=== PATIENT | female | born 1945 | race Caucasian/White ===

== ENCOUNTER 2018-01-23 15:57 | Inpatient (IN) | payer MEDICARE, SELFPAY ==
[2018-01-23] VITALS (9 sets, daily range): BP systolic 94–139; BP diastolic 39–83; PULSE 71–96; RESP 15–17; TEMP 36.7–37.4; O2SAT 96–100; BMI 21.4; BMI 19.3; BMI 21.5
--- NOTE | 2018-01-23 16:34 | EKG12_ITS ---
Test Reason : GI BLEED Blood Pressure : / mmHG Vent. Rate : 078 BPM Atrial Rate : 078 BPM P-R Int : 138 ms QRS Dur : 092 ms QT Int : 382 ms P-R-T Axes : 046 048 030 degrees QTc Int : 435 ms Normal sinus rhythm Normal ECG Confirmed by LISA BERKOWITZ, SYL ([id number]), purchase request editor EVE GERMAIN ([id number]) on 01/25/2018 2:48:12 PM Referred By: CAYLA Confirmed By:SYL GONZALEZ MD
[2018-01-23 16:48] LABS: Absolute Lymphocyte Count 0.95 X10^3/ul (0.83-4.51); Basophil# 0.01 X10^3/uL; Basophil% 0.2 % (0-1); Eosinophil# 0.04 X10^3/uL; Eosinophils% 0.6 % (0-5); Lymphocyte # 0.95 X10^3/ul (4.0); Lymphocyte % 14.4 % (19-41); Mean Corpuscular Volume 93.5 fL (81-99); Mean Platelet Vol. 10.2 fl (6.2-12.0); Monocyte# 0.58 X10^3/uL; Monocyte% 8.8 % (0-10); Neutrophil % 75.8 % (47-70); POSITIVE COUNT NO; POSITIVE DIFFERENTIAL NO; POSITIVE MORPHOLOGY NO; Platelet Count 351 K/mm3 (150-450); RBC Distribution Width CV 15.6 % (11.6-14.6); RBC Distribution Width SD 53.6 fl (35.1-43.9); Red Blood Count 2.14 M/mm3 (4.2-5.4); White Blood Count 6.6 K/mm3 (4.4-11.0)
[2018-01-23 16:52] LABS: Partial Thromboplast Time 24.7 Seconds (24.1-36.2); Prothrombin Time (Protime)PT. 13.3 SECONDS (11.7-14.9)
[2018-01-23 17:02] LABS: ALB/GLOB Ratio 1.1 RATIO (0.9-2.4); AST(SGOT) 17 U/L (15-37); Alanine Aminotransfer ALT/SGPT 18 U/L (13-56); Albumin, Serum 3.4 g/dL (3.2-5.0); Alkaline Phosphatase 58 U/L (45-117); Anion Gap 7 (5-15); BUN 22 mg/dL (7-18); Calcium,Total 8.5 mg/dL (8.5-10.1); Chloride 105 mmol/L (98-107); Creatinine, Serum 0.88 mg/dL (0.55-1.02); EST Glomerular Filtration Rate 67 mL/min (>60); Est Glom Filt Rate - Afr Amer 81 mL/min (>60); Estimated Creatinine Clearance 46.38 ml/min; Globulin 3.2 g/dL (2.2-4.2); Glucose 95 mg/dL (74-106); Lipase 434 U/L (73-393); Potassium 4.1 mmol/L (3.5-5.1); Protein, Total 6.6 g/dL (6.4-8.2); Sodium Level 140 mmol/L (136-145)
--- NOTE | 2018-01-23 17:59 | PCM.HP.STD ---
History of Present Illness Date of Admission: 01/23/18 Chief Complaint: Rectal bleed, low hemoglobin The patient is a 72 year old F past medical history of endometrial and cervical cancer in remission since 2016, history of diverticular gastrointestinal bleed who presented to the emergency room with red blood and black tarry stools on and off for the past 3 weeks. She reports abdominal pain and back pain. She denies any nausea, vomiting all hematemesis. She saw the primary care doctor and she was noted to be pale and weak, she was sent to the emergency room for further evaluation. Her hemoglobin is noted to be 6. The patient was also admitted here in November of this year with similar presentation of red blood and black tarry stools and underwent colonoscopy with clip applied to control diverticular bleeding, epinephrine injection for bleeding, mucosal biopsies for irregular mucosa. The patient reports that the bleeding stopped after the procedure but it has started again in the past 3 weeks. Past Medical History Past Medical History (Chronic Problems): Chronic Problems Inanition (Chronic) Weight loss, unintentional (Chronic) Leukopenia (Chronic) Cervical cancer (Chronic) Endometrial cancer (Chronic) Allergies acetaminophen [From Percocet] Allergy (Verified 01/23/18 15:58) Other ibuprofen [From Motrin] Allergy (Verified 01/23/18 15:58) Unknown omega-3 acid ethyl esters Allergy (Verified 01/23/18 15:58) Unknown oxycodone Allergy (Verified 01/23/18 15:58) Unknown oxycodone HCl [From Percocet] Allergy (Verified 01/23/18 15:58) Other Penicillins Allergy (Verified 01/23/18 15:58) Unknown Home Medications: Ambulatory Orders Medication Instructions Recorded Ensure Enlive 120 ml PO 4X/DAY #1 box 07/30/16 Hydrocodone/Acetaminophen [[place] 1 each PO Q6H PRN PRN 01/23/18 5-325 Tablet] Surgical History: appendectomy, tonsillectomy, - 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 Pt really does not know much about her FH. Review of Systems Comment: All Systems were reviewed with pertinent positives mentioned in the HPI above. VTE Information - Inpt Only VTE Present on Admission: Yes VTE Mechan Device Prophylaxis: SCD's VTE Pharm Prophylaxis ordered?: No - Physical Exam General: Alert, Oriented x3 HEENT: Atraumatic Oral: Moist Mucosa Neck: Supple, No JVD Lungs: Clear to auscultation Cardiovascular: Regular rate, Normal S1, Normal S2 Abdomen: Bowel Sounds Present, Soft, Non Tender, Non-Distended, Tender Extremities: No clubbing Neurological: Cranial nerves II-XII grossly intact, Motor Exam 5/5 strength throughout Psych/Mental Status: Normal Affect Vital Signs Temp Pulse Resp BP Pulse Ox 98.0 F 77 15 64/62 L 100 01/23/18 15:58 01/23/18 17:50 01/23/18 17:50 01/23/18 17:50 01/23/18 17:50 Assessment/Plan 1. Acute blood loss anemia likely diverticular bleed, we will will transfuse with packed RBCs. 2. Gastrointestinal bleeding; likely diverticular bleed, Dr. Wylie was consulted from the emergency room physician. The patient would likely undergo colonoscopy in AM, she will be kept n.p.o. after midnight 3. History of Endometrial and cervical cancer - in remission since 2016 s/p chemo and radiation. He is complaining of significant abdominal and back pain and would obtain CT scan of the abdomen and pelvis. 4. Chronic pain syndrome; we will resume her home analgesia. 5. DVT prophylaxis with SCDs. Code Visit Inpatient E&M: 75304 Init Hosp L3
--- NOTE | 2018-01-23 18:02 | HP.PCM_ITS ---
History of Present Illness Date of Admission: 01/23/18 Chief Complaint: Rectal bleed, low hemoglobin The patient is a 72 year old F past medical history of endometrial and cervical cancer in remission since 2016, history of diverticular gastrointestinal bleed who presented to the emergency room with red blood and black tarry stools on and off for the past 3 weeks. She reports abdominal pain and back pain. She denies any nausea, vomiting all hematemesis. She saw the primary care doctor and she was noted to be pale and weak, she was sent to the emergency room for further evaluation. Her hemoglobin is noted to be 6. The patient was also admitted here in November of this year with similar presentation of red blood and black tarry stools and underwent colonoscopy with clip applied to control diverticular bleeding, epinephrine injection for bleeding, mucosal biopsies for irregular mucosa. The patient reports that the bleeding stopped after the procedure but it has started again in the past 3 weeks. Past Medical History Past Medical History (Chronic Problems): Chronic Problems Inanition (Chronic) Weight loss, unintentional (Chronic) Leukopenia (Chronic) Cervical cancer (Chronic) Endometrial cancer (Chronic) Allergies acetaminophen [From Percocet] Allergy (Verified 01/23/18 15:58) Other ibuprofen [From Motrin] Allergy (Verified 01/23/18 15:58) Unknown omega-3 acid ethyl esters Allergy (Verified 01/23/18 15:58) Unknown oxycodone Allergy (Verified 01/23/18 15:58) Unknown oxycodone HCl [From Percocet] Allergy (Verified 01/23/18 15:58) Other Penicillins Allergy (Verified 01/23/18 15:58) Unknown Home Medications: Ambulatory Orders Medication Instructions Recorded Ensure Enlive 120 ml PO 4X/DAY #1 box 07/30/16 Hydrocodone/Acetaminophen [[place] 1 each PO Q6H PRN PRN 01/23/18 5-325 Tablet] Surgical History: appendectomy, tonsillectomy, - 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 Pt really does not know much about her FH. Review of Systems Comment: All Systems were reviewed with pertinent positives mentioned in the HPI above. VTE Information - Inpt Only VTE Present on Admission: Yes VTE Mechan Device Prophylaxis: SCD's VTE Pharm Prophylaxis ordered?: No - Physical Exam General: Alert, Oriented x3 HEENT: Atraumatic Oral: Moist Mucosa Neck: Supple, No JVD Lungs: Clear to auscultation Cardiovascular: Regular rate, Normal S1, Normal S2 Abdomen: Bowel Sounds Present, Soft, Non Tender, Non-Distended, Tender Extremities: No clubbing Neurological: Cranial nerves II-XII grossly intact, Motor Exam 5/5 strength throughout Psych/Mental Status: Normal Affect Vital Signs Temp Pulse Resp BP Pulse Ox 98.0 F 77 15 64/62 L 100 01/23/18 15:58 01/23/18 17:50 01/23/18 17:50 01/23/18 17:50 01/23/18 17:50 Assessment/Plan 1. Acute blood loss anemia likely diverticular bleed, we will will transfuse with packed RBCs. 2. Gastrointestinal bleeding; likely diverticular bleed, Dr. Wylie was consulted from the emergency room physician. The patient would likely undergo colonoscopy in AM, she will be kept n.p.o. after midnight 3. History of Endometrial and cervical cancer - in remission since 2016 s/p chemo and radiation. He is complaining of significant abdominal and back pain and would obtain CT scan of the abdomen and pelvis. 4. Chronic pain syndrome; we will resume her home analgesia. 5. DVT prophylaxis with SCDs. Code Visit Inpatient E&M: 77089 Init Hosp L3
[2018-01-23] MEDS: Electrolyte Solution/Peg's 4000 ML PO (20:59)
--- NOTE | 2018-01-23 21:15 | NURSING ---
Spoke with pharmacy they are trying to clarify patient home med rec of [place] - patient to be clears and NPO for colonoscopy with MD Wylie tomorrow at 11am. Md Arcos notified of patients pain and ordered Tylenol Recal 500mg q6hprn. Informed patient would be receiving Golytely. MD continued with order. Patient refused medication and also informed that patient has a mild allergy to tylenol/acetaminophen. Patient refusing medication - MD Arcos still on the phone with another RN - informed MD that the patient had refused the medication due to the Golytely and prior to being able to express the allergy the MD stated,Ok. Thats all. and hung up the phone. Will follow-up with an arch page if MD has not put in an alternative order for pain.
[2018-01-23 23:03] LABS: Hematocrit 18.3 % (37-47)
[2018-01-23 23:05] LABS: Hemoglobin 5.4 g/dl (12.0-15.0)
--- NOTE | 2018-01-23 23:05 | ED.DCSUM_ITS ---
- ER Visit Summary Date of Service: 01/23/18 Chief Complaint: Blood in stool History of Present Illness: The patient is a 72 F who states that for the past 5 or 6 days she has had bright red blood to dark blood in her stool. She states that she normally has a bowel movement in the morning however as the day goes on she notes continued drainage from the rectum into a pad. She was admitted to the hospital in November and had bleeding diverticula. She was scoped by Dr. Wylie. Last hemoglobin 8.6 on December 24. She was seen in her doctor's office today and sent to the emergency department. Patient denies any syncope. No palpitations. She denies being on blood thinners. Physical Examination: Afebrile vital signs are stable Gen: Well-nourished well-developed Head: Normocephalic atraumatic Eyes: Perrl EOMI conjunctiva ENT: TMs clear no rhinorrhea moist mucous membranes Neck: Supple no lymphadenopathy no JVD nontender CVS: Regular rate rhythm no murmurs normal S1-S2 Respiratory: No distress clear to auscultation bilaterally chest nontender Abdomen: Soft nontender nondistended normal bowel sounds no masses Back: Nontender Rectal: There is gross blood on digital rectal exam. No stool in the vault. Extremity: Nontender no edema Skin: Parlor no rash Neuro: alert orientated ?3 CN II-XII intact normal strength sensation reflexes gait cerebellar Psych: Normal affect normal mood Test Results: Hemoglobin at 6. Troponin negative. Coags normal. EKG sinus at a rate of 78. Patient was typed and screened Emergency Department Course and Treatment: Spoke with Dr. Wylie who is happy to consult on the patient and will try to get her arranged for colonoscopy in the morning. Patient will be admitted to the medicine service. And agrees to transfusion and hospitalization Impression: 1. Lower GI bleed -suspect diverticular bleed 2. Anemia requiring transfusion This note was generated with [employer] dictation software. It may contain incorrect words, spelling, and punctuation that were not noted in review of the chart prior to signing ED Disposition - Plan for ED Patient: Disposition: Acute Care [facility] Chief Complaint: GI Bleed
[2018-01-23] MEDS: Morphine 2 MG/ML Syringe 1 MG IV (23:07)
[2018-01-23] MEDS: 0.9% NaCl Peripheral Flush Adult/Peds IV (23:07)
[2018-01-24] VITALS (23 sets, daily range): BP systolic 100–130; BP diastolic 39–56; PULSE 62–84; RESP 16; TEMP 36.7–37.3; O2SAT 94–100; BMI 19.3
--- NOTE | 2018-01-24 | COLBX_PTH ---
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 Michael Chaidez MD : 1945 BED: 1 DIS: 01/26/2018 SPEC #: [id number] RECD: 01/24/18 13:47 STATUS: NIRAJ REGenet #: [id number] KASI: 01/24/18 00:[address]: Eve Wylie DEPT: SURGICAL PATHOLOGY RECD BY: Jamie Subramanian ENTERED: 01/24/18 13:47 SP TYPE: COLON BX OTHR DR: MD Hector Marie MD Dr. Mark Elderbrock, MD Tissues: Sigmoid colon biopsy Procedures: Surgery Specimen Level IV Comments: @ Ordering doctor for SUIV edited from to @ by GOSIA at 01/24/18 155 @ Submitting doctor edited from to DR.LWANG Kuo by YANCYOD at 01/24/18 1552 HEADER OPERATION: Colonoscopy with biopsy PRE-OP DIAGNOSIS: Rectal bleed TISSUE SUBMITTED: Sigmoid rectal junction biopsy MICROSCOPIC DIAGNOSIS Sigmoid rectal junction biopsy: Fragments of colonic mucosa with focally dilated blood vessels, fibrosis of lamina propria and mild nonspecific chronic inflammation. Negative for malignancy. SUZAN:amanda 01/25/18 COMMENT Correlation with clinical, endoscopic findings and appropriate follow up are necessary. Case has been reviewed in consultation with Dr. Dumont who concurs with the above diagnosis. IDC:AM MICROSCOPIC DESCRIPTION Slides are reviewed. GROSS DESCRIPTION Received in fixative is one container labeled with the patient's name and designated sigmoid rectal junction biopsy. The specimen consists of multiple irregular fragments of light [place] soft tissue that in aggregate measure 1.5 x 0.3 x 0.1 cm. The specimen is totally submitted in one cassette. / SUZAN:amanda 01/24/18 TC:5 CPT: 81133
--- NOTE | 2018-01-24 00:07 | NURSING ---
first unit of PRBC started at 2351 - consent signed, vitals obtained, verified with second nurse. Pt educated on need and side-effects of blood. PT denies any further questions. Pt tolerating well - no side-effects.
--- NOTE | 2018-01-24 02:20 | NURSING ---
Patient blood transfusion unit 1 ended at 0211 - patient had no side-effects and tolerated the transfusion.
--- NOTE | 2018-01-24 03:41 | NURSING ---
second unit of PRBC started at 0326 - consent signed, vitals obtained, verified with second nurse Zulema GARCIA. Pt educated on need and side-effects of blood. PT denies any further questions. Pt tolerating well - no side-effects.
--- NOTE | 2018-01-24 05:50 | NURSING ---
Patient blood transfusion unit 2 ended at 0550 - patient had no side-effects and tolerated the transfusion.
[2018-01-24] MEDS: 0.9% NaCl Peripheral Flush Adult/Peds IV ×2 (06:22→07:57)
[2018-01-24 06:58] LABS: Absolute Neutrophil Count 3.2 X10^3/uL (2.0-7.7); Basophil# 0.01 X10^3/uL; Basophil% 0.2 % (0-1); Eosinophil# 0.03 X10^3/uL; Eosinophils% 0.7 % (0-5); Hematocrit 26.8 % (37-47); Hemoglobin 8.3 g/dl (12.0-15.0); Lymphocyte % 15.6 % (19-41); Mean Corpuscular Hgb 27.6 pg (27.0-32.0); Mean Platelet Vol. 9.7 fl (6.2-12.0); Monocyte# 0.59 X10^3/uL; Monocyte% 13.1 % (0-10); Neutrophil # 3.15 X10^3/uL (2.7-7.7); Neutrophil % 70.2 % (47-70); Platelet Count 271 K/mm3 (150-450); RBC Distribution Width CV 16.6 % (11.6-14.6); RBC Distribution Width SD 54.4 fl (35.1-43.9); Red Blood Count 3.01 M/mm3 (4.2-5.4); White Blood Count 4.5 K/mm3 (4.4-11.0)
[2018-01-24 07:05] LABS: POSITIVE COUNT NO; POSITIVE DIFFERENTIAL NO; POSITIVE MORPHOLOGY NO
[2018-01-24 07:14] LABS: Anion Gap 7 (5-15); BUN 16 mg/dL (7-18); BUN/Creat Ratio 18.9 RATIO (10-20); Calcium,Total 8.4 mg/dL (8.5-10.1); Chloride 108 mmol/L (98-107); Creatinine, Serum 0.84 mg/dL (0.55-1.02); EST Glomerular Filtration Rate 70 mL/min (>60); Est Glom Filt Rate - Afr Amer 85 mL/min (>60); Estimated Creatinine Clearance 49.55 ml/min; Glucose 93 mg/dL (74-106); Potassium 4.1 mmol/L (3.5-5.1); Sodium Level 143 mmol/L (136-145)
--- NOTE | 2018-01-24 07:48 | PCM.PROGNOTE ---
Subjective: Chief complaint: Follow-up after admission for GI bleed and acute blood loss anemia. Patient seen and examined. No acute events overnight. She still having dark black stools, no more bright red blood. She complained of lower abdominal pain described as discomfort, vague. Denied nausea vomiting. Denied dizziness or lightheadedness. Denies fever chills. Denied chest pain or shortness of breath. Vital signs are stable. - Physical Exam General: Alert, Oriented x3, Cooperative, No apparent distress HEENT: Atraumatic, PERRLA, EOMI Oral: Moist Mucosa, No Gingival or Mucosal Lesions/ Ulcerations Neck: Supple, No JVD, Negative Carotid Bruits, Trachea Midline, Thyroid Normal Size and Texture Lungs: Clear to auscultation, No rhonchi, No wheeze, No rales, Diminished Cardiovascular: Regular rate, Regular Rhythm, Normal S1, Normal S2, No murmurs Abdomen: Bowel Sounds Present, Soft, Non Tender, Non-Distended, No Hepato-splenomegaly Extremities: No clubbing, No cyanosis, No edema Skin: No rashes, No breakdown Lymphatic: No Cervical, Supraclavicular, or Inguinal Adenopathy Neurological: Cranial nerves II-XII grossly intact, Motor Exam 5/5 strength throughout Psych/Mental Status: Normal Affect, Appropriate, Alert and oriented to time, place, person, mood and affect Vital Signs Temp Pulse Resp BP Pulse Ox 98.5 F 69 16 130/46 H 99 01/24/18 05:41 01/24/18 06:57 01/24/18 05:41 01/24/18 05:41 01/24/18 05:41 Oxygen Delivery Method Room Air Weight: 112 lb 10.499 oz Body Mass Index (BMI) 19.3 Intake and Output for Last 24 Hours 01/22/18 01/23/18 01/24/18 23:59 23:59 23:59 Intake Total 400 / 400 2343 / 2343 Output Total 100 / 100 Balance 400 / 400 2243 / 2243 Laboratory Tests Past 24 Hrs 01/23/18 01/24/18 01/24/18 22:30 06:45 06:45 WBC 4.5 RBC 3.01 L Hgb 5.4 L* 8.3 L Hct 18.3 L 26.8 L MCV 89.0 MCH 27.6 MCHC 31.0 L RDW 16.6 H RDW Differential 54.4 H Plt Count 271 MPV 9.7 Immature Gran % (Auto) 0.200 Neut % (Auto) 70.2 H Lymph % (Auto) 15.6 L [place] % (Auto) 13.1 H Eos % (Auto) 0.7 Baso % (Auto) 0.2 Absolute Neuts (auto) 3.2 Absolute Lymphs (auto) 0.70 L Total Counted Not Reportable Sodium 143 Potassium 4.1 Chloride 108 H Carbon Dioxide 28.0 Anion Gap 7 BUN 16 Creatinine 0.84 Estim Creat Clear Calc 49.55 Est GFR (MDRD) Af Amer 85 Est GFR (MDRD) Non-Af 70 BUN/Creatinine Ratio 18.9 Glucose 93 Calcium 8.4 L Medical Necessity - Tobacco Use Smoking Status: Former smoker Assessment/Plan This is a 72 years old female patient admitted because of dark black stool per rectum as well as bright red blood and she was found to have acute blood loss anemia in context of recent history of similar presentation, underwent colonoscopy with clipping and epinephrine injections and she started having rebleeding again in the past 2 weeks. #1 GI bleed: Probably lower GI bleed secondary to diverticular bleed. In general, 2018, she had similar presentation, found to have diverticular bleed and she underwent colonoscopy with clipping to control the bleeding. She is still having black dark stool overnight but no more bright red blood. She denies chest pain, shortness of breath, dizziness or lightheadedness. Vital signs are stable. General surgery consulted, plan for colonoscopy today. #2 acute on chronic blood loss anemia: Secondary to above. Her baseline hemoglobin has been around 8-10 g/dL, has been down to 7 g/dL as well. Admission hemoglobin was 6 g/dL, came down to 5.4, received 2 units of packed RBCs and today's hemoglobin is 8.3 g/dL. Her pro time and INR were normal. Platelet count is normal. Plan as above, repeat H&H at 6 PM today, repeat CBC tomorrow morning. #3 cervical cancer/endometrial cancer: Status post chemotherapy and radiation, in remission. #4 history of DVT: Resolved, treated in the past with blood thinners. She has been off anticoagulation for long time. #5 DVT prophylaxis: SCDs. This note was generated with [employer] software. It may contain incorrect words, spelling, and punctuation that were not noted in checking the note before signing. Code Visit Inpatient E&M: 66471 Subs Hosp L2
[2018-01-24] MEDS: 0.9% Normal Saline 1,000 ML 75 ML IV (07:58)
[2018-01-24] MEDS: Morphine 2 MG/ML Syringe 1 MG IV (07:58)
--- NOTE | 2018-01-24 10:57 | CON.PCM_ITS ---
- Consult Date of Consult: 01/24/18 - Reason for Consult Chief Complaint: rectal bleeding, anemia History of Present Illness: 72 y/o WF who has had no previous colonoscopy, presents with rectal bleeding and anemia, initial Hgb was 7.6. Noted rectal bleeding for the past two months. Denies rectal pain. Complaint of lightheadedness and presented to [facility] ED. Hx of GI bleeds for which she has been admitted for in the past. She did not have endoscopy at that time. Hx of pelvic radiation for uterine cancer. Denies abdominal pain. Past Medical History: history of cervical cancer - s/p chemotherapy and radiation therapy, no surgery anorexia Past Surgical History: appendectomy tonsillectomy Medications: norco ensure Allergies: acetaminophen ibuprofen fish oil oxycodone pcn Social history: TOB use denies lives alone Review of Systems: General - denies fevers, has been having weight loss, has decreased appetite Cardiovascular denies chest pain Pulmonary has shortness of breath, denies coughing up blood Gastrointestinal denies abdominal pain, rectal bleeding noted as per HPI Neurological denies numbness/weakness of extremities, denies seizures Genitourinary denies burning with urination, denies blood in urine Hematological has easy bruising, denies spontaneous/prolonged bleeding Skin denies open non-healing wounds Musculoskeletal has some joint pain Endocrine denies diabetes Psychological denies hallucinations Physical examination: Vital signs Temp 97.2F General WD/WN WF in no apparent distress, alert and oriented, not septic appearing HEENT Normocephalic. EOM intact with sclera clear and no icterus noted. Neck is supple with no jugular venous distention noted. Trachea is midline. Lungs clear to auscultation. normal breath sounds in all lung chavarria. No rales/rhonchi/wheezing noted. No labored breathing noted, such as retractions. . Heart normal S1 and S2 auscultated. No rubs/clicks/murmurs noted. Normal size and location by auscultation. Abdomen soft and benign. Normal bowel sounds . . Extremities no calf tenderness noted. No pitting edema noted. Genitourinary/Rectal deferred Skin normal skin integrity. Neurological non focal Psychological normal affect, patient is calm and appropriate Impression: rectal bleeding anemia history of diverticular bleeding Nov 2017 Discussion/Plan: I have discussed the above with the patient. I have offered the patient the procedure of colonoscopy. I have explained the procedure to the patient. I have counseled the patient as to the risks of the procedure, including but not limited to: infection, bleeding, injury to any blood vessels/nerves, scar tissue, injury to any intraabdominal organs such as the liver/spleen, perforation of the GI tract, inability to complete the procedure, complications of anesthesia, postoperative pneumonia/cardiac problems/blood clots etc. - the patient understands. The patient agrees to proceed. I have answered all questions to the patients satisfaction and the patient has no further questions.
--- NOTE | 2018-01-24 11:42 | OP.PCM_ITS ---
Report of Operation Date of Procedure: 01/24/18 Pre-Operative Diagnosis: rectal bleeding, anemia Post-Operative Diagnosis: rectal bleeding, anemia, distal sigmoid and rectal sigmoid junction with friable mucosal and spotty areas of bleeding Surgery/Procedure Performed:: colonoscopy with mucosal injections of epinephrine for control of bleeding, mucosal biopsies of sigmoid colon - distal Description of Surgical Findings:: friable bleeding mucosa at 25 cm, sigmoid colon, biopsies taken with cold grasper forceps, also injections of epinephrine given into mucosa Anesthesiologist: Chetan Bridges Specimen's removed: mucosal biopsies of distal sigmoid colon Estimated Blood Loss (mL): < 10 ml Fluids Replaced: see anesthesia note Description of Procedure: After informed consent was given, the patient was brought to the endoscopy suite and placed in the supine position. Appropriate time out protocol was followed. Appropriate cardiac, blood pressure, and pulse oximetry monitoring was placed. After stable vital signs were noted, the patient was given intravenous conscious sedation. The patient was then placed in the left lateral decubitis position. The colonoscope was lubricated and carefully inserted into the patient?s anus. It was then advanced into the rectum, then into the sigmoid colon, then into the left descending colon, past the splenic flexure, into the transverse colon, past the hepatic flexure, then down into the right descending colon and into the cecum. The cecum was identified by: transillumination. At this point, the colonoscope was slowly retracted back and the entire colonic mucosa was examined. At the distal aspect of the sigmoid colon (25cm from the anal verge), there was an area of friable, erythematous and bleeding mucosa. Mucosal biopsies were taken of this area. Difficult to determine if bleeding caused by scope trauma or biopsy trauma, therefore area injected with epinephrine. This resulted in no active bleeding noted. This did not appear as diverticular bleeding. Retroflex view in the rectum revealed no lesions in the rectal vault. The colonoscope was removed intact. Patient tolerated procedure well.. - Complications none noted - Admit VTE Documentation VTE Present on Admission: Yes VTE Mechan Device Prophylaxis: SCD's
--- NOTE | 2018-01-24 16:47 | CASEMGMT ---
Face to Face with patient for initial transition planning/care coordination assessment. JOSE PRINGLE introduced self and role at [facility], pt voices understanding and consents to assessment at this time. Pt is sitting up in bed in no distress at this time. Pt A/O x4 at this time and answers all questions appropriately at this time. Care providers, pharmacy, and demographics verified. See attached link. Pt voices no further concerns/needs at this time. Advised pt to ask for CM if any further questions/concerns/needs arise, voices understanding. CM to follow for any further discharge planning/needs, pt may need home oxygen. PLAN[place]SE PRINGLE
[2018-01-24 18:29] LABS: Hematocrit 24.4 % (37-47); Hemoglobin 7.5 g/dl (12.0-15.0)
[2018-01-24] MEDS: HYDROcodone Bitartrate/Apap 5/325 Tablet PO (21:13)
[2018-01-25] VITALS (14 sets, daily range): BP systolic 99–119; BP diastolic 40–55; PULSE 57–76; RESP 12–16; TEMP 36.1–37.4; O2SAT 96–100
[2018-01-25 06:09] LABS: Absolute Lymphocyte Count 0.84 X10^3/ul (0.83-4.51); Absolute Neutrophil Count 2.8 X10^3/uL (2.0-7.7); Basophil# 0.02 X10^3/uL; Basophil% 0.5 % (0-1); Eosinophil# 0.06 X10^3/uL; Eosinophils% 1.4 % (0-5); Hemoglobin 7.7 g/dl (12.0-15.0); Lymphocyte # 0.84 X10^3/ul (4.0); Lymphocyte % 19.4 % (19-41); Mean Corp Hgb Conc 30.8 g/gl (32-36); Mean Corpuscular Hgb 28.3 pg (27.0-32.0); Mean Corpuscular Volume 91.9 fL (81-99); Mean Platelet Vol. 10.7 fl (6.2-12.0); Monocyte# 0.64 X10^3/uL; Monocyte% 14.7 % (0-10); Neutrophil # 2.77 X10^3/uL (2.7-7.7); Neutrophil % 63.8 % (47-70); Platelet Count 239 K/mm3 (150-450); RBC Distribution Width CV 16.3 % (11.6-14.6); RBC Distribution Width SD 53.2 fl (35.1-43.9); Red Blood Count 2.72 M/mm3 (4.2-5.4); White Blood Count 4.3 K/mm3 (4.4-11.0)
[2018-01-25 06:11] LABS: POSITIVE COUNT NO; POSITIVE DIFFERENTIAL NO; POSITIVE MORPHOLOGY NO
[2018-01-25 06:29] LABS: Anion Gap 8 (5-15); BUN 14 mg/dL (7-18); BUN/Creat Ratio 15.5 RATIO (10-20); Chloride 109 mmol/L (98-107); EST Glomerular Filtration Rate 65 mL/min (>60); Est Glom Filt Rate - Afr Amer 79 mL/min (>60); Estimated Creatinine Clearance 46.25 ml/min; Glucose 90 mg/dL (74-106); Lipase 133 U/L (73-393); Potassium 4.3 mmol/L (3.5-5.1); Sodium Level 144 mmol/L (136-145)
--- NOTE | 2018-01-25 07:53 | PCM.PROGNOTE ---
Subjective: Chief complaint: Follow-up after admission for GI bleed and acute blood loss anemia. Patient seen and examined. No acute events overnight. The patient is very poor informant. She mentioned that her stools are sometimes brown and sometimes dark black. Few minutes later, she mentioned that she still sees some bright red blood in her stool as well. She denied abdominal pain. No chest pain or shortness of breath. Her vital signs are stable. - Physical Exam General: Alert, Cooperative, No apparent distress HEENT: Atraumatic, PERRLA, EOMI Oral: Moist Mucosa, No Gingival or Mucosal Lesions/ Ulcerations Neck: Supple, No JVD, Negative Carotid Bruits, Trachea Midline, Thyroid Normal Size and Texture Lungs: Clear to auscultation, No rhonchi, No wheeze, No rales, Diminished Cardiovascular: Regular rate, Regular Rhythm, Normal S1, Normal S2, PMI Normal Abdomen: Bowel Sounds Present, Soft, Non Tender, Non-Distended, No Hepato-splenomegaly Extremities: No clubbing, No cyanosis, No edema Skin: No rashes, No breakdown Lymphatic: No Cervical, Supraclavicular, or Inguinal Adenopathy Neurological: Cranial nerves II-XII grossly intact, Neuro grossly intact Psych/Mental Status: Normal Affect, Appropriate Vital Signs Temp Pulse Resp BP Pulse Ox 97.6 F L 58 L 16 117/55 L 96 01/25/18 03:14 01/25/18 07:00 01/25/18 03:14 01/25/18 03:14 01/25/18 03:14 Oxygen Delivery Method Room Air Weight: 112 lb 10.499 oz Body Mass Index (BMI) 19.3 Intake and Output for Last 24 Hours 01/23/18 01/24/18 01/25/18 23:59 23:59 23:59 Intake Total 400 / 400 4240 / 4240 300 / 300 Output Total 100 / 100 200 / 200 Balance 400 / 400 4140 / 4140 100 / 100 Laboratory Tests Past 24 Hrs 01/24/18 01/25/18 01/25/18 18:20 05:15 05:15 WBC 4.3 L RBC 2.72 L Hgb 7.5 L 7.7 L Hct 24.4 L 25.0 L MCV 91.9 MCH 28.3 MCHC 30.8 L RDW 16.3 H RDW Differential 53.2 H Plt Count 239 MPV 10.7 Immature Gran % (Auto) 0.200 Neut % (Auto) 63.8 Lymph % (Auto) 19.4 [place] % (Auto) 14.7 H Eos % (Auto) 1.4 Baso % (Auto) 0.5 Absolute Neuts (auto) 2.8 Absolute Lymphs (auto) 0.84 Total Counted Not Reportable Sodium 144 Potassium 4.3 Chloride 109 H Carbon Dioxide 27.0 Anion Gap 8 BUN 14 Creatinine 0.90 Estim Creat Clear Calc 46.25 Est GFR (MDRD) Af Amer 79 Est GFR (MDRD) Non-Af 65 BUN/Creatinine Ratio 15.5 Glucose 90 Calcium 8.0 L Lipase 133 Medical Necessity - Tobacco Use Smoking Status: Former smoker Assessment/Plan This is a 72 years old female patient admitted because of dark black stool per rectum as well as bright red blood and she was found to have acute blood loss anemia in context of recent history of similar presentation, underwent colonoscopy with clipping and epinephrine injections and she started having rebleeding again in the past 2 weeks. #1 GI bleed: Probably lower GI bleed secondary to diverticular bleed. She underwent colonoscopy yesterday that revealed friable, erythematous and bleeding mucosa at the distal aspect of the sigmoid colon and rectosigmoid junction, status post mucosal injections with epinephrine and biopsies. Patient's still having dark colored stool. Hemoglobin again dropped down to 7.7 g/dL. Vital signs are stable. Plan to transfuse another unit of packed RBCs. #2 acute on chronic blood loss anemia: Secondary to above. Her baseline hemoglobin has been around 8-10 g/dL, has been down to 7 g/dL as well. Admission hemoglobin was 6 g/dL, came down to 5.4, received 2 units of packed RBCs and today's hemoglobin is 7.7 g/dL. Her pro time and INR were normal. Platelet count is normal. Plan to transfuse another unit of packed RBCs, repeat H&H tomorrow morning. #3 cervical cancer/endometrial cancer: Status post chemotherapy and radiation, in remission. #4 history of DVT: Resolved, treated in the past with blood thinners. She has been off anticoagulation for long time. #5 DVT prophylaxis: SCDs. This note was generated with NeuroTronikation software. It may contain incorrect words, spelling, and punctuation that were not noted in checking the note before signing. Code Visit Inpatient E&M: 32523 Subs Hosp L2
--- NOTE | 2018-01-25 07:58 | PN_ITS ---
Subjective: Chief complaint: Follow-up after admission for GI bleed and acute blood loss anemia. Patient seen and examined. No acute events overnight. The patient is very poor informant. She mentioned that her stools are sometimes brown and sometimes dark black. Few minutes later, she mentioned that she still sees some bright red blood in her stool as well. She denied abdominal pain. No chest pain or shortness of breath. Her vital signs are stable. - Physical Exam General: Alert, Cooperative, No apparent distress HEENT: Atraumatic, PERRLA, EOMI Oral: Moist Mucosa, No Gingival or Mucosal Lesions/ Ulcerations Neck: Supple, No JVD, Negative Carotid Bruits, Trachea Midline, Thyroid Normal Size and Texture Lungs: Clear to auscultation, No rhonchi, No wheeze, No rales, Diminished Cardiovascular: Regular rate, Regular Rhythm, Normal S1, Normal S2, PMI Normal Abdomen: Bowel Sounds Present, Soft, Non Tender, Non-Distended, No Hepato- splenomegaly Extremities: No clubbing, No cyanosis, No edema Skin: No rashes, No breakdown Lymphatic: No Cervical, Supraclavicular, or Inguinal Adenopathy Neurological: Cranial nerves II-XII grossly intact, Neuro grossly intact Psych/Mental Status: Normal Affect, Appropriate Vital Signs Temp Pulse Resp BP Pulse Ox 97.6 F L 58 L 16 117/55 L 96 01/25/18 03:14 01/25/18 07:00 01/25/18 03:14 01/25/18 03:14 01/25/18 03:14 Oxygen Delivery Method Room Air Weight: 112 lb 10.499 oz Body Mass Index (BMI) 19.3 Intake and Output for Last 24 Hours 01/23/18 01/24/18 01/25/18 23:59 23:59 23:59 Intake Total 400 / 400 4240 / 4240 300 / 300 Output Total 100 / 100 200 / 200 Balance 400 / 400 4140 / 4140 100 / 100 Laboratory Tests Past 24 Hrs 01/24/18 01/25/18 01/25/18 18:20 05:15 05:15 WBC 4.3 L RBC 2.72 L Hgb 7.5 L 7.7 L Hct 24.4 L 25.0 L MCV 91.9 MCH 28.3 MCHC 30.8 L RDW 16.3 H RDW Differential 53.2 H Plt Count 239 MPV 10.7 Immature Gran % (Auto) 0.200 Neut % (Auto) 63.8 Lymph % (Auto) 19.4 [place] % (Auto) 14.7 H Eos % (Auto) 1.4 Baso % (Auto) 0.5 Absolute Neuts (auto) 2.8 Absolute Lymphs (auto) 0.84 Total Counted Not Reportable Sodium 144 Potassium 4.3 Chloride 109 H Carbon Dioxide 27.0 Anion Gap 8 BUN 14 Creatinine 0.90 Estim Creat Clear Calc 46.25 Est GFR (MDRD) Af Amer 79 Est GFR (MDRD) Non-Af 65 BUN/Creatinine Ratio 15.5 Glucose 90 Calcium 8.0 L Lipase 133 Medical Necessity - Tobacco Use Smoking Status: Former smoker Assessment/Plan This is a 72 years old female patient admitted because of dark black stool per rectum as well as bright red blood and she was found to have acute blood loss anemia in context of recent history of similar presentation, underwent colonoscopy with clipping and epinephrine injections and she started having rebleeding again in the past 2 weeks. #1 GI bleed: Probably lower GI bleed secondary to diverticular bleed. She underwent colonoscopy yesterday that revealed friable, erythematous and bleeding mucosa at the distal aspect of the sigmoid colon and rectosigmoid junction, status post mucosal injections with epinephrine and biopsies. Patient 's still having dark colored stool. Hemoglobin again dropped down to 7.7 g/dL. Vital signs are stable. Plan to transfuse another unit of packed RBCs. #2 acute on chronic blood loss anemia: Secondary to above. Her baseline hemoglobin has been around 8-10 g/dL, has been down to 7 g/dL as well. Admission hemoglobin was 6 g/dL, came down to 5.4, received 2 units of packed RBCs and today's hemoglobin is 7.7 g/dL. Her pro time and INR were normal. Platelet count is normal. Plan to transfuse another unit of packed RBCs, repeat H&H tomorrow morning. #3 cervical cancer/endometrial cancer: Status post chemotherapy and radiation, in remission. #4 history of DVT: Resolved, treated in the past with blood thinners. She has been off anticoagulation for long time. #5 DVT prophylaxis: SCDs. This note was generated with RobArtation software. It may contain incorrect words, spelling, and punctuation that were not noted in checking the note before signing. Code Visit Inpatient E&M: 27992 Subs Hosp L2
[2018-01-25] MEDS: Pantoprazole Sodium 40 MG Tablet PO (09:41)
[2018-01-25] MEDS: HYDROcodone Bitartrate/Apap 5/325 Tablet PO (17:46)
[2018-01-26 02:58] VITALS: PULSE 64
[2018-01-26 03:25] VITALS: BP 124/58; PULSE 58; RESP 14; TEMP 36.7; O2SAT 96
[2018-01-26 06:26] LABS: Hematocrit 32.7 % (37-47); Hemoglobin 10.1 g/dl (12.0-15.0)
[2018-01-26 07:32] VITALS: PULSE 57
--- NOTE | 2018-01-26 08:25 | PCM.DC ---
You will use the following diet at home:: Regular Your food should be the consistency of: Regular Discharge Activity: Return to Normal Activity Weight Bearing Status: Weight bearing as tolerated Call your doctor if you observe: Fever of 101 or Higher, Shortness of breath, Dizziness, Fainting spells, Chest pain, Increased palpitations (irregular heartbeat), Uncontrolled pain Allergies/Adverse Reactions: Allergies acetaminophen [From Percocet] Allergy (Verified 01/23/18 15:58) Other ibuprofen [From Motrin] Allergy (Verified 01/23/18 15:58) Unknown omega-3 acid ethyl esters Allergy (Verified 01/23/18 15:58) Unknown oxycodone Allergy (Verified 01/23/18 15:58) Unknown oxycodone HCl [From Percocet] Allergy (Verified 01/23/18 15:58) Other Penicillins Allergy (Verified 01/23/18 15:58) Unknown Medications to take at Discharge Ensure Enlive 120 ml PO 4X/DAY #1 box 07/30/16 Hydrocodone/Acetaminophen [[place] 5-325 Tablet] 1 each PO Q6H PRN PRN 01/23/18 Ferrous Sulfate 325 mg PO BIDCM #90 tab 01/26/18 Pantoprazole Sodium [Protonix] 40 mg PO DAILY #30 tab 01/26/18 The following prescriptions were given: Pantoprazole Sodium [Protonix] 40 mg PO DAILY #30 tab Ferrous Sulfate 325 mg PO BIDCM #90 tab Primary Care Physician: Hemant Parra MD [Primary Care Provider] - Please follow up with your Primary Care Physician in: 1 week.
[2018-01-26] MEDS: Pantoprazole Sodium 40 MG Tablet PO (08:49)
[2018-01-26 09:05] VITALS: BP 131/56; PULSE 60; RESP 16; TEMP 36.8; O2SAT 100
--- NOTE | 2018-01-26 10:55 | PCM.PN.SRG ---
Subjective: patient denies abdominal pain denies bloody bowel movements - Physical Exam General: Alert Oral: Moist Mucosa Neck: Supple Abdomen: Bowel Sounds Present, Soft, Non Tender Vital Signs Temp Pulse Resp BP Pulse Ox 98.2 F 60 16 131/56 H 100 01/26/18 09:05 01/26/18 09:05 01/26/18 09:05 01/26/18 09:05 01/26/18 09:05 Oxygen Delivery Method Room Air Weight: 51.1 kg Body Mass Index (BMI) 19.3 Intake and Output for Last 24 Hours 01/24/18 01/25/18 01/26/18 23:59 23:59 23:59 Intake Total 4240 / 4240 1605 / 1605 180 / 180 Output Total 100 / 100 500 / 500 Balance 4140 / 4140 1105 / 1105 180 / 180 Laboratory Tests Past 24 Hrs 01/26/18 05:43 Hgb 10.1 L Hct 32.7 L Medical Necessity - Tobacco Use Smoking Status: Former smoker Assessment/Plan Impression: colonic bleeding from area of friable mucosa of sigmoid colon - but no pathological etiology Plan: Hct has been stable Patient relates no further bloody bowel movements. she will be discharged to home
--- NOTE | 2018-01-26 14:50 | PCM.DC.SUM ---
Discharge Date and Diagnosis Date of Admission: 01/23/18 Date of Discharge: 01/26/18 - Primary Discharge Diagnosis #1 GI bleed, attributed to diverticular bleed. #2 acute on chronic blood loss anemia, required blood transfusion.. - Secondary Discharge Diagnosis Chronic Problems Inanition (Chronic) Weight loss, unintentional (Chronic) Leukopenia (Chronic) Cervical cancer (Chronic) Endometrial cancer (Chronic) Hospital Course and Treatment Dr. Wylie, general surgery. Operations: None Procedures: Blood transfusion, Colonoscopy Summary of Care Provided: Patient seen and examined on the day of discharge and appeared to be stable to be discharged home. She mentioned that her stool become brown with occasional black stools, no more bright red blood. She denies any more dizziness or lightheadedness. Her vital signs are stable. Physical examination: General: Alert, Cooperative, No apparent distress HEENT: Atraumatic, PERRLA, EOMI Oral: Moist Mucosa, No Gingival or Mucosal Lesions/ Ulcerations Neck: Supple, No JVD, Negative Carotid Bruits, Trachea Midline, Thyroid Normal Size and Texture Lungs: Clear to auscultation, No rhonchi, No wheeze, No rales, Diminished Cardiovascular: Regular rate, Regular Rhythm, Normal S1, Normal S2, PMI Normal Abdomen: Bowel Sounds Present, Soft, Non Tender, Non-Distended, No Hepato-splenomegaly Extremities: No clubbing, No cyanosis, No edema Skin: No rashes, No breakdown Lymphatic: No Cervical, Supraclavicular, or Inguinal Adenopathy Neurological: Cranial nerves II-XII grossly intact, Neuro grossly intact Psych/Mental Status: Normal Affect, Appropriate. Hospital course: The patient is a 72 year old F admitted because of dark black stool as well as bright red blood in the stool. She was admitted for lower GI bleed which is attributed to diverticular bleed. She underwent colonoscopy that revealed friable, erythematous and bleeding mucosa at the distal aspect of the sigmoid colon and rectosigmoid junction, status post mucosal injections with epinephrine and biopsies. She was found to have low hemoglobin which was 6 g/dL on admission. She received total of 3 units of packed RBCs and her hemoglobin went up to 10.1 g/dL on discharge. Patient was treated with IV fluids, PPI, blood transfusion and serial H&H. Her hemoglobin stayed stable after transfusion. Patient reported that the black stools are getting less and there is no more bright red blood in her stool. She has no more symptoms of dizziness or lightheadedness and weakness. Her pro time and INR as well as PTT was normal. Her platelet count was normal. Rectosigmoid junction biopsy revealed mild nonspecific chronic inflammation without evidence of malignancy. Patient discharged home in a stable medical condition, discharged on Protonix and thyroid supplement ferrous sulfate supplement, continued on [place] and protein supplement, order given to repeat CBC this coming , January 31, 2018, plan to follow-up with PCP in 1 week. Discharge Activity: Return to Normal Activity Weight Bearing Status: Weight bearing as tolerated Call your doctor if you observe: Fever of 101 or Higher, Shortness of breath, Dizziness, Fainting spells, Chest pain, Increased palpitations (irregular heartbeat), Uncontrolled pain Home Medications: Medications to take at Discharge Ensure Enlive 120 ml PO 4X/DAY #1 box 07/30/16 Hydrocodone/Acetaminophen [[place] 5-325 Tablet] 1 each PO Q6H PRN PRN 01/23/18 Ferrous Sulfate 325 mg PO BIDCM #90 tab 01/26/18 Pantoprazole Sodium [Protonix] 40 mg PO DAILY #30 tab 01/26/18 Following Prescrptions Were Given to Patient: Pantoprazole Sodium [Protonix] 40 mg PO DAILY #30 tab Ferrous Sulfate 325 mg PO BIDCM #90 tab Primary Care Physician: Hemant Parra MD [Primary Care Provider] - Please follow up with your Primary Care Physician in: 1 week. Patient Instructions: Pantoprazole Sodium Gastro-resistant tablet, Iron Supplements Disposition: Home Minutes spent on discharge:: 32 Patient Condition:: Stable Medical Necessity - Tobacco Use Smoking Status: Former smoker Meaningful Use Info Meaningful Use Diagnoses (Choose all that apply): None applicable Code Visit Inpatient E&M: 29560 Disch Hosp
--- NOTE | 2018-01-26 14:57 | DS.PCM_ITS ---
Discharge Date and Diagnosis Date of Admission: 01/23/18 Date of Discharge: 01/26/18 - Primary Discharge Diagnosis #1 GI bleed, attributed to diverticular bleed. #2 acute on chronic blood loss anemia, required blood transfusion.. - Secondary Discharge Diagnosis Chronic Problems Inanition (Chronic) Weight loss, unintentional (Chronic) Leukopenia (Chronic) Cervical cancer (Chronic) Endometrial cancer (Chronic) Hospital Course and Treatment Dr. Wylie, general surgery. Operations: None Procedures: Blood transfusion, Colonoscopy Summary of Care Provided: Patient seen and examined on the day of discharge and appeared to be stable to be discharged home. She mentioned that her stool become brown with occasional black stools, no more bright red blood. She denies any more dizziness or lightheadedness. Her vital signs are stable. Physical examination: General: Alert, Cooperative, No apparent distress HEENT: Atraumatic, PERRLA, EOMI Oral: Moist Mucosa, No Gingival or Mucosal Lesions/ Ulcerations Neck: Supple, No JVD, Negative Carotid Bruits, Trachea Midline, Thyroid Normal Size and Texture Lungs: Clear to auscultation, No rhonchi, No wheeze, No rales, Diminished Cardiovascular: Regular rate, Regular Rhythm, Normal S1, Normal S2, PMI Normal Abdomen: Bowel Sounds Present, Soft, Non Tender, Non-Distended, No Hepato- splenomegaly Extremities: No clubbing, No cyanosis, No edema Skin: No rashes, No breakdown Lymphatic: No Cervical, Supraclavicular, or Inguinal Adenopathy Neurological: Cranial nerves II-XII grossly intact, Neuro grossly intact Psych/Mental Status: Normal Affect, Appropriate. Hospital course: The patient is a 72 year old F admitted because of dark black stool as well as bright red blood in the stool. She was admitted for lower GI bleed which is attributed to diverticular bleed. She underwent colonoscopy that revealed friable, erythematous and bleeding mucosa at the distal aspect of the sigmoid colon and rectosigmoid junction, status post mucosal injections with epinephrine and biopsies. She was found to have low hemoglobin which was 6 g/ dL on admission. She received total of 3 units of packed RBCs and her hemoglobin went up to 10.1 g/dL on discharge. Patient was treated with IV fluids, PPI, blood transfusion and serial H&H. Her hemoglobin stayed stable after transfusion. Patient reported that the black stools are getting less and there is no more bright red blood in her stool. She has no more symptoms of dizziness or lightheadedness and weakness. Her pro time and INR as well as PTT was normal. Her platelet count was normal. Rectosigmoid junction biopsy revealed mild nonspecific chronic inflammation without evidence of malignancy. Patient discharged home in a stable medical condition, discharged on Protonix and thyroid supplement ferrous sulfate supplement, continued on [place] and protein supplement, order given to repeat CBC this coming , January 31, 2018, plan to follow-up with PCP in 1 week. Discharge Activity: Return to Normal Activity Weight Bearing Status: Weight bearing as tolerated Call your doctor if you observe: Fever of 101 or Higher, Shortness of breath, Dizziness, Fainting spells, Chest pain, Increased palpitations (irregular heartbeat), Uncontrolled pain Home Medications: Medications to take at Discharge Ensure Enlive 120 ml PO 4X/DAY #1 box 07/30/16 Hydrocodone/Acetaminophen [[place] 5-325 Tablet] 1 each PO Q6H PRN PRN 01/23/18 Ferrous Sulfate 325 mg PO BIDCM #90 tab 01/26/18 Pantoprazole Sodium [Protonix] 40 mg PO DAILY #30 tab 01/26/18 Following Prescrptions Were Given to Patient: Pantoprazole Sodium [Protonix] 40 mg PO DAILY #30 tab Ferrous Sulfate 325 mg PO BIDCM #90 tab Primary Care Physician: Hemant Parra MD [Primary Care Provider] - Please follow up with your Primary Care Physician in: 1 week. Patient Instructions: Pantoprazole Sodium Gastro-resistant tablet, Iron Supplements Disposition: Home Minutes spent on discharge:: 32 Patient Condition:: Stable Medical Necessity - Tobacco Use Smoking Status: Former smoker Meaningful Use Info Meaningful Use Diagnoses (Choose all that apply): None applicable Code Visit Inpatient E&M: 17154 Disch Hosp
== END 2018-01-26 11:00 | disposition home or self-care (01) | DRG 811 ==
LOC: ED 17:44 → MS2 17:49 → PCU 18:05
PROVIDERS: Surgery; Admitting Provider Internal Medicine; Emergency Provider Emergency Medicine; Family Provider Family Medicine; PCP Family Medicine; Visit Provider Hospitalist
PROC: 0DJD8ZZ Inspection of Lower Intestinal Tract, Via Natural or Artificial Opening Endoscopic (ICD-10-PCS; CPT 45378; principal; 2018-01-24 10:55)
DX: D62 Acute posthemorrhagic anemia (principal); K57.91 Diverticulosis of intestine, part unspecified, without perforation or abscess with bleeding; R64 Cachexia; C53.9 Malignant neoplasm of cervix uteri, unspecified; C54.1 Malignant neoplasm of endometrium; Z68.1 Body mass index [BMI] 19.9 or less, adult; Z92.21 Personal history of antineoplastic chemotherapy; Z92.3 Personal history of irradiation; Z86.718 Personal history of other venous thrombosis and embolism; Z87.891 Personal history of nicotine dependence
CPT/HCPCS: 36415; 80048; 80053; 83690; 84484; 85014; 85018; 85025; 85610; 85730; 86850; 86900; 86920; 88305; 93005; 97162; 97166; 97802; 99285; J7030; J7040; P9016; A4216; J2405

== ENCOUNTER 2018-03-26 08:13 | Inpatient (IN) | payer MEDICARE, SELFPAY ==
[2018-03-26] VITALS (19 sets, daily range): BP systolic 107–149; BP diastolic 44–67; PULSE 60–72; RESP 16–22; TEMP 36.3–37.2; O2SAT 98–100; BMI 19.7; BMI 19.9
--- NOTE | 2018-03-26 08:37 | ED.VISSUMM ---
- ER Visit Summary Date of Service: 03/26/18 Chief Complaint: GI bleed History of Present Illness: The patient is a 72 F history of prior GI bleed earlier this year where her hemoglobin dropped to around 5. Patient states she did have a colonoscopy earlier this year but does not remember the results. Today she was at [facility] felt lightheaded and dizzy. A bystander that is with her states that she was pale and diaphoretic. Patient states she wanted had a bowel movement that was mostly [place] blood. She denies any abdominal pain. She is on no blood thinners. She denies any hematemesis. Nor nausea. Physical Examination: Well-appearing older female. Vital signs are stable afebrile. Her blood pressure is 117/63. She does appear pale. HEENT exam unremarkable. Limited dentition. Neck nontender. Lungs clear to auscultation bilaterally. Heart regular rhythm rate about 70. 4/6 systolic ejection murmur. Abdomen is soft and nontender. Normal bowel sounds without peritoneal signs. Nondistended. Patient is moving all 4 extremities. They are neurovascularly intact. There is no edema. Neurologically she is awake and alert without focal motor deficits. Test Results: Blood count shows a white count of 5. Hemoglobin is 6.4 previously it was 10. Electrolytes are unremarkable with a gap of 8 and creatinine of 1.1. Patient initially was typed and screened change to a type and cross and will be transfused 2 units. When the blood is available. Emergency Department Course and Treatment: She with GI bleed suspect lower. She will be typed and crossed for possible blood transfusion if needed. Treatment Plan: I spoke to Dr. Bjorn Harrell the hospitalist. Patient will be admitted to PCU. Disposition: Admission Impression: Acute lower GI bleed Anemia Blood transfusions This note was generated with [employer] dictation software. It may contain incorrect words, spelling, and punctuation that were not noted in review of the chart prior to signing ED Disposition - Plan for ED Patient: Chief Complaint: GI Bleed Referrals: Hemant Parra MD [Primary Care Provider] -
[2018-03-26 09:02] LABS: Hematocrit 22.3 % (37-47); Hemoglobin 6.4 g/dl (12.0-15.0); Mean Corp Hgb Conc 28.7 g/gl (32-36); Mean Corpuscular Hgb 28.8 pg (27.0-32.0); Mean Corpuscular Volume 100.5 fL (81-99); Mean Platelet Vol. 9.9 fl (6.2-12.0); Platelet Count 264 K/mm3 (150-450); RBC Distribution Width CV 17.6 % (11.6-14.6); RBC Distribution Width SD 64.5 fl (35.1-43.9); Red Blood Count 2.22 M/mm3 (4.2-5.4); Scan Indicated on CBC? Y/N NO
[2018-03-26 09:14] LABS: Anion Gap 8 (5-15); BUN 19 mg/dL (7-18); BUN/Creat Ratio 16.7 RATIO (10-20); Calcium,Total 8.2 mg/dL (8.5-10.1); Chloride 108 mmol/L (98-107); Creatinine, Serum 1.14 mg/dL (0.55-1.02); EST Glomerular Filtration Rate 50 mL/min (>60); Est Glom Filt Rate - Afr Amer 60 mL/min (>60); Estimated Creatinine Clearance 37.27 ml/min; Glucose 129 mg/dL (74-106); Potassium 4.3 mmol/L (3.5-5.1); Sodium Level 144 mmol/L (136-145)
--- NOTE | 2018-03-26 09:21 | HP.PCM_ITS ---
Problem List (1) Anemia due to blood loss, acute Status: Acute (2) Cervical cancer Status: Chronic (3) Endometrial cancer Status: Chronic (4) Hypocalcemia Status: Chronic (5) Hypomagnesemia Status: Chronic (6) Inanition Status: Chronic (7) Leukopenia Status: Chronic (8) Lower GI bleed Status: Acute (9) Weight loss, unintentional Status: Chronic History of Present Illness Date of Admission: 03/26/18 Chief Complaint: Bleeding per rectum The patient is a 72 year old F medical history significant for endometrial and cervical cancer treated with radiation therapy who presents with bleeding per rectum. Patient states that she was in her usual state of health until the morning of her presentation when she experienced lightheadedness while stepping out at the anabaptism function. She felt as if she was going to pass out; later experienced some sensation in her rectum went to the bathroom and noticed dark red blood in her stool. The squad was called and patient was brought to the emergency department hemoglobin on admission was 6.5 and assessment of acute lower GI bleed was made admitted to monitored bed for subsequent management. Similar presentation in January [address] Eve Wylie findings included friable tissue in the rectum. Past Medical History Past Medical History (Chronic Problems): Chronic Problems Hypocalcemia (Chronic) Hypomagnesemia (Chronic) Inanition (Chronic) Weight loss, unintentional (Chronic) Leukopenia (Chronic) Cervical cancer (Chronic) Endometrial cancer (Chronic) Allergies acetaminophen [From Percocet] Allergy (Verified 03/26/18 08:13) Other ibuprofen [From Motrin] Allergy (Verified 03/26/18 08:13) Unknown omega-3 acid ethyl esters Allergy (Verified 03/26/18 08:13) Unknown oxycodone Allergy (Verified 03/26/18 08:13) Unknown oxycodone HCl [From Percocet] Allergy (Verified 03/26/18 08:13) Other Penicillins Allergy (Verified 03/26/18 08:13) Unknown Home Medications: Ambulatory Orders Medication Instructions Recorded Hydrocodone/Acetaminophen [[place] 1 each PO Q6H PRN PRN 01/23/18 5-325 Tablet] Surgical History: appendectomy, tonsillectomy, - Psychiatric History: No pertinent psych hx [employer]ER History: cervical cancer, 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 Pt really does not know much about her FH. Review of Systems Constitutional: Reports: Malaise, Weakness, Fatigue HEENT: Denies: Head Aches, Sinus Congestion, Sinus Drainage Cardiovascular: Reports: Chest Pain Respiratory: Denies: Cough, Shortness of breath at rest, Shortness of breath upon exertion, Sputum production Gastrointestinal: Reports: Hematochezia Genitourinary: Denies: Dysuria, Frequency, Hematuria, Urgency Musculoskeletal: Denies: Joint Pain, Joint Tenderness Skin: Denies: Rash Neurological: Denies: Focal weakness, Numbness, Tingling Psychiatric: Denies: Homicidal Ideations, Suicidal Ideations Hematologic/ Lymphatic: Denies: Easy Bruising, Easy Bleeding VTE Information - Inpt Only VTE Present on Admission: No VTE Mechan Device Prophylaxis: SCD's VTE Pharm Prophylaxis ordered?: No Reason prophylaxis not ordered:: Medical Contraindication Objective: GENERAL: cooperative HEENT: Pallor of the conjunctiva NECK; supple, normal thyroid, no distended JVD. CHEST: Clear to auscultation bilaterally, HEART: Regular S1 S2, no audible murmurs ABDOMEN: soft, non-tender, normoactive bowel sounds, RECTAL: deferred EXTREMITIES: No edema, no clubbing, no cyanosis. KINESIOLOGY PROFESSOR: Awake; no lateralizing signs. SKIN: No Rash - Physical Exam Vital Signs Temp Pulse Resp BP Pulse Ox 98.0 F 72 16 117/63 99 03/26/18 08:14 03/26/18 08:14 03/26/18 08:14 03/26/18 08:14 03/26/18 08:14 Oxygen Delivery Method Room Air Weight: 52.163 kg Body Mass Index (BMI) 19.7 Laboratory Tests Past 24 Hrs 03/26/18 03/26/18 03/26/18 08:45 08:45 08:45 WBC 5.0 RBC 2.22 L Hgb 6.4 L Hct 22.3 L MCV 100.5 H MCH 28.8 MCHC 28.7 L RDW 17.6 H RDW Differential 64.5 H Plt Count 264 MPV 9.9 Sodium 144 Potassium 4.3 Chloride 108 H Carbon Dioxide 28.0 Anion Gap 8 BUN 19 H Creatinine 1.14 H Estim Creat Clear Calc 37.27 Est GFR (MDRD) Af Amer 60 Est GFR (MDRD) Non-Af 50 L BUN/Creatinine Ratio 16.7 Glucose 129 H Calcium 8.2 L Blood Type Pending Antibody Screen Pending Crossmatch 03/26/18 08:45 WBC RBC Hgb Hct MCV MCH MCHC RDW RDW Differential Plt Count MPV Sodium Potassium Chloride Carbon Dioxide Anion Gap BUN Creatinine Estim Creat Clear Calc Est GFR (MDRD) Af Amer Est GFR (MDRD) Non-Af BUN/Creatinine Ratio Glucose Calcium Blood Type Antibody Screen Crossmatch See Detail Assessment/Plan Patient is a 72-year-old lady with past medical history significant current for endometrial and cervical CA treated with radiation therapy 2016 who presents with rectal bleed 1. 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 Patient had a similar presentation in November as well as January [address] Eve Martinez findings included a friable rectal mucosa patient has been admitted to monitored bed and order was given for patient to be transfused 2 units PRBC from the ED plan is to obtain posttransfusion H&H consultation was placed to Dr. Victor Hugo Somers for repeat endoscopic evaluation possibly including upper GI as well. Patient was placed on Protonix 40 mg every 12 2. 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 History of DVT 4. Severe protein calorie malnutrition as evidenced by patient low BMI of 19, decreased energy level as well as muscle wasting consultation was placed to nutrition service 5. DVT prophylaxis SCDs for now avoided the use of chemo prophylaxis in view of patient active GI bleed Code Visit Inpatient E&M: 99229 Init Hosp L3
[2018-03-26] MEDS: Dext 5%-0.45% NS 1,000 ML 100 ML IV ×2 (11:21→18:29)
--- NOTE | 2018-03-26 12:05 | NURSING ---
PRBC had to be stopped d/t IV infiltrate Maikol notified in blood bank regarding how long blood can be stopped before it needs to be sent back. Per Maikol-ok as long as blood is ran in under the alotted 4 hrs. Obtained order from Dr. Dinero for Christopher. Christopher RN here.
--- NOTE | 2018-03-26 13:33 | NM_ITS ---
CLINICAL: 72-year-old female with reported history of gastrointestinal hemorrhage. LABELED BLOOD POOL GASTROINTESTINAL BLEEDING STUDY COMPARISON: None available FINDINGS: Following the intravenous administration of 25.7 mCi of 99m Tc Ultratag labeled RBCs, image acquisitions of the anterior-abdomen and pelvis for a total of 60 minutes reveal: 1. Static sequential 1 minute acquisitions of the anterior abdomen and pelvis demonstrate no evidence of abnormal increased radiopharmaceutical concentration indicative of acute gastrointestinal hemorrhage. 2. Physiologic distribution of the radiopharmaceutical is defined in the hepatic, major vascular blood pool. There is visualization of the urinary bladder. NM/GI Bleed Scan IMPRESSION: 1. NEGATIVE 99m Tc ULTRATAG LABELED BLOOD POOL GASTROINTESTINAL BLEEDING EXAMINATION. 2. There is no definitive scintigraphic evidence of acute gastrointestinal hemorrhage on the current evaluation. Electronically Signed: Victor Hugo House DO at 10:12 EDT Tel , Service support ,
--- NOTE | 2018-03-26 14:00 | CON.PCM_ITS ---
- Consult Date of Consult: 03/26/18 - Reason for Consult Chief Complaint: rectal bleeding, anemia History of Present Illness: 72 y/o WF who is well known to me. Admitted multiple episode to hospital for lower GI bleed and anemia. Presently Hgb 6.4. Has had multiple colonoscopies in past year - findings of sigmoid diverticulosis and friable mucosa of the sigmoid colon, but no identifiable source of GI bleeding, though sigmoid diverticula were clipped (Nov 2017). Last colonoscopy 01/24/18 - friable mucosa noted at 25 cm - revealed - Fragments of colonic mucosa with focally dilated blood vessels, fibrosis of lamina propria and mild nonspecific chronic inflammation. Negative for malignancy Complaint of lightheadedness and presented to [facility] ED. Hx of pelvic radiation for uterine cancer. Denies abdominal pain. Past Medical History: history of cervical cancer - s/p chemotherapy and radiation therapy, no surgery anorexia Past Surgical History: appendectomy tonsillectomy Medications: norco ensure Allergies: acetaminophen ibuprofen fish oil oxycodone pcn Social history: TOB use denies lives alone Review of Systems: General - denies fevers, has been having weight loss, has decreased appetite Cardiovascular denies chest pain Pulmonary has shortness of breath, denies coughing up blood Gastrointestinal denies abdominal pain, rectal bleeding noted as per HPI Neurological denies numbness/weakness of extremities, denies seizures Genitourinary denies burning with urination, denies blood in urine Hematological has easy bruising, denies spontaneous/prolonged bleeding Skin denies open non-healing wounds Musculoskeletal has some joint pain Endocrine denies diabetes Psychological denies hallucinations Physical examination: Vital signs Temp 97.2F General WD/WN WF in no apparent distress, alert and oriented, not septic appearing HEENT Normocephalic. EOM intact with sclera clear and no icterus noted. Neck is supple with no jugular venous distention noted. Trachea is midline. Lungs clear to auscultation. normal breath sounds in all lung chavarria. No rales/rhonchi/wheezing noted. No labored breathing noted, such as retractions. . Heart normal S1 and S2 auscultated. No rubs/clicks/murmurs noted. Normal size and location by auscultation. Abdomen soft and benign. Normal bowel sounds . . Extremities no calf tenderness noted. No pitting edema noted. Genitourinary/Rectal deferred Skin normal skin integrity. Neurological non focal Psychological normal affect, patient is calm and appropriate Impression: rectal bleeding anemia history of diverticular bleeding Nov 2017 Discussion/Plan: I have discussed the above with the patient. I have offered the patient the procedure of EGD. I have explained the procedure to the patient. I have counseled the patient as to the risks of the procedure, including but not limited to: infection, bleeding, injury to any blood vessels/nerves, scar tissue, injury to any intraabdominal organs such as the liver/spleen, perforation of the GI tract, inability to complete the procedure, complications of anesthesia, postoperative pneumonia/cardiac problems/blood clots etc. - the patient understands. The patient agrees to proceed. I have answered all questions to the patients satisfaction and the patient has no further questions.
--- NOTE | 2018-03-26 18:59 | OP.PCM_ITS ---
Report of Operation Date of Procedure: 03/26/18 Pre-Operative Diagnosis: anemia, rule out upper GI bleed Post-Operative Diagnosis: no source of upper GI bleeding Surgery/Procedure Performed:: esophagogastroduodenoscopy Description of Surgical Findings:: no ulcers or masses seen, no sign of bleeding Type of Anesthesia:: MAC Anesthesiologist: Brian Monsivais Specimen's removed: none Estimated Blood Loss (mL): none Fluids Replaced: see anesthesia note Description of Procedure: After informed consent was given, the patient was brought to the endoscopy suite and placed in the upright sitting position. Appropriate time out protocol was followed. Appropriate cardiac, blood pressure, and pulse oximetry monitoring was placed. After stable vital signs were noted, the patient was given intravenous conscious sedation. The posterior pharynx was sprayed with lidocaine spray times two and a bite block was placed. The patient was then placed in the left lateral decubitis position. The upper endoscope was lubricated and inserted into the patient?s mouth and then carefully placed into the patient?s throat. The patient was asked to swallow and the endoscope was then easily advanced into the patient?s esophagus. The endoscope was further advanced down into the patient?s stomach, then past the pylorus, then past the duodenal bulb and then to the second portion of the duodenum. There were no lesions noted in the duodenum. The endoscope was then retracted back into the stomach. A retroflex view of the stomach revealed no evidence of any masses. No ulcers, no strictures, no suspicious lesions were noted. The endoscope was retracted into the esophagus, where any insufflated gas in the stomach was aspirated out. The gastroesophageal junction appeared normal. The remainder of the esophagus was normal. The upper endoscope was removed intact. Patient tolerated procedure well. - Complications none noted
[2018-03-26 19:56] LABS: Hematocrit 26.7 % (37-47); Hemoglobin 8.5 g/dl (12.0-15.0)
[2018-03-26] MEDS: HYDROcodone Bitartrate/Apap 5/325 Tablet PO (21:23)
[2018-03-27] VITALS (10 sets, daily range): BP systolic 114–130; BP diastolic 44–77; PULSE 53–72; RESP 16; TEMP 36.6–37.1; O2SAT 97–100
[2018-03-27] MEDS: Dext 5%-0.45% NS 1,000 ML 100 ML IV ×2 (04:09→18:16)
[2018-03-27] MEDS: 0.9% NaCl Peripheral Flush Adult/Peds IV (04:45)
[2018-03-27 05:12] LABS: Anion Gap 6 (5-15); BUN 10 mg/dL (7-18); BUN/Creat Ratio 11.5 RATIO (10-20); Calcium,Total 7.8 mg/dL (8.5-10.1); Chloride 111 mmol/L (98-107); Creatinine, Serum 0.87 mg/dL (0.55-1.02); EST Glomerular Filtration Rate 68 mL/min (>60); Est Glom Filt Rate - Afr Amer 83 mL/min (>60); Estimated Creatinine Clearance 49.34 ml/min; Glucose 92 mg/dL (74-106); Potassium 4.1 mmol/L (3.5-5.1); Sodium Level 145 mmol/L (136-145)
[2018-03-27 09:36] LABS: Hematocrit 30.5 % (37-47); Hemoglobin 9.4 g/dl (12.0-15.0); Mean Corp Hgb Conc 30.8 g/gl (32-36); Mean Corpuscular Hgb 29.6 pg (27.0-32.0); Mean Corpuscular Volume 95.9 fL (81-99); Mean Platelet Vol. 9.7 fl (6.2-12.0); Platelet Count 234 K/mm3 (150-450); RBC Distribution Width CV 19.2 % (11.6-14.6); RBC Distribution Width SD 66.8 fl (35.1-43.9); Red Blood Count 3.18 M/mm3 (4.2-5.4); White Blood Count 4.6 K/mm3 (4.4-11.0)
--- NOTE | 2018-03-27 09:51 | CT_ITS ---
STUDY: CT ABDOMEN AND PELVIS WITH CONTRAST REASON FOR EXAM: Female, 72 years old. Abdominal pain. Bloody diarrhea. Anemia. History of uterine cancer and prior radiation and chemotherapy. RADIATION DOSAGE (If Supplied By Facility): CTDIvol = ( 10.04 ) mGy, DLP = ( 477.30 ) mGycm TECHNIQUE: Transaxial images were obtained from the dome of the diaphragm to the symphysis pubis with oral contrast. 75mL ml of Isovue 300 contrast was administered. Sagittal and coronal images were reconstructed. Individualized dose optimization techniques were used for this CT. COMPARISON: Comparison is made with prior study dated May 01, 2016. FINDINGS: Mild increased markings at the lung bases suggestive of mild linear atelectasis and/or scarring. Coronary artery calcification. There is prominence of the portal triads. This may be related to minimally dilated intrahepatic biliary ducts. The gallbladder is seen on the anterior aspect of the right lobe of the liver. Normal spleen. Normal pancreas. Normal bilateral adrenal glands. Normal right kidney. Mild degree of left hydronephrosis. Normal visualized stomach. Normal small intestine. Mild degree of perirectal edematous changes most likely secondary to prior radiation. Thickening of the presacral fat. Prior appendectomy. There is scattered atherosclerotic calcification of the abdominal aorta, without a demonstrated aneurysm. Normal inferior vena cava. Normal retroperitoneum. Normal urinary bladder. Since prior study, the uterus has markedly decreased in size. I suspect calcified fibroid change. Normal abdominal wall. There are diffuse degenerative changes of the visualized lumbar spine. CT/Abdomen/Pelvis WITH Contrast IMPRESSION: Marked improvement in the appearance of the uterus. Mild edematous thickening of the rectum with increased markings in the presacral fat. Electronically Signed: Marco Mcgregor MD at 15:46 EDT Tel [phone], Service support ,
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
[2018-03-27 09:57] LABS: Scan Indicated on CBC? Y/N YES- FLAGS NOTED
--- NOTE | 2018-03-27 19:37 | PCM.PROGNOTE ---
Subjective: She feels well today. She denied of any abdominal pain, dizziness, or nausea. Tolerated clear liquid diet. - Physical Exam General: Alert, Oriented x3, Cooperative HEENT: Atraumatic, PERRLA Oral: Moist Mucosa, No Gingival or Mucosal Lesions/ Ulcerations Neck: Supple, No JVD Lungs: Clear to auscultation, Normal air movement, No rhonchi, No wheeze, No rales Cardiovascular: Regular rate, Regular Rhythm, Normal S1, Normal S2, No murmurs Abdomen: Bowel Sounds Present, Soft, Non Tender, Non-Distended, No Hepato-splenomegaly Extremities: No clubbing, No cyanosis, No edema Skin: No rashes, No breakdown Musculoskeletal: No Tenderness to Palpation of Joints or Extremities, No Muscle Wasting Lymphatic: No Cervical, Supraclavicular, or Inguinal Adenopathy Neurological: Cranial nerves II-XII grossly intact, Neuro grossly intact Psych/Mental Status: Normal Affect Vital Signs Temp Pulse Resp BP Pulse Ox 97.9 F 72 16 130/77 H 98 03/27/18 16:03 03/27/18 19:00 03/27/18 16:03 03/27/18 16:03 03/27/18 16:03 Oxygen Delivery Method Room Air Weight: 116 lb 2.938 oz Body Mass Index (BMI) 19.9 Intake and Output for Last 24 Hours 03/25/18 03/26/18 03/27/18 23:59 23:59 23:59 Intake Total 1792 / 1792 1737 / 1737 Output Total 800 / 800 1950 / 1950 Balance 992 / 992 -213 / -213 Laboratory Tests Past 24 Hrs 03/26/18 03/27/18 03/27/18 19:44 04:40 04:40 WBC Cancelled Corrected WBC Cancelled RBC Cancelled Hgb 8.5 L Cancelled Hct 26.7 L Cancelled MCV Cancelled MCH Cancelled MCHC Cancelled RDW Cancelled RDW Differential Cancelled Plt Count Cancelled MPV Cancelled Differential Comment Diff Path Review Cancelled Sodium 145 Potassium 4.1 Chloride 111 H Carbon Dioxide 28.0 Anion Gap 6 BUN 10 Creatinine 0.87 Estim Creat Clear Calc 49.34 Est GFR (MDRD) Af Amer 83 Est GFR (MDRD) Non-Af 68 BUN/Creatinine Ratio 11.5 Glucose 92 Calcium 7.8 L 03/27/18 03/27/18 06:40 09:15 WBC Cancelled 4.6 Corrected WBC Cancelled RBC Cancelled 3.18 L Hgb Cancelled 9.4 L Hct Cancelled 30.5 L MCV Cancelled 95.9 MCH Cancelled 29.6 MCHC Cancelled 30.8 L RDW Cancelled 19.2 H RDW Differential Cancelled 66.8 H Plt Count Cancelled 234 MPV Cancelled 9.7 Differential Comment Diff Path Review Cancelled Sodium Potassium Chloride Carbon Dioxide Anion Gap BUN Creatinine Estim Creat Clear Calc Est GFR (MDRD) Af Amer Est GFR (MDRD) Non-Af BUN/Creatinine Ratio Glucose Calcium Diagnostic Data GI Bleed Scan Nuclear Medicine 03/26/18 13:33 IMPRESSION: 1. NEGATIVE 99m Tc ULTRATAG LABELED BLOOD POOL GASTROINTESTINAL BLEEDING EXAMINATION. 2. There is no definitive scintigraphic evidence of acute gastrointestinal hemorrhage on the current evaluation. Electronically Signed: Victor Hugo House DO at 10:12 EDT Tel , Service support , Abdomen/Pelvis CT 03/27/18 09:51 IMPRESSION: Marked improvement in the appearance of the uterus. Mild edematous thickening of the rectum with increased markings in the presacral fat. Electronically Signed: Marco Mcgregor MD at 15:46 EDT Tel [phone], Service support , Medical Necessity - Tobacco Use Smoking Status: Former smoker Assessment/Plan Patient is a 72-year-old lady with past medical history significant current for endometrial and cervical CA treated with radiation therapy 2016 who presents with melena. 1. 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 Patient had a similar presentation in November as well as January [address] Eve Martinez findings included a friable rectal mucosa patient has been admitted to monitored bed and order was given for patient to be transfused 2 units PRBC from the ED plan is to obtain posttransfusion H&H consultation was placed to Dr. Victor Hugo Somers for repeat endoscopic evaluation possibly including upper GI as well. Patient was placed on Protonix 40 mg every 12 hours. IVF support. Consultation by Dr. Wylie appreciated. She underwent EGD on 03/26, which was unremarkable. Bleeding scan was negative. CT of abdomen and pelvis as above. Advance diet as tolerated. Monitor CBC. 2. 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 History of DVT 4. Severe protein calorie malnutrition as evidenced by patient low BMI of 19, decreased energy level as well as muscle wasting consultation was placed to nutrition service 5. DVT prophylaxis SCDs for now avoided the use of chemo prophylaxis in view of patient active GI bleed Code Visit Inpatient E&M: 24327 Subs Hosp L2
--- NOTE | 2018-03-27 19:41 | PN_ITS ---
Subjective: She feels well today. She denied of any abdominal pain, dizziness, or nausea. Tolerated clear liquid diet. - Physical Exam General: Alert, Oriented x3, Cooperative HEENT: Atraumatic, PERRLA Oral: Moist Mucosa, No Gingival or Mucosal Lesions/ Ulcerations Neck: Supple, No JVD Lungs: Clear to auscultation, Normal air movement, No rhonchi, No wheeze, No rales Cardiovascular: Regular rate, Regular Rhythm, Normal S1, Normal S2, No murmurs Abdomen: Bowel Sounds Present, Soft, Non Tender, Non-Distended, No Hepato- splenomegaly Extremities: No clubbing, No cyanosis, No edema Skin: No rashes, No breakdown Musculoskeletal: No Tenderness to Palpation of Joints or Extremities, No Muscle Wasting Lymphatic: No Cervical, Supraclavicular, or Inguinal Adenopathy Neurological: Cranial nerves II-XII grossly intact, Neuro grossly intact Psych/Mental Status: Normal Affect Vital Signs Temp Pulse Resp BP Pulse Ox 97.9 F 72 16 130/77 H 98 03/27/18 16:03 03/27/18 19:00 03/27/18 16:03 03/27/18 16:03 03/27/18 16:03 Oxygen Delivery Method Room Air Weight: 116 lb 2.938 oz Body Mass Index (BMI) 19.9 Intake and Output for Last 24 Hours 03/25/18 03/26/18 03/27/18 23:59 23:59 23:59 Intake Total 1792 / 1792 1737 / 1737 Output Total 800 / 800 1950 / 1950 Balance 992 / 992 -213 / -213 Laboratory Tests Past 24 Hrs 03/26/18 03/27/18 03/27/18 19:44 04:40 04:40 WBC Cancelled Corrected WBC Cancelled RBC Cancelled Hgb 8.5 L Cancelled Hct 26.7 L Cancelled MCV Cancelled MCH Cancelled MCHC Cancelled RDW Cancelled RDW Differential Cancelled Plt Count Cancelled MPV Cancelled Differential Comment Diff Path Review Cancelled Sodium 145 Potassium 4.1 Chloride 111 H Carbon Dioxide 28.0 Anion Gap 6 BUN 10 Creatinine 0.87 Estim Creat Clear Calc 49.34 Est GFR (MDRD) Af Amer 83 Est GFR (MDRD) Non-Af 68 BUN/Creatinine Ratio 11.5 Glucose 92 Calcium 7.8 L 03/27/18 03/27/18 06:40 09:15 WBC Cancelled 4.6 Corrected WBC Cancelled RBC Cancelled 3.18 L Hgb Cancelled 9.4 L Hct Cancelled 30.5 L MCV Cancelled 95.9 MCH Cancelled 29.6 MCHC Cancelled 30.8 L RDW Cancelled 19.2 H RDW Differential Cancelled 66.8 H Plt Count Cancelled 234 MPV Cancelled 9.7 Differential Comment Diff Path Review Cancelled Sodium Potassium Chloride Carbon Dioxide Anion Gap BUN Creatinine Estim Creat Clear Calc Est GFR (MDRD) Af Amer Est GFR (MDRD) Non-Af BUN/Creatinine Ratio Glucose Calcium Diagnostic Data GI Bleed Scan Nuclear Medicine 03/26/18 13:33 IMPRESSION: 1. NEGATIVE 99m Tc ULTRATAG LABELED BLOOD POOL GASTROINTESTINAL BLEEDING EXAMINATION. 2. There is no definitive scintigraphic evidence of acute gastrointestinal hemorrhage on the current evaluation. Electronically Signed: Victor Hugo House DO at 10:12 EDT Tel , Service support , Abdomen/Pelvis CT 03/27/18 09:51 IMPRESSION: Marked improvement in the appearance of the uterus. Mild edematous thickening of the rectum with increased markings in the presacral fat. Electronically Signed: Marco Mcgregor MD at 15:46 EDT Tel [phone], Service support , Medical Necessity - Tobacco Use Smoking Status: Former smoker Assessment/Plan Patient is a 72-year-old lady with past medical history significant current for endometrial and cervical CA treated with radiation therapy 2016 who presents with melena. 1. 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 Patient had a similar presentation in November as well as January [address] Eve Martinez findings included a friable rectal mucosa patient has been admitted to monitored bed and order was given for patient to be transfused 2 units PRBC from the ED plan is to obtain posttransfusion H&H consultation was placed to Dr. Victor Hugo Somers for repeat endoscopic evaluation possibly including upper GI as well. Patient was placed on Protonix 40 mg every 12 hours. IVF support. Consultation by Dr. Wylie appreciated. She underwent EGD on 03/26, which was unremarkable. Bleeding scan was negative. CT of abdomen and pelvis as above. Advance diet as tolerated. Monitor CBC. 2. 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 History of DVT 4. Severe protein calorie malnutrition as evidenced by patient low BMI of 19, decreased energy level as well as muscle wasting consultation was placed to nutrition service 5. DVT prophylaxis SCDs for now avoided the use of chemo prophylaxis in view of patient active GI bleed Code Visit Inpatient E&M: 83137 Subs Hosp L2
--- NOTE | 2018-03-27 21:57 | PCM.PN.SRG ---
Subjective: Patient denies abdominal pain, has not had a bloody bowel movement since admission, feels overall well - Physical Exam General: Alert Oral: Moist Mucosa Neck: Supple Abdomen: Bowel Sounds Present, Soft, Non Tender Vital Signs Temp Pulse Resp BP Pulse Ox 97.9 F 72 16 130/77 H 98 03/27/18 16:03 03/27/18 19:00 03/27/18 16:03 03/27/18 16:03 03/27/18 16:03 Oxygen Delivery Method Room Air Weight: 52.7 kg Body Mass Index (BMI) 19.9 Intake and Output for Last 24 Hours 03/25/18 03/26/18 03/27/18 23:59 23:59 23:59 Intake Total 1792 / 1792 1737 / 1737 Output Total 800 / 800 1950 / 1950 Balance 992 / 992 -213 / -213 Laboratory Tests Past 24 Hrs 03/27/18 03/27/18 03/27/18 04:40 04:40 06:40 WBC Cancelled Cancelled Corrected WBC Cancelled Cancelled RBC Cancelled Cancelled Hgb Cancelled Cancelled Hct Cancelled Cancelled MCV Cancelled Cancelled MCH Cancelled Cancelled MCHC Cancelled Cancelled RDW Cancelled Cancelled RDW Differential Cancelled Cancelled Plt Count Cancelled Cancelled MPV Cancelled Cancelled Differential Comment Diff Path Review Cancelled Cancelled Sodium 145 Potassium 4.1 Chloride 111 H Carbon Dioxide 28.0 Anion Gap 6 BUN 10 Creatinine 0.87 Estim Creat Clear Calc 49.34 Est GFR (MDRD) Af Amer 83 Est GFR (MDRD) Non-Af 68 BUN/Creatinine Ratio 11.5 Glucose 92 Calcium 7.8 L 03/27/18 09:15 WBC 4.6 Corrected WBC RBC 3.18 L Hgb 9.4 L Hct 30.5 L MCV 95.9 MCH 29.6 MCHC 30.8 L RDW 19.2 H RDW Differential 66.8 H Plt Count 234 MPV 9.7 Differential Comment Diff Path Review Sodium Potassium Chloride Carbon Dioxide Anion Gap BUN Creatinine Estim Creat Clear Calc Est GFR (MDRD) Af Amer Est GFR (MDRD) Non-Af BUN/Creatinine Ratio Glucose Calcium Medical Necessity - Tobacco Use Smoking Status: Former smoker Assessment/Plan Impression: rectal bleeding, anemia Discussion/Plan: Workup thus far - NM bleeding scan - no source noted CT scan - rectal wall thickening of unknown significance Given that patient has had multiple colonoscopies recently, will consider flexible sigmoidoscopy (minimal prep) required - will schedule some time tomorrow
[2018-03-27] MEDS: HYDROcodone Bitartrate/Apap 5/325 Tablet PO (23:08)
[2018-03-28] VITALS (15 sets, daily range): BP systolic 112–134; BP diastolic 49–62; PULSE 51–67; RESP 14–16; TEMP 36.5–37.4; O2SAT 96–100
--- NOTE | 2018-03-28 | COLBX_PTH ---
PATIENT: NASEEM GARDNER LOC: [facility] U#:[id number] AGE/SX: 72/F ROOM: [facility] RE03/26/[address]: Caty Tolentino MD : 1945 BED: 1 DIS: 03/29/2018 SPEC #: [id number] RECD: 03/29/18 13:23 STATUS: NIRAJ REQ #: [id number] KASI: 03/28/18 00:[address]: Eve Wylie DEPT: SURGICAL PATHOLOGY RECD BY: Jamie Subramanian ENTERED: 03/29/18 13:23 SP TYPE: COLON BX OTHR DR: MD Dr. Hemant Santos MD Dr. Richard Guttman, MD Yoichi Imamura, MD Tissues: Rectum, NOS Procedures: Surgery Specimen Level IV Comments: @ Ordering doctor for SUIV edited from to @ by GOSIA at 03/29/18 1454 @ Submitting doctor edited from to @ by GOSIA at 03/29/18 1454 HEADER OPERATION: Flexible sigmoidoscopy with biopsy PRE-OP DIAGNOSIS: Rectal bleeding/anemia TISSUE SUBMITTED: Biopsy rectum MICROSCOPIC DIAGNOSIS Rectum, biopsy: Fragments of colonic mucosa, no pathologic diagnosis. SUZAN:amanda 04/02/18 COMMENT Please make reference to previous specimen ([id number]) sigmoid rectal junction biopsy with diagnosis of fragments of colonic mucosa with focally dilated blood vessels, fibrosis of lamina propria and mild nonspecific chronic inflammation. MICROSCOPIC DESCRIPTION Slides are reviewed. GROSS DESCRIPTION Received in fixative is one container labeled with the patient's name and designated rectum. The specimen consists of multiple irregular fragments of light cortez soft tissue that in aggregate measure 1.2 x 0.3 x 0.1 cm. The specimen is totally submitted in one cassette. / SUZAN:amanda 03/29/18 TC:4 CPT: 23324
[2018-03-28] MEDS: 0.9% NaCl Peripheral Flush Adult/Peds IV ×2 (01:43→05:20)
[2018-03-28] MEDS: Morphine 4 MG/ML Syringe IV (01:43)
[2018-03-28] MEDS: Dext 5%-0.45% NS 1,000 ML 100 ML IV ×2 (04:06→15:06)
[2018-03-28 06:51] LABS: Hematocrit 30.5 % (37-47); Hemoglobin 9.2 g/dl (12.0-15.0); Mean Corp Hgb Conc 30.2 g/gl (32-36); Mean Corpuscular Volume 99.3 fL (81-99); Mean Platelet Vol. 10.5 fl (6.2-12.0); Platelet Count 234 K/mm3 (150-450); RBC Distribution Width CV 18.4 % (11.6-14.6); RBC Distribution Width SD 64.3 fl (35.1-43.9); Red Blood Count 3.07 M/mm3 (4.2-5.4)
[2018-03-28 06:53] LABS: Scan Indicated on CBC? Y/N NO
[2018-03-28 07:09] LABS: Anion Gap 6 (5-15); BUN 8 mg/dL (7-18); BUN/Creat Ratio 9.5 RATIO (10-20); Chloride 111 mmol/L (98-107); Creatinine, Serum 0.84 mg/dL (0.55-1.02); EST Glomerular Filtration Rate 71 mL/min (>60); Est Glom Filt Rate - Afr Amer 85 mL/min (>60); Estimated Creatinine Clearance 51.11 ml/min; Glucose 85 mg/dL (74-106); Potassium 3.6 mmol/L (3.5-5.1); Sodium Level 145 mmol/L (136-145)
[2018-03-28] MEDS: HYDROcodone Bitartrate/Apap 5/325 Tablet PO (11:03)
[2018-03-28] MEDS: Fleet Enema 1 ML RECTAL (16:07)
--- NOTE | 2018-03-28 17:00 | OP.PCM_ITS ---
Report of Operation Date of Procedure: 03/26/18 Pre-Operative Diagnosis: anemia, rule out source of lower GI bleeding, abnormal CT scan Post-Operative Diagnosis: proctitis Surgery/Procedure Performed:: flexible sigmoidoscopy with biopsies Description of Surgical Findings:: no ulcers or masses seen, friable mucosa of rectum - with oozing surface Type of Anesthesia:: IV Sedation - 3 mg versed, 100 micrograms of fentanyl, MAC Anesthesiologist: Eve Wylie Specimen's removed: none Estimated Blood Loss (mL): minimal Description of Procedure: After informed consent was given, the patient was brought to the endoscopy suite and placed in the supine position. Appropriate time out protocol was followed. Appropriate cardiac, blood pressure, and pulse oximetry monitoring was placed. After stable vital signs were noted, the patient was given intravenous conscious sedation. The patient was then placed in the left lateral decubitis position. The endoscope was lubricated and carefully inserted into the patient?s anus. It was then advanced into the rectum, then into the sigmoid colon. The colonoscope was slowly retracted back. No intraluminal obstructing lesions, no strictures, and no ulcers were noted. The mucosa was erythematous and friable and oozing - primarily in the rectum to the rectosigmoid junction. Mucosal boipsies were taken with cold grasper forceps. The endoscope was removed intact. Patient tolerated procedure well - Complications none noted
--- NOTE | 2018-03-28 17:04 | PCM.PN.BLA ---
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 Recommend treatment with sucralfate enemas or rowasa enemas.
--- NOTE | 2018-03-28 18:37 | PCM.PROGNOTE ---
Subjective: She feels fair. She had another episode of bloody stool. Objective: - Physical Exam General: Alert, Oriented x3, Cooperative HEENT: Atraumatic, PERRLA Oral: Moist Mucosa, No Gingival or Mucosal Lesions/ Ulcerations Neck: Supple, No JVD Lungs: Clear to auscultation, Normal air movement, No rhonchi, No wheeze, No rales Cardiovascular: Regular rate, Regular Rhythm, Normal S1, Normal S2, No murmurs Abdomen: Bowel Sounds Present, Soft, Non Tender, Non-Distended, No Hepato-splenomegaly Extremities: No clubbing, No cyanosis, No edema Skin: No rashes, No breakdown Musculoskeletal: No Tenderness to Palpation of Joints or Extremities, No Muscle Wasting Lymphatic: No Cervical, Supraclavicular, or Inguinal Adenopathy Neurological: Cranial nerves II-XII grossly intact, Neuro grossly intact Psych/Mental Status: Normal Affect - Physical Exam Vital Signs Temp Pulse Resp BP Pulse Ox 97.7 F L 59 L 14 125/55 H 99 03/28/18 18:24 03/28/18 18:24 03/28/18 18:24 03/28/18 18:24 03/28/18 18:24 Oxygen Delivery Method Room Air Weight: 116 lb 2.938 oz Body Mass Index (BMI) 19.9 Intake and Output for Last 24 Hours 03/26/18 03/27/18 03/28/18 23:59 23:59 23:59 Intake Total 1792 / 1792 2472 / 2472 2976 / 2976 Output Total 800 / 800 3050 / 3050 1999 / 1999 Balance 992 / 992 -578 / -578 976 / 976 Laboratory Tests Past 24 Hrs 03/28/18 03/28/18 06:15 06:15 WBC 5.0 RBC 3.07 L Hgb 9.2 L Hct 30.5 L MCV 99.3 H MCH 30.0 MCHC 30.2 L RDW 18.4 H RDW Differential 64.3 H Plt Count 234 MPV 10.5 Sodium 145 Potassium 3.6 Chloride 111 H Carbon Dioxide 28.0 Anion Gap 6 BUN 8 Creatinine 0.84 Estim Creat Clear Calc 51.11 Est GFR (MDRD) Af Amer 85 Est GFR (MDRD) Non-Af 71 BUN/Creatinine Ratio 9.5 L Glucose 85 Calcium 8.0 L Diagnostic Data GI Bleed Scan Nuclear Medicine 03/26/18 13:33 IMPRESSION: 1. NEGATIVE 99m Tc ULTRATAG LABELED BLOOD POOL GASTROINTESTINAL BLEEDING EXAMINATION. 2. There is no definitive scintigraphic evidence of acute gastrointestinal hemorrhage on the current evaluation. Electronically Signed: Victor Hugo House DO at 10:12 EDT Tel , Service support , Abdomen/Pelvis CT 03/27/18 09:51 IMPRESSION: Marked improvement in the appearance of the uterus. Mild edematous thickening of the rectum with increased markings in the presacral fat. Electronically Signed: Marco Mcgregor MD at 15:46 EDT Tel [phone], Service support , Medical Necessity - Tobacco Use Smoking Status: Former smoker Assessment/Plan Patient is a 72-year-old lady with past medical history significant current for endometrial and cervical CA treated with radiation therapy 2016 who presents with melena. 1. Acute blood loss anemia secondary to rectal bleed. 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 Patient had a similar presentation in November as well as January [address] Eve Martinez findings included a friable rectal mucosa patient has been admitted to monitored bed and order was given for patient to be transfused 2 units PRBC from the ED plan is to obtain posttransfusion H&H consultation was placed to Dr. Victor Hugo Somers for repeat endoscopic evaluation possibly including upper GI as well. Patient was placed on Protonix 40 mg every 12 hours. IVF support. Consultation by Dr. Wylie appreciated. She underwent EGD on 03/26, which was unremarkable. Bleeding scan was negative. CT of abdomen and pelvis as above. 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 Try mesalamine retention enema qhs. Advance diet as tolerated. Monitor CBC. 2. History of endocervical CA patient was treated with chemo and radiation in 2016. 3. History of DVT 4. Severe protein calorie malnutrition as evidenced by patient low BMI of 19, decreased energy level as well as muscle wasting consultation was placed to nutrition service 5. DVT prophylaxis SCDs for now avoided the use of chemo prophylaxis in view of patient active GI bleed Code Visit Inpatient E&M: 86791 Subs Hosp L2
--- NOTE | 2018-03-28 18:41 | PN_ITS ---
Subjective: She feels fair. She had another episode of bloody stool. Objective: - Physical Exam General: Alert, Oriented x3, Cooperative HEENT: Atraumatic, PERRLA Oral: Moist Mucosa, No Gingival or Mucosal Lesions/ Ulcerations Neck: Supple, No JVD Lungs: Clear to auscultation, Normal air movement, No rhonchi, No wheeze, No rales Cardiovascular: Regular rate, Regular Rhythm, Normal S1, Normal S2, No murmurs Abdomen: Bowel Sounds Present, Soft, Non Tender, Non-Distended, No Hepato- splenomegaly Extremities: No clubbing, No cyanosis, No edema Skin: No rashes, No breakdown Musculoskeletal: No Tenderness to Palpation of Joints or Extremities, No Muscle Wasting Lymphatic: No Cervical, Supraclavicular, or Inguinal Adenopathy Neurological: Cranial nerves II-XII grossly intact, Neuro grossly intact Psych/Mental Status: Normal Affect - Physical Exam Vital Signs Temp Pulse Resp BP Pulse Ox 97.7 F L 59 L 14 125/55 H 99 03/28/18 18:24 03/28/18 18:24 03/28/18 18:24 03/28/18 18:24 03/28/18 18:24 Oxygen Delivery Method Room Air Weight: 116 lb 2.938 oz Body Mass Index (BMI) 19.9 Intake and Output for Last 24 Hours 03/26/18 03/27/18 03/28/18 23:59 23:59 23:59 Intake Total 1792 / 1792 2472 / 2472 2976 / 2976 Output Total 800 / 800 3050 / 3050 1999 / 1999 Balance 992 / 992 -578 / -578 976 / 976 Laboratory Tests Past 24 Hrs 03/28/18 03/28/18 06:15 06:15 WBC 5.0 RBC 3.07 L Hgb 9.2 L Hct 30.5 L MCV 99.3 H MCH 30.0 MCHC 30.2 L RDW 18.4 H RDW Differential 64.3 H Plt Count 234 MPV 10.5 Sodium 145 Potassium 3.6 Chloride 111 H Carbon Dioxide 28.0 Anion Gap 6 BUN 8 Creatinine 0.84 Estim Creat Clear Calc 51.11 Est GFR (MDRD) Af Amer 85 Est GFR (MDRD) Non-Af 71 BUN/Creatinine Ratio 9.5 L Glucose 85 Calcium 8.0 L Diagnostic Data GI Bleed Scan Nuclear Medicine 03/26/18 13:33 IMPRESSION: 1. NEGATIVE 99m Tc ULTRATAG LABELED BLOOD POOL GASTROINTESTINAL BLEEDING EXAMINATION. 2. There is no definitive scintigraphic evidence of acute gastrointestinal hemorrhage on the current evaluation. Electronically Signed: Victor Hugo House DO at 10:12 EDT Tel , Service support , Abdomen/Pelvis CT 03/27/18 09:51 IMPRESSION: Marked improvement in the appearance of the uterus. Mild edematous thickening of the rectum with increased markings in the presacral fat. Electronically Signed: Marco Mcgregor MD at 15:46 EDT Tel [phone], Service support , Medical Necessity - Tobacco Use Smoking Status: Former smoker Assessment/Plan Patient is a 72-year-old lady with past medical history significant current for endometrial and cervical CA treated with radiation therapy 2016 who presents with melena. 1. Acute blood loss anemia secondary to rectal bleed. 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 Patient had a similar presentation in November as well as January [address] Eve Martinez findings included a friable rectal mucosa patient has been admitted to monitored bed and order was given for patient to be transfused 2 units PRBC from the ED plan is to obtain posttransfusion H&H consultation was placed to Dr. Victor Hugo Somers for repeat endoscopic evaluation possibly including upper GI as well. Patient was placed on Protonix 40 mg every 12 hours. IVF support. Consultation by Dr. Wylie appreciated. She underwent EGD on 03/26, which was unremarkable. Bleeding scan was negative. CT of abdomen and pelvis as above. 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 Try mesalamine retention enema qhs. Advance diet as tolerated. Monitor CBC. 2. History of endocervical CA patient was treated with chemo and radiation in 2016. 3. History of DVT 4. Severe protein calorie malnutrition as evidenced by patient low BMI of 19, decreased energy level as well as muscle wasting consultation was placed to nutrition service 5. DVT prophylaxis SCDs for now avoided the use of chemo prophylaxis in view of patient active GI bleed Code Visit Inpatient E&M: 24656 Subs Hosp L2
[2018-03-28] MEDS: MESALAMINE 4 GM/60 ML RECTAL (22:22)
[2018-03-29] VITALS (8 sets, daily range): BP systolic 111–132; BP diastolic 47–95; PULSE 54–76; RESP 16–18; TEMP 36.6–36.9; O2SAT 95–99
[2018-03-29] MEDS: HYDROcodone Bitartrate/Apap 5/325 Tablet PO ×2 (00:30→13:12)
[2018-03-29] MEDS: Dext 5%-0.45% NS 1,000 ML 100 ML IV (02:00)
--- NOTE | 2018-03-29 13:05 | PCM.PN.SRG ---
Subjective: patient denies abdominal pain, has had no bloody bowel movements - Physical Exam General: Alert Oral: Moist Mucosa Neck: Supple Abdomen: Soft, Non Tender Vital Signs Temp Pulse Resp BP Pulse Ox 97.9 F 58 L 18 130/62 H 98 03/29/18 07:36 03/29/18 11:20 03/29/18 07:36 03/29/18 07:36 03/29/18 07:36 Oxygen Delivery Method Room Air Weight: 52.7 kg Body Mass Index (BMI) 19.9 Intake and Output for Last 24 Hours 03/27/18 03/28/18 03/29/18 23:59 23:59 23:59 Intake Total 2472 / 2472 2976 / 2976 1397 / 1397 Output Total 3050 / 3050 1999 / 1999 400 / 400 Balance -578 / -578 976 / 976 997 / 997 Medical Necessity - Tobacco Use Smoking Status: Former smoker Assessment/Plan Impression: rectal bleeding, anemia Discussion/Plan: Workup thus far - NM bleeding scan - no source noted CT scan - rectal wall thickening of unknown significance 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
--- NOTE | 2018-03-29 15:39 | PCM.DC ---
You will use the following diet at home:: Regular Your food should be the consistency of: Regular Your liquids should be the consistency of: Regular/Thin Discharge Activity: Return to Normal Activity Call your doctor if your incision/area has: - - Passing large amount of blood in stools. Allergies/Adverse Reactions: Allergies acetaminophen [From Percocet] Allergy (Verified 03/26/18 08:13) Other ibuprofen [From Motrin] Allergy (Verified 03/26/18 08:13) Unknown omega-3 acid ethyl esters Allergy (Verified 03/26/18 08:13) Unknown oxycodone Allergy (Verified 03/26/18 08:13) Unknown oxycodone HCl [From Percocet] Allergy (Verified 03/26/18 08:13) Other Penicillins Allergy (Verified 03/26/18 08:13) Unknown Medications to take at Discharge Hydrocodone/Acetaminophen [[place] 5-325 Tablet] 1 each PO Q6H PRN PRN 01/23/18 Ferrous Sulfate 325 mg PO DAILY@0800 #30 tab 03/29/18 Mesalamine [Rowasa] 4 gm RECTAL QHS #30 enema 03/29/18 The following prescriptions were given: Ferrous Sulfate 325 mg PO DAILY@0800 #30 tab Mesalamine [Rowasa] 4 gm RECTAL QHS #30 enema Primary Care Physician: Hemant Parra MD [Primary Care Provider] - Please follow up with your Primary Care Physician in: as scheduled. Please Follow Up With: Eve Wylie MD When: 2 to 3 weeks
--- NOTE | 2018-03-29 15:43 | DCINST_ITS ---
You will use the following diet at home:: Regular Your food should be the consistency of: Regular Your liquids should be the consistency of: Regular/Thin Discharge Activity: Return to Normal Activity Call your doctor if your incision/area has: - - Passing large amount of blood in stools. Allergies/Adverse Reactions: Allergies acetaminophen [From Percocet] Allergy (Verified 03/26/18 08:13) Other ibuprofen [From Motrin] Allergy (Verified 03/26/18 08:13) Unknown omega-3 acid ethyl esters Allergy (Verified 03/26/18 08:13) Unknown oxycodone Allergy (Verified 03/26/18 08:13) Unknown oxycodone HCl [From Percocet] Allergy (Verified 03/26/18 08:13) Other Penicillins Allergy (Verified 03/26/18 08:13) Unknown Medications to take at Discharge Hydrocodone/Acetaminophen [[place] 5-325 Tablet] 1 each PO Q6H PRN PRN 01/23/18 Ferrous Sulfate 325 mg PO DAILY@0800 #30 tab 03/29/18 Mesalamine [Rowasa] 4 gm RECTAL QHS #30 enema 03/29/18 The following prescriptions were given: Ferrous Sulfate 325 mg PO DAILY@0800 #30 tab Mesalamine [Rowasa] 4 gm RECTAL QHS #30 enema Primary Care Physician: Hemant Parra MD [Primary Care Provider] - Please follow up with your Primary Care Physician in: as scheduled. Please Follow Up With: Eve Wylie MD When: 2 to 3 weeks
--- NOTE | 2018-03-29 15:44 | PCM.DC.SUM ---
Discharge Date and Diagnosis Date of Admission: 03/26/18 Date of Discharge: 03/29/18 - Primary Discharge Diagnosis Rectal bleed. - Secondary Discharge Diagnosis Chronic Problems Hypocalcemia (Chronic) Hypomagnesemia (Chronic) Inanition (Chronic) Weight loss, unintentional (Chronic) Leukopenia (Chronic) Cervical cancer (Chronic) Endometrial cancer (Chronic) Hospital Course and Treatment Imaging Results: Diagnostic Data GI Bleed Scan Nuclear Medicine 03/26/18 13:33 IMPRESSION: 1. NEGATIVE 99m Tc ULTRATAG LABELED BLOOD POOL GASTROINTESTINAL BLEEDING EXAMINATION. 2. There is no definitive scintigraphic evidence of acute gastrointestinal hemorrhage on the current evaluation. Electronically Signed: Victor Hugo House DO at 10:12 EDT Tel , Service support , Abdomen/Pelvis CT 03/27/18 09:51 IMPRESSION: Marked improvement in the appearance of the uterus. Mild edematous thickening of the rectum with increased markings in the presacral fat. Electronically Signed: Marco Mcgregor MD at 15:46 EDT Tel [phone], Service support , Manufacturing Helper: Dr. Wylie, general surgery. Operations: None Procedures: EGD, - - Sigmoidoscopy. Summary of Care Provided: Patient is a 72-year-old lady with past medical history significant current for endometrial and cervical CA treated with radiation therapy 2016 who presents with melena. 1. Acute blood loss anemia secondary to rectal bleed. 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 Patient had a similar presentation in November as well as January [address] Eve Martinez findings included a friable rectal mucosa patient has been admitted to monitored bed and order was given for patient to be transfused 2 units PRBC from the ED plan is to obtain posttransfusion H&H consultation was placed to Dr. Victor Hugo Somers for repeat endoscopic evaluation possibly including upper GI as well. Patient was placed on Protonix 40 mg every 12 hours. IVF support. Consultation by Dr. Wylie appreciated. She underwent EGD on 03/26, which was unremarkable. Bleeding scan was negative. CT of abdomen and pelvis as above. 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 Try mesalamine retention enema qhs. Hgb stable at 9.2-9.4 after transfusion. Admitting Hgb was 6.4. She tolerated regular meal. OK to discharge to home. Continue Mesalamine retention enema. Restart Ferrous Sulfate 325 mg po qd. Follow up with PCP as scheduled in 2 weeks. Set up for outpatient CBC next week. 2. History of endocervical CA patient was treated with chemo and radiation in 2017. 3. History of DVT 4. Severe protein calorie malnutrition as evidenced by patient low BMI of 19, decreased energy level as well as muscle wasting consultation was placed to nutrition service 5. DVT prophylaxis SCD only to avoid the use of chemo prophylaxis in view of active GI bleed Discharge Diet: No Restrictions Discharge Activity: Return to Normal Activity Call your doctor if your incision/area has: - - Passing large amount of blood in stools. Home Medications: Medications to take at Discharge Hydrocodone/Acetaminophen [[place] 5-325 Tablet] 1 each PO Q6H PRN PRN 01/23/18 Ferrous Sulfate 325 mg PO DAILY@0800 #30 tab 03/29/18 Mesalamine [Rowasa] 4 gm RECTAL QHS #30 enema 03/29/18 Following Prescrptions Were Given to Patient: Ferrous Sulfate 325 mg PO DAILY@0800 #30 tab Mesalamine [Rowasa] 4 gm RECTAL QHS #30 enema Primary Care Physician: Hemant Parra MD [Primary Care Provider] - Please follow up with your Primary Care Physician in: as scheduled. Please Follow Up With: Eve Wylie MD When: 2 to 3 weeks Disposition: Home Patient Condition:: Stable Medical Necessity - Tobacco Use Smoking Status: Former smoker Meaningful Use Info Meaningful Use Diagnoses (Choose all that apply): None applicable Code Visit Inpatient E&M: 47235 Disch Hosp
--- NOTE | 2018-03-29 15:53 | DS.PCM_ITS ---
Discharge Date and Diagnosis Date of Admission: 03/26/18 Date of Discharge: 03/29/18 - Primary Discharge Diagnosis Rectal bleed. - Secondary Discharge Diagnosis Chronic Problems Hypocalcemia (Chronic) Hypomagnesemia (Chronic) Inanition (Chronic) Weight loss, unintentional (Chronic) Leukopenia (Chronic) Cervical cancer (Chronic) Endometrial cancer (Chronic) Hospital Course and Treatment Imaging Results: Diagnostic Data GI Bleed Scan Nuclear Medicine 03/26/18 13:33 IMPRESSION: 1. NEGATIVE 99m Tc ULTRATAG LABELED BLOOD POOL GASTROINTESTINAL BLEEDING EXAMINATION. 2. There is no definitive scintigraphic evidence of acute gastrointestinal hemorrhage on the current evaluation. Electronically Signed: Victor Hugo House DO at 10:12 EDT Tel , Service support , Abdomen/Pelvis CT 03/27/18 09:51 IMPRESSION: Marked improvement in the appearance of the uterus. Mild edematous thickening of the rectum with increased markings in the presacral fat. Electronically Signed: Marco Mcgregor MD at 15:46 EDT Tel [phone], Service support , Sub Prior: Dr. Wylie, general surgery. Operations: None Procedures: EGD, - - Sigmoidoscopy. Summary of Care Provided: Patient is a 72-year-old lady with past medical history significant current for endometrial and cervical CA treated with radiation therapy 2016 who presents with melena. 1. Acute blood loss anemia secondary to rectal bleed. 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 Patient had a similar presentation in November as well as January [address] Eve Martinez findings included a friable rectal mucosa patient has been admitted to monitored bed and order was given for patient to be transfused 2 units PRBC from the ED plan is to obtain posttransfusion H&H consultation was placed to Dr. Victor Hugo Somers for repeat endoscopic evaluation possibly including upper GI as well. Patient was placed on Protonix 40 mg every 12 hours. IVF support. Consultation by Dr. Wylie appreciated. She underwent EGD on 03/26, which was unremarkable. Bleeding scan was negative. CT of abdomen and pelvis as above. 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 Try mesalamine retention enema qhs. Hgb stable at 9.2-9.4 after transfusion. Admitting Hgb was 6.4. She tolerated regular meal. OK to discharge to home. Continue Mesalamine retention enema. Restart Ferrous Sulfate 325 mg po qd. Follow up with PCP as scheduled in 2 weeks. Set up for outpatient CBC next week. 2. History of endocervical CA patient was treated with chemo and radiation in 2017. 3. History of DVT 4. Severe protein calorie malnutrition as evidenced by patient low BMI of 19, decreased energy level as well as muscle wasting consultation was placed to nutrition service 5. DVT prophylaxis SCD only to avoid the use of chemo prophylaxis in view of active GI bleed Discharge Diet: No Restrictions Discharge Activity: Return to Normal Activity Call your doctor if your incision/area has: - - Passing large amount of blood in stools. Home Medications: Medications to take at Discharge Hydrocodone/Acetaminophen [[place] 5-325 Tablet] 1 each PO Q6H PRN PRN 01/23/18 Ferrous Sulfate 325 mg PO DAILY@0800 #30 tab 03/29/18 Mesalamine [Rowasa] 4 gm RECTAL QHS #30 enema 03/29/18 Following Prescrptions Were Given to Patient: Ferrous Sulfate 325 mg PO DAILY@0800 #30 tab Mesalamine [Rowasa] 4 gm RECTAL QHS #30 enema Primary Care Physician: Hemant Parra MD [Primary Care Provider] - Please follow up with your Primary Care Physician in: as scheduled. Please Follow Up With: Eve Wylie MD When: 2 to 3 weeks Disposition: Home Patient Condition:: Stable Medical Necessity - Tobacco Use Smoking Status: Former smoker Meaningful Use Info Meaningful Use Diagnoses (Choose all that apply): None applicable Code Visit Inpatient E&M: 49991 Disch Hosp
--- NOTE | 2018-04-04 16:06 | CASEMGMT ---
Addendum entered by Celine Mead 04/15/18 14:30: Received call back from pt at this time and she states that she has been 'not doing too bad'. Pt states that she completed her survey and states 'I am not sure why they keep putting me on ferrous sulfate because that makes me bleed and it's too much.' Advised pt that ferrous sulfate is not a blood thinner that it is an iron supplement. Pt states that she got an 'iron pill at the [employer] store.' Pt states is 'taking it easy and doing good.' Pt states no questions regarding discharge instructions or medications at this time. Pt states has had blood drawn and plans to f/u Dr. Wylie. Pt voices no further concerns/needs at this time. Quan GARCIA CM Original Note: JOSE PRINGLE Discharge F/U phone call Lace: 11 Strata: 3 Call date: 04/04/18 Discharge Date: 03/29/18 Time of Call: 1607 Attempted and no answer at this time, message left with pt to call this JOSE PRINGLE back. Quan GARCIA CM
== END 2018-03-29 18:15 | disposition home or self-care (01) | DRG 393 ==
LOC: ED 09:01 → PCU 09:29
PROVIDERS: Surgery; Admitting Provider Internal Medicine; Emergency Provider Emergency Medicine; Family Provider Family Medicine; PCP Family Medicine; Visit Provider Hospitalist
PROC: 0DJ08ZZ Inspection of Upper Intestinal Tract, Via Natural or Artificial Opening Endoscopic (ICD-10-PCS; CPT 43235; principal; 2018-03-26 15:25)
PROC: 0DJD8ZZ Inspection of Lower Intestinal Tract, Via Natural or Artificial Opening Endoscopic (ICD-10-PCS; CPT 45330; principal; 2018-03-28 16:30)
DX: K62.7 Radiation proctitis (principal); E43 Unspecified severe protein-calorie malnutrition; D62 Acute posthemorrhagic anemia; Z68.1 Body mass index [BMI] 19.9 or less, adult; K92.1 Melena; Y84.2 Radiological procedure and radiotherapy as the cause of abnormal reaction of the patient, or of later complication, without mention of misadventure at the time of the procedure; Y92.9 Unspecified place or not applicable; E83.51 Hypocalcemia; E83.42 Hypomagnesemia; Z78.0 Asymptomatic menopausal state; Z92.3 Personal history of irradiation; Z92.21 Personal history of antineoplastic chemotherapy; Z85.41 Personal history of malignant neoplasm of cervix uteri; Z85.42 Personal history of malignant neoplasm of other parts of uterus; Z86.718 Personal history of other venous thrombosis and embolism; Z87.19 Personal history of other diseases of the digestive system; Z87.891 Personal history of nicotine dependence
CPT/HCPCS: 36415; 74177; 78278; 80048; 85014; 85018; 85027; 86850; 86900; 86920; 86922; 88305; 99152; 99153; 99285; A9560; J7030; J7040; P9016; Q9967; A4216; J7799

== ENCOUNTER 2018-07-05 13:12 | Inpatient (IN) | payer MEDICARE, SELFPAY ==
[2018-07-05] VITALS (17 sets, daily range): BP systolic 94–147; BP diastolic 45–116; PULSE 57–80; RESP 12–26; TEMP 36.1–37.5; O2SAT 93–100; BMI 23.3; BMI 22.8
--- NOTE | 2018-07-05 14:23 | ED.VISSUMM ---
- ER Visit Summary Date of Service: 07/05/18 Chief Complaint: Rectal bleeding History of Present Illness: The patient is a 73 F history of prior lower GI bleeds. Patient states she was admitted to the hospital 3 or 4 months ago for similar event and need blood transfusions. She denies being on any blood thinners. She states this is been ongoing for last several days and she feels overall weak at times breaks out in a sweat. She denies any abdominal pain. States that she had prior gynecological cancer for which she underwent radiation therapy and that may be connected to her bleeding. Physical Examination: Older female no acute distress vital signs are stable afebrile. Initial blood pressure 147/116. H EENT exam unremarkable neck nontender. Lungs clear to auscultation. Heart regular rhythm rate about 70. Abdomen soft and nontender. Normal bowel sounds no peritoneal signs. Moving all 4 extremities. Neurovascular intact. Neurologically she is awake and alert without focal deficits. Test Results: BC shows a hemoglobin of 5 bili was 9. Hematocrit 19. Gap of 8 creatinine 1.1. PT/INR normal. The patient's type and screen will be changed to a type and cross. Emergency Department Course and Treatment: Patient with a history of GI bleeds. Concerned she may be bleeding again. Labs will be done and typed and screened. Patient will be transfused 2 units of packed red blood cells. Treatment Plan: Hospitalist on page for admission for lower GI bleed. Disposition: admit Impression: Lower GI bleed This note was generated with [employer] dictation software. It may contain incorrect words, spelling, and punctuation that were not noted in review of the chart prior to signing ED Disposition - Plan for ED Patient: Chief Complaint: GI Bleed Referrals: Hemant Parra MD [Primary Care Provider] -
[2018-07-05 14:41] LABS: Prothrombin Time (Protime)PT. 13.4 SECONDS (11.7-14.9)
--- NOTE | 2018-07-05 14:42 | ED.RN ---
CRITICAL LAB - HGB LEVEL OF 5.9. NOTIFIED.
[2018-07-05 14:44] LABS: Hematocrit 19.9 % (37-47); Mean Corp Hgb Conc 29.6 g/gl (32-36); Mean Corpuscular Hgb 29.5 pg (27.0-32.0); Mean Corpuscular Volume 99.5 fL (81-99); Mean Platelet Vol. 9.9 fl (6.2-12.0); Platelet Count 267 K/mm3 (150-450); RBC Distribution Width CV 13.1 % (11.6-14.6); White Blood Count 4.6 K/mm3 (4.4-11.0)
[2018-07-05 14:48] LABS: Hemoglobin 5.9 g/dl (12.0-15.0)
[2018-07-05 14:55] LABS: Anion Gap 8 (5-15); BUN 21 mg/dL (7-18); BUN/Creat Ratio 18.9 RATIO (10-20); Calcium,Total 7.9 mg/dL (8.5-10.1); Chloride 104 mmol/L (98-107); Creatinine, Serum 1.11 mg/dL (0.55-1.02); EST Glomerular Filtration Rate 51 mL/min (>60); Est Glom Filt Rate - Afr Amer 62 mL/min (>60); Estimated Creatinine Clearance 32.91 ml/min; Glucose 105 mg/dL (74-106); Potassium 4.2 mmol/L (3.5-5.1); Sodium Level 141 mmol/L (136-145)
[2018-07-05 15:20] LABS: Scan Indicated on CBC? Y/N YES- FLAGS NOTED
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
[2018-07-05] MEDS: 0.9% Normal Saline 1,000 ML 100 ML IV (18:00)
[2018-07-05] MEDS: HYDROcodone Bitartrate/Apap 5/325 Tablet PO (18:22)
[2018-07-06] VITALS (13 sets, daily range): BP systolic 106–123; BP diastolic 47–56; PULSE 50–69; RESP 17–18; TEMP 36.6–37.2; O2SAT 96–99; BMI 22.8
[2018-07-06] MEDS: 0.9% Normal Saline 1,000 ML 100 ML IV ×3 (05:34→23:54)
[2018-07-06 06:17] LABS: Absolute Lymphocyte Count 0.57 X10^3/ul (0.83-4.51); Absolute Neutrophil Count 2.8 X10^3/uL (2.0-7.7); Basophil# 0.03 X10^3/uL; Basophil% 0.8 % (0-1); Eosinophil# 0.06 X10^3/uL; Eosinophils% 1.5 % (0-5); Hematocrit 27.8 % (37-47); Hemoglobin 8.6 g/dl (12.0-15.0); Lymphocyte # 0.57 X10^3/ul (4.0); Lymphocyte % 14.6 % (19-41); Mean Corp Hgb Conc 30.9 g/gl (32-36); Mean Corpuscular Hgb 30.5 pg (27.0-32.0); Mean Corpuscular Volume 98.6 fL (81-99); Mean Platelet Vol. 9.8 fl (6.2-12.0); Monocyte# 0.44 X10^3/uL; Monocyte% 11.3 % (0-10); Neutrophil # 2.79 X10^3/uL (2.7-7.7); Neutrophil % 71.5 % (47-70); Platelet Count 222 K/mm3 (150-450); RBC Distribution Width CV 13.5 % (11.6-14.6); RBC Distribution Width SD 46.4 fl (35.1-43.9); Red Blood Count 2.82 M/mm3 (4.2-5.4); White Blood Count 3.9 K/mm3 (4.4-11.0)
[2018-07-06 06:18] LABS: Differential Indicated SCAN CRITERIA MET; POSITIVE COUNT NO; POSITIVE DIFFERENTIAL YES; POSITIVE MORPHOLOGY NO
[2018-07-06 06:28] LABS: Anion Gap 7 (5-15); BUN 15 mg/dL (7-18); BUN/Creat Ratio 16.1 RATIO (10-20); Calcium,Total 7.9 mg/dL (8.5-10.1); Chloride 113 mmol/L (98-107); Creatinine, Serum 0.93 mg/dL (0.55-1.02); EST Glomerular Filtration Rate 63 mL/min (>60); Est Glom Filt Rate - Afr Amer 76 mL/min (>60); Glucose 94 mg/dL (74-106); Potassium 4.3 mmol/L (3.5-5.1); Sodium Level 145 mmol/L (136-145)
--- NOTE | 2018-07-06 08:09 | PCM.CONS.GEN ---
Reason for Consult Date of Consultation: 07/06/18 Reason for Consultation: anemia, recurrent lower GI bleeding History of Present Illness: The patient is a 73 year old F who since November has presented for multiple episodes of recurrent GI bleeding and anemia. On this occasion, she noted worsening fatigue along with you. Her usual dark stools and occasional bright red blood per rectum. The patient denies abdominal pain, she denies hematemesis or coffee-ground emesis. She takes no blood thinners. her hemoglobin on presentation was 5.2 The patient first presented to [facility] emergency department in November. She noted a 2 month history of rectal bleeding at that time. The patient has a previous history of cervical cancer and underwent chemoradiotherapy in addition to brachytherapy. Her first colonoscopy November 19, 2017. there was noted be blood from the hepatic flexure to the rectum with no signs of proximal bleeding sites. There were felt to be too active bleeding sites in the sigmoid colon at the diverticular area where she had significant diverticulosis. Those sites were treated with epinephrine and then a clip was placed. She was also felt to have some degree of friable mucosa in the sigmoid colon.biopsies from that endoscopy was unremarkable. the patient was then readmitted for further bleeding and underwent repeat endoscopy on January 24, 2018. There was again noted to be friable mucosa in the sigmoid area and epinephrine was injected. Colonoscopy was performed to the cecum and there was noted to be friable, somewhat oozing mucosa in the sigmoid without additional significant bleeding noted. biopsy at this time returned friable mucosa with some engorged veins. The patient was readmitted in March. On March 26, 2018, the patient had upper endoscopy which demonstrated no source of bleeding. A bleeding scan was obtained onMarch 26, 2018 which demonstrated no visible source of bleeding. Flexible sigmoidoscopy is performed on March 29, 2018 which demonstrated a friable rectal mucosa with some oozing. biopsy at this time was unremarkable. Past Medical History Past Medical History (Chronic Problems): Chronic Problems Hypocalcemia (Chronic) Hypomagnesemia (Chronic) Inanition (Chronic) Weight loss, unintentional (Chronic) Leukopenia (Chronic) Cervical cancer (Chronic) Endometrial cancer (Chronic) Allergies acetaminophen [From Percocet] Allergy (Verified 07/05/18 13:13) Other ibuprofen [From Motrin] Allergy (Verified 07/05/18 13:13) Unknown omega-3 acid ethyl esters Allergy (Verified 07/05/18 13:13) Unknown oxycodone Allergy (Verified 07/05/18 13:13) Unknown oxycodone HCl [From Percocet] Allergy (Verified 07/05/18 13:13) Other Penicillins Allergy (Verified 07/05/18 13:13) Unknown Home Medications: Ambulatory Orders Medication Instructions Recorded Hydrocodone/Acetaminophen 1 tab PO BID PRN PRN 07/05/18 [Hydrocodone-Acetamin 5-325 mg] Iron,Carbonyl [Ferretts] 18 mg PO BID 07/05/18 Surgical History: appendectomy, tonsillectomy 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 Maternal History Items: Unknown Paternal History Items: Unknown Review of Systems Constitutional: Reports: Malaise, Fatigue. Denies: Chills, Fever, Weight Change HEENT: Denies: Head Aches, Sinus Congestion, Sinus Drainage Cardiovascular: Denies: Chest Pain, Palpitations Respiratory: Denies: Cough, Shortness of breath at rest, Sputum production Gastrointestinal: Reports: Hematochezia. Denies: Abdominal Pain, Nausea, Vomiting Genitourinary: Denies: Dysuria Musculoskeletal: Denies: Joint Pain, Joint Tenderness Skin: Denies: Rash, Wounds Neurological: Denies: Numbness, Tingling, Focal weakness Psychiatric: Denies: Anxiety, Depression, Homicidal Ideations, Suicidal Ideations Hematologic/ Lymphatic: Denies: Easy Bruising, Easy Bleeding - Physical Exam General: Alert, Oriented x3, Cooperative HEENT: Atraumatic, PERRLA, EOMI, Normocephalic Neck: Supple, No JVD, Negative Carotid Bruits Lungs: Clear to auscultation, Normal air movement Cardiovascular: Regular rate, No murmurs Abdomen: Bowel Sounds Present, Soft, Non Tender Extremities: No edema, Capillary Refill Less than 3 Seconds Skin: No rashes, No breakdown Musculoskeletal: No Tenderness to Palpation of Joints or Extremities Neurological: Cranial nerves II-XII grossly intact Psych/Mental Status: Normal Affect, Appropriate Vital Signs Temp Pulse Resp BP Pulse Ox 97.8 F 62 18 115/56 L 98 07/06/18 03:05 07/06/18 07:26 07/06/18 03:05 07/06/18 03:05 07/06/18 07:20 Oxygen Delivery Method Room Air Weight: 52.707 kg Body Mass Index (BMI) 22.8 Intake and Output for Last 24 Hours 07/04/18 07/05/18 07/06/18 23:59 23:59 23:59 Intake Total 1417 / 1417 647 / 647 Balance 1417 / 1417 647 / 647 Laboratory Tests Past 24 Hrs 07/06/18 07/06/18 05:50 05:50 WBC 3.9 L RBC 2.82 L Hgb 8.6 L Hct 27.8 L MCV 98.6 MCH 30.5 MCHC 30.9 L RDW 13.5 RDW Differential 46.4 H Plt Count 222 MPV 9.8 Immature Gran % (Auto) 0.300 Neut % (Auto) 71.5 H Lymph % (Auto) 14.6 L Andrews % (Auto) 11.3 H Eos % (Auto) 1.5 Baso % (Auto) 0.8 Absolute Neuts (auto) 2.8 Absolute Lymphs (auto) 0.57 L Total Counted Not Reportable Sodium 145 Potassium 4.3 Chloride 113 H Carbon Dioxide 25.0 Anion Gap 7 BUN 15 Creatinine 0.93 Estim Creat Clear Calc 45.50 Est GFR (MDRD) Af Amer 76 Est GFR (MDRD) Non-Af 63 BUN/Creatinine Ratio 16.1 Glucose 94 Calcium 7.9 L Assessment/Plan All Active Problems Anemia due to blood loss, acute (Acute) History of DVT (deep vein thrombosis) (Resolved) Lower GI bleed (Acute) recurring presumed lower GI bleed as a source of anemia, history of pelvic radiation, variable obscure sources in the past. I plan to perform upper and lower endoscopy. We'll plan for bowel prep today. We will proceed with upper and lower endoscopy with sedation tomorrow morning. The patient herself the risks, benefits. Complications, and possible alternatives to the procedure. If the patient has increased bleeding output today. We will potentially consider more urgent endoscopy. We are currently unable to obtain a nuclear medicine bleeding scan on the weekend if the patient bleeds more actively
--- NOTE | 2018-07-06 08:57 | CASEMGMT ---
See assessment. SW spoke w/pt in room, roommate [place] present, pt gave permission to speak w/her in front of roommate. Roommate appears to be supportive. Pt is independent at home, has DME but does not use. Pt does not drive, roommate takes pt to appointments. Pt has a son in [place], pt states he may come see her today. SW asked about POA forms, pt has not completed and not interested at this time in completing. Pt has never been to SNF, had home health once, reports it to not be too helpful. Pt anticipates returning home at discharge, declined all referrals including SNF, home health care, [facility] and [facility]. SW remains available should any needs arise. WALTER Patel, GEAR CUTTING MACHINE OPERATOR
[2018-07-06] MEDS: HYDROcodone Bitartrate/Apap 5/325 Tablet PO ×2 (10:02→23:41)
--- NOTE | 2018-07-06 12:37 | PCM.PROGNOTE ---
<Liberty Lloyd - Last Filed: 07/06/18 12:48> Subjective: Patient seen and examined. Undergoing bowel prep for plans of upper and lower endoscopy tomorrow. Weakness, dizziness improved. Denies other current complaints. - Physical Exam General: Alert, Oriented x3, Cooperative, No apparent distress, - - Appears pale, cachectic HEENT: Atraumatic, PERRLA, EOMI, Normocephalic Oral: Dry Mucosa Neck: Supple, No JVD, Negative Carotid Bruits Lungs: Clear to auscultation, Normal air movement Cardiovascular: Regular rate, Regular Rhythm, Normal S1, Normal S2, No murmurs Abdomen: Bowel Sounds Present, Soft, Non Tender, Non-Distended Extremities: No clubbing, No cyanosis, No edema, Capillary Refill Less than 3 Seconds Skin: No rashes, No breakdown Musculoskeletal: No Tenderness to Palpation of Joints or Extremities Neurological: Cranial nerves II-XII grossly intact, Neuro grossly intact Psych/Mental Status: Normal Affect, Appropriate Vital Signs Temp Pulse Resp BP Pulse Ox 98.6 F 69 17 106/53 L 99 07/06/18 09:05 07/06/18 11:52 07/06/18 09:05 07/06/18 09:05 07/06/18 09:05 Oxygen Delivery Method Room Air Weight: 116 lb 3.185 oz Body Mass Index (BMI) 22.8 Intake and Output for Last 24 Hours 07/04/18 07/05/18 07/06/18 23:59 23:59 23:59 Intake Total 1417 / 1417 1716 / 1716 Balance 1417 / 1417 1716 / 1716 Laboratory Tests Past 24 Hrs 07/06/18 07/06/18 05:50 05:50 WBC 3.9 L RBC 2.82 L Hgb 8.6 L Hct 27.8 L MCV 98.6 MCH 30.5 MCHC 30.9 L RDW 13.5 RDW Differential 46.4 H Plt Count 222 MPV 9.8 Immature Gran % (Auto) 0.300 Neut % (Auto) 71.5 H Lymph % (Auto) 14.6 L Newton % (Auto) 11.3 H Eos % (Auto) 1.5 Baso % (Auto) 0.8 Absolute Neuts (auto) 2.8 Absolute Lymphs (auto) 0.57 L Total Counted Not Reportable Sodium 145 Potassium 4.3 Chloride 113 H Carbon Dioxide 25.0 Anion Gap 7 BUN 15 Creatinine 0.93 Estim Creat Clear Calc 45.50 Est GFR (MDRD) Af Amer 76 Est GFR (MDRD) Non-Af 63 BUN/Creatinine Ratio 16.1 Glucose 94 Calcium 7.9 L Medical Necessity - Tobacco Use Smoking Status: Former smoker Assessment/Plan All Active Problems Anemia due to blood loss, acute (Acute) History of DVT (deep vein thrombosis) (Resolved) Lower GI bleed (Acute) 1. Acute recurrent blood loss anemia secondary to lower GI bleed-hemoglobin 5.9 on admission. Status post 2 units PRBC. Hemoglobin now 8.6. Patient has been seen by Dr. Wylie in the past. Most recent scope 03/26/2018, sigmoidoscopy at that time showed no ulcers or masses. She underwent NM bleeding scan which showed no source. 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 Dr. Somers following. Plan for upper and lower endoscopy tomorrow. Monitor H&H. Continue IV PPI. 2. MENDOZA-suspect secondary to hypovolemia as a result of #1. Resolved with IV fluids. Continue to monitor. 3. Hypotension-secondary to #1. Stable, continue to monitor. 4. Moderate protein calorie malnutrition-nutrition consult. 5. History of endometrial and cervical cancer 6. History of provoked DVT 7. Chronic electrolyte disturbances including hypomagnesia and hypocalcemia-currently stable. DVT prophylaxis- SCDS. Pharmacologic prophylaxis contraindicated secondary to #1. This patient was seen by BIGG Kimball under the supervision of Dr. Cain. <Marta Cain - Last Filed: 07/06/18 13:38> - Physical Exam Vital Signs Temp Pulse Resp BP Pulse Ox 98.6 F 69 17 106/53 L 99 07/06/18 09:05 07/06/18 11:52 07/06/18 09:05 07/06/18 09:05 07/06/18 09:05 Oxygen Delivery Method Room Air Weight: 116 lb 3.185 oz Body Mass Index (BMI) 22.8 Intake and Output for Last 24 Hours 07/04/18 07/05/18 07/06/18 23:59 23:59 23:59 Intake Total 1417 / 1417 1716 / 1716 Balance 1417 / 1417 1716 / 1716 Laboratory Tests Past 24 Hrs 07/06/18 07/06/18 05:50 05:50 WBC 3.9 L RBC 2.82 L Hgb 8.6 L Hct 27.8 L MCV 98.6 MCH 30.5 MCHC 30.9 L RDW 13.5 RDW Differential 46.4 H Plt Count 222 MPV 9.8 Immature Gran % (Auto) 0.300 Neut % (Auto) 71.5 H Lymph % (Auto) 14.6 L Newton % (Auto) 11.3 H Eos % (Auto) 1.5 Baso % (Auto) 0.8 Absolute Neuts (auto) 2.8 Absolute Lymphs (auto) 0.57 L Total Counted Not Reportable Sodium 145 Potassium 4.3 Chloride 113 H Carbon Dioxide 25.0 Anion Gap 7 BUN 15 Creatinine 0.93 Estim Creat Clear Calc 45.50 Est GFR (MDRD) Af Amer 76 Est GFR (MDRD) Non-Af 63 BUN/Creatinine Ratio 16.1 Glucose 94 Calcium 7.9 L Assessment/Plan Patient seen by Liberty Lloyd NP-Golden under my supervision. Admittted with a complaint of rectal bleeding. Patient seen and examined. Still complains of having had some episodes of painful rectal bleeding overnight. She does have a history of lower GI bleed and recurrent blood loss anemia due to this. Hemoglobin was 5.9 on admission and is status post 2 units of blood packed red blood cell with hemoglobin being up to 8.6. She had a sigmoidoscopy on 03/26/2018 which showed no ulcers or masses and has had a nuclear medicine scan which showed no bleeding source. 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 Patient is also known to have diverticular disease. Patient denies any fever or chills, cough or chest pain, shortness of breath, abdominal pain, diarrhea vomiting. 12 point review of systems otherwise negative. Labs and vitals reviewed. Vital Signs Height 4 ft 11.84 in Weight: 116 lb 3.185 oz Weight in Pounds 116.2 lbs Pulse Ox 99 Temperature 98.6 F Pulse Rate [Standing] 67 Pulse Rate [Sitting] 66 Pulse Rate [Lying] 60 Pulse Rate 69 Respiratory Rate 17 Blood Pressure [Standing] 125/63 Blood Pressure [Sitting] 104/79 Blood Pressure [Lying] 124/53 Blood Pressure 106/53 Blood Pressure Position Semi-Fowlers General: Alert, Oriented x3, Cooperative, No apparent distress, cachectic HEENT: Atraumatic, PERRLA, EOMI, Normocephalic, pale conjuctivae Oral: Dry Mucosa Neck: Supple, No JVD, Negative Carotid Bruits Lungs: Clear to auscultation, Normal air movement Cardiovascular: Regular rate, Regular Rhythm, Normal S1, Normal S2, No murmurs Abdomen: Bowel Sounds Present, Soft, Non Tender, Non-Distended Extremities: No clubbing, No cyanosis, No edema, Capillary Refill Less than 3 Seconds Skin: No rashes, No breakdown Musculoskeletal: No Tenderness to Palpation of Joints or Extremities Neurological: Cranial nerves II-XII grossly intact, Neuro grossly intact Psych/Mental Status: Normal Affect, Appropriate Patient being managed for acute blood loss anemia due to lower GI bleed and MENDOZA. general surgery is on board. She is to have EGD and colonoscopy tomorrow. clear liquids for now, then NPO past midnight. Bowel prep as per general surgery. Continue IVF. SCDs for DVT prophylaxis. No anticoagulation. Agree with rest of Liberty Lloyd SENIOR COMPENSATION ANALYST-C's note, assessment and plan. Code Visit Inpatient E&M: 62105 Subs Hosp L3
[2018-07-06] MEDS: Electrolyte Solution/Peg's 4000 ML PO (15:58)
[2018-07-06 16:55] LABS: Hematocrit 27.6 % (37-47); Hemoglobin 8.5 g/dl (12.0-15.0)
[2018-07-07] VITALS (15 sets, daily range): BP systolic 99–130; BP diastolic 36–60; PULSE 46–71; RESP 16–18; TEMP 36.2–36.8; O2SAT 97–100
--- NOTE | 2018-07-07 | IMM_PTH ---
PATIENT: NASEEM GARDNER LOC: [facility] U#:[id number] AGE/SX: 73/F ROOM: [facility] RE07/05/[address]: Dr. Simon Arcos DO : 1945 BED: 1 DIS: 07/08/2018 SPEC #: [id number] RECD: 07/10/18 10:20 STATUS: SOUNathan REQ #: [id number] KASI: 07/07/18 00:[address]: Victor Hugo Mcghee DEPT: IMMUNOHISTOCHEMISTRY RECD BY: Sharona Don ENTERED: 07/10/18 10:23 SP TYPE: IMMUNO OTHR DR: DO Dr. Hemant Haile MD Dr. Nicholas F Kotsonis, MD Tissues: A - Stomach, NOS Procedures: H Pylori (initial) Comments: @ Ordering doctor for H.PYLORI edited from to @ by GOSIA at 07/10/18 1023 @ Submitting doctor edited from to @ by GOSIA at 07/10/18 1023 PHYSICIAN & INSTITUTION [place] [id number] SPECIMEN INFORMATION: Tissue Source: A ? Antral biopsy Clinical Info: Anemia, GI bleed Specimen Number: [id number] CPT code: 40373 METHODOLOGY: Deparaffinized sections of prefer/formalin-fixed tissue or PAP/DQ stained slides are incubated with monoclonal/polyclonal antibodies/oligonucleotide probes. Localization is made via biotin free immunoperoxidase method. Appropriate controls are performed and reacted as expected. Results on target cell population are indicated in the following table: RESULTS: ANTIBODY / CLONE RESULT Block A H Pylori (polyclonal) negative These tests were developed and their performance characteristics determined by [facility]. They may not have been cleared or approved by the U.S. Food and Drug Administration. The FDA has determined that such clearance or approval is not necessary. INTERPRETATION: A. Antral biopsy: Negative for Helicobacter pylori organisms. SJ:amanda 07/10/18
[2018-07-07 06:28] LABS: Hematocrit 29.8 % (37-47); Hemoglobin 9.1 g/dl (12.0-15.0); Mean Corp Hgb Conc 30.5 g/gl (32-36); Mean Corpuscular Hgb 30.3 pg (27.0-32.0); Mean Corpuscular Volume 99.3 fL (81-99); Mean Platelet Vol. 10.3 fl (6.2-12.0); Platelet Count 225 K/mm3 (150-450); RBC Distribution Width CV 13.6 % (11.6-14.6); RBC Distribution Width SD 47.2 fl (35.1-43.9); White Blood Count 4.1 K/mm3 (4.4-11.0)
[2018-07-07 06:32] LABS: Prothrombin Time (Protime)PT. 12.9 SECONDS (11.7-14.9); Scan Indicated on CBC? Y/N NO
--- NOTE | 2018-07-07 07:05 | EGD_PTH ---
PATIENT: NASEEM GARDNER LOC: [facility] U#:[id number] AGE/SX: 73/F ROOM: [facility] RE07/05/[address]: Dr. Simon Arcos DO : 1945 BED: 1 DIS: 07/08/2018 SPEC #: [id number] RECD: 07/07/18 09:13 STATUS: NIRAJ REGenet #: [id number] KASI: 07/07/18 07:[address]: Victor Hugo Mcghee DEPT: SURGICAL PATHOLOGY RECD BY: Medina Delgado ENTERED: 07/09/18 08:54 SP TYPE: EGD BIOPSY OTHR DR: DO Dr. Hemant Haile MD Dr. Nicholas F Kotsonis, MD Dr. Richard Guttman, MD Tissues: A - Gastric mucous membrane B - COLON BIOPSY Procedures: Trichrome (control) Special Stain Group II Surgery Specimen Level IV Comments: @ Ordering doctor for SUIV edited from to @ by GOSIA at 07/10/18 0742 @ Submitting doctor edited from to @ by RGOOD at 07/10/18 0742 HEADER OPERATION: Colonoscopy, EGD ([facility]) PRE-OP DIAGNOSIS: Anemia, GI bleed TISSUE SUBMITTED: A. Antral biopsy, B. Random colon biopsies MICROSCOPIC DIAGNOSIS A. Antral biopsy: Mild gastritis. B. Colon, random biopsy: Fragments of colonic mucosa with focally dilated blood vessels and fibrosis on lamina propria. Negative for malignancy. See comment. SJ:aamnda 07/10/18 COMMENT A. The results of immunohistochemistry for Helicobacter pylori will be reported separately ([id number]). B. Trichrome stain with matched control is used in the evaluation of this specimen and highlights the focal fibrosis on lamina propria and also shows focal thickening of subepithelial collagen band suggestive of collagenous colitis. Correlation with clinical, endoscopic findings and appropriate follow up are necessary. Please make reference to previous specimen ([id number]) proximal transverse colon, biopsy with diagnosis of fragments of colonic mucosa, no pathologic diagnosis and ([id number]) rectum, biopsy with diagnosis of fragments of colonic mucosa, no pathologic diagnosis and ([id number]) sigmoid rectal junction, biopsy with diagnosis of fragments of colonic mucosa with focally dilated blood vessels, fibrosis of lamina propria and mild nonspecific chronic inflammation. Case has been reviewed in consultation with Dr. Dumont who concurs with the above diagnosis. IDC:LEATHA MICROSCOPIC DESCRIPTION Slides are reviewed. A. The specimen shows fragments of gastric mucosa with chronic inflammatory cell infiltrates in the lamina propria consisting of lymphocytes and plasma cells, consistent with mild chronic gastritis. GROSS DESCRIPTION A - Received in fixative is one container labeled with the patient's name and designated antral biopsy. The specimen consists of one irregular fragment of light cortez soft tissue that measures 0.3 x 0.3 x 0.1 cm. The specimen is totally submitted in one cassette. B - Received in fixative is one container labeled with the patient's name and designated random colon biopsy. The specimen consists of multiple irregular fragments of light cortez soft tissue that in aggregate measure 1.5 x 0.3 x 0.1 cm. The specimen is totally submitted in one cassette. / SJ:rg 07/09/18 TC:5 CPT: 65940 x2, 45903
--- NOTE | 2018-07-07 08:33 | PCM.OPRPT ---
Report of Operation Date of Procedure: 07/07/18 Pre-Operative Diagnosis: anemia, rectal bleeding Post-Operative Diagnosis: hiatal hernia, no upper GI source, proctitis for the last 60 cm, consistent with radiation proctitis, otherwise no more proximal signs of lower GI bleeding Surgery/Procedure Performed:: EGD with biopsy, colonoscopy with biopsy Type of Anesthesia:: MAC Specimen's removed: gastric, colon Description of Procedure: The patient was brought to the endoscopy suite. Sign in was performed verifying patient, site, planned procedure, critical nursing information, the patient was monitored with cardiac, pulse oximetric, and blood pressure monitoring devices. Monitored anesthetic care was provided for sedation. Following IV sedation and after the oropharynx was sprayed with Cetacaine spray, a video gastroscope was inserted in the oropharynx and advanced down the esophagus without difficulty. The scope was advanced through the stomach, through the pylorus through the duodenum to the proximal jejunum. The jejunum appeared unremarkable. The duodenum appeared unremarkable area did the stomach had very mild gastritis. Biopsies obtained for H. pylori and pathology. the scope was retroflexed. There was a type I hiatal hernia, moderately sized. The stomach was aspirated air and liquid. Scope withdrawn. The esophagus appeared unremarkable. The patient was positioned for colonoscopy. A digital rectal exam was performed which revealed liquid stool that was blood-tinged on the digit. The video colonoscope was inserted and advanced to the cecum as verified by the ileocecal valve, cecal base anatomic features and palpation.the cecum, ascending colon, hepatic flexure, transverse colon, splenic flexure, descending colon appeared unremarkable. There were a few diverticula. There was no signs of bleeding from the diverticula. From approximately 60 cm to the rectum, there was felt to be moderate proctitis with friable mucosa which bled easily on biopsy. Erythematous segments. biopsies were obtained which were sent together as random from the cecum which was unremarkable and the rectal area which demonstrated the proctitis. These areas were patchy in distribution. The scope was not retroflexed. The patient tolerated the procedure well and was brought to recovery in stable condition
[2018-07-07] MEDS: 0.9% Normal Saline 1,000 ML 100 ML IV ×2 (08:53→17:35)
[2018-07-07] MEDS: HYDROcodone Bitartrate/Apap 5/325 Tablet PO ×2 (11:26→21:09)
[2018-07-07] MEDS: Hydrocortisone 100 MG/60 ML ENEMA RECTAL (11:27)
--- NOTE | 2018-07-07 11:37 | PCM.PROGNOTE ---
<Liberty Lloyd - Last Filed: 07/07/18 11:43> Subjective: Patient seen and examined. Complains of continued weakness. States she had a bowel movement with small amount of blood this morning. Denies other complaints. States she is not ready to go home. - Physical Exam General: Alert, Oriented x3, Cooperative, No apparent distress, - - Appears pale, cachectic. HEENT: Atraumatic, PERRLA, EOMI, Normocephalic Neck: Supple, No JVD, Negative Carotid Bruits Lungs: Clear to auscultation, Normal air movement Cardiovascular: Regular rate, Regular Rhythm, Normal S1, Normal S2, No murmurs Abdomen: Bowel Sounds Present, Soft, Non Tender, Non-Distended Extremities: No clubbing, No cyanosis, No edema, Capillary Refill Less than 3 Seconds Skin: No rashes, No breakdown Musculoskeletal: No Tenderness to Palpation of Joints or Extremities Neurological: Cranial nerves II-XII grossly intact, Neuro grossly intact Psych/Mental Status: Normal Affect, Appropriate Vital Signs Temp Pulse Resp BP Pulse Ox 97.8 F 50 L 16 122/46 H 100 07/07/18 08:35 07/07/18 08:47 07/07/18 08:35 07/07/18 08:35 07/07/18 08:35 Oxygen Delivery Method Room Air Weight: 116 lb 3.185 oz Body Mass Index (BMI) 22.8 Intake and Output for Last 24 Hours 07/05/18 07/06/18 07/07/18 23:59 23:59 23:59 Intake Total 1417 / 1417 4084 / 4084 1465 / 1465 Balance 1417 / 1417 4084 / 4084 1465 / 1465 Laboratory Tests Past 24 Hrs 07/06/18 07/07/18 07/07/18 16:50 05:50 05:50 WBC 4.1 L RBC 3.00 L Hgb 8.5 L 9.1 L Hct 27.6 L 29.8 L MCV 99.3 H MCH 30.3 MCHC 30.5 L RDW 13.6 RDW Differential 47.2 H Plt Count 225 MPV 10.3 PT 12.9 INR 1.0 Medical Necessity - Tobacco Use Smoking Status: Former smoker Assessment/Plan All Active Problems Anemia due to blood loss, acute (Acute) History of DVT (deep vein thrombosis) (Resolved) Lower GI bleed (Acute) 1. Acute recurrent blood loss anemia secondary to lower GI bleed-hemoglobin 5.9 on admission. Status post 2 units PRBC. Hemoglobin now 9.1. Patient has been seen by Dr. Wylie in the past. Most recent scope 03/26/2018, sigmoidoscopy at that time showed no ulcers or masses. She underwent NM bleeding scan which showed no source. 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 Dr. Somers following. Patient underwent EGD with biopsy and colonoscopy with biopsy this morning with Dr. Somers which showed hiatal hernia, no source of upper GI bleed, proctitis consistent with radiation proctitis, otherwise no signs of lower GI bleeding. Continue IV PPI. Monitor CBC. Patient started on hydrocortisone enemas nightly. Plan for discharge home tomorrow if H&H remains stable. 2. MENDOZA-suspect secondary to hypovolemia as a result of #1. Resolved with IV fluids. Continue to monitor. 3. Hypotension-secondary to #1. Stable, continue to monitor. 4. Moderate protein calorie malnutrition-nutrition consult. 5. History of endometrial and cervical cancer 6. History of provoked DVT 7. Chronic electrolyte disturbances including hypomagnesia and hypocalcemia-currently stable. DVT prophylaxis- SCDS. Pharmacologic prophylaxis contraindicated secondary to #1. This patient was seen by BIGG Kimball under the supervision of Dr. Cain. <Marta Cain - Last Filed: 07/07/18 12:35> - Physical Exam Vital Signs Temp Pulse Resp BP Pulse Ox 97.8 F 50 L 16 122/46 H 100 07/07/18 08:35 07/07/18 08:47 07/07/18 08:35 07/07/18 08:35 07/07/18 08:35 Oxygen Delivery Method Room Air Weight: 116 lb 3.185 oz Body Mass Index (BMI) 22.8 Intake and Output for Last 24 Hours 07/05/18 07/06/18 07/07/18 23:59 23:59 23:59 Intake Total 1417 / 1417 4084 / 4084 1465 / 1465 Balance 1417 / 1417 4084 / 4084 1465 / 1465 Laboratory Tests Past 24 Hrs 07/06/18 07/07/18 07/07/18 16:50 05:50 05:50 WBC 4.1 L RBC 3.00 L Hgb 8.5 L 9.1 L Hct 27.6 L 29.8 L MCV 99.3 H MCH 30.3 MCHC 30.5 L RDW 13.6 RDW Differential 47.2 H Plt Count 225 MPV 10.3 PT 12.9 INR 1.0 Assessment/Plan Patient seen by Liberty PRIDE under my supervision Patient seen and examined. She had an EGD and colonoscopy this morning by Dr. Cadena which showed a hiatal hernia, no signs of upper GI bleed suspicion for H pylori, and proctitis with irritation suspicious for radiation proctitis. There were no clear signs of lower GI bleed. However patient states this morning she had a bowel movement which was bloody. Patient says she feels weak and does not feel to go home today. o/e: Vital Signs Height 4 ft 11.84 in Weight: 116 lb 3.185 oz Weight in Pounds 116.2 lbs Pulse Ox 100 Temperature 97.8 F Pulse Rate [Standing] 67 Pulse Rate [Sitting] 66 Pulse Rate [Lying] 60 Pulse Rate 50 Respiratory Rate 16 Blood Pressure [Standing] 125/63 Blood Pressure [Sitting] 104/79 Blood Pressure [Lying] 124/53 Blood Pressure 122/46 Blood Pressure Position Semi-Fowlers General: Alert, Oriented x3, Cooperative, No apparent distress. HEENT: Atraumatic, PERRLA, EOMI, Normocephalic,pale conjuctivae Neck: Supple, No JVD, Negative Carotid Bruits Lungs: Clear to auscultation, Normal air movement Cardiovascular: Regular rate, Regular Rhythm, Normal S1, Normal S2, No murmurs Abdomen: Bowel Sounds Present, Soft, Non Tender, Non-Distended Extremities: No clubbing, No cyanosis, No edema, Capillary Refill Less than 3 Seconds Skin: No rashes, No breakdown Musculoskeletal: No Tenderness to Palpation of Joints or Extremities Neurological: Cranial nerves II-XII grossly intact, Neuro grossly intact Psych/Mental Status: Normal Affect, Appropriate Plan is to start hydrocortisone enema, per general surgery. For likely dc home tomorrow if Hb remains stable. Agree with rest of Liberty PRIDE's note, assessment and plan. Code Visit Inpatient E&M: 61410 Subs Hosp L3
--- NOTE | 2018-07-07 11:43 | PN_ITS ---
<Liberty Lloyd - Last Filed: 07/07/18 11:43> Subjective: Patient seen and examined. Complains of continued weakness. States she had a bowel movement with small amount of blood this morning. Denies other complaints. States she is not ready to go home. - Physical Exam General: Alert, Oriented x3, Cooperative, No apparent distress, - - Appears pale , cachectic. HEENT: Atraumatic, PERRLA, EOMI, Normocephalic Neck: Supple, No JVD, Negative Carotid Bruits Lungs: Clear to auscultation, Normal air movement Cardiovascular: Regular rate, Regular Rhythm, Normal S1, Normal S2, No murmurs Abdomen: Bowel Sounds Present, Soft, Non Tender, Non-Distended Extremities: No clubbing, No cyanosis, No edema, Capillary Refill Less than 3 Seconds Skin: No rashes, No breakdown Musculoskeletal: No Tenderness to Palpation of Joints or Extremities Neurological: Cranial nerves II-XII grossly intact, Neuro grossly intact Psych/Mental Status: Normal Affect, Appropriate Vital Signs Temp Pulse Resp BP Pulse Ox 97.8 F 50 L 16 122/46 H 100 07/07/18 08:35 07/07/18 08:47 07/07/18 08:35 07/07/18 08:35 07/07/18 08:35 Oxygen Delivery Method Room Air Weight: 116 lb 3.185 oz Body Mass Index (BMI) 22.8 Intake and Output for Last 24 Hours 07/05/18 07/06/18 07/07/18 23:59 23:59 23:59 Intake Total 1417 / 1417 4084 / 4084 1465 / 1465 Balance 1417 / 1417 4084 / 4084 1465 / 1465 Laboratory Tests Past 24 Hrs 07/06/18 07/07/18 07/07/18 16:50 05:50 05:50 WBC 4.1 L RBC 3.00 L Hgb 8.5 L 9.1 L Hct 27.6 L 29.8 L MCV 99.3 H MCH 30.3 MCHC 30.5 L RDW 13.6 RDW Differential 47.2 H Plt Count 225 MPV 10.3 PT 12.9 INR 1.0 Medical Necessity - Tobacco Use Smoking Status: Former smoker Assessment/Plan All Active Problems Anemia due to blood loss, acute (Acute) History of DVT (deep vein thrombosis) (Resolved) Lower GI bleed (Acute) 1. Acute recurrent blood loss anemia secondary to lower GI bleed-hemoglobin 5.9 on admission. Status post 2 units PRBC. Hemoglobin now 9.1. Patient has been seen by Dr. Wylie in the past. Most recent scope 03/26/2018, sigmoidoscopy at that time showed no ulcers or masses. She underwent NM bleeding scan which showed no source. 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 Dr. Somers following. Patient underwent EGD with biopsy and colonoscopy with biopsy this morning with Dr. Somers which showed hiatal hernia, no source of upper GI bleed , proctitis consistent with radiation proctitis, otherwise no signs of lower GI bleeding. Continue IV PPI. Monitor CBC. Patient started on hydrocortisone enemas nightly. Plan for discharge home tomorrow if H&H remains stable. 2. MENDOZA-suspect secondary to hypovolemia as a result of #1. Resolved with IV fluids. Continue to monitor. 3. Hypotension-secondary to #1. Stable, continue to monitor. 4. Moderate protein calorie malnutrition-nutrition consult. 5. History of endometrial and cervical cancer 6. History of provoked DVT 7. Chronic electrolyte disturbances including hypomagnesia and hypocalcemia- currently stable. DVT prophylaxis- SCDS. Pharmacologic prophylaxis contraindicated secondary to # 1. This patient was seen by BIGG Kimball under the supervision of Dr. Cain. <Marta Cain - Last Filed: 07/07/18 12:35> - Physical Exam Vital Signs Temp Pulse Resp BP Pulse Ox 97.8 F 50 L 16 122/46 H 100 07/07/18 08:35 07/07/18 08:47 07/07/18 08:35 07/07/18 08:35 07/07/18 08:35 Oxygen Delivery Method Room Air Weight: 116 lb 3.185 oz Body Mass Index (BMI) 22.8 Intake and Output for Last 24 Hours 07/05/18 07/06/18 07/07/18 23:59 23:59 23:59 Intake Total 1417 / 1417 4084 / 4084 1465 / 1465 Balance 1417 / 1417 4084 / 4084 1465 / 1465 Laboratory Tests Past 24 Hrs 07/06/18 07/07/18 07/07/18 16:50 05:50 05:50 WBC 4.1 L RBC 3.00 L Hgb 8.5 L 9.1 L Hct 27.6 L 29.8 L MCV 99.3 H MCH 30.3 MCHC 30.5 L RDW 13.6 RDW Differential 47.2 H Plt Count 225 MPV 10.3 PT 12.9 INR 1.0 Assessment/Plan Patient seen by Liberty PRIDE under my supervision Patient seen and examined. She had an EGD and colonoscopy this morning by Dr. Cadena which showed a hiatal hernia, no signs of upper GI bleed suspicion for H pylori, and proctitis with irritation suspicious for radiation proctitis. There were no clear signs of lower GI bleed. However patient states this morning she had a bowel movement which was bloody. Patient says she feels weak and does not feel to go home today. o/e: Vital Signs Height 4 ft 11.84 in Weight: 116 lb 3.185 oz Weight in Pounds 116.2 lbs Pulse Ox 100 Temperature 97.8 F Pulse Rate [Standing] 67 Pulse Rate [Sitting] 66 Pulse Rate [Lying] 60 Pulse Rate 50 Respiratory Rate 16 Blood Pressure [Standing] 125/63 Blood Pressure [Sitting] 104/79 Blood Pressure [Lying] 124/53 Blood Pressure 122/46 Blood Pressure Position Semi-Fowlers General: Alert, Oriented x3, Cooperative, No apparent distress. HEENT: Atraumatic, PERRLA, EOMI, Normocephalic,pale conjuctivae Neck: Supple, No JVD, Negative Carotid Bruits Lungs: Clear to auscultation, Normal air movement Cardiovascular: Regular rate, Regular Rhythm, Normal S1, Normal S2, No murmurs Abdomen: Bowel Sounds Present, Soft, Non Tender, Non-Distended Extremities: No clubbing, No cyanosis, No edema, Capillary Refill Less than 3 Seconds Skin: No rashes, No breakdown Musculoskeletal: No Tenderness to Palpation of Joints or Extremities Neurological: Cranial nerves II-XII grossly intact, Neuro grossly intact Psych/Mental Status: Normal Affect, Appropriate Plan is to start hydrocortisone enema, per general surgery. For likely dc home tomorrow if Hb remains stable. Agree with rest of Liberty PRIDE's note, assessment and plan. Code Visit Inpatient E&M: 38587 Subs Hosp L3
[2018-07-08 01:38] VITALS: PULSE 53
[2018-07-08 02:15] VITALS: BP 113/34; PULSE 53; RESP 16; TEMP 36.3; O2SAT 96
[2018-07-08] MEDS: 0.9% Normal Saline 1,000 ML 100 ML IV (02:30)
[2018-07-08 06:53] LABS: Hematocrit 29.1 % (37-47); Hemoglobin 8.7 g/dl (12.0-15.0); Mean Corp Hgb Conc 29.9 g/gl (32-36); Mean Corpuscular Hgb 29.9 pg (27.0-32.0); Mean Platelet Vol. 10.4 fl (6.2-12.0); Platelet Count 218 K/mm3 (150-450); RBC Distribution Width CV 13.4 % (11.6-14.6); Red Blood Count 2.91 M/mm3 (4.2-5.4); White Blood Count 4.7 K/mm3 (4.4-11.0)
[2018-07-08 06:54] LABS: Scan Indicated on CBC? Y/N NO
[2018-07-08 07:00] VITALS: PULSE 60
[2018-07-08 09:00] VITALS: BP 107/59; PULSE 68; RESP 16; TEMP 36.9; O2SAT 97
--- NOTE | 2018-07-08 09:59 | PCM.DC ---
You will use the following diet at home:: Regular Discharge Activity: Return to Normal Activity Call your doctor if you observe: Fever of 101 or Higher, Shortness of breath, Dizziness, Fainting spells, Chest pain, - - Increased blood in stool. Allergies/Adverse Reactions: Allergies acetaminophen [From Percocet] Allergy (Verified 07/05/18 13:13) Other ibuprofen [From Motrin] Allergy (Verified 07/05/18 13:13) Unknown omega-3 acid ethyl esters Allergy (Verified 07/05/18 13:13) Unknown oxycodone Allergy (Verified 07/05/18 13:13) Unknown oxycodone HCl [From Percocet] Allergy (Verified 07/05/18 13:13) Other Penicillins Allergy (Verified 07/05/18 13:13) Unknown Medications to take at Discharge Hydrocodone/Acetaminophen [Hydrocodone-Acetamin 5-325 mg] 1 tab PO BID PRN PRN 07/05/18 Iron,Carbonyl [Ferretts] 18 mg PO BID 07/05/18 Pantoprazole Sodium [Protonix] 40 mg PO DAILY #30 tab 07/08/18 The following prescriptions were given: Pantoprazole Sodium [Protonix] 40 mg PO DAILY #30 tab Primary Care Physician: Hemant Parra MD [Primary Care Provider] - Please follow up with your Primary Care Physician in: 1 Week Test Results: Test results from this visit will be discussed in further detail at your follow-up appointment, if applicable. Please Follow Up With: Victor Hugo Mcghee MD When: 1 Week Proposed Discharge Date: 07/08/18
--- NOTE | 2018-07-08 10:04 | PCM.DC.SUM ---
<Liberty Lloyd - Last Filed: 07/08/18 10:13> Discharge Date and Diagnosis Date of Admission: 07/05/18 Date of Discharge: 07/08/18 - Primary Discharge Diagnosis 1. Acute recurrent blood loss anemia secondary to lower GI bleed as a result of radiation proctitis 2. Acute kidney injury-resolved. 3. Hypotension secondary #1 4. Moderate protein calorie malnutrition - Secondary Discharge Diagnosis Chronic Problems Hypocalcemia (Chronic) Hypomagnesemia (Chronic) Inanition (Chronic) Weight loss, unintentional (Chronic) Leukopenia (Chronic) Cervical cancer (Chronic) Endometrial cancer (Chronic) Hospital Course and Treatment Dr. Mcghee- Surgery Operations: None Procedures: Colonoscopy, EGD Summary of Care Provided: The patient is a 73 year old F admitted 07/05/2018 due to blood in stool, weakness, lightheadedness. 1. Acute recurrent blood loss anemia secondary to lower GI bleed-hemoglobin 5.9 on admission. Status post 2 units PRBC. Hemoglobin now 8.7. Patient has been seen by Dr. Wylie in the past. Most recent scope 03/26/2018, sigmoidoscopy at that time showed no ulcers or masses. She underwent NM bleeding scan which showed no source. 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 Dr. Mcghee consulted during admission. Patient underwent EGD with biopsy and colonoscopy with biopsy 07/07/[address] Mcghee which showed hiatal hernia, no source of upper GI bleed, proctitis consistent with radiation proctitis, otherwise no signs of lower GI bleeding. Continue oral PPI regimen at discharge. Repeat CBC in 3 days. Follow-up with Dr. Somers in 1 week. 2. MENDOZA-suspect secondary to hypovolemia as a result of #1. Resolved with IV fluids. 3. Hypotension-secondary to #1. 4. Moderate protein calorie malnutrition-recommend continued ensure supplementation at discharge. 5. History of endometrial and cervical cancer 6. History of provoked DVT 7. Chronic electrolyte disturbances including hypomagnesia and hypocalcemia-currently stable. General: Alert, Oriented x3, Cooperative, No apparent distress, cachectic. HEENT: Atraumatic, PERRLA, EOMI, Normocephalic Neck: Supple, No JVD, Negative Carotid Bruits Lungs: Clear to auscultation, Normal air movement Cardiovascular: Regular rate, Regular Rhythm, Normal S1, Normal S2, No murmurs Abdomen: Bowel Sounds Present, Soft, Non Tender, Non-Distended Extremities: No clubbing, No cyanosis, No edema, Capillary Refill Less than 3 Seconds Skin: No rashes, No breakdown Musculoskeletal: No Tenderness to Palpation of Joints or Extremities Neurological: Cranial nerves II-XII grossly intact, Neuro grossly intact Psych/Mental Status: Normal Affect, Appropriate Patient seen exam prior to discharge. Physical assessment as noted above. Patient stable for discharge home with the follow-up recommendations as noted above. This patient was seen by BIGG Kimball under the supervision of Dr. Arcos. Discharge Diet: No Restrictions Discharge Activity: Return to Normal Activity Call your doctor if you observe: Fever of 101 or Higher, Shortness of breath, Dizziness, Fainting spells, Chest pain, - - Increased blood in stool. Home Medications: Medications to take at Discharge Hydrocodone/Acetaminophen [Hydrocodone-Acetamin 5-325 mg] 1 tab PO BID PRN PRN 07/05/18 Iron,Carbonyl [Ferretts] 18 mg PO BID 07/05/18 Pantoprazole Sodium [Protonix] 40 mg PO DAILY #30 tab 07/08/18 Following Prescrptions Were Given to Patient: Pantoprazole Sodium [Protonix] 40 mg PO DAILY #30 tab Primary Care Physician: Hemant Parra MD [Primary Care Provider] - Please follow up with your Primary Care Physician in: 1 Week Please Follow Up With: Victor Hugo Mcghee MD When: 1 Week Disposition: Home Minutes spent on discharge:: 35 Patient Condition:: Stable Medical Necessity - Tobacco Use Smoking Status: Former smoker Meaningful Use Info Meaningful Use Diagnoses (Choose all that apply): None applicable <Simon Arcos - Last Filed: 07/08/18 12:49> Discharge Date and Diagnosis - Secondary Discharge Diagnosis Chronic Problems Hypocalcemia (Chronic) Hypomagnesemia (Chronic) Inanition (Chronic) Weight loss, unintentional (Chronic) Leukopenia (Chronic) Cervical cancer (Chronic) Endometrial cancer (Chronic) Hospital Course and Treatment Operations: None Procedures: Colonoscopy, EGD Summary of Care Provided: Patient seen and examined independently. Data reviewed. I agree with the above note by the nurse practitioner. The patient is a 73 year old F presents with acute blood loss anemia with hemoglobin of patient had EGD and colonoscopy that showed no acute process other than radiation proctitis. Approximately 60 cm source was noted. Patient has been unable to tolerate any kind of enemas so the hydrocortisone enema that was recommended general surgery would not have any yield because of patient's inability to retain it, additionally, lack of evidence also another factor. Patient's big complaint today to me was daily headaches. As what she does for her headaches patient stated that she did not take anything. She said that she does take hydrocodone. 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 I recommended Tylenol. Patient immediately was appalled by that saying that Tylenol has acetaminophen and its which causes her to bleed. Asked patient if she has underlying cirrhosis to which she says she does not. I also spoke to patient about the hydrocodone that she is on the has Tylenol in its acetaminophen but patient want nothing to do with that consideration. Patient states that she is going to continue to take her hydrocodone for her pain. Though I do feel that her headaches are likely analgesic rebound headaches and advised no narcotics. [] Discharge Diet: No Restrictions Discharge Activity: Return to Normal Activity Call your doctor if you observe: Fever of 101 or Higher, Shortness of breath, Dizziness, Fainting spells, Chest pain, - Disposition: Home Minutes spent on discharge:: 35 Patient Condition:: Stable Meaningful Use Info Meaningful Use Diagnoses (Choose all that apply): None applicable Code Visit Inpatient E&M: 50441 Disch Hosp
[2018-07-08 12:53] VITALS: BP 110/70; PULSE 66; RESP 18; TEMP 36.8; O2SAT 97
[2018-07-09 14:37] LABS: Pathologist Review Reviewed
--- NOTE | 2018-07-10 16:02 | CASEMGMT ---
RN CM Discharge F/U Phone Call LACE: 13 Strata: 4 Discharge date: 07/08/18 Call date: 07/10/18 Call time: [id number] Attempted to reach pt without success at this time, message left for pt to call this RN CM back when available. SStaten RN CM Admission dx: Lower GI Bleed
== END 2018-07-08 12:45 | disposition home or self-care (01) | DRG 394 ==
LOC: ED 14:27 → PCU 16:13
PROVIDERS: Nurse Practitioner Family; Surgery; Admitting Provider Family Medicine; Emergency Provider Emergency Medicine; Family Provider Family Medicine; PCP Family Medicine
PROC: 0DJD8ZZ Inspection of Lower Intestinal Tract, Via Natural or Artificial Opening Endoscopic (ICD-10-PCS; CPT 45378; principal; 2018-07-07 07:00)
DX: K62.7 Radiation proctitis (principal); N17.9 Acute kidney failure, unspecified; E44.0 Moderate protein-calorie malnutrition; D62 Acute posthemorrhagic anemia; K62.5 Hemorrhage of anus and rectum; K44.9 Diaphragmatic hernia without obstruction or gangrene; E83.51 Hypocalcemia; G44.40 Drug-induced headache, not elsewhere classified, not intractable; Y84.2 Radiological procedure and radiotherapy as the cause of abnormal reaction of the patient, or of later complication, without mention of misadventure at the time of the procedure; Z68.22 Body mass index [BMI] 22.0-22.9, adult; Z85.42 Personal history of malignant neoplasm of other parts of uterus; Z87.891 Personal history of nicotine dependence; Z85.41 Personal history of malignant neoplasm of cervix uteri; Z86.718 Personal history of other venous thrombosis and embolism
CPT/HCPCS: 36415; 80048; 83735; 85014; 85018; 85025; 85027; 85610; 86850; 86900; 86920; 88305; 88313; 88342; 93005; 97161; 97166; 97802; 99283; J7030; J7040; P9016; A4216

== ENCOUNTER 2018-09-04 11:59 | Observation (INO) | payer MEDICARE, SELFPAY ==
[2018-09-04] VITALS (11 sets, daily range): BP systolic 106–143; BP diastolic 43–86; PULSE 62–86; RESP 14–18; TEMP 36.5–37.4; O2SAT 95–100; BMI 20.2; BMI 19.7
--- NOTE | 2018-09-04 12:17 | ED.VISSUMM ---
- ER Visit Summary Date of Service: 09/04/18 Chief Complaint: Anemia History of Present Illness: The patient is a 73 F past medical history of anemia and prior GI bleed. Patient has a history of cervical cancer for which she underwent radiation therapy. 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 She has had upper and lower endoscopy. In March she had a CAT scan of her abdomen pelvis that was basically unremarkable except for chronic changes. She also had a bleeding scan at that time that was negative. She has a history of anemia her primary care physician's office did recent screening labs and she had a blood count of 5.8 they called her today and told her to come to the ER to be evaluated. She denies any rectal bleeding or hematemesis. She denies any bloody nose or gross hematuria. She is currently on no blood thinners. Physical Examination: Well-appearing older female. Vital signs are stable and afebrile. Initial blood pressure 139/64. She is in no acute distress. H EENT exam unremarkable. Other than pale conjunctiva. Neck nontender. Lungs clear to auscultation bilaterally. Heart regular rhythm no murmur. Abdomen soft nontender nondistended normal bowel sounds no apparent no signs. She is moving all 4 extremities. They are neurovascularly intact. Back nontender. Neurologically she is awake alert moving all 4 extremities with no focal motor deficits. Rectal exam was done with a female nursing manager room. She had no rectal tenderness. No gross blood. Brown stool. No masses. No significant hemorrhoids or any bleeding hemorrhoids. Test Results: CBC shows a hemoglobin of 5.9. Hematocrit of 20. The most recent hemoglobin about 2 months ago was 8.7. BMP unremarkable gap is 6 creatinine 1. BUN is elevated to 85. Emergency Department Course and Treatment: Patient will have screening labs to be typed and crossed for blood. She will need to be admitted for multiple unit transfusion. Treatment Plan: Repeat exam at 12:47 PM patient is doing well. I have the hospitalist on page for admission. Disposition: Admission Impression: Acute on chronic anemia . History of prior GI bleed This note was generated with [employer] dictation software. It may contain incorrect words, spelling, and punctuation that were not noted in review of the chart prior to signing ED Disposition - Plan for ED Patient: Chief Complaint: Abn Labs Referrals: Hemant Parra MD [Primary Care Provider] -
--- NOTE | 2018-09-04 12:20 | ED.DCSUM_ITS ---
- ER Visit Summary Date of Service: 09/04/18 Chief Complaint: Anemia History of Present Illness: The patient is a 73 F past medical history of anemia and prior GI bleed. Patient has a history of cervical cancer for which she underwent radiation therapy. 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 She has had upper and lower endoscopy. In March she had a CAT scan of her abdomen pelvis that was basically unremarkable except for chronic changes. She also had a bleeding scan at that time that was negative. She has a history of anemia her primary care physician's office did recent screening labs and she had a blood count of 5.8 they called her today and told her to come to the ER to be evaluated. She denies any rectal bleeding or hematemesis. She denies any bloody nose or gross hematuria. She is currently on no blood thinners. Physical Examination: Well-appearing older female. Vital signs are stable and afebrile. Initial blood pressure 139/64. She is in no acute distress. H EENT exam unremarkable. Other than pale conjunctiva. Neck nontender. Lungs clear to auscultation bilaterally. Heart regular rhythm no murmur. Abdomen soft nontender nondistended normal bowel sounds no apparent no signs. She is moving all 4 extremities. They are neurovascularly intact. Back nontender. Neurologically she is awake alert moving all 4 extremities with no focal motor deficits. Rectal exam was done with a female manager nursing room. She had no rectal tenderness. No gross blood. Brown stool. No masses. No significant hemorrhoids or any bleeding hemorrhoids. Test Results: CBC shows a hemoglobin of 5.9. Hematocrit of 20. The most recent hemoglobin about 2 months ago was 8.7. BMP unremarkable gap is 6 creatinine 1. BUN is elevated to 85. Emergency Department Course and Treatment: Patient will have screening labs to be typed and crossed for blood. She will need to be admitted for multiple unit transfusion. Treatment Plan: Repeat exam at 12:47 PM patient is doing well. I have the hospitalist on page for admission. Disposition: Admission Impression: Acute on chronic anemia . History of prior GI bleed This note was generated with [employer] dictation software. It may contain incorrect words, spelling, and punctuation that were not noted in review of the chart prior to signing ED Disposition - Plan for ED Patient: Chief Complaint: Abn Labs Referrals: Hemant Parra MD [Primary Care Provider] -
[2018-09-04 12:42] LABS: Hematocrit 20.7 % (37-47); Hemoglobin 5.9 g/dl (12.0-15.0); Mean Corp Hgb Conc 28.5 g/gl (32-36); Mean Corpuscular Volume 87.7 fL (81-99); Mean Platelet Vol. 10.1 fl (6.2-12.0); Platelet Count 323 K/mm3 (150-450); RBC Distribution Width CV 14.9 % (11.6-14.6); RBC Distribution Width SD 45.3 fl (35.1-43.9); Red Blood Count 2.36 M/mm3 (4.2-5.4); White Blood Count 4.7 K/mm3 (4.4-11.0)
[2018-09-04 12:43] LABS: Scan Indicated on CBC? Y/N YES- FLAGS NOTED
--- NOTE | 2018-09-04 12:43 | ED.RN ---
HGB 5.9
[2018-09-04 12:49] LABS: Anion Gap 6 (5-15); BUN 25 mg/dL (7-18); BUN/Creat Ratio 24.5 RATIO (10-20); Calcium,Total 8.7 mg/dL (8.5-10.1); Chloride 104 mmol/L (98-107); Creatinine, Serum 1.02 mg/dL (0.55-1.02); EST Glomerular Filtration Rate 57 mL/min (>60); Est Glom Filt Rate - Afr Amer 69 mL/min (>60); Estimated Creatinine Clearance 42.13 ml/min; Glucose 114 mg/dL (74-106); Sodium Level 140 mmol/L (136-145)
--- NOTE | 2018-09-04 13:10 | NURSING ---
MED SURG ARIANNA VELASCO
[2018-09-04 13:20] LABS: Differential Comment SCANNED
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
[2018-09-04] MEDS: HYDROcodone Bitartrate/Apap 5/325 Tablet PO (15:12)
[2018-09-04] MEDS: 0.9% NaCl Peripheral Flush Adult/Peds IV ×2 (15:13→22:50)
--- NOTE | 2018-09-04 16:25 | PCM.HP.STD ---
Problem List (1) Anemia associated with acute blood loss Status: Acute History of Present Illness Date of Admission: 09/04/18 Chief Complaint: anemia. hematochezia. The patient is a 73 year old F who has been admitted for several occasions. Patient has had colonoscopies that have showed friable rectal mucosa. Patient states that she pretty much daily has blood in her stool but had outpatient lab work that showed hemoglobin of 5.9. Patient was advised to go to the emergency room, and again her hemoglobin was 5.9. Patient is otherwise been feeling well other than just some palpitations. Patient denies any melena, nor hematemesis. 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 Patient stated that couple weeks ago she attempted that but then had bleeding so has not performed that. [] Past Medical History Past Medical History (Chronic Problems): Chronic Problems Hypocalcemia (Chronic) Hypomagnesemia (Chronic) Inanition (Chronic) Weight loss, unintentional (Chronic) Leukopenia (Chronic) Cervical cancer (Chronic) Endometrial cancer (Chronic) Allergies acetaminophen [From Percocet] Allergy (Verified 09/04/18 12:03) Other ibuprofen [From Motrin] Allergy (Verified 09/04/18 12:03) Unknown omega-3 acid ethyl esters Allergy (Verified 09/04/18 12:03) Unknown oxycodone Allergy (Verified 09/04/18 12:03) Unknown oxycodone HCl [From Percocet] Allergy (Verified 09/04/18 12:03) Other Penicillins Allergy (Verified 09/04/18 12:03) Unknown Home Medications: Ambulatory Orders Medication Instructions Recorded Hydrocodone/Acetaminophen 1 tab PO BID PRN PRN 07/05/18 [Hydrocodone-Acetamin 5-325 mg] Iron,Carbonyl [Ferretts] 18 mg PO BID 07/05/18 Surgical History: appendectomy, tonsillectomy 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 Maternal History Items: Unknown Paternal History Items: Unknown Review of Systems Constitutional: Denies: Anorexia, Chills, Fever Eyes: Denies: Blurred vision, Double vision HEENT: Denies: Head Aches, Sinus Congestion, Sinus Drainage Cardiovascular: Reports: Palpitations. Denies: Chest Pain Respiratory: Denies: Cough, Shortness of breath at rest, Sputum production Gastrointestinal: Reports: Hematochezia. Denies: Abdominal Pain, Hematemesis, Melena Genitourinary: Denies: Dysuria Gynecological: Denies: Breast symptoms Musculoskeletal: Denies: Joint Pain, Joint Tenderness Skin: Denies: Rash, Wounds Neurological: Denies: Numbness, Tingling, Focal weakness Psychiatric: Denies: Anxiety, Depression Hematologic/ Lymphatic: Reports: Easy Bleeding. Denies: Easy Bruising, Hx of blood clot Comment: A 10 point review of systems were negative except as mentioned in the history of present illness and the other review of systems. VTE Information - Inpt Only VTE Present on Admission: No VTE Mechan Device Prophylaxis: SCD's VTE Pharm Prophylaxis ordered?: No Reason prophylaxis not ordered:: Medical Contraindication Patient Problems: Active and Suspected Problems Anemia associated with acute blood loss (Acute) - Physical Exam General: Alert, Cooperative, No apparent distress HEENT: Atraumatic, Normocephalic, - - Pale conjunctiva Oral: Moist Mucosa, No Gingival or Mucosal Lesions/ Ulcerations Neck: No Nodes, Thyroid Normal Size and Texture Lungs: Clear to auscultation, Normal air movement, No rhonchi, No wheeze Cardiovascular: Regular rate, Regular Rhythm, Normal S1, Normal S2, No murmurs Abdomen: Bowel Sounds Present, Soft, Non Tender, Non-Distended, No Hepato-splenomegaly Extremities: No edema, No Calf Tenderness Skin: No rashes, No breakdown Musculoskeletal: No Tenderness to Palpation of Joints or Extremities, No Muscle Wasting Neurological: Neuro grossly intact, Muscle tone normal Psych/Mental Status: Normal Affect, Appropriate, - - Tangential speech. Difficult to keep focused on questions. Vital Signs Temp Pulse Resp BP Pulse Ox 36.5 C L 71 14 138/59 H 100 09/04/18 15:17 09/04/18 15:17 09/04/18 15:17 09/04/18 15:17 09/04/18 15:17 Oxygen Delivery Method Room Air Weight: 52.4 kg Body Mass Index (BMI) 19.7 Intake and Output for Last 24 Hours 09/02/18 09/03/18 09/04/18 23:59 23:59 23:59 Intake Total 0 / 0 Balance 0 / 0 Laboratory Tests Past 24 Hrs 09/04/18 09/04/18 09/04/18 12:20 12:20 12:20 WBC 4.7 RBC 2.36 L Hgb 5.9 L* Hct 20.7 L MCV 87.7 MCH 25.0 L MCHC 28.5 L RDW 14.9 H RDW Differential 45.3 H Plt Count 323 MPV 10.1 Differential Comment SCANNED Sodium 140 Potassium 4.0 Chloride 104 Carbon Dioxide 30.0 Anion Gap 6 BUN 25 H Creatinine 1.02 Estim Creat Clear Calc 42.13 Est GFR (MDRD) Af Amer 69 Est GFR (MDRD) Non-Af 57 L BUN/Creatinine Ratio 24.5 H Glucose 114 H Calcium 8.7 Blood Type O POSITIVE Antibody Screen NEGATIVE Crossmatch See Detail Assessment/Plan All Active Problems Anemia associated with acute blood loss (Acute) Anemia due to blood loss, acute (Acute) History of DVT (deep vein thrombosis) (Resolved) Lower GI bleed (Acute) 1. Acute blood loss anemia Secondary to the patient's chronic hematochezia Patient did be transfused 2 units of packed red blood cells Hemodynamically stable at this time 2. Hematochezia Chronic Continue to monitor Secondary to radiation proctitis 3. Radiation proctitis Has been recommended that the patient use steroid enemas but the patient has not been doing so. Discussed with Dr. Wylie, who reiterates for patient to be back on steroid enemas to help her with her radiation proctitis. Will start that in the hospital but concern is for compliance when she leaves the hospital. Patient may benefit from instructions and so at home. 4. DVT prophylaxis with SCDs. Code Visit OBSV E&M: 42464 Initial observation care L3
--- NOTE | 2018-09-04 16:30 | HP.PCM_ITS ---
Problem List (1) Anemia associated with acute blood loss Status: Acute History of Present Illness Date of Admission: 09/04/18 Chief Complaint: anemia. hematochezia. The patient is a 73 year old F who has been admitted for several occasions. Patient has had colonoscopies that have showed friable rectal mucosa. Patient states that she pretty much daily has blood in her stool but had outpatient lab work that showed hemoglobin of 5.9. Patient was advised to go to the emergency room, and again her hemoglobin was 5.9. Patient is otherwise been feeling well other than just some palpitations. Patient denies any melena, nor hematemesis. 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 Patient stated that couple weeks ago she attempted that but then had bleeding so has not performed that. [] Past Medical History Past Medical History (Chronic Problems): Chronic Problems Hypocalcemia (Chronic) Hypomagnesemia (Chronic) Inanition (Chronic) Weight loss, unintentional (Chronic) Leukopenia (Chronic) Cervical cancer (Chronic) Endometrial cancer (Chronic) Allergies acetaminophen [From Percocet] Allergy (Verified 09/04/18 12:03) Other ibuprofen [From Motrin] Allergy (Verified 09/04/18 12:03) Unknown omega-3 acid ethyl esters Allergy (Verified 09/04/18 12:03) Unknown oxycodone Allergy (Verified 09/04/18 12:03) Unknown oxycodone HCl [From Percocet] Allergy (Verified 09/04/18 12:03) Other Penicillins Allergy (Verified 09/04/18 12:03) Unknown Home Medications: Ambulatory Orders Medication Instructions Recorded Hydrocodone/Acetaminophen 1 tab PO BID PRN PRN 07/05/18 [Hydrocodone-Acetamin 5-325 mg] Iron,Carbonyl [Ferretts] 18 mg PO BID 07/05/18 Surgical History: appendectomy, tonsillectomy 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 Maternal History Items: Unknown Paternal History Items: Unknown Review of Systems Constitutional: Denies: Anorexia, Chills, Fever Eyes: Denies: Blurred vision, Double vision HEENT: Denies: Head Aches, Sinus Congestion, Sinus Drainage Cardiovascular: Reports: Palpitations. Denies: Chest Pain Respiratory: Denies: Cough, Shortness of breath at rest, Sputum production Gastrointestinal: Reports: Hematochezia. Denies: Abdominal Pain, Hematemesis, Melena Genitourinary: Denies: Dysuria Gynecological: Denies: Breast symptoms Musculoskeletal: Denies: Joint Pain, Joint Tenderness Skin: Denies: Rash, Wounds Neurological: Denies: Numbness, Tingling, Focal weakness Psychiatric: Denies: Anxiety, Depression Hematologic/ Lymphatic: Reports: Easy Bleeding. Denies: Easy Bruising, Hx of blood clot Comment: A 10 point review of systems were negative except as mentioned in the history of present illness and the other review of systems. VTE Information - Inpt Only VTE Present on Admission: No VTE Mechan Device Prophylaxis: SCD's VTE Pharm Prophylaxis ordered?: No Reason prophylaxis not ordered:: Medical Contraindication Patient Problems: Active and Suspected Problems Anemia associated with acute blood loss (Acute) - Physical Exam General: Alert, Cooperative, No apparent distress HEENT: Atraumatic, Normocephalic, - - Pale conjunctiva Oral: Moist Mucosa, No Gingival or Mucosal Lesions/ Ulcerations Neck: No Nodes, Thyroid Normal Size and Texture Lungs: Clear to auscultation, Normal air movement, No rhonchi, No wheeze Cardiovascular: Regular rate, Regular Rhythm, Normal S1, Normal S2, No murmurs Abdomen: Bowel Sounds Present, Soft, Non Tender, Non-Distended, No Hepato- splenomegaly Extremities: No edema, No Calf Tenderness Skin: No rashes, No breakdown Musculoskeletal: No Tenderness to Palpation of Joints or Extremities, No Muscle Wasting Neurological: Neuro grossly intact, Muscle tone normal Psych/Mental Status: Normal Affect, Appropriate, - - Tangential speech. Difficult to keep focused on questions. Vital Signs Temp Pulse Resp BP Pulse Ox 36.5 C L 71 14 138/59 H 100 09/04/18 15:17 09/04/18 15:17 09/04/18 15:17 09/04/18 15:17 09/04/18 15:17 Oxygen Delivery Method Room Air Weight: 52.4 kg Body Mass Index (BMI) 19.7 Intake and Output for Last 24 Hours 09/02/18 09/03/18 09/04/18 23:59 23:59 23:59 Intake Total 0 / 0 Balance 0 / 0 Laboratory Tests Past 24 Hrs 09/04/18 09/04/18 09/04/18 12:20 12:20 12:20 WBC 4.7 RBC 2.36 L Hgb 5.9 L* Hct 20.7 L MCV 87.7 MCH 25.0 L MCHC 28.5 L RDW 14.9 H RDW Differential 45.3 H Plt Count 323 MPV 10.1 Differential Comment SCANNED Sodium 140 Potassium 4.0 Chloride 104 Carbon Dioxide 30.0 Anion Gap 6 BUN 25 H Creatinine 1.02 Estim Creat Clear Calc 42.13 Est GFR (MDRD) Af Amer 69 Est GFR (MDRD) Non-Af 57 L BUN/Creatinine Ratio 24.5 H Glucose 114 H Calcium 8.7 Blood Type O POSITIVE Antibody Screen NEGATIVE Crossmatch See Detail Assessment/Plan All Active Problems Anemia associated with acute blood loss (Acute) Anemia due to blood loss, acute (Acute) History of DVT (deep vein thrombosis) (Resolved) Lower GI bleed (Acute) 1. Acute blood loss anemia * Secondary to the patient's chronic hematochezia * Patient did be transfused 2 units of packed red blood cells * Hemodynamically stable at this time 2. Hematochezia * Chronic * Continue to monitor * Secondary to radiation proctitis 3. Radiation proctitis * Has been recommended that the patient use steroid enemas but the patient has not been doing so. * Discussed with Dr. Wylie, who reiterates for patient to be back on steroid enemas to help her with her radiation proctitis. * Will start that in the hospital but concern is for compliance when she leaves the hospital. Patient may benefit from instructions and so at home. 4. DVT prophylaxis with SCDs. Code Visit OBSV E&M: 56578 Initial observation care L3
[2018-09-04] MEDS: Hydrocortisone 100 MG/60 ML ENEMA RECTAL (22:53)
[2018-09-05] MEDS: HYDROcodone Bitartrate/Apap 5/325 Tablet PO (02:14)
[2018-09-05 02:16] VITALS: BP 110/52; PULSE 68; RESP 16; TEMP 37.4; O2SAT 97
[2018-09-05 05:44] LABS: Absolute Lymphocyte Count 0.63 X10^3/ul (0.83-4.51); Absolute Neutrophil Count 4.6 X10^3/uL (2.0-7.7); Basophil# 0.01 X10^3/uL; Basophil% 0.2 % (0-1); Hematocrit 27.8 % (37-47); Hemoglobin 8.7 g/dl (12.0-15.0); Lymphocyte # 0.63 X10^3/ul (4.0); Lymphocyte % 11.2 % (19-41); Mean Corp Hgb Conc 31.3 g/gl (32-36); Mean Corpuscular Hgb 27.5 pg (27.0-32.0); Mean Platelet Vol. 10.7 fl (6.2-12.0); Monocyte# 0.39 X10^3/uL; Monocyte% 6.9 % (0-10); Neutrophil # 4.57 X10^3/uL (2.7-7.7); Neutrophil % 81.3 % (47-70); Platelet Count 273 K/mm3 (150-450); RBC Distribution Width CV 14.9 % (11.6-14.6); RBC Distribution Width SD 46.7 fl (35.1-43.9); Red Blood Count 3.16 M/mm3 (4.2-5.4); White Blood Count 5.6 K/mm3 (4.4-11.0)
[2018-09-05 06:00] LABS: Anion Gap 7 (5-15); BUN 21 mg/dL (7-18); BUN/Creat Ratio 22.9 RATIO (10-20); Calcium,Total 8.4 mg/dL (8.5-10.1); Chloride 107 mmol/L (98-107); Creatinine, Serum 0.92 mg/dL (0.55-1.02); EST Glomerular Filtration Rate 64 mL/min (>60); Est Glom Filt Rate - Afr Amer 77 mL/min (>60); Estimated Creatinine Clearance 45.72 ml/min; Glucose 105 mg/dL (74-106); Potassium 4.7 mmol/L (3.5-5.1); Sodium Level 140 mmol/L (136-145)
[2018-09-05 06:13] LABS: POSITIVE COUNT NO; POSITIVE DIFFERENTIAL NO; POSITIVE MORPHOLOGY NO
[2018-09-05 07:57] VITALS: BP 105/51; PULSE 62; RESP 18; TEMP 36.7; O2SAT 98
--- NOTE | 2018-09-05 08:38 | DCINST_ITS ---
- Discharge Diagnoses Current Active Problems: Current Active and Chronic Problems Radiation proctitis (Chronic) Anemia associated with acute blood loss (Acute) You will use the following diet at home:: No restrictions Your food should be the consistency of: Regular Your liquids should be the consistency of: Regular/Thin Discharge Activity: Return to Normal Activity Call your doctor if you observe: - - increased rectal bleeding. dizziness. lightheadedness. Allergies/Adverse Reactions: Allergies acetaminophen [From Percocet] Allergy (Verified 09/04/18 12:03) Other ibuprofen [From Motrin] Allergy (Verified 09/04/18 12:03) Unknown omega-3 acid ethyl esters Allergy (Verified 09/04/18 12:03) Unknown oxycodone Allergy (Verified 09/04/18 12:03) Unknown oxycodone HCl [From Percocet] Allergy (Verified 09/04/18 12:03) Other Penicillins Allergy (Verified 09/04/18 12:03) Unknown Medications to take at Discharge Hydrocodone/Acetaminophen [Hydrocodone-Acetamin 5-325 mg] 1 tab PO BID PRN PRN 07/05/18 Iron,Carbonyl [Ferretts] 18 mg PO BID 07/05/18 Bisacodyl [Dulcolax] 10 mg PO DAILY PRN #1 tablet 09/05/18 Hydrocortisone [Cortenema (G)] 100 mg RECTAL QHS #30 enema 09/05/18 Polyethylene Glycol 3350 [Miralax] 17 gm PO DAILY #1 packet 09/05/18 The following prescriptions were given: Bisacodyl [Dulcolax] 10 mg PO DAILY PRN #1 tablet PRN Reason: Constipation Hydrocortisone [Cortenema (G)] 100 mg RECTAL QHS #30 enema Polyethylene Glycol 3350 [Miralax] 17 gm PO DAILY #1 packet Orders to be completed after discharge: CBC W/Diff, Automated Time Frame: 1 Week, Location: Laboratory CBC W/Diff, Automated Time Frame: 2 Weeks, Location: Laboratory Primary Care Physician: Hemant Parra MD [Primary Care Provider] - Within 2 Weeks Test Results: Test results from this visit will be discussed in further detail at your follow- up appointment, if applicable. Please Follow Up With: Victor Hugo Mcghee MD When: 3-4 weeks Proposed Discharge Date: 09/05/18
--- NOTE | 2018-09-05 08:39 | PCM.DC.SUM ---
Discharge Date and Diagnosis - Problem List Patient Problems: Active and Suspected Problems Anemia associated with acute blood loss (Acute) Date of Admission: 09/04/18 Date of Discharge: 09/05/18 - Primary Discharge Diagnosis Active and Suspected Problems Anemia associated with acute blood loss (Acute) 1. Acute blood loss anemia Secondary to the patient's chronic hematochezia Patient did be transfused 2 units of packed red blood cells Hemodynamically stable at this time 2. Hematochezia Chronic Continue to monitor Secondary to radiation proctitis 3. Radiation proctitis Has been recommended that the patient use steroid enemas but the patient has not been doing so. Discussed with Dr. Wylie, who reiterates for patient to be back on steroid enemas to help her with her radiation proctitis. Will start that in the hospital but concern is for compliance when she leaves the hospital. Patient may benefit from instructions and so at home. - Secondary Discharge Diagnosis Chronic Problems Radiation proctitis (Chronic) Hypocalcemia (Chronic) Hypomagnesemia (Chronic) Inanition (Chronic) Weight loss, unintentional (Chronic) Leukopenia (Chronic) Cervical cancer (Chronic) Endometrial cancer (Chronic) Hospital Course and Treatment Operations: None Procedures: None Summary of Care Provided: The patient is a 73 year old F presents with anemia. Patient had some routine blood work that showed hemoglobin of 5.9. Directed to the emergency room and her hemoglobin again was 5.9. Patient was ordered 2 units of packed red blood cells and hemoglobin today, is 8.7. Patient will require further he will checks as outpatient and possibly may require additional transfusions. Though presents if patient does require additional transfusions, that she can go to the infusion center rather than having to be admitted. Patient is anemic due to chronic lower GI bleed. Patient has had several endoscopies that have showed friable mucosa that easily bleeds in the rectum. This is a source of her bleeding. No additional endoscopy was necessary during this hospitalization. Patient has had a history of radiation that is caused to radiation proctitis. It has been recommended to her that she use hydrocortisone enemas. Patient's informed me that she used one about 3 weeks ago but has not used one since. Patient instructed to do so on a daily basis. Patient also need to follow-up with Dr. Somers in 3 weeks. It is anticipated that the patient does not do the enemas that she will continue to bleed, as she has been. It is unclear if she will continue to bleed if she does use the enemas which he really has not used in a regular basis. [] Patient Problems: Active and Suspected Problems Anemia associated with acute blood loss (Acute) - Physical Exam General: Alert, Cooperative, No apparent distress HEENT: Atraumatic, Normocephalic Oral: Moist Mucosa, No Gingival or Mucosal Lesions/ Ulcerations Lungs: Clear to auscultation, Normal air movement, No rhonchi, No wheeze Cardiovascular: Regular rate, Regular Rhythm, Normal S1, Normal S2, No murmurs Abdomen: Bowel Sounds Present, Soft, Non Tender, Non-Distended, No Hepato-splenomegaly Extremities: No edema, No Calf Tenderness Skin: No rashes, No breakdown Vital Signs Temp Pulse Resp BP Pulse Ox 36.7 C 62 18 105/51 L 98 09/05/18 07:57 09/05/18 07:57 09/05/18 07:57 09/05/18 07:57 09/05/18 07:57 Oxygen Delivery Method Room Air Weight: 52.4 kg Body Mass Index (BMI) 19.7 Intake and Output for Last 24 Hours 09/03/18 09/04/18 09/05/18 23:59 23:59 23:59 Intake Total 876 / 876 769 / 769 Balance 876 / 876 769 / 769 Laboratory Tests Past 24 Hrs 09/04/18 09/04/18 09/04/18 12:20 12:20 12:20 WBC 4.7 RBC 2.36 L Hgb 5.9 L* Hct 20.7 L MCV 87.7 MCH 25.0 L MCHC 28.5 L RDW 14.9 H RDW Differential 45.3 H Plt Count 323 MPV 10.1 Immature Gran % (Auto) Neut % (Auto) Lymph % (Auto) [place] % (Auto) Eos % (Auto) Baso % (Auto) Absolute Neuts (auto) Absolute Lymphs (auto) Total Counted Differential Comment SCANNED Diff Path Review March Sodium 140 Potassium 4.0 Chloride 104 Carbon Dioxide 30.0 Anion Gap 6 BUN 25 H Creatinine 1.02 Estim Creat Clear Calc 42.13 Est GFR (MDRD) Af Amer 69 Est GFR (MDRD) Non-Af 57 L BUN/Creatinine Ratio 24.5 H Glucose 114 H Calcium 8.7 Blood Type O POSITIVE Antibody Screen NEGATIVE Crossmatch See Detail 09/05/18 09/05/18 05:08 05:08 WBC 5.6 RBC 3.16 L Hgb 8.7 L Hct 27.8 L MCV 88.0 MCH 27.5 MCHC 31.3 L RDW 14.9 H RDW Differential 46.7 H Plt Count 273 MPV 10.7 Immature Gran % (Auto) 0.400 Neut % (Auto) 81.3 H Lymph % (Auto) 11.2 L [place] % (Auto) 6.9 Eos % (Auto) 0.0 Baso % (Auto) 0.2 Absolute Neuts (auto) 4.6 Absolute Lymphs (auto) 0.63 L Total Counted Not Reportable Differential Comment Diff Path Review Sodium 140 Potassium 4.7 Chloride 107 Carbon Dioxide 26.0 Anion Gap 7 BUN 21 H Creatinine 0.92 Estim Creat Clear Calc 45.72 Est GFR (MDRD) Af Amer 77 Est GFR (MDRD) Non-Af 64 BUN/Creatinine Ratio 22.9 H Glucose 105 Calcium 8.4 L Blood Type Antibody Screen Crossmatch Discharge Diet: No Restrictions Discharge Activity: Return to Normal Activity Call your doctor if you observe: - - increased rectal bleeding. dizziness. lightheadedness. Home Medications: Medications to take at Discharge Hydrocodone/Acetaminophen [Hydrocodone-Acetamin 5-325 mg] 1 tab PO BID PRN PRN 07/05/18 Iron,Carbonyl [Ferretts] 18 mg PO BID 07/05/18 Bisacodyl [Dulcolax] 10 mg PO DAILY PRN #1 tablet 09/05/18 Hydrocortisone [Cortenema (G)] 100 mg RECTAL QHS #30 enema 09/05/18 Polyethylene Glycol 3350 [Miralax] 17 gm PO DAILY #1 packet 09/05/18 Following Prescrptions Were Given to Patient: Bisacodyl [Dulcolax] 10 mg PO DAILY PRN #1 tablet PRN Reason: Constipation Hydrocortisone [Cortenema (G)] 100 mg RECTAL QHS #30 enema Polyethylene Glycol 3350 [Miralax] 17 gm PO DAILY #1 packet Other Amb Orders: CBC W/Diff, Automated Time Frame: 1 Week, Location: Laboratory CBC W/Diff, Automated Time Frame: 2 Weeks, Location: Laboratory Primary Care Physician: Hemant Parra MD [Primary Care Provider] - Within 2 Weeks Please Follow Up With: Victor Hugo Mcghee MD When: 3-4 weeks Disposition: Home Minutes spent on discharge:: 32 Patient Condition:: Fair Medical Necessity - Tobacco Use Smoking Status: Former smoker Tobacco Use: Non-smoker Meaningful Use Info Meaningful Use Diagnoses (Choose all that apply): None applicable Code Visit OBSV E&M: 95945 Observation care discharge
--- NOTE | 2018-09-05 08:42 | DS.PCM_ITS ---
Discharge Date and Diagnosis - Problem List Patient Problems: Active and Suspected Problems Anemia associated with acute blood loss (Acute) Date of Admission: 09/04/18 Date of Discharge: 09/05/18 - Primary Discharge Diagnosis Active and Suspected Problems Anemia associated with acute blood loss (Acute) 1. Acute blood loss anemia * Secondary to the patient's chronic hematochezia * Patient did be transfused 2 units of packed red blood cells * Hemodynamically stable at this time 2. Hematochezia * Chronic * Continue to monitor * Secondary to radiation proctitis 3. Radiation proctitis * Has been recommended that the patient use steroid enemas but the patient has not been doing so. * Discussed with Dr. Wylie, who reiterates for patient to be back on steroid enemas to help her with her radiation proctitis. * Will start that in the hospital but concern is for compliance when she leaves the hospital. Patient may benefit from instructions and so at home. - Secondary Discharge Diagnosis Chronic Problems Radiation proctitis (Chronic) Hypocalcemia (Chronic) Hypomagnesemia (Chronic) Inanition (Chronic) Weight loss, unintentional (Chronic) Leukopenia (Chronic) Cervical cancer (Chronic) Endometrial cancer (Chronic) Hospital Course and Treatment Operations: None Procedures: None Summary of Care Provided: The patient is a 73 year old F presents with anemia. Patient had some routine blood work that showed hemoglobin of 5.9. Directed to the emergency room and her hemoglobin again was 5.9. Patient was ordered 2 units of packed red blood cells and hemoglobin today, is 8.7. Patient will require further he will checks as outpatient and possibly may require additional transfusions. Though presents if patient does require additional transfusions, that she can go to the infusion center rather than having to be admitted. Patient is anemic due to chronic lower GI bleed. Patient has had several endoscopies that have showed friable mucosa that easily bleeds in the rectum. This is a source of her bleeding. No additional endoscopy was necessary during this hospitalization. Patient has had a history of radiation that is caused to radiation proctitis. It has been recommended to her that she use hydrocortisone enemas. Patient's informed me that she used one about 3 weeks ago but has not used one since. Patient instructed to do so on a daily basis. Patient also need to follow-up with Dr. Somers in 3 weeks. It is anticipated that the patient does not do the enemas that she will continue to bleed, as she has been. It is unclear if she will continue to bleed if she does use the enemas which he really has not used in a regular basis. [] Patient Problems: Active and Suspected Problems Anemia associated with acute blood loss (Acute) - Physical Exam General: Alert, Cooperative, No apparent distress HEENT: Atraumatic, Normocephalic Oral: Moist Mucosa, No Gingival or Mucosal Lesions/ Ulcerations Lungs: Clear to auscultation, Normal air movement, No rhonchi, No wheeze Cardiovascular: Regular rate, Regular Rhythm, Normal S1, Normal S2, No murmurs Abdomen: Bowel Sounds Present, Soft, Non Tender, Non-Distended, No Hepato- splenomegaly Extremities: No edema, No Calf Tenderness Skin: No rashes, No breakdown Vital Signs Temp Pulse Resp BP Pulse Ox 36.7 C 62 18 105/51 L 98 09/05/18 07:57 09/05/18 07:57 09/05/18 07:57 09/05/18 07:57 09/05/18 07:57 Oxygen Delivery Method Room Air Weight: 52.4 kg Body Mass Index (BMI) 19.7 Intake and Output for Last 24 Hours 09/03/18 09/04/18 09/05/18 23:59 23:59 23:59 Intake Total 876 / 876 769 / 769 Balance 876 / 876 769 / 769 Laboratory Tests Past 24 Hrs 09/04/18 09/04/18 09/04/18 12:20 12:20 12:20 WBC 4.7 RBC 2.36 L Hgb 5.9 L* Hct 20.7 L MCV 87.7 MCH 25.0 L MCHC 28.5 L RDW 14.9 H RDW Differential 45.3 H Plt Count 323 MPV 10.1 Immature Gran % (Auto) Neut % (Auto) Lymph % (Auto) [place] % (Auto) Eos % (Auto) Baso % (Auto) Absolute Neuts (auto) Absolute Lymphs (auto) Total Counted Differential Comment SCANNED Diff Path Review March Sodium 140 Potassium 4.0 Chloride 104 Carbon Dioxide 30.0 Anion Gap 6 BUN 25 H Creatinine 1.02 Estim Creat Clear Calc 42.13 Est GFR (MDRD) Af Amer 69 Est GFR (MDRD) Non-Af 57 L BUN/Creatinine Ratio 24.5 H Glucose 114 H Calcium 8.7 Blood Type O POSITIVE Antibody Screen NEGATIVE Crossmatch See Detail 09/05/18 09/05/18 05:08 05:08 WBC 5.6 RBC 3.16 L Hgb 8.7 L Hct 27.8 L MCV 88.0 MCH 27.5 MCHC 31.3 L RDW 14.9 H RDW Differential 46.7 H Plt Count 273 MPV 10.7 Immature Gran % (Auto) 0.400 Neut % (Auto) 81.3 H Lymph % (Auto) 11.2 L [place] % (Auto) 6.9 Eos % (Auto) 0.0 Baso % (Auto) 0.2 Absolute Neuts (auto) 4.6 Absolute Lymphs (auto) 0.63 L Total Counted Not Reportable Differential Comment Diff Path Review Sodium 140 Potassium 4.7 Chloride 107 Carbon Dioxide 26.0 Anion Gap 7 BUN 21 H Creatinine 0.92 Estim Creat Clear Calc 45.72 Est GFR (MDRD) Af Amer 77 Est GFR (MDRD) Non-Af 64 BUN/Creatinine Ratio 22.9 H Glucose 105 Calcium 8.4 L Blood Type Antibody Screen Crossmatch Discharge Diet: No Restrictions Discharge Activity: Return to Normal Activity Call your doctor if you observe: - - increased rectal bleeding. dizziness. lightheadedness. Home Medications: Medications to take at Discharge Hydrocodone/Acetaminophen [Hydrocodone-Acetamin 5-325 mg] 1 tab PO BID PRN PRN 07/05/18 Iron,Carbonyl [Ferretts] 18 mg PO BID 07/05/18 Bisacodyl [Dulcolax] 10 mg PO DAILY PRN #1 tablet 09/05/18 Hydrocortisone [Cortenema (G)] 100 mg RECTAL QHS #30 enema 09/05/18 Polyethylene Glycol 3350 [Miralax] 17 gm PO DAILY #1 packet 09/05/18 Following Prescrptions Were Given to Patient: Bisacodyl [Dulcolax] 10 mg PO DAILY PRN #1 tablet PRN Reason: Constipation Hydrocortisone [Cortenema (G)] 100 mg RECTAL QHS #30 enema Polyethylene Glycol 3350 [Miralax] 17 gm PO DAILY #1 packet Other Amb Orders: CBC W/Diff, Automated Time Frame: 1 Week, Location: Laboratory CBC W/Diff, Automated Time Frame: 2 Weeks, Location: Laboratory Primary Care Physician: Hemant Parra MD [Primary Care Provider] - Within 2 Weeks Please Follow Up With: Victor Hugo Mcghee MD When: 3-4 weeks Disposition: Home Minutes spent on discharge:: 32 Patient Condition:: Fair Medical Necessity - Tobacco Use Smoking Status: Former smoker Tobacco Use: Non-smoker Meaningful Use Info Meaningful Use Diagnoses (Choose all that apply): None applicable Code Visit OBSV E&M: 92392 Observation care discharge
[2018-09-05 09:10] VITALS: RESP 16; O2SAT 98
[2018-09-05 14:24] LABS: Pathologist Review Reviewed
== END 2018-09-05 09:59 | disposition home health service (06) ==
LOC: ED 12:18 → MS3 13:18
PROVIDERS: Emergency Provider Emergency Medicine; Family Provider Family Medicine; PCP Family Medicine
DX: D62 Acute posthemorrhagic anemia (principal); K92.1 Melena; Z85.41 Personal history of malignant neoplasm of cervix uteri; Z92.3 Personal history of irradiation; Z79.899 Other long term (current) drug therapy; Z87.891 Personal history of nicotine dependence; Z86.718 Personal history of other venous thrombosis and embolism; K62.7 Radiation proctitis
CPT/HCPCS: 36415; 80048; 85025; 85027; 86850; 86900; 86920; 86922; 97802; 99218; 99282; J7040; P9016; A4216; G0378

== ENCOUNTER 2018-11-11 11:14 | Emergency (ER) | payer MEDICARE, SELFPAY ==
[2018-11-11 11:15] VITALS: BP 146/78; PULSE 83; RESP 12; TEMP 36.9; O2SAT 100; BMI 22.1
--- NOTE | 2018-11-11 13:09 | ED.DCSUM_ITS ---
- ER Visit Summary Date of Service: 11/11/18 Chief Complaint: Anemia History of Present Illness: The patient is a 73 F sent in for abnormal labs by her primary care physician. She has a chronic history of anemia from prior GI bleed and prior radiation induced colitis. She has needed transfusions before. States she has been very tired lately. Labs were drawn on Sunday and she got the report today and was told to come to the ER. She denies any melena. Physical Examination: Appearing older female. Vital signs are stable. She is afebrile. No distress. HEENT exam unremarkable. Neck nontender no lymphadenopathy. Lungs clear to auscultation bilaterally. Heart regular rhythm no murmur. Abdomen is soft and nontender. Normal bowel sounds no peritoneal signs. Patient is moving all 4 extremities. Calves are nontender without edema. Back nontender. Neurologically she is awake and alert. Skin unremarkable other than pale. Test Results: His white count 6.1. Hemoglobin is 7.5. I called the [facility] there hemoglobin was previously 6.8. And hematocrit 25.4 here today. Electrolytes unremarkable normal gap and creatinine. Emergency Department Course and Treatment: I spoke to the hospitalist and the patient normally runs between 6 and 9. Her symptoms really are not any worse. She is comfortable not being transfused. Hospitalist said typically they would not transfuse unless she was down to 7 or below. I also then called and spoke to Dr. Barry at the [facility]. They will follow her up on Sunday with repeat blood work. I discussed this all with the patient and her are comfortable with that plan. She preferred to do this as outpatient. Treatment Plan: Outpatient follow-up on Sunday11/13/2018 seen for repeat blood work Disposition: dc Impression: Acute on chronic anemia. History of radiation colitis with recurrent GI bleeds This note was generated with [employer] dictation software. It may contain incorrect words, spelling, and punctuation that were not noted in review of the chart prior to signing ED Disposition - Plan for ED Patient: Chief Complaint: Abn Labs Referrals: Hemant Parra MD [Primary Care Provider] -
[2018-11-11 13:43] VITALS: PULSE 71; RESP 19; O2SAT 94
[2018-11-11 13:44] VITALS: BP 115/48
[2018-11-11 13:48] LABS: Anion Gap 8 (5-15); BUN 21 mg/dL (7-18); Calcium,Total 8.9 mg/dL (8.5-10.1); Chloride 105 mmol/L (98-107); Creatinine, Serum 0.95 mg/dL (0.55-1.02); EST Glomerular Filtration Rate 61 mL/min (>60); Est Glom Filt Rate - Afr Amer 74 mL/min (>60); Estimated Creatinine Clearance 44.28 ml/min; Glucose 88 mg/dL (74-106); Potassium 3.5 mmol/L (3.5-5.1); Sodium Level 141 mmol/L (136-145)
[2018-11-11 14:23] LABS: Hematocrit 25.4 % (37-47); Hemoglobin 7.5 g/dl (12.0-15.0); Mean Corp Hgb Conc 29.5 g/gl (32-36); Mean Corpuscular Hgb 26.3 pg (27.0-32.0); Mean Corpuscular Volume 89.1 fL (81-99); Mean Platelet Vol. 10.7 fl (6.2-12.0); Platelet Count 314 K/mm3 (150-450); RBC Distribution Width CV 15.6 % (11.6-14.6); RBC Distribution Width SD 49.4 fl (35.1-43.9); Red Blood Count 2.85 M/mm3 (4.2-5.4); White Blood Count 6.1 K/mm3 (4.4-11.0)
[2018-11-11 14:28] LABS: Scan Indicated on CBC? Y/N NO
[2018-11-11 14:45] VITALS: BMI 22.2
[2018-11-11 15:18] VITALS: BP 107/66; PULSE 78; RESP 16; O2SAT 98
--- NOTE | 2018-11-11 15:25 | ED.DEP ---
ED Disposition - Plan for ED Patient: Disposition: Home or Assisted Living Chief Complaint: Abn Labs Instructions: ED Anemia Type Not Specified Referrals: Hemant Parra MD [Primary Care Provider] - 2 Days Additional Instructions: Return to the ER feeling worse. Follow-up with the [facility] this Sunday, November 13, 2018 for repeat blood count. If he continues to get lower you will need to have a transfusion.
--- NOTE | 2018-11-11 15:29 | DCINST.ED_ITS ---
ED Disposition - Plan for ED Patient: Disposition: Home or Assisted Living Chief Complaint: Abn Labs Instructions: ED Anemia Type Not Specified Referrals: Hemant Parra MD [Primary Care Provider] - 2 Days Additional Instructions: Return to the ER feeling worse. Follow-up with the [facility] this Sunday, November 13, 2018 for repeat blood count. If he continues to get lower you will need to have a transfusion.
[2018-11-11 15:42] VITALS: BP 121/99; PULSE 73; RESP 16; O2SAT 98
== END 2018-11-11 15:54 | disposition home or self-care (01) ==
PROVIDERS: Emergency Provider Emergency Medicine; Family Provider Family Medicine; PCP Family Medicine
DX: D64.9 Anemia, unspecified (principal); Z87.19 Personal history of other diseases of the digestive system; Z92.3 Personal history of irradiation
CPT/HCPCS: 80048; 85027; 86850; 86900; 86920; 86922; 99285; A4216

== ENCOUNTER → 2019-06-20 14:26 | Outpatient (CLI) | payer MEDICARE, SELFPAY ==
--- NOTE | 2019-06-20 14:29 | BI_ITS ---
MAMMOGRAPHY - BILATERAL SCREENING 3-D TOMOSYNTHESIS REASON FOR EXAM: Female, 73 years old. Bilateral Screening 3-D tomosynthesis PERTINENT HISTORY: No significant family history. TECHNIQUE: 2-D mammograms and 3-D Tomosynthesis of the breast (s) were performed. CAD was performed. COMPARISON: 03/10/2009, 10/25/2007 FINDINGS: The breast composition is composed of scattered fibroglandular density. Suggestion of an chronically inverted nipple on the left side. A new small nodule is visualized on the left along the upper outer quadrant measuring 7 mm, about 5.5 cm from nipple, also visualized on the 3-D tomosynthesis images on both the MLO and also CC projections Further assessment with spot compression mammogram and if persistent with sonogram is recommended as follow-up. Scattered benign calcifications are seen, increased since prior, with majority of them being vascular calcifications.. No dense spiculated masses or suspicious microcalcifications are identified. No architectural distortion is identified. There is no skin thickening or retraction. BI/SCREEN MAMM (CAD) W/VERENA BILAT IMPRESSION: A new small nodule is visualized on the left along the upper outer quadrant measuring 7 mm, about 5.5 cm from nipple, also visualized on the 3-D tomosynthesis images on both the MLO and also CC projections Further assessment with spot compression mammogram and if persistent with sonogram is recommended as follow-up. ASSESSMENT CATEGORY: BIRADS Category 0: Incomplete. Need additional imaging evaluation as above. A letter regarding these results will be sent to the patient by the facility within 30 days. FOLLOW UP RECOMMENDATION: Yearly follow up mammogram recommended. (A) Approximately 10% of breast cancers are not detected by mammography. A normal mammogram should not delay biopsy of a clinically suspicious abnormality. Electronically Signed: Alfred Wallace MD at 13:32 EDT Tel [phone], Service support ,
== END ==
PROVIDERS: Family Provider Family Medicine; PCP Family Medicine; Referring Provider Family Medicine; Visit Provider Family Medicine
DX: Z12.31 Encounter for screening mammogram for malignant neoplasm of breast (principal)
CPT/HCPCS: 77063; 77067

== ENCOUNTER → 2019-07-02 14:00 | Outpatient (CLI) | payer MEDICARE, SELFPAY ==
--- NOTE | 2019-07-02 14:08 | BI_ITS ---
MAMMOGRAPHY - UNILATERAL DIAGNOSTIC: LEFT BREAST REASON FOR EXAM: Female, 74 years old. Abnormal screening mammogram. PERTINENT HISTORY: Non-contributory. TECHNIQUE: Compression spot views of the left breast in the mediolateral oblique and craniocaudad views were obtained. CAD: Full Field Digital Mammography with Computer Added Detection was performed. COMPARISON: Comparison is made with prior examination dated June 20, 2019. FINDINGS: Breast Composition: There are scattered areas of fibroglandular density. There are no dominant masses or suspicious calcifications. No nodular densities seen on this examination. This most likely represented superimposition of tissue. No other significant abnormalities are identified. There has been no significant change since the prior study. BI/DIAG MAMM W/CAD, UNILAT IMPRESSION: Stable unilateral diagnostic mammogram. One year follow-up mammogram recommended. (A) ASSESSMENT CATEGORY: BIRADS Category 2: Benign. A letter regarding these results will be sent to the patient by the facility within 30 days. Approximately 10% of breast cancers are not detected by mammography. A normal mammogram should not delay biopsy of a clinically suspicious abnormality. Electronically Signed: Marco Mcgregor, at 8:12 EDT , Service support ,
== END ==
PROVIDERS: Family Provider Family Medicine; PCP Family Medicine; Referring Provider Family Medicine; Visit Provider Family Medicine
DX: R92.8 Other abnormal and inconclusive findings on diagnostic imaging of breast (principal)
CPT/HCPCS: 77065

== ENCOUNTER 2019-07-20 17:19 | Inpatient (IN) | payer MEDICARE, SELFPAY ==
[2019-07-20] VITALS (9 sets, daily range): BP systolic 103–153; BP diastolic 35–107; PULSE 70–107; RESP 15–18; TEMP 36.9–37.7; O2SAT 95–100; BMI 24.2; BMI 21.2
--- NOTE | 2019-07-20 17:31 | EKG12_ITS ---
Test Reason : GI BLEED Blood Pressure : / mmHG Vent. Rate : 076 BPM Atrial Rate : 076 BPM P-R Int : 138 ms QRS Dur : 092 ms QT Int : 370 ms P-R-T Axes : 056 044 031 degrees QTc Int : 416 ms Normal sinus rhythm Normal ECG Confirmed by LISA BERKOWITZ, SYL ([id number]), brands editor EVE GERMAIN ([id number]) on 07/21/2019 3:01:01 PM Referred By: Marta Cain Confirmed By:SYL GONZALEZ MD
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
[2019-07-20 17:55] LABS: Hematocrit 22.2 % (37-47); Mean Corp Hgb Conc 27.5 g/dL (32-36); Mean Corpuscular Hgb 21.6 pg (27.0-32.0); Mean Corpuscular Volume 78.4 fL (81-99); Mean Platelet Vol. 10.9 fl (6.2-12.0); POSITIVE MORPHOLOGY YES; Platelet Count 289 K/mm3 (150-450); RBC Distribution Width CV 20.1 % (11.6-14.6); RBC Distribution Width SD 55.7 fl (35.1-43.9); Red Blood Count 2.83 M/mm3 (4.2-5.4); White Blood Count 9.5 K/mm3 (4.4-11.0)
[2019-07-20 18:00] LABS: Hemoglobin 6.1 g/dL (12.0-15.0); Scan Indicated on CBC? Y/N YES- FLAGS NOTED
[2019-07-20 18:13] LABS: Anion Gap 5 (5-15); BUN 19 mg/dL (7-18); BUN/Creat Ratio 17.8 RATIO (10-20); Calcium,Total 8.2 mg/dL (8.5-10.1); Chloride 106 mmol/L (98-107); Creatinine, Serum 1.07 mg/dL (0.55-1.02); EST Glomerular Filtration Rate 53 mL/min (>60); Est Glom Filt Rate - Afr Amer 65 mL/min (>60); Estimated Creatinine Clearance 33.63 ml/min; Glucose 130 mg/dL (74-106); Potassium 4.5 mmol/L (3.5-5.1); Sodium Level 136 mmol/L (136-145)
--- NOTE | 2019-07-20 18:24 | NURSING ---
DR ELOISA VALENTIN
--- NOTE | 2019-07-20 18:25 | PCM.HP.STD ---
History of Present Illness Date of Admission: 07/20/19 Chief Complaint: rectal bleeding The patient is a 74 year old F with past medical history as listed and includes radiation proctitis as well as diverticular disease. She has a history of endometrial cancer and cervical cancer and is status post radiation and chemotherapy. She was admitted through the ED on 07/20/2019 with a complaint of generalized weakness and bleeding per rectum. Patient states his been having bleeding per rectum for several weeks now and it alternates between dark tarry stools and bright red bleeding. However she thought it would go away on its own. She started feeling weak and this progressively worsened so he decided to come into the ED today. She denied any tenderness or dizziness or palpitations. Review of systems otherwise negative. She is not on any blood thinner. She has had several episodes of admission for similar presentation and required transfusions. She has had several endoscopies which showed friable mucosa in the rectum. She has been admitted to be managed for lower GI bleed likely due to radiation proctitis. [] Past Medical History Past Medical History (Chronic Problems): Chronic Problems Radiation proctitis (Chronic) Hypocalcemia (Chronic) Hypomagnesemia (Chronic) Inanition (Chronic) Weight loss, unintentional (Chronic) Leukopenia (Chronic) Cervical cancer (Chronic) Endometrial cancer (Chronic) Allergies acetaminophen [From Percocet] Allergy (Verified 07/20/19 17:21) Unknown PT CAN'T REMEMBER REACTION, BUT REPORTS SHE IS ABLE TO TAKE HYDROCODONE ibuprofen [From Motrin] Allergy (Verified 07/20/19 17:21) Unknown omega-3 acid ethyl esters Allergy (Verified 07/20/19 17:21) Unknown oxycodone Allergy (Verified 07/20/19 17:21) Unknown oxycodone HCl [From Percocet] Allergy (Verified 07/20/19 17:21) Unknown Pt can't remember Penicillins Allergy (Verified 07/20/19 17:21) Unknown Can't remember Home Medications: Ambulatory Orders Medication Instructions Recorded Hydrocodone/Acetaminophen 1 tab PO Q6H PRN 11/11/18 [Hydrocodone-Acetamin 5-325 mg] Surgical History: appendectomy, tonsillectomy 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 Maternal History Items: Unknown Paternal History Items: Unknown Review of Systems Constitutional: Reports: Malaise, Weakness, Fatigue. Denies: Anorexia, Fever Eyes: Denies: Blurred vision HEENT: Denies: Head Aches, Sinus Congestion, Sinus Drainage Cardiovascular: Denies: Chest Pain, Palpitations Respiratory: Denies: Cough, Shortness of Breath, Shortness of breath at rest, Shortness of breath upon exertion, Sputum production Gastrointestinal: Reports: Hematochezia, Melena. Denies: Abdominal Pain, Nausea, Vomiting Genitourinary: Denies: Dysuria Musculoskeletal: Denies: Joint Pain, Joint Tenderness Skin: Denies: Rash, Wounds Neurological: Denies: Numbness, Tingling, Focal weakness Psychiatric: Denies: Anxiety, Depression, Homicidal Ideations, Suicidal Ideations Hematologic/ Lymphatic: Denies: Easy Bruising, Easy Bleeding VTE Information - Inpt Only VTE Present on Admission: No VTE Mechan Device Prophylaxis: SCD's VTE Pharm Prophylaxis ordered?: No Reason prophylaxis not ordered:: Medical Contraindication - rectal bleeding 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 color television console monitor (Acute) Anemia associated with acute blood loss (Acute) - Physical Exam General: Alert, Oriented x3, Cooperative, No apparent distress, Lethargic HEENT: Atraumatic, PERRLA, EOMI, Normocephalic Oral: Dry Mucosa Neck: Supple, No JVD, Negative Carotid Bruits Lungs: Clear to auscultation, Normal air movement Cardiovascular: Regular rate, Regular Rhythm, Normal S1, Normal S2, No murmurs Abdomen: Bowel Sounds Present, Soft, Non Tender, Non-Distended, No Hepato-splenomegaly Extremities: No clubbing, No cyanosis, No edema, Capillary Refill Less than 3 Seconds Skin: No rashes, No breakdown Musculoskeletal: No Tenderness to Palpation of Joints or Extremities Lymphatic: No Cervical, Supraclavicular, or Inguinal Adenopathy Neurological: Cranial nerves II-XII grossly intact, Neuro grossly intact, Motor Exam 5/5 strength throughout Psych/Mental Status: Normal Affect, Appropriate, Alert and oriented to time, place, person, mood and affect Vital Signs Temp Pulse Resp BP Pulse Ox 98.9 F 72 15 153/107 H 96 07/20/19 17:21 07/20/19 17:53 07/20/19 17:53 07/20/19 17:53 07/20/19 17:53 Oxygen Delivery Method Room Air Weight: 124 lb 1.924 oz Body Mass Index (BMI) 24.2 Laboratory Tests Past 24 Hrs 07/20/19 07/20/19 07/20/19 17:40 17:40 17:40 WBC 9.5 RBC 2.83 L Hgb Pending Hct 22.2 L MCV 78.4 L MCH 21.6 L MCHC 27.5 L RDW Std Deviation 55.7 H RDW Coeff of Jeannie 20.1 H Plt Count 289 MPV 10.9 Sodium 136 Potassium 4.5 Chloride 106 Carbon Dioxide 25.0 Anion Gap 5 BUN 19 H Creatinine 1.07 H Estim Creat Clear Calc 33.63 Est GFR (MDRD) Af Amer 65 Est GFR (MDRD) Non-Af 53 L BUN/Creatinine Ratio 17.8 Glucose 130 H Calcium 8.2 L Blood Type Pending Antibody Screen Pending Crossmatch 07/20/19 17:40 WBC RBC Hgb Hct MCV MCH MCHC RDW Std Deviation RDW Coeff of Jeannie Plt Count MPV Sodium Potassium Chloride Carbon Dioxide Anion Gap BUN Creatinine Estim Creat Clear Calc Est GFR (MDRD) Af Amer Est GFR (MDRD) Non-Af BUN/Creatinine Ratio Glucose Calcium Blood Type Antibody Screen Crossmatch See Detail Assessment/Plan All Active Problems Acute lower GI bleeding (Acute) Signs and symptoms of anemia (Acute) Sinus tachycardia seen on color television console monitor (Acute) Anemia associated with acute blood loss (Acute) Anemia due to blood loss, acute (Acute) History of DVT (deep vein thrombosis) (Resolved) Lower GI bleed (Acute) 74-year-old female admitted with a complaint of weakness and rectal bleeding. 1. Acute Lower GI bleed likely due to radiation proctitis and diverticulosis. Patient states bleeding alternates between bright red blood and sometimes melanotic stools. She has a history of radiation proctitis and diverticular disease and has required transfusions on account of similar presentations in the past. admit to PCU with telemetry. Hydrate with IV fluid normal saline at 150 cc/h. Hb is 6.1 on admission. will hceck INR transfuse with 2 units of PRBCs consult general surgery for colonoscopy-Dr Mcghee consulted 2. History of endometrial and cervical cancer s/p radiation and chemotherapy stable. DVT prophylaxis: SCDs Code status: full code Patient counseled extensively about different types of CODE STATUS including full code, DNR CCA and DNR CCA. Patient elects to be full code. Total [id number] time 16 minutes. Code Visit Inpatient E&M: 97590 Init Hosp L3 Procedures: 13267 Advncd Care Plan 30 Min
--- NOTE | 2019-07-20 18:28 | NURSING ---
PCU LOWER GI BLEED, ANEMIA [facility]
[2019-07-20 18:36] LABS: Differential Comment SCANNED
--- NOTE | 2019-07-20 18:53 | PCM.CONS.GEN ---
Reason for Consult Date of Consultation: 07/20/19 Reason for Consultation: recurrent GI bleeding History of Present Illness: The patient is a 74 year old F who presents to [facility] emergency department with increasing fatigue and rectal bleeding. the patient has a known history of radiation proctitis. She is noted bleeding on and off with more recent increase in bright red and maroon colored bleeding she states. hemoglobin on presentation to the emergency department was 6.1. The patient has a long-standing history of lower GI bleeding with multiple episodes of recurrent GI bleeding and anemia. On this occasion, she noted worsening fatigue along with you. Her usual dark stools and occasional bright red blood per rectum. The patient denies abdominal pain, she denies hematemesis or coffee-ground emesis. She takes no blood thinners. her hemoglobin on presentation was 5.2 The patient first presented to [facility] emergency department in November. She noted a 2 month history of rectal bleeding at that time. The patient has a previous history of cervical cancer and underwent chemoradiotherapy in addition to brachytherapy. Her first colonoscopy November 19, 2017. there was noted be blood from the hepatic flexure to the rectum with no signs of proximal bleeding sites. There were felt to be too active bleeding sites in the sigmoid colon at the diverticular area where she had significant diverticulosis. Those sites were treated with epinephrine and then a clip was placed. She was also felt to have some degree of friable mucosa in the sigmoid colon.biopsies from that endoscopy was unremarkable. the patient was then readmitted for further bleeding and underwent repeat endoscopy on January 24, 2018. There was again noted to be friable mucosa in the sigmoid area and epinephrine was injected. Colonoscopy was performed to the cecum and there was noted to be friable, somewhat oozing mucosa in the sigmoid without additional significant bleeding noted. biopsy at this time returned friable mucosa with some engorged veins. The patient was readmitted in March. On March 26, 2018, the patient had upper endoscopy which demonstrated no source of bleeding. A bleeding scan was obtained on March 26, 2018 which demonstrated no visible source of bleeding. Flexible sigmoidoscopy is performed on March 29, 2018 which demonstrated a friable rectal mucosa with some oozing. biopsy at this time was unremarkable. I performed upper and lower endoscopy on July 07, 2018. The patient was found to have a hiatal hernia with no upper GI source of bleeding. She was found to have significant proctitis for the last 60 cm of her rectosigmoid consistent with radiation proctitis. pathology returned as: MICROSCOPIC DIAGNOSIS A. Antral biopsy: Mild gastritis. B. Colon, random biopsy: Fragments of colonic mucosa with focally dilated blood vessels and fibrosis on lamina propria. Negative for malignancy. See comment. SJ:amanda 07/10/18 COMMENT A. The results of immunohistochemistry for Helicobacter pylori will be reported separately ([id number]). B. Trichrome stain with matched control is used in the evaluation of this specimen and highlights the focal fibrosis on lamina propria and also shows focal thickening of subepithelial collagen band suggestive of collagenous colitis. 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 A PET/CT scan demonstrated lower periaortic jeet disease. The patient was treated with extended beam radiotherapy and weekly cisplatin given Bill followed by vaginal brachytherapy. She completed her course of treatment August 29, 2016. Past Medical History Past Medical History (Chronic Problems): Chronic Problems Radiation proctitis (Chronic) Hypocalcemia (Chronic) Hypomagnesemia (Chronic) Inanition (Chronic) Weight loss, unintentional (Chronic) Leukopenia (Chronic) Cervical cancer (Chronic) Endometrial cancer (Chronic) Allergies acetaminophen [From Percocet] Allergy (Verified 07/20/19 17:21) Unknown PT CAN'T REMEMBER REACTION, BUT REPORTS SHE IS ABLE TO TAKE HYDROCODONE ibuprofen [From Motrin] Allergy (Verified 07/20/19 17:21) Unknown omega-3 acid ethyl esters Allergy (Verified 07/20/19 17:21) Unknown oxycodone Allergy (Verified 07/20/19 17:21) Unknown oxycodone HCl [From Percocet] Allergy (Verified 07/20/19 17:21) Unknown Pt can't remember Penicillins Allergy (Verified 07/20/19 17:21) Unknown Can't remember Home Medications: Ambulatory Orders Medication Instructions Recorded Hydrocodone/Acetaminophen 1 tab PO Q6H PRN 11/11/18 [Hydrocodone-Acetamin 5-325 mg] Surgical History: appendectomy, tonsillectomy 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 Maternal History Items: Unknown Paternal History Items: Unknown Review of Systems Constitutional: Reports: Malaise, Weakness, Fatigue. Denies: Chills, Fever, Weight Change HEENT: Denies: Head Aches, Sinus Congestion, Sinus Drainage Cardiovascular: Denies: Chest Pain, Palpitations Respiratory: Denies: Cough, Shortness of breath at rest, Sputum production Gastrointestinal: Reports: Hematochezia, Melena. 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83 L Hgb 6.1 L Hct 22.2 L MCV 78.4 L MCH 21.6 L MCHC 27.5 L RDW Std Deviation 55.7 H RDW Coeff of Jeannie 20.1 H Plt Count 289 MPV 10.9 Differential Comment SCANNED Diff Path Review May foll Sodium 136 Potassium 4.5 Chloride 106 Carbon Dioxide 25.0 Anion Gap 5 BUN 19 H Creatinine 1.07 H Estim Creat Clear Calc 33.63 Est GFR (MDRD) Af Amer 65 Est GFR (MDRD) Non-Af 53 L BUN/Creatinine Ratio 17.8 Glucose 130 H Calcium 8.2 L Blood Type Pending Antibody Screen Pending Crossmatch 07/20/19 17:40 WBC RBC Hgb Hct MCV MCH MCHC RDW Std Deviation RDW Coeff of Jeannie Plt Count MPV Differential Comment Diff Path Review Sodium Potassium Chloride Carbon Dioxide Anion Gap BUN Creatinine Estim Creat Clear Calc Est GFR (MDRD) Af Amer Est GFR (MDRD) Non-Af BUN/Creatinine Ratio Glucose Calcium Blood Type Antibody Screen Crossmatch See Detail Assessment/Plan All Active Problems Acute lower GI bleeding (Acute) Signs and symptoms of anemia (Acute) 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 I plan to perform lower endoscopy. We'll plan for bowel prep today. We will proceed with lower endoscopy with sedation tomorrow morning. The patient understands the risks, benefits, complications, and possible alternatives to the procedure. as the patient otherwise had negative bleeding scans and negative upper endoscopies would not plan for repeat upper endoscopy. The patient's currently scheduled to see tubes of packed red cells. We'll follow her hemoglobin sequentially.
[2019-07-20] MEDS: Electrolyte Solution/Peg's 4000 ML 2000 ML PO (21:43)
[2019-07-21] VITALS (21 sets, daily range): BP systolic 105–144; BP diastolic 35–84; PULSE 62–76; RESP 16–18; TEMP 36.3–37.3; O2SAT 95–100
--- NOTE | 2019-07-21 05:55 | EKG12_ITS ---
Test Reason : AM EKG Blood Pressure : / mmHG Vent. Rate : 067 BPM Atrial Rate : 067 BPM P-R Int : 152 ms QRS Dur : 102 ms QT Int : 404 ms P-R-T Axes : 052 040 023 degrees QTc Int : 426 ms Normal sinus rhythm Normal ECG When compared with ECG of 07-JUL-2018 05:29, No significant change was found Confirmed by LISA BERKOWITZ, SYL ([id number]), transfusion nurse EVE GERMAIN ([id number]) on 07/22/2019 12:13:47 PM Referred By: Marta Cain Confirmed By:SYL GONZALEZ MD
[2019-07-21] MEDS: 0.9% Normal Saline 1,000 ML 150 ML IV ×2 (06:26→17:04)
[2019-07-21 07:21] LABS: Absolute Lymphocyte Count 0.67 X10^3/uL (0.83-4.51); Absolute Neutrophil Count 5.1 X10^3/uL (2.0-7.7); Basophil# 0.03 X10^3/uL; Basophil% 0.5 % (0-1); Eosinophil# 0.03 X10^3/uL; Eosinophils% 0.5 % (0-5); Hematocrit 28.6 % (37-47); Hemoglobin 8.4 g/dL (12.0-15.0); Lymphocyte # 0.67 X10^3/ul (4.0); Lymphocyte % 10.1 % (19-41); Mean Corp Hgb Conc 29.4 g/dL (32-36); Mean Corpuscular Hgb 23.7 pg (27.0-32.0); Mean Corpuscular Volume 80.8 fL (81-99); Mean Platelet Vol. 10.6 fl (6.2-12.0); Monocyte# 0.76 X10^3/uL; Monocyte% 11.5 % (0-10); NRBC Flagged by Analyzer 0 % (0-5); Neutrophil # 5.11 X10^3/uL (2.7-7.7); Neutrophil % 76.9 % (47-70); Platelet Count 242 K/mm3 (150-450); RBC Distribution Width CV 19.6 % (11.6-14.6); RBC Distribution Width SD 57.1 fl (35.1-43.9); Red Blood Count 3.54 M/mm3 (4.2-5.4); White Blood Count 6.6 K/mm3 (4.4-11.0)
[2019-07-21 07:37] LABS: Anion Gap 7 (5-15); BUN 13 mg/dL (7-18); BUN/Creat Ratio 15.7 RATIO (10-20); Calcium,Total 8.2 mg/dL (8.5-10.1); Chloride 111 mmol/L (98-107); Creatinine, Serum 0.83 mg/dL (0.55-1.02); EST Glomerular Filtration Rate 72 mL/min (>60); Est Glom Filt Rate - Afr Amer 87 mL/min (>60); Estimated Creatinine Clearance 49.94 ml/min; Glucose 98 mg/dL (74-106); Potassium 4.2 mmol/L (3.5-5.1); Sodium Level 145 mmol/L (136-145)
[2019-07-21 07:40] LABS: International Normalized Ratio 1.2; Partial Thromboplast Time 32.4 Seconds (24.1-36.2); Prothrombin Time (Protime)PT. 14.6 SECONDS (11.7-14.9)
--- NOTE | 2019-07-21 08:54 | NURSING ---
verbal report given to marsha tinoco in [facility]
--- NOTE | 2019-07-21 11:41 | PCM.PN.HOSP ---
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 (Acute) Anemia associated with acute blood loss (Acute) Subjective: No acute events overnight, denies any abdominal pain or any further blood per rectum Vitals/I&O's: Vital Signs Temp Pulse Resp BP Pulse Ox 98.6 F 76 16 129/48 H 98 07/21/19 07:10 07/21/19 07:10 07/21/19 07:10 07/21/19 07:10 07/21/19 07:10 Oxygen Delivery Method Room Air Weight: 119 lb 14.903 oz Body Mass Index (BMI) 21.2 Intake and Output for Last 24 Hours 07/19/19 07/20/19 07/21/19 23:59 23:59 23:59 Intake Total 610 / 1010 2089 Balance 610 / 1010 2089 General: Alert, Oriented x3, Cooperative, No apparent distress, - - Cachectic HEENT: Atraumatic, PERRLA, EOMI, Normocephalic, - - Dentures Oral: Dry Mucosa Neck: Supple, No JVD Lungs: Clear to auscultation, Normal air movement, No rhonchi, No wheeze, No rales Cardiovascular: Regular rate, Regular Rhythm, Normal S1, Normal S2, No murmurs Abdomen: Soft, Non Tender, Non-Distended, No Hepato-splenomegaly Extremities: No edema, Capillary Refill Less than 3 Seconds Skin: No rashes, No breakdown Neurological: Neuro grossly intact, Sensory exam intact to light touch and pain Psych/Mental Status: Normal Affect, Appropriate Laboratory Results 07/20/19 17:40: WBC 9.5, RBC 2.83 L, Hgb 6.1 L, Hct 22.2 L, MCV 78.4 L, MCH 21.6 L, MCHC 27.5 L, RDW Std Deviation 55.7 H, RDW Coeff of Jeannie 20.1 H, Plt Count 289, MPV 10.9, Differential Comment SCANNED, Diff Path Review March07/20/19 17:40: Sodium 136, Potassium 4.5, Chloride 106, Carbon Dioxide 25.0, Anion Gap 5, BUN 19 H, Creatinine 1.07 H, Estim Creat Clear Calc 33.63, Est GFR (MDRD) Af Amer 65, Est GFR (MDRD) Non-Af 53 L, BUN/Creatinine Ratio 17.8, Glucose 130 H, Calcium 8.2 L 07/20/19 17:40: Blood Type O POSITIVE, Antibody Screen NEGATIVE 07/20/19 17:40: Crossmatch See Detail 07/21/19 07:10: WBC 6.6, RBC 3.54 L, Hgb 8.4 L, Hct 28.6 L, MCV 80.8 L, MCH 23.7 L, MCHC 29.4 L, RDW Std Deviation 57.1 H, RDW Coeff of Jeannie 19.6 H, Plt Count 242, MPV 10.6, Immature Gran % (Auto) 0.500, Neut % (Auto) 76.9 H, Lymph % (Auto) 10.1 L, [place] % (Auto) 11.5 H, Eos % (Auto) 0.5, Baso % (Auto) 0.5, Absolute Neuts (auto) 5.1, Absolute Lymphs (auto) 0.67 L, Nucleated RBC % 0 07/21/19 07:10: PT 14.6, INR 1.2, APTT 32.4 07/21/19 07:10: Sodium 145, Potassium 4.2, Chloride 111 H, Carbon Dioxide 27.0, Anion Gap 7, BUN 13, Creatinine 0.83, Estim Creat Clear Calc 49.94, Est GFR (MDRD) Af Amer 87, Est GFR (MDRD) Non-Af 72, BUN/Creatinine Ratio 15.7, Glucose 98, Calcium 8.2 L Current Medications Acetaminophen (Tylenol) 650 mg PO Q6H PRN PRN PRN Reason: Non-cardiac pain (mod-severe) Hydrocodone Bitart/Acetaminophen ([place]spire 5mg-325mg) 1 tablet PO Q6H PRN PRN PRN Reason: PAIN Albuterol Sulfate (Ventolin Aerosols) 2.5 mg INHALATION Q2H PRN PRN PRN Reason: dyspnea, wheezing Dextrose (D50w Syringe) 0 gm IV X1 PRN; Protocol PRN Reason: Hypoglycemia Glucagon () 1 mg IM .X1 PRN PRN Reason: Hypoglycemia Hydralazine HCl (Apresoline Iv) 10 mg IV Q4H PRN PRN PRN Reason: SBP > 160 Sodium Chloride () 1,000 mls @ 150 mls/hr IV .Q6H40M [facility] Stop: 07/21/19 18:39 Last Admin: 07/21/19 06:30 Dose: Not Given Documented by: Pantoprazole Sodium 40 mg/ (Sodium Chloride) 110 mls @ 330 mls/hr IV Q12 [facility] Last Infusion: 07/21/19 10:02 Dose: Infused Documented by: Ondansetron HCl (Zofran) 4 mg IV Q8H PRN PRN PRN Reason: NAUSEA/VOMITING Medical Necessity - Tobacco Use Smoking Status: Former smoker Tobacco Use: Non-smoker Assessment/Plan All Active Problems Acute lower GI bleeding (Acute) Signs and symptoms of anemia (Acute) Sinus tachycardia seen on waste salvager (Acute) Anemia associated with acute blood loss (Acute) Anemia due to blood loss, acute (Acute) History of DVT (deep vein thrombosis) (Resolved) Lower GI bleed (Acute) 1. Lower GI bleed secondary to radiation proctitis with acute blood loss anemia -Hemoglobin on admission was 6.1, she refused 2 units packed red blood cells and is now 8.4 -Plan for colonoscopy today by general surgery -We will monitor CBC in the morning -Continue with IV fluids while she is n.p.o. -INR 1.2 2. History of endometrial and cervical cancer -She underwent radiation therapy for these cancers leading to the radiation proctitis DVT: SCDs Code Visit Inpatient E&M: 38310 Subs Hosp L2
--- NOTE | 2019-07-21 12:05 | NURSING ---
pt to AC room 5, cardiac monitoring continues per portable monitor. sinus rhythm at rate of 65 bpm at this time, pulse ox 97% on room air.
[2019-07-21 12:20] LABS: Pathologist Review Reviewed
--- NOTE | 2019-07-21 12:45 | COLBX_PTH ---
PATIENT: NASEEM GARDNER LOC: [facility] U#:[id number] AGE/SX: 74/F ROOM: [facility] RE07/20/[address]: Dr. Michael Chaidez MD : 1945 BED: 1 DIS: 07/22/2019 SPEC #: [id number] RECD: 07/21/19 15:25 STATUS: NIRAJ MARILIN #: [id number] KASI: 07/21/19 12:[address]: Victor Hugo Mcghee DEPT: SURGICAL PATHOLOGY RECD BY: Zaki Reddy ENTERED: 07/22/19 11:33 SP TYPE: COLON BX OTHR DR: MD Dr. Hemant Marie MD Dr. Nana Yaa Koram, MD Tissues: Rectosigmoid junction Procedures: Surgery Specimen Level IV HEADER OPERATION: Colonoscopy (MAC) PRE-OP DIAGNOSIS: Anemia TISSUE SUBMITTED: Biopsy at 20 cm rectosigmoid MICROSCOPIC DIAGNOSIS Colonic biopsy at 20 cm: Focal hyperplastic change. AM:amanda 07/23/19 COMMENT Case has been reviewed in consultation with Dr. Go who concurs with the above diagnosis. IDC:SJ MICROSCOPIC DESCRIPTION Slides are reviewed. GROSS DESCRIPTION Received in fixative is one container labeled with the patient's name and designated biopsy at 20 cm rectosigmoid. The specimen consists of one irregular fragment of light cortez soft tissue that measures 0.5 x 0.3 x 0.1 cm. The specimen is totally submitted in one cassette. / AM:amanda 07/22/19 TC:5 CPT: 59960
[2019-07-21] MEDS: Lactated Ringers 1,000 ML 100 ML IV (13:39)
--- NOTE | 2019-07-21 14:06 | CASEMGMT ---
RN CM Note: unable to do assessment, pt is off unit. Merary BSN RN ACM
--- NOTE | 2019-07-21 14:15 | PCM.PN.SRG ---
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 security monitor (Acute) Anemia associated with acute blood loss (Acute) Subjective: still bleeding - Physical Exam General: Alert, Oriented x3, Cooperative Lungs: Clear to auscultation, Normal air movement Cardiovascular: Regular rate, No murmurs Abdomen: Bowel Sounds Present, Soft, Non Tender Vital Signs Temp Pulse Resp BP Pulse Ox 98.6 F 71 16 129/48 H 98 07/21/19 07:10 07/21/19 07:20 07/21/19 07:10 07/21/19 07:10 07/21/19 07:10 Oxygen Delivery Method Room Air Weight: 54.4 kg Body Mass Index (BMI) 21.2 Intake and Output for Last 24 Hours 07/19/19 07/20/19 07/21/19 23:59 23:59 23:59 Intake Total 610 / 1010 3570 / 3570 Balance 610 / 1010 3570 / 3570 Laboratory Tests Past 24 Hrs 07/20/19 07/20/19 07/20/19 17:40 17:40 17:40 WBC 9.5 RBC 2.83 L Hgb 6.1 L Hct 22.2 L MCV 78.4 L MCH 21.6 L MCHC 27.5 L RDW Std Deviation 55.7 H RDW Coeff of Jeannie 20.1 H Plt Count 289 MPV 10.9 Immature Gran % (Auto) Neut % (Auto) Lymph % (Auto) [place] % (Auto) Eos % (Auto) Baso % (Auto) Absolute Neuts (auto) Absolute Lymphs (auto) Nucleated RBC % Differential Comment SCANNED Diff Path Review Reviewed PT INR APTT Sodium 136 Potassium 4.5 Chloride 106 Carbon Dioxide 25.0 Anion Gap 5 BUN 19 H Creatinine 1.07 H Estim Creat Clear Calc 33.63 Est GFR (MDRD) Af Amer 65 Est GFR (MDRD) Non-Af 53 L BUN/Creatinine Ratio 17.8 Glucose 130 H Calcium 8.2 L Blood Type O POSITIVE Antibody Screen NEGATIVE Crossmatch 07/20/19 07/21/19 07/21/19 17:40 07:10 07:10 WBC 6.6 RBC 3.54 L Hgb 8.4 L Hct 28.6 L MCV 80.8 L MCH 23.7 L MCHC 29.4 L RDW Std Deviation 57.1 H RDW Coeff of Jeannie 19.6 H Plt Count 242 MPV 10.6 Immature Gran % (Auto) 0.500 Neut % (Auto) 76.9 H Lymph % (Auto) 10.1 L [place] % (Auto) 11.5 H Eos % (Auto) 0.5 Baso % (Auto) 0.5 Absolute Neuts (auto) 5.1 Absolute Lymphs (auto) 0.67 L Nucleated RBC % 0 Differential Comment Diff Path Review PT 14.6 INR 1.2 APTT 32.4 Sodium Potassium Chloride Carbon Dioxide Anion Gap BUN Creatinine Estim Creat Clear Calc Est GFR (MDRD) Af Amer Est GFR (MDRD) Non-Af BUN/Creatinine Ratio Glucose Calcium Blood Type Antibody Screen Crossmatch See Detail 07/21/19 07:10 WBC RBC Hgb Hct MCV MCH MCHC RDW Std Deviation RDW Coeff of Jeannie Plt Count MPV Immature Gran % (Auto) Neut % (Auto) Lymph % (Auto) Isabel[place] % (Auto) Eos % (Auto) Baso % (Auto) Absolute Neuts (auto) Absolute Lymphs (auto) Nucleated RBC % Differential Comment Diff Path Review PT INR APTT Sodium 145 Potassium 4.2 Chloride 111 H Carbon Dioxide 27.0 Anion Gap 7 BUN 13 Creatinine 0.83 Estim Creat Clear Calc 49.94 Est GFR (MDRD) Af Amer 87 Est GFR (MDRD) Non-Af 72 BUN/Creatinine Ratio 15.7 Glucose 98 Calcium 8.2 L Blood Type Antibody Screen Crossmatch Medical Necessity - Tobacco Use Smoking Status: Former smoker Tobacco Use: Non-smoker Assessment/Plan All Active Problems Acute lower GI bleeding (Acute) Signs and symptoms of anemia (Acute) Sinus tachycardia seen on security monitor (Acute) Anemia associated with acute blood loss (Acute) Anemia due to blood loss, acute (Acute) History of DVT (deep vein thrombosis) (Resolved) Lower GI bleed (Acute) recurring presumed lower GI bleed as a source of anemia, history of pelvic radiation, variable obscure sources in the past. I performed lower endoscopy. Normal from Cecum to 60cm, then radiation injury - bleeding at 20cm - treated with argon coagulation. Additionally, had perineum and vagina consistent with post radiation changes or tumor. Would start steroid enemas. Consider repeat CT scan or consider PET/CT of pelvis We will follow her hemoglobin sequentially.
--- NOTE | 2019-07-21 16:30 | CHAPLAIN ---
patient and bed were out of room; left a calling card
[2019-07-21] MEDS: HYDROcodone Bitartrate/Apap 5/325 Tablet PO (17:21)
[2019-07-22] VITALS (7 sets, daily range): BP systolic 109–137; BP diastolic 51–81; PULSE 57–66; RESP 16; TEMP 36.7–37.2; O2SAT 94–97
[2019-07-22] MEDS: HYDROcodone Bitartrate/Apap 5/325 Tablet PO ×2 (00:31→10:44)
[2019-07-22] MEDS: Lactated Ringers 1,000 ML 100 ML IV (02:54)
[2019-07-22 06:54] LABS: Absolute Lymphocyte Count 0.75 X10^3/uL (0.83-4.51); Absolute Neutrophil Count 5.6 X10^3/uL (2.0-7.7); Basophil# 0.03 X10^3/uL; Basophil% 0.4 % (0-1); Eosinophil# 0.02 X10^3/uL; Eosinophils% 0.3 % (0-5); Hemoglobin 7.7 g/dL (12.0-15.0); Lymphocyte # 0.75 X10^3/ul (4.0); Lymphocyte % 10.1 % (19-41); Mean Corp Hgb Conc 28.5 g/dL (32-36); Mean Corpuscular Hgb 23.3 pg (27.0-32.0); Mean Corpuscular Volume 81.8 fL (81-99); Mean Platelet Vol. 10.9 fl (6.2-12.0); Monocyte# 0.99 X10^3/uL; Monocyte% 13.4 % (0-10); NRBC Flagged by Analyzer 0 % (0-5); Neutrophil # 5.59 X10^3/uL (2.7-7.7); Neutrophil % 75.4 % (47-70); Platelet Count 223 K/mm3 (150-450); RBC Distribution Width SD 59.1 fl (35.1-43.9); White Blood Count 7.4 K/mm3 (4.4-11.0)
--- NOTE | 2019-07-22 07:37 | PCM.PROGNOTE ---
Patient Problems: Active and Suspected Problems Acute lower GI bleeding (Acute) Subjective: Chief complaint: Follow-up after admission for acute lower GI bleed and acute on chronic anemia. Patient seen and examined. No acute events overnight. This morning, she complained of neck pain which has been going on for some time. She denies abdominal pain, nausea vomiting. She does not have any bowel movement overnight. Denies rectal bleeding. Denied shortness of breath upon ambulation, denied dizziness or lightheadedness. Her vital signs are stable. - Physical Exam General: Alert, Oriented x3, Cooperative, No apparent distress HEENT: Atraumatic, PERRLA, EOMI, Normocephalic Oral: Moist Mucosa, No Gingival or Mucosal Lesions/ Ulcerations Neck: Supple, No JVD, Negative Carotid Bruits, Trachea Midline, Thyroid Normal Size and Texture Lungs: Clear to auscultation, Normal air movement, No rhonchi, No wheeze, No rales, Diminished Cardiovascular: Regular rate, Regular Rhythm, Normal S1, Normal S2, PMI Normal, Murmur Abdomen: Bowel Sounds Present, Soft, Non Tender, Non-Distended, No Hepato-splenomegaly Extremities: No clubbing, No cyanosis, No edema Skin: No rashes, No breakdown Lymphatic: No Cervical, Supraclavicular, or Inguinal Adenopathy Neurological: Cranial nerves II-XII grossly intact, Motor Exam 5/5 strength throughout Psych/Mental Status: Normal Affect, Appropriate, Alert and oriented to time, place, person, mood and affect Vital Signs Temp Pulse Resp BP Pulse Ox 98.9 F 66 16 109/51 L 94 07/22/19 03:50 07/22/19 03:50 07/22/19 03:50 07/22/19 03:50 07/22/19 03:50 Oxygen Delivery Method Room Air Weight: 119 lb 14.903 oz Body Mass Index (BMI) 21.2 Intake and Output for Last 24 Hours 07/20/19 07/21/19 07/22/19 23:59 23:59 23:59 Intake Total 610 / 1010 4772.50 / 4832.50 100 / 100 Balance 610 / 1010 4772.50 / 4832.50 100 / 100 Laboratory Tests Past 24 Hrs 07/20/19 07/21/19 07/21/19 17:40 07:10 07:10 WBC RBC Hgb Hct MCV MCH MCHC RDW Std Deviation RDW Coeff of Jeannie Plt Count MPV Immature Gran % (Auto) Neut % (Auto) Lymph % (Auto) [place] % (Auto) Eos % (Auto) Baso % (Auto) Absolute Neuts (auto) Absolute Lymphs (auto) Nucleated RBC % Diff Path Review Reviewed PT 14.6 INR 1.2 APTT 32.4 Sodium 145 Potassium 4.2 Chloride 111 H Carbon Dioxide 27.0 Anion Gap 7 BUN 13 Creatinine 0.83 Estim Creat Clear Calc 49.94 Est GFR (MDRD) Af Amer 87 Est GFR (MDRD) Non-Af 72 BUN/Creatinine Ratio 15.7 Glucose 98 Calcium 8.2 L 07/22/19 05:52 WBC 7.4 RBC 3.30 L Hgb 7.7 L Hct 27.0 L MCV 81.8 MCH 23.3 L MCHC 28.5 L RDW Std Deviation 59.1 H RDW Coeff of Jeannie 20.0 H Plt Count 223 MPV 10.9 Immature Gran % (Auto) 0.400 Neut % (Auto) 75.4 H Lymph % (Auto) 10.1 L [place] % (Auto) 13.4 H Eos % (Auto) 0.3 Baso % (Auto) 0.4 Absolute Neuts (auto) 5.6 Absolute Lymphs (auto) 0.75 L Nucleated RBC % 0 Diff Path Review PT INR APTT Sodium Potassium Chloride Carbon Dioxide Anion Gap BUN Creatinine Estim Creat Clear Calc Est GFR (MDRD) Af Amer Est GFR (MDRD) Non-Af BUN/Creatinine Ratio Glucose Calcium Medical Necessity - Tobacco Use Smoking Status: Former smoker Tobacco Use: Non-smoker Assessment/Plan All Active Problems Acute lower GI bleeding (Acute) Anemia due to blood loss, acute (Acute)
--- NOTE | 2019-07-22 11:42 | CASEMGMT ---
RN CM Assessment Introduced role of RN CM to patient.? Patient is alert, oriented and able?to participate in RN CM Assessment, however patient appears forgetful and a poor informant. ?Care providers, pharmacy, and demographics verified. Presentation: C/o BRB per Rectum, Scoped by Dr Eve Wylie and told has Diverticulosis. 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 Admit Dx: BIB, Symptomatic Anemia Re-Admit: No Barriers/Issues: Patient states that she has some financial difficulty with paying Copays- specifically mentioning ER copay. Discussed if she ever applied to [facility] to see if she qualifies and to assist with copays and other services. Patient unsure and states applied for something with [employer] and received a paper that she could not understand and was confusing. States planned on taking the paper down there to inquire what it meant but has not yet. Also, states that her [employer] had some papers for [employer] for resources/services but states did not take the paper and thinks she wrote the number down somewhere. States that she should get a Tablet to write everything down as she has many papers since 2013 and not sure what she has. CM inquired about her son or other family that can assist her with things and states that her son just tells her to go to the hospital and states he works, also states thinks he moved to [place], [place]- used to live in [place]. Updated SW and Primary CM Celine Vargas with possible need for financial resources/assistance. PCP: Hemant Parra Specialists: Podiatry with [facility]. Preferred Pharmacy: [facility] Insurance: [employer] Rx Benefit:?Yes ?LNOK: Son Alex Wolf LW/HPOA: None, Denies wanting information or services this admission. Made aware to notify staff if she changes her mind. Living Arrangements:?Lives in a ground level apartment with a roommate. 2 steps to enter home. ADL?s: Independent with ambulation and ADLs Transportation: Patient states that she walks, states that she helps with breakfast program at [employer] and they pick her up. States that she can have a friend take her home upon DC and denies any transportation issues. Utilizes [facility] for medical appointments. DME: None HHC: None SNF: None Goal: Home and does not think will have any needs. Denies any questions, concerns, ,or issues with DC planning at this time. Aware CM remains available for any emerging needs. DC PLAN: Home with no anticipated needs identified at this time. Alicia Smith RNCM
[2019-07-22 14:25] LABS: Hematocrit 30.8 % (37-47); Hemoglobin 9.1 g/dL (12.0-15.0)
--- NOTE | 2019-07-22 14:52 | DCINST_ITS ---
- Discharge Diagnoses Current Active Problems: Current Active and Chronic Problems Acute lower GI bleeding (Acute) You will use the following diet at home:: Regular Your food should be the consistency of: Regular Discharge Activity: Return to Normal Activity, May not drive while taking narcotic pain medications. Weight Bearing Status: Weight bearing as tolerated Call your doctor if you observe: Fever of 101 or Higher, Shortness of breath, Dizziness, Fainting spells, Chest pain, Increased palpitations (irregular heartbeat), Uncontrolled pain Allergies/Adverse Reactions: Allergies acetaminophen [From Percocet] Allergy (Verified 07/20/19 17:21) Unknown PT CAN'T REMEMBER REACTION, BUT REPORTS SHE IS ABLE TO TAKE HYDROCODONE ibuprofen [From Motrin] Allergy (Verified 07/20/19 17:21) Unknown omega-3 acid ethyl esters Allergy (Verified 07/20/19 17:21) Unknown oxycodone Allergy (Verified 07/20/19 17:21) Unknown oxycodone HCl [From Percocet] Allergy (Verified 07/20/19 17:21) Unknown Pt can't remember Penicillins Allergy (Verified 07/20/19 17:21) Unknown Can't remember Medications to take at Discharge Hydrocodone/Acetaminophen [Hydrocodone-Acetamin 5-325 mg] 1 tab PO Q6H PRN 11/11/18 Hydrocortisone [Cortenema (G)] 100 mg RECTAL QHS #30 enema 07/22/19 The following prescriptions were given: Hydrocortisone [Cortenema (G)] 100 mg RECTAL QHS #30 enema Transmission Status: Pending to [facility] Primary Care Physician: Hemant Parra MD [Primary Care Provider] - Please follow up with your Primary Care Physician in: 1 week. Test Results: Test results from this visit will be discussed in further detail at your follow- up appointment, if applicable. Please Follow Up With: Victor Hugo Mcghee MD When: 2 weeks.
--- NOTE | 2019-07-22 14:57 | CHAPLAIN ---
Type of Pastoral Visit _x__ Initial Visit ___ Follow-up Visit ___ On-call Visit ___ General Patient Visit ___ Spiritual Assessment ___ Family Conference ___ Bereavement ___ Rapid Response ___ Code Blue ___ Other (describe below) Pastoral Care Referral From _x__ Patient ___ Family ___ Nurse ___ Physician ___ [employer] Architect ___ Rn Clinical Research ___ Other (describe below) Sacrament/Intervention _x__ Active listening ___ Anointing ___ Congregational ___ Bereavement ___ Communion _x__ Carolyn exploration ___ _x__ Life review _x__ Prayer ___ Reconciliation ___ Sacrament of Sick _x__ Supportive presence ___ Wedding ___ Other (describe below) Pastoral Comments
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
--- NOTE | 2019-07-22 18:43 | PN.SURG_ITS ---
Subjective: no further bleeding - Physical Exam General: Alert, Oriented x3, Cooperative Lungs: Clear to auscultation, Normal air movement Cardiovascular: Regular rate, No murmurs Abdomen: Bowel Sounds Present, Soft, Non Tender Vital Signs Temp Pulse Resp BP Pulse Ox 98.6 F 61 16 118/71 97 07/22/19 12:57 07/22/19 12:57 07/22/19 12:57 07/22/19 12:57 07/22/19 12:57 Oxygen Delivery Method Room Air Weight: 54.4 kg Body Mass Index (BMI) 21.2 Intake and Output for Last 24 Hours 07/20/19 07/21/19 07/22/19 23:59 23:59 23:59 Intake Total 610 / 1010 4772.50 / 4832.50 1466.67 / 1466.67 Balance 610 / 1010 4772.50 / 4832.50 1466.67 / 1466.67 Laboratory Tests Past 24 Hrs 07/20/19 07/20/19 07/22/19 17:40 17:40 05:52 WBC 7.4 RBC 3.30 L Hgb 7.7 L Hct 27.0 L MCV 81.8 MCH 23.3 L MCHC 28.5 L RDW Std Deviation 59.1 H RDW Coeff of Jeannie 20.0 H Plt Count 223 MPV 10.9 Immature Gran % (Auto) 0.400 Neut % (Auto) 75.4 H Lymph % (Auto) 10.1 L [place] % (Auto) 13.4 H Eos % (Auto) 0.3 Baso % (Auto) 0.4 Absolute Neuts (auto) 5.6 Absolute Lymphs (auto) 0.75 L Nucleated RBC % 0 Crossmatch See Detail See Detail 07/22/19 14:10 WBC RBC Hgb 9.1 L Hct 30.8 L MCV MCH MCHC RDW Std Deviation RDW Coeff of Jeannie Plt Count MPV Immature Gran % (Auto) Neut % (Auto) Lymph % (Auto) [place] % (Auto) Eos % (Auto) Baso % (Auto) Absolute Neuts (auto) Absolute Lymphs (auto) Nucleated RBC % Crossmatch Medical Necessity - Tobacco Use Smoking Status: Former smoker Tobacco Use: Non-smoker Assessment/Plan All Active Problems Acute lower GI bleeding (Acute) Anemia due to blood loss, acute (Acute) recurring presumed lower GI bleed as a source of anemia, history of pelvic radiation, variable obscure sources in the past. I performed lower endoscopy. Normal from Cecum to 60cm, then radiation injury - bleeding at 20cm - treated with argon coagulation. Additionally, had perineum and vagina consistent with post radiation changes or tumor. Would start steroid enemas. Consider repeat CT scan or consider PET/CT of pelvis the patient seemed hemoglobin dropped slightly she is being given one unit of blood. Following that she be discharged home with instructions for my office in one week.
--- NOTE | 2019-07-22 23:36 | OP.ENDO_ITS ---
07/22/2019 Hemant Parra [address] [place] [address] Re : Colonoscopy procedure for Taniya Ahmadi Dear Dr. Parra This procedure was performed on Sunday, July 21, 2019. My impressions and recommendations are as follows: Impressions : - Hemorrhoids found on perianal exam. - Firm perineum in vaginal vault found on digital rectal exam. - The descending colon, transverse colon, ascending colon and cecum are normal. 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 Biopsied. Treated with argon beam coagulation. Recommendations : - [facility]. - Clear liquid diet. - Continue present medications. - Await pathology results. - Repeat colonoscopy. My findings are described in the full procedure note, which is enclosed. If I can be of further assistance, please feel free to contact me at Doctor phone number(s): , Work: . Sincerely, Victor Hugo Mcghee MD 07/21/2019 2:14:51 PM This report has been signed electronically.
--- NOTE | 2019-07-23 13:36 | CASEMGMT ---
JOSE PRINGLE Discharge Follow-Up Phone Call. Mima: Tyrone Strata: 3 Discharge Date: 07/22/19 Adm Dx: Lower GIB, anemia Call to pt to inquire about how she has been doing since being discharged from the hospital. She stated, I feel pretty good. She states she is aware of the follow-up appts and has called Dr Mcghee's office already and changed the time of the appt on Aug 07 to 2:05 PM and states she was able to find transportation to that appt. 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 She states she is awaiting a call back from Dr Mcghee's office to confirm what she was taking before is the same as the new prescription. She states she wants to just use what she has if it is. She stated if she has not heard back from them in the next couple of hours, that she will try and contact them again today. She states she does not have any further questions about the discharge instructions and denies needs at this time. JOSE PRINGLE thanked pt for choosing [facility]. Stephany WOODALL RN, CM
== END 2019-07-22 16:51 | disposition home or self-care (01) | DRG 394 ==
LOC: ED 18:25 → PCU 20:39
PROVIDERS: Family Medicine; Surgery; Admitting Provider Student in an Organized Health Care Education/Training Program; Emergency Provider Emergency Medicine; Family Provider Family Medicine; PCP Family Medicine; Referring Provider Student in an Organized Health Care Education/Training Program; Visit Provider Hospitalist
PROC: 0DJD8ZZ Inspection of Lower Intestinal Tract, Via Natural or Artificial Opening Endoscopic (ICD-10-PCS; CPT 45378; principal; 2019-07-21 12:40)
DX: K62.7 Radiation proctitis (principal); D62 Acute posthemorrhagic anemia; K62.5 Hemorrhage of anus and rectum; Y84.2 Radiological procedure and radiotherapy as the cause of abnormal reaction of the patient, or of later complication, without mention of misadventure at the time of the procedure; Y92.9 Unspecified place or not applicable; F17.200 Nicotine dependence, unspecified, uncomplicated; Z78.0 Asymptomatic menopausal state; Z92.21 Personal history of antineoplastic chemotherapy; Z92.3 Personal history of irradiation; Z85.41 Personal history of malignant neoplasm of cervix uteri; Z85.42 Personal history of malignant neoplasm of other parts of uterus; Z87.19 Personal history of other diseases of the digestive system; Z86.718 Personal history of other venous thrombosis and embolism
CPT/HCPCS: 36415; 80048; 85014; 85018; 85025; 85027; 85610; 85730; 86644; 86850; 86900; 86901; 86920; 86922; 88305; 93005; 97162; 97166; 97535; 97802; 99285; J7030; J7040; J7120; P9016; P9040; A4216

== ENCOUNTER 2019-12-31 13:46 | Inpatient (IN) | payer MEDICARE, SELFPAY ==
[2019-07-20 19:17] VITALS: BMI 21.2
[2019-12-31] VITALS (11 sets, daily range): BP systolic 119–155; BP diastolic 41–89; PULSE 62–85; RESP 12–18; TEMP 36.9–37.2; O2SAT 97–100; BMI 19.3; BMI 18.6; BMI 18.7
--- NOTE | 2019-12-31 15:38 | EKG12_ITS ---
Test Reason : AM EKG Blood Pressure : / mmHG Vent. Rate : 058 BPM Atrial Rate : 058 BPM P-R Int : 158 ms QRS Dur : 088 ms QT Int : 424 ms P-R-T Axes : 061 043 030 degrees QTc Int : 416 ms Sinus bradycardia Otherwise normal ECG When compared with ECG of 21-JUL-2019 05:27, No significant change was found Confirmed by KIKE BERKOWITZ, DHIRAJ ([id number]), rewrite editor ERASTO RICH ([id number]) on 01/05/2020 8:58:42 AM Referred By: GUILHERME Confirmed By:NUBIA STOKES MD
--- NOTE | 2019-12-31 16:12 | ED.VISSUMM ---
- ER Visit Summary Date of Service: 12/31/19 Chief Complaint: Generalized weakness History of Present Illness: The patient is a 74 F who presents with generalized weakness for a month. She states that she feels weak all over. She had a near syncopal episode yesterday at a breakfast. No LOC. She denies any chest pain or shortness of breath. She tells me that she has been bleeding from her bowels for several months. It is dark red blood. She states that she mentioned it to her doctor but he did nothing about it. She has a history of blood transfusions for anemia in the past. She states that she has chronic wounds on her feet. As well. Physical Examination: Vital signs reviewed. HEENT exam unremarkable. Heart is regular rate and rhythm without murmurs. Lungs are clear to auscultation. Abdomen is soft and nontender. Extremities reveal no edema. She has bilateral onychomycosis of the feet. There is a callus on the left lateral foot. No evidence of any other wounds or open sores. Skin exam normal. Neurologic exam normal. Her strength is equal bilaterally. Test Results: Hemoglobin 6.6, chloride 110. Troponin normal. Chest x-ray and urinalysis pending Emergency Department Course and Treatment: The patient does have anemia. Last hemoglobin was 9 last year. She is FOBT positive. 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 I do not see any hemorrhoids on my examination. Patient was discussed with the hospitalist patient received 1 unit of packed red blood cells and will be admitted to the hospital. Treatment Plan: [] Disposition: Admit Impression: Lower GI bleeding, anemia, acute, requiring transfusion This note was generated with [employer] dictation software. It may contain incorrect words, spelling, and punctuation that were not noted in review of the chart prior to signing ED Disposition - Plan for ED Patient: Referrals: Hemant Parra MD [Primary Care Provider] -
[2019-12-31 16:32] LABS: Absolute Lymphocyte Count 0.83 X10^3/uL (0.83-4.51); Absolute Neutrophil Count 5.9 X10^3/uL (2.0-7.7); Basophil# 0.04 X10^3/uL; Basophil% 0.5 % (0-1); Eosinophil# 0.04 X10^3/uL; Eosinophils% 0.5 % (0-5); Hematocrit 24.2 % (37-47); Hemoglobin 6.6 g/dL (12.0-15.0); Lymphocyte # 0.83 X10^3/ul (4.0); Lymphocyte % 10.9 % (19-41); Mean Corp Hgb Conc 27.3 g/dL (32-36); Mean Corpuscular Hgb 20.8 pg (27.0-32.0); Mean Corpuscular Volume 76.1 fL (81-99); Mean Platelet Vol. 10.9 fl (6.2-12.0); Monocyte# 0.78 X10^3/uL; Monocyte% 10.3 % (0-10); NRBC Flagged by Analyzer 0 % (0-5); Neutrophil # 5.86 X10^3/uL (2.7-7.7); Neutrophil % 77.4 % (47-70); Platelet Count 371 K/mm3 (150-450); RBC Distribution Width CV 17.2 % (11.6-14.6); RBC Distribution Width SD 46.8 fl (35.1-43.9); Red Blood Count 3.18 M/mm3 (4.2-5.4); White Blood Count 7.6 K/mm3 (4.4-11.0)
[2019-12-31 16:49] LABS: Anion Gap 6 (5-15); BUN 23 mg/dL (7-18); BUN/Creat Ratio 22.8 RATIO (10-20); Calcium,Total 8.9 mg/dL (8.5-10.1); Chloride 110 mmol/L (98-107); Creatinine, Serum 1.01 mg/dL (0.55-1.02); EST Glomerular Filtration Rate 57 mL/min (>60); Est Glom Filt Rate - Afr Amer 69 mL/min (>60); Estimated Creatinine Clearance 38.69 ml/min; Glucose 96 mg/dL (74-106); Sodium Level 142 mmol/L (136-145)
[2019-12-31 17:14] LABS: Squamous Epithelial Cells - UA 0 SEEN /hpf (5-10)
--- NOTE | 2019-12-31 17:15 | RAD_ITS ---
STUDY: X-RAY CHEST REASON FOR EXAM: Female, 74 years old. Weakness. Shortness of breath. TECHNIQUE: PA and lateral views of the chest. COMPARISON: November 18, 2017. FINDINGS: The lungs are hyperexpanded. There is no focal mass or infiltrate. There is no demonstrated pleural abnormality. Normal size heart. Normal mediastinum and glenn. Normal visualized pulmonary arteries. Normal visualized aortic arch and descending thoracic aorta. There are diffuse degenerative changes of the visualized thoracic spine. Normal visualized ribs, clavicles, and shoulders. There is no demonstrated abnormality of the visualized soft tissue structures of the upper abdomen. RAD/Chest PA and Lateral IMPRESSION: No acute cardiopulmonary disease or major interval change. Electronically Signed: Cheko Orellana DO at 17:36 EST Tel [phone], Service support ,
--- NOTE | 2019-12-31 17:26 | NURSING ---
MED SURG LOWER GI BLEED, ANEMIA WHITE
[2019-12-31 17:45] LABS: Color, Urine Yellow (Yellow); Glucose, Dipstick Normal (Normal); Ketone-Dipstick 5 mg/dl (Negative); Leukocyte Esterase-Dipstick 500 /ul (Negative); Nitrite-Dipstick Negative (Negative); Occult Blood-Urine 10 /ul (Negative); Protein-Dipstick 15 mg/dl (Negative); Urine Bilirubin Dipstick Negative (Negative); Urine Clarity Clear (Clear); Urine Urobilinogen Normal (Normal)
[2019-12-31 18:06] LABS: Bacteria RARE /hpf (None Seen); Mucous, Urine 1+ /hpf (<or=2+); Red Blood Cells-Urine 0-5 SEEN /hpf (0-5); White Blood Cells 10-25 SEEN /hpf (0-5)
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
[2019-12-31 19:04] LABS: Ferritin 3 ng/mL (8-252); Iron 8 ug/dL (50-170); Iron Binding Capacity,Total 436 ug/dL (250-450); PERCENT IRON SATURATION 1.8 % (15.0-55.0)
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
[2019-12-31] MEDS: Electrolyte Solution/Peg's 4000 ML PO (20:30)
[2019-12-31] MEDS: HYDROcodone Bitartrate/Apap 5/325 Tablet PO (20:56)
[2020-01-01] VITALS (16 sets, daily range): BP systolic 105–149; BP diastolic 41–89; PULSE 60–88; RESP 14–20; TEMP 36.7–37.8; O2SAT 90–98
--- NOTE | 2020-01-01 | COLBX_PTH ---
PATIENT: NASEEM GARDNER LOC: [facility] U#:[id number] AGE/SX: 74/F ROOM: [facility] RE12/31/[address]: Dr. Bjorn Dinero MD : [id number] BED: 1 DIS: 01/02/2020 SPEC #: [id number] RECD: 01/01/20 12:53 STATUS: NIRAJ REQ #: [id number] KASI: 01/01/20 00:[address]: Juaquin Guerra DEPT: SURGICAL PATHOLOGY RECD BY: Jamie Subramanian ENTERED: 01/01/20 12:54 SP TYPE: COLON BX OTHR DR: MD Dr. Bjorn Caceres MD Dr. Mark Elderbrock, MD Dr. Robert D Cebul, MD Tissues: Sigmoid colon biopsy Procedures: Surgery Specimen Level IV Comments: @ Ordering doctor for SUIV edited from to @ tonie ELISE at 01/01/20 1443 @ Submitting doctor edited from to @ by GOSIA at 01/01/20 1443 HEADER OPERATION: Colonoscopy (MAC) PRE-OP DIAGNOSIS: GI bleed TISSUE SUBMITTED: Sigmoid biopsy MICROSCOPIC DIAGNOSIS Sigmoid biopsy: Fragments of colonic mucosa with mild mucosal congestion and hemorrhage. SUZAN:amanda 01/02/20 MICROSCOPIC DESCRIPTION Slides are reviewed. GROSS DESCRIPTION Received in fixative is one container labeled with the patient's name and designated sigmoid biopsy. The specimen consists of multiple irregular fragments of light cortez soft tissue that in aggregate measure 0.5 x 0.2 x 0.1 cm. The specimen is totally submitted in one cassette. / SUZAN:amanda 01/01/20 TC:5 CPT: 62600
[2020-01-01 00:26] LABS: Hematocrit 25.6 % (37-47); Hemoglobin 7.6 g/dL (12.0-15.0)
[2020-01-01] MEDS: Ondansetron 4 MG/2 ML Vial IV ×2 (00:55→07:59)
--- NOTE | 2020-01-01 03:10 | NURSING ---
Call placed to Dr. Guerra to notify that pt has not moved bowels adequetely for scheduled colonoscopy at 0630. Per Dr. Guerra continue with bowel prep and he will see pt when he comes in at 0530. JOSE Burns
[2020-01-01 03:41] LABS: Absolute Lymphocyte Count 0.96 X10^3/uL (0.83-4.51); Absolute Neutrophil Count 4.3 X10^3/uL (2.0-7.7); Basophil# 0.04 X10^3/uL; Basophil% 0.6 % (0-1); Eosinophil# 0.06 X10^3/uL; Hematocrit 25.6 % (37-47); Hemoglobin 7.5 g/dL (12.0-15.0); Lymphocyte # 0.96 X10^3/ul (4.0); Lymphocyte % 15.3 % (19-41); Mean Corp Hgb Conc 29.3 g/dL (32-36); Mean Corpuscular Hgb 22.5 pg (27.0-32.0); Mean Corpuscular Volume 76.6 fL (81-99); Mean Platelet Vol. 10.5 fl (6.2-12.0); Monocyte# 0.85 X10^3/uL; Monocyte% 13.6 % (0-10); NRBC Flagged by Analyzer 0 % (0-5); Neutrophil # 4.34 X10^3/uL (2.7-7.7); Neutrophil % 69.3 % (47-70); Platelet Count 297 K/mm3 (150-450); RBC Distribution Width CV 17.1 % (11.6-14.6); RBC Distribution Width SD 47.4 fl (35.1-43.9); Red Blood Count 3.34 M/mm3 (4.2-5.4); White Blood Count 6.3 K/mm3 (4.4-11.0)
[2020-01-01 03:48] LABS: International Normalized Ratio 1.1; Prothrombin Time (Protime)PT. 13.8 SECONDS (11.7-14.9)
[2020-01-01 03:53] LABS: Anion Gap 5 (5-15); BUN 20 mg/dL (7-18); BUN/Creat Ratio 23.6 RATIO (10-20); Calcium,Total 8.2 mg/dL (8.5-10.1); Chloride 108 mmol/L (98-107); Creatinine, Serum 0.85 mg/dL (0.55-1.02); EST Glomerular Filtration Rate 70 mL/min (>60); Est Glom Filt Rate - Afr Amer 84 mL/min (>60); Estimated Creatinine Clearance 44.48 ml/min; Glucose 82 mg/dL (74-106); Potassium 3.9 mmol/L (3.5-5.1); Sodium Level 140 mmol/L (136-145)
--- NOTE | 2020-01-01 04:30 | NURSING ---
Pt with 700 cc of mixed urine and stool, murky yellow stool with sediment. No blood noted in stool. CMast, RN
[2020-01-01] MEDS: Bisacodyl 5 MG Tablet 30 MG PO (04:34)
--- NOTE | 2020-01-01 05:28 | PCM.PN.SRG ---
Patient Problems: Active and Suspected Problems GI bleed (Acute) Subjective: Pt states she had two episodes of rectal bleeding last night but this is not recorded in nursing notes - Physical Exam Vitals/I&O's: Vital Signs Temp Pulse Resp BP Pulse Ox 98.5 F 62 16 129/59 H 98 01/01/20 04:36 01/01/20 04:36 01/01/20 04:36 01/01/20 04:36 01/01/20 04:36 Oxygen Delivery Method Room Air Weight: 105 lb 6.095 oz Body Mass Index (BMI) 18.6 Intake and Output for Last 24 Hours 12/30/19 12/31/19 01/01/20 23:59 23:59 23:59 Intake Total 1230 / 1230 Balance 1230 / 1230 Abdomen: Bowel Sounds Present, Soft, Non Tender Microbiology Past 72 Hours 12/31/19 16:45 Stool Stool Occult Blood (CARISSA) - Final Occult Blood Positive Laboratory Results 12/31/19 16:15: WBC 7.6, RBC 3.18 L, Hgb 6.6 L, Hct 24.2 L, MCV 76.1 L, MCH 20.8 L, MCHC 27.3 L, RDW Std Deviation 46.8 H, RDW Coeff of Jeannie 17.2 H, Plt Count 371, MPV 10.9, Immature Gran % (Auto) 0.400, Neut % (Auto) 77.4 H, Lymph % (Auto) 10.9 L, [place] % (Auto) 10.3 H, Eos % (Auto) 0.5, Baso % (Auto) 0.5, Absolute Neuts (auto) 5.9, Absolute Lymphs (auto) 0.83, Nucleated RBC % 0 12/31/19 16:15: Sodium 142, Potassium 4.0, Chloride 110 H, Carbon Dioxide 26.0, Anion Gap 6, BUN 23 H, Creatinine 1.01, Estim Creat Clear Calc 38.69, Est GFR (MDRD) Af Amer 69, Est GFR (MDRD) Non-Af 57 L, BUN/Creatinine Ratio 22.8 H, Glucose 96, Calcium 8.9, Troponin I < 0.015 12/31/19 16:15: Blood Type O POSITIVE, Antibody Screen NEGATIVE 12/31/19 16:15: Crossmatch See Detail 12/31/19 16:15: Iron 8 L, TIBC 436, Iron Saturation 1.8 L, Ferritin 3 L 12/31/19 17:10: Urine Color Yellow, Urine Clarity Clear, Urine pH 6.0, Ur Specific [place] 1.020, Urine Protein 15 H, Urine Glucose (UA) Normal, Urine Ketones 5 H, Urine Occult Blood 10 H, Urine Nitrite Negative, Urine Bilirubin Negative, Urine Urobilinogen Normal, Ur Leukocyte Esterase 500 H, Urine RBC 0-5 SEEN, Urine WBC 10-25 SEEN, Ur Squamous Epith Cells 0 SEEN, Urine Bacteria RARE, Urine Mucus 1+ 01/01/20 00:19: Hgb 7.6 L, Hct 25.6 L 01/01/20 03:24: WBC 6.3, RBC 3.34 L, Hgb 7.5 L, Hct 25.6 L, MCV 76.6 L, MCH 22.5 L, MCHC 29.3 L D, RDW Std Deviation 47.4 H, RDW Coeff of Jeannie 17.1 H, Plt Count 297, MPV 10.5, Immature Gran % (Auto) 0.200, Neut % (Auto) 69.3, Lymph % (Auto) 15.3 L, [place] % (Auto) 13.6 H, Eos % (Auto) 1.0, Baso % (Auto) 0.6, Absolute Neuts (auto) 4.3, Absolute Lymphs (auto) 0.96, Nucleated RBC % 0 01/01/20 03:24: Sodium 140, Potassium 3.9, Chloride 108 H, Carbon Dioxide 27.0, Anion Gap 5, BUN 20 H, Creatinine 0.85, Estim Creat Clear Calc 44.48, Est GFR (MDRD) Af Amer 84, Est GFR (MDRD) Non-Af 70, BUN/Creatinine Ratio 23.6 H, Glucose 82, Calcium 8.2 L 01/01/20 03:24: PT 13.8, INR 1.1 Current Medications Hydrocodone Bitart/Acetaminophen ([place] 5mg-325mg) 1 tablet PO Q6H PRN PRN PRN Reason: Pain Score 1-10/10 Last Admin: 12/31/19 20:56 Dose: 1 tablet Documented by: Pantoprazole Sodium 40 mg/ (Sodium Chloride) 110 mls @ 330 mls/hr IV Q12 VICTORIA Last Infusion: 12/31/19 23:45 Dose: Infused Documented by: Ondansetron HCl (Zofran) 4 mg IV Q6H PRN PRN PRN Reason: NAUSEA Last Admin: 01/01/20 00:55 Dose: 4 mg Documented by: Sodium Chloride () 10 - 40 ml IV UD PRN PRN Reason: SALINE FLUSH Medical Necessity - Tobacco Use Smoking Status: Former smoker Tobacco Use: Non-smoker Assessment/Plan All Active Problems GI bleed (Acute) Acute lower GI bleeding (Acute) Anemia due to blood loss, acute (Acute) Two phone calls were placed to me over night at [place] and 3am concerned that the patient was not moving her bowels. There was no description or discussion regarding rectal bleeding although the pt states she had rectal bleeding. Upon my arrival this morning I detected to the patient has not been administered her 4 L of GoLYTELY. It is not clear to me regarding nursing intent regarding this medication at this time. Tentative schedule was for colonoscopy at 6:30 AM. This will need to be postponed. If the patient is given the prescribed bowel prep we can tentatively consider rescheduling later today. The patient report of rectal bleeding and nursing report of no rectal bleeding is conflicting. Laboratory does not suggest active GI bleeding. This brings to question patient reliability.
[2020-01-01] MEDS: 0.9% Saline Lock 10 ML Syringe IV ×2 (07:58→11:03)
--- NOTE | 2020-01-01 08:22 | NURSING ---
Per date night caregiver pt had a few BM's that were yellowish brown in color- no dark stools or red blood noted. This RN provided emotional support and encouragement to assist pt drink bowel prep- pt had emesis at shift change. Zofran given and pt able to resume. During assmt- pt stated she needed to use bathroom- bsc provided but pt incontinent of stool in brief that leaked through onto blue chux beneath. Incontinence care provided and pt able to provide 100cc stool urine mix in commode. Stool clear with yellowish brown flecks. Pt advised that she needs to complete bowel prep and it will be easier to drink now rather than procrastinate. VERbalized understanding. Kourtney [place]. called and and states that the plan will be for an afternoon colonoscopy and that she will call in for update in a few hours.
--- NOTE | 2020-01-01 11:07 | NURSING ---
Pt finished bowel prep at 1035AM and has had 2 clear BM's with minimal amount of yellowish sediment. Corbin [place] called in and notified of same. Pt assisted with incontinence care and pt was able to sit on BSC prior to leaving unit. Pt leaving unit at this time.
--- NOTE | 2020-01-01 11:39 | CASEMGMT ---
This RN CM to room to complete CM assessment and pt is out of the dept at this time. Pt was already taken down for scope at this time. This RN CM will try to attempt later. SStaten RN CM
--- NOTE | 2020-01-01 11:41 | PCM.PROGNOTE ---
<Liberty Lloyd - Last Filed: 01/01/20 11:56> Patient Problems: Active and Suspected Problems GI bleed (Acute) Subjective: Patient seen and examined. Patient to undergo scope this afternoon. Having diarrhea this morning related to bowel prep. Denies em blood in stool or dark stools. Denies dizziness, lightheadedness, shortness of breath or chest pain. - Physical Exam Vitals/I&O's: Vital Signs Temp Pulse Resp BP Pulse Ox 98.2 F 65 17 121/69 H 98 01/01/20 07:48 01/01/20 07:48 01/01/20 07:48 01/01/20 07:48 01/01/20 07:48 Oxygen Delivery Method Room Air Weight: 105 lb 6.095 oz Body Mass Index (BMI) 18.6 Intake and Output for Last 24 Hours 12/30/19 12/31/19 01/01/20 23:59 23:59 23:59 Intake Total 1230 / 1230 300 / 300 Output Total 1200 / 1200 Balance 1230 / 1230 -900 / -900 General: Alert, Oriented x3, Cooperative HEENT: Atraumatic, PERRLA, EOMI, Normocephalic Neck: Supple, No JVD, Negative Carotid Bruits Lungs: Clear to auscultation, Normal air movement Cardiovascular: Regular rate, Regular Rhythm, Normal S1, Normal S2, No murmurs Abdomen: Bowel Sounds Present, Soft, Non Tender, Non-Distended Extremities: No clubbing, No cyanosis, No edema, Capillary Refill Less than 3 Seconds Skin: No rashes, No breakdown Musculoskeletal: No Tenderness to Palpation of Joints or Extremities, Cachexia, Muscle Wasting Neurological: Cranial nerves II-XII grossly intact, Neuro grossly intact Psych/Mental Status: Normal Affect, Appropriate Microbiology Past 72 Hours 12/31/19 16:45 Stool Stool Occult Blood (CARISSA) - Final Occult Blood Positive Laboratory Results 12/31/19 16:15: WBC 7.6, RBC 3.18 L, Hgb 6.6 L, Hct 24.2 L, MCV 76.1 L, MCH 20.8 L, MCHC 27.3 L, RDW Std Deviation 46.8 H, RDW Coeff of Jeannie 17.2 H, Plt Count 371, MPV 10.9, Immature Gran % (Auto) 0.400, Neut % (Auto) 77.4 H, Lymph % (Auto) 10.9 L, [place] % (Auto) 10.3 H, Eos % (Auto) 0.5, Baso % (Auto) 0.5, Absolute Neuts (auto) 5.9, Absolute Lymphs (auto) 0.83, Nucleated RBC % 0 12/31/19 16:15: Sodium 142, Potassium 4.0, Chloride 110 H, Carbon Dioxide 26.0, Anion Gap 6, BUN 23 H, Creatinine 1.01, Estim Creat Clear Calc 38.69, Est GFR (MDRD) Af Amer 69, Est GFR (MDRD) Non-Af 57 L, BUN/Creatinine Ratio 22.8 H, Glucose 96, Calcium 8.9, Troponin I < 0.015 12/31/19 16:15: Blood Type O POSITIVE, Antibody Screen NEGATIVE 12/31/19 16:15: Crossmatch See Detail 12/31/19 16:15: Iron 8 L, TIBC 436, Iron Saturation 1.8 L, Ferritin 3 L 12/31/19 17:10: Urine Color Yellow, Urine Clarity Clear, Urine pH 6.0, Ur Specific [place] 1.020, Urine Protein 15 H, Urine Glucose (UA) Normal, Urine Ketones 5 H, Urine Occult Blood 10 H, Urine Nitrite Negative, Urine Bilirubin Negative, Urine Urobilinogen Normal, Ur Leukocyte Esterase 500 H, Urine RBC 0-5 SEEN, Urine WBC 10-25 SEEN, Ur Squamous Epith Cells 0 SEEN, Urine Bacteria RARE, Urine Mucus 1+ 01/01/20 00:19: Hgb 7.6 L, Hct 25.6 L 01/01/20 03:24: WBC 6.3, RBC 3.34 L, Hgb 7.5 L, Hct 25.6 L, MCV 76.6 L, MCH 22.5 L, MCHC 29.3 L D, RDW Std Deviation 47.4 H, RDW Coeff of Jeannie 17.1 H, Plt Count 297, MPV 10.5, Immature Gran % (Auto) 0.200, Neut % (Auto) 69.3, Lymph % (Auto) 15.3 L, [place] % (Auto) 13.6 H, Eos % (Auto) 1.0, Baso % (Auto) 0.6, Absolute Neuts (auto) 4.3, Absolute Lymphs (auto) 0.96, Nucleated RBC % 0 01/01/20 03:24: Sodium 140, Potassium 3.9, Chloride 108 H, Carbon Dioxide 27.0, Anion Gap 5, BUN 20 H, Creatinine 0.85, Estim Creat Clear Calc 44.48, Est GFR (MDRD) Af Amer 84, Est GFR (MDRD) Non-Af 70, BUN/Creatinine Ratio 23.6 H, Glucose 82, Calcium 8.2 L 01/01/20 03:24: PT 13.8, INR 1.1 Current Medications Hydrocodone Bitart/Acetaminophen ([place] 5mg-325mg) 1 tablet PO Q6H PRN PRN PRN Reason: Pain Score 1-10/10 Last Admin: 12/31/19 20:56 Dose: 1 tablet Documented by: Pantoprazole Sodium 40 mg/ (Sodium Chloride) 110 mls @ 330 mls/hr IV Q12 VICTORIA Last Admin: 01/01/20 10:50 Dose: 330 mls/hr Documented by: Ondansetron HCl (Zofran) 4 mg IV Q6H PRN PRN PRN Reason: NAUSEA Last Admin: 01/01/20 07:59 Dose: 4 mg Documented by: Sodium Chloride () 10 - 40 ml IV UD PRN PRN Reason: SALINE FLUSH Last Admin: 01/01/20 11:03 Dose: 10 ml Documented by: Medical Necessity - Tobacco Use Smoking Status: Former smoker Tobacco Use: Non-smoker Assessment/Plan All Active Problems GI bleed (Acute) Acute lower GI bleeding (Acute) Anemia due to blood loss, acute (Acute) 1. Acute on chronic blood loss anemia, secondary to acute on chronic GI bleed, underlying iron deficiency anemia-patient has history of radiation colitis and radiation proctitis. General surgery, Dr. Guerra consulted. Status post 1 unit PRBC. Trend H&H. Plan for scope this afternoon. Continue IV PPI. Stool positive for occult blood. 2. Chronic kidney disease stage III-stable, trend BMP. 3. History of cervical and endometrial cancer 4. History of DVT 5. Severe protein calorie malnutrition-as evidenced by BMI 18, cachectic appearance. Nutrition consult. DVT prophylaxis-SCDs, pharmacologic prophylaxis contraindicated secondary to #1 This patient was seen by BIGG Kimball under the supervision of Dr. Dinero. <Bjorn Dinero - Last Filed: 01/01/20 13:10> - Physical Exam Vitals/I&O's: Vital Signs Temp Pulse Resp BP Pulse Ox 98.5 F 65 18 136/59 H 94 01/01/20 12:26 01/01/20 12:55 01/01/20 12:55 01/01/20 12:55 01/01/20 12:55 Oxygen Delivery Method Room Air Weight: 47.8 kg Body Mass Index (BMI) 18.6 Intake and Output for Last 24 Hours 12/30/19 12/31/19 01/01/20 23:59 23:59 23:59 Intake Total 1230 / 1230 1010 / 1010 Output Total 1600 / 1600 Balance 1230 / 1230 -590 / -590 Microbiology Past 72 Hours 12/31/19 16:45 Stool Stool Occult Blood (CARISSA) - Final Occult Blood Positive Laboratory Results 12/31/19 16:15: WBC 7.6, RBC 3.18 L, Hgb 6.6 L, Hct 24.2 L, MCV 76.1 L, MCH 20.8 L, MCHC 27.3 L, RDW Std Deviation 46.8 H, RDW Coeff of Jeannie 17.2 H, Plt Count 371, MPV 10.9, Immature Gran % (Auto) 0.400, Neut % (Auto) 77.4 H, Lymph % (Auto) 10.9 L, [place] % (Auto) 10.3 H, Eos % (Auto) 0.5, Baso % (Auto) 0.5, Absolute Neuts (auto) 5.9, Absolute Lymphs (auto) 0.83, Nucleated RBC % 0 12/31/19 16:15: Sodium 142, Potassium 4.0, Chloride 110 H, Carbon Dioxide 26.0, Anion Gap 6, BUN 23 H, Creatinine 1.01, Estim Creat Clear Calc 38.69, Est GFR (MDRD) Af Amer 69, Est GFR (MDRD) Non-Af 57 L, BUN/Creatinine Ratio 22.8 H, Glucose 96, Calcium 8.9, Troponin I < 0.015 12/31/19 16:15: Blood Type O POSITIVE, Antibody Screen NEGATIVE 12/31/19 16:15: Crossmatch See Detail 12/31/19 16:15: Iron 8 L, TIBC 436, Iron Saturation 1.8 L, Ferritin 3 L 12/31/19 17:10: Urine Color Yellow, Urine Clarity Clear, Urine pH 6.0, Ur Specific [place] 1.020, Urine Protein 15 H, Urine Glucose (UA) Normal, Urine Ketones 5 H, Urine Occult Blood 10 H, Urine Nitrite Negative, Urine Bilirubin Negative, Urine Urobilinogen Normal, Ur Leukocyte Esterase 500 H, Urine RBC 0-5 SEEN, Urine WBC 10-25 SEEN, Ur Squamous Epith Cells 0 SEEN, Urine Bacteria RARE, Urine Mucus 1+ 01/01/20 00:19: Hgb 7.6 L, Hct 25.6 L 01/01/20 03:24: WBC 6.3, RBC 3.34 L, Hgb 7.5 L, Hct 25.6 L, MCV 76.6 L, MCH 22.5 L, MCHC 29.3 L D, RDW Std Deviation 47.4 H, RDW Coeff of Jeannie 17.1 H, Plt Count 297, MPV 10.5, Immature Gran % (Auto) 0.200, Neut % (Auto) 69.3, Lymph % (Auto) 15.3 L, [place] % (Auto) 13.6 H, Eos % (Auto) 1.0, Baso % (Auto) 0.6, Absolute Neuts (auto) 4.3, Absolute Lymphs (auto) 0.96, Nucleated RBC % 0 01/01/20 03:24: Sodium 140, Potassium 3.9, Chloride 108 H, Carbon Dioxide 27.0, Anion Gap 5, BUN 20 H, Creatinine 0.85, Estim Creat Clear Calc 44.48, Est GFR (MDRD) Af Amer 84, Est GFR (MDRD) Non-Af 70, BUN/Creatinine Ratio 23.6 H, Glucose 82, Calcium 8.2 L 01/01/20 03:24: PT 13.8, INR 1.1 Current Medications Hydrocodone Bitart/Acetaminophen ([place] 5mg-325mg) 1 tablet PO Q6H PRN PRN PRN Reason: Pain Score 1-1010 Last Admin: 12/31/19 20:56 Dose: 1 tablet Documented by: Pantoprazole Sodium 40 mg/ (Sodium Chloride) 110 mls @ 330 mls/hr IV Q12 VICTORIA Last Infusion: 01/01/20 11:10 Dose: Infused Documented by: Ondansetron HCl (Zofran) 4 mg IV Q6H PRN PRN PRN Reason: NAUSEA Last Admin: 01/01/20 07:59 Dose: 4 mg Documented by: Sodium Chloride () 10 - 40 ml IV UD PRN PRN Reason: SALINE FLUSH Last Admin: 01/01/20 11:03 Dose: 10 ml Documented by: Assessment/Plan This patient was seen in conjunction with BIGG Kimball . I have independently interviewed and examined the patient and reviewed pertinent historical, laboratory, and other data. Please refer to BIGG Kimball note for details of this patient's presentation, findings, and recommendations. I have reviewed BIGG Kimball note and concur with documented findings. In brief, patient is a 74-year-old lady who presented with aggressive generalized weakness found to have severe microcytic anemia admitted to a monitored bed for further management consultation placed to general surgery with plans for patient to undergo colonoscopy Physical Examination: GENERAL: cooperative HEENT: Atraumatic; EYES; Anicteric, NECK; supple, normal thyroid, RESPIRATORY: Diminished to auscultation CARDIOVASCULAR: Regular S1 S2, GI: soft, normoactive bowel sounds, : No Renal angle tenderness; EXTREMITIES: No edema, no clubbing, MUSCULOSKELETAL: no muscle waisting NEURO: Awake; no lateralizing signs. SKIN: No Rash PSYCH; Flat affect Assessment: 1. Severe microcytic anemia 2. Acute on chronic blood loss 3. History of radiation proctitis 4. History of endometrial and cervical cancer 5. History of DVT 6. Severe protein calorie malnutrition Recommendations: 1. I have discussed the results of my overview and impressions with the patient 2. Options for management were reviewed Code Visit Inpatient E&M: 32170 Subs Hosp L3
--- NOTE | 2020-01-01 12:30 | OP.COLON_ITS ---
Patient Name: Taniya Ahmadi Procedure Date: 01/01/2020 11:33 AM Date of : 1945 Age: 74 Procedure: Colonoscopy Indications: Heme positive stool Providers: Juaquin Guerra MD Medicines: See the Anesthesia note for documentation of the administered medications Patient Profile: Last Colonoscopy: July 2019. Complications: No immediate complications. Procedure: Pre-Anesthesia Assessment: - Prior to the procedure, a History and Physical was performed, and patient medications and allergies were reviewed. The patient's tolerance of previous anesthesia was also reviewed. The risks and benefits of the procedure and the sedation options and risks were discussed with the patient. All questions were answered, and informed consent was obtained. Prior Anticoagulants: The patient has taken no previous anticoagulant or antiplatelet agents. ASA Grade Assessment: III - A patient with severe systemic disease. After reviewing the risks and benefits, the patient was deemed in satisfactory condition to undergo the procedure. After I obtained informed consent, the scope was passed under direct vision. Throughout the procedure, the patient's blood pressure, pulse, and oxygen saturations were monitored continuously. The colonoscope was introduced through the anus and advanced to the cecum, identified by appendiceal orifice and ileocecal valve. The colonoscopy was performed without difficulty. The patient tolerated the procedure. The quality of the bowel preparation was good. The ileocecal valve and the appendiceal orifice were photographed. Scope In: 12:03:17 PM Scope Withdrawal Time 0 hours 9 minutes 32 seconds Scope Out: 12:18:26 PM Total Procedure Duration Time 0 hours 15 minutes 9 seconds Findings: Hemorrhoids were found on perianal exam. Scattered diverticula were found in the sigmoid colon and descending colon. Biopsies were taken with a cold forceps for histology. The mucosa vascular pattern in the sigmoid colon was diffusely increased. Coagulation for hemostasis using argon beam was successful. Diffuse moderate inflammation characterized by adherent blood was found in the rectum. Impression: - Hemorrhoids found on perianal exam. - Diverticulosis in the sigmoid colon and in the descending colon. Biopsied. - Increased mucosa vascular pattern in the sigmoid colon. Treated with argon beam coagulation. - Diffuse moderate inflammation was found in the rectum secondary to proctitis. No cauterization. Needs medical treatment Patient had emesis while under anesthesia provided sedation. Possible aspiration. I have notified Dr Dinero, hospitalist of this event. Recommendation: - Observe patient in GI recovery unit for ongoing care. - Resume previous diet. - Continue present medications. - Await pathology results. - Repeat colonoscopy is not recommended due to current age (66 years or older) for surveillance. - Telephone my office for pathology results in 1 week. Procedure Code(s): --- Professional --- 25959, 59, Colonoscopy, flexible; with control of bleeding, any method 54995, Colonoscopy, flexible; with biopsy, single or multiple Diagnosis Code(s): --- Professional --- K64.9, Unspecified hemorrhoids K62.89, Other specified diseases of anus and rectum R19.5, Other fecal abnormalities K57.30, Diverticulosis of large intestine without perforation or abscess without bleeding CPT copyright 2017 [employer] [employer]. All rights reserved. The codes documented in this report are preliminary and upon dolphin researcher review may be revised to meet current compliance requirements. Juaquin Guerra MD 01/01/2020 12:30:08 PM This report has been signed electronically. Number of Addenda: 0 Note Initiated On: 01/01/2020 11:33 AM
--- NOTE | 2020-01-01 12:30 | OP.CCLET_ITS ---
01/01/2020 Hemant Parra [address] [place] [address] Re : Colonoscopy procedure for Taniya Ahmadi Dear Dr. Parra This procedure was performed on December. My impressions and recommendations are as follows: Impressions : - Hemorrhoids found on perianal exam. - Diverticulosis in the sigmoid colon and in the descending colon. Biopsied. - Increased mucosa vascular pattern in the sigmoid colon. Treated with argon beam coagulation. - Diffuse moderate inflammation was found in the rectum secondary to proctitis. No cauterization. Needs medical treatment Patient had emesis while under anesthesia provided sedation. Possible aspiration. I have notified Dr Dinero, hospitalist of this event. Recommendations : - Observe patient in GI recovery unit for ongoing care. - Resume previous diet. - Continue present medications. - Await pathology results. - Repeat colonoscopy is not recommended due to current age (66 years or older) for surveillance. - Telephone my office for pathology results in 1 week. My findings are described in the full procedure note, which is enclosed. If I can be of further assistance, please feel free to contact me at Doctor phone number(s): Work: . Sincerely, Juaquin Guerra MD 01/01/2020 12:30:08 PM This report has been signed electronically.
[2020-01-01 13:54] LABS: Hematocrit 28.5 % (37-47); Hemoglobin 8.2 g/dL (12.0-15.0)
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
--- NOTE | 2020-01-01 14:45 | PN_ITS ---
Progress Note Dr. Guerra would like the patient to perform hydrocortisone suppositories BID x 14 days. I have contacted the outpatient retail pharmacy and spoke to Helen (pharmacist) who is unaware of any specific maintenance regimen for radiation proctitis. I have sent a verbal script for the patient to orange picker machine operator from the retail pharmacy at the hospital. Prescription is for 60 suppositories BID with 2 refills. Patient will follow-up with our office in 10 days after discharge. She is to start the suppositories right away at home after discharge. If there are any questions or concerns she is able to call our office at [phone]. Prescription will cost the patient $11. STROKE Vital Signs/Narrative: Vital Signs Temp Pulse Resp BP Pulse Ox 01/01/20 13:37 98.3 F 65 16 111/75 96 01/01/20 13:15 64 16 130/57 H 95 01/01/20 13:00 98.9 F 64 16 136/59 H 94 01/01/20 12:55 65 18 136/59 H 94 01/01/20 12:50 64 18 136/54 H 94 01/01/20 12:45 65 18 130/70 H 92 01/01/20 12:40 64 18 130/85 H 92 01/01/20 12:35 66 20 H 125/80 H 90 01/01/20 12:30 66 18 123/89 H 91 01/01/20 12:26 98.5 F 72 18 105/46 L 91
--- NOTE | 2020-01-01 14:46 | CHAPLAIN ---
patient and bed are out of the room; left a calling card
[2020-01-02 03:20] VITALS: BP 134/48; PULSE 84; RESP 18; TEMP 37.1; O2SAT 95
--- NOTE | 2020-01-02 05:34 | PCM.PN.SRG ---
Patient Problems: Active and Suspected Problems GI bleed (Acute) Subjective: Pt seen being taken to xray for CXR. She is not c/o respiratory symptoms Noted some blood in stools - Physical Exam Vitals/I&O's: Vital Signs Temp Pulse Resp BP Pulse Ox 98.8 F 84 18 134/48 H 95 01/02/20 03:20 01/02/20 03:20 01/02/20 03:20 01/02/20 03:20 01/02/20 03:20 Oxygen Delivery Method Room Air Weight: 105 lb 6.095 oz Body Mass Index (BMI) 18.6 Intake and Output for Last 24 Hours 12/31/19 01/01/20 01/02/20 23:59 23:59 23:59 Intake Total 1230 / 1230 1620 / 1780 160 / 160 Output Total 1850 / 2050 200 / 200 Balance 1230 / 1230 -230 / -270 -40 / -40 Microbiology Past 72 Hours 12/31/19 16:45 Stool Stool Occult Blood (CARISSA) - Final Occult Blood Positive Laboratory Results 01/01/20 13:45: Hgb 8.2 L, Hct 28.5 L Current Medications Hydrocodone Bitart/Acetaminophen ([place] 5mg-325mg) 1 tablet PO Q6H PRN PRN PRN Reason: Pain Score 1-10/10 Last Admin: 12/31/19 20:56 Dose: 1 tablet Documented by: Pantoprazole Sodium 40 mg/ (Sodium Chloride) 110 mls @ 330 mls/hr IV Q12 VICTORIA Last Infusion: 01/01/20 23:14 Dose: Infused Documented by: Ondansetron HCl (Zofran) 4 mg IV Q6H PRN PRN PRN Reason: NAUSEA Last Admin: 01/01/20 07:59 Dose: 4 mg Documented by: Sodium Chloride () 10 - 40 ml IV UD PRN PRN Reason: SALINE FLUSH Last Admin: 01/01/20 11:03 Dose: 10 ml Documented by: Medical Necessity - Tobacco Use Smoking Status: Former smoker Tobacco Use: Non-smoker Assessment/Plan All Active Problems GI bleed (Acute) Acute lower GI bleeding (Acute) Anemia due to blood loss, acute (Acute) Long history of suspected radiation proctitis Unfortunately, I do not have a surgical means of resolution Recommend hydrocortisone suppository treatment as outlined Also recommend pt to be discharged with additional supply to be used as needed for bleeding at home Copy and recommend information to her primary care Would be best to try to avoid additional future colonoscopies. Will sign off Noted: CXR suggest LLL and mid lung field changes, ? aspiration
--- NOTE | 2020-01-02 05:55 | RAD_ITS ---
EXAM DESCRIPTION: PORTABLE AP CHEST CLINICAL HISTORY: 74 years Female, COUGH AND SOB -- POSSIBLE ASPIRATION COUGH AND SOB -- POSSIBLE ASPIRATION COMPARISON: Previous chest obtained on 12/31/2019 FINDINGS: The thorax is intact. The heart and mediastinum appear to be within normal limits. The right lung is normal. There is a patchy pneumonic infiltrate seen in the left midlung and left lung base which has definitely increased when compared with the previous chest study obtained on April 30, 2020. RAD/Chest PA and Lateral IMPRESSION: A left midlung and left lung base pneumonic infiltrate is now identified. Electronically Signed: Gabriel Tineo, at 15:56 EST Tel , Service support ,
[2020-01-02 06:00] LABS: Hematocrit 24.8 % (37-47); Hemoglobin 7.3 g/dL (12.0-15.0); Mean Corp Hgb Conc 29.4 g/dL (32-36); Mean Corpuscular Hgb 22.7 pg (27.0-32.0); Mean Platelet Vol. 10.7 fl (6.2-12.0); Platelet Count 256 K/mm3 (150-450); RBC Distribution Width CV 17.6 % (11.6-14.6); Red Blood Count 3.22 M/mm3 (4.2-5.4)
[2020-01-02] MEDS: HYDROcodone Bitartrate/Apap 5/325 Tablet PO ×2 (08:50→16:51)
[2020-01-02 09:20] VITALS: BP 114/52; PULSE 74; RESP 20; TEMP 37.3; O2SAT 98
--- NOTE | 2020-01-02 11:36 | DCINST_ITS ---
- Discharge Diagnoses Current Active Problems: Current Active and Chronic Problems GI bleed (Acute) Malnourished (Chronic) You will use the following diet at home:: Regular Discharge Activity: Return to Normal Activity Call your doctor if you observe: Shortness of breath, Dizziness, Fainting spells, Chest pain Additional Instructions: Prescription was sent to pharmacy for hydrocortisone suppositories which you will take twice daily. Allergies/Adverse Reactions: Allergies acetaminophen [From Percocet] Allergy (Verified 12/31/19 13:50) Unknown PT CAN'T REMEMBER REACTION, BUT REPORTS SHE IS ABLE TO TAKE HYDROCODONE ibuprofen [From Motrin] Allergy (Verified 12/31/19 13:50) Unknown omega-3 acid ethyl esters Allergy (Verified 12/31/19 13:50) Unknown oxycodone Allergy (Verified 12/31/19 13:50) Unknown oxycodone HCl [From Percocet] Allergy (Verified 12/31/19 13:50) Unknown Pt can't remember Penicillins Allergy (Verified 12/31/19 13:50) Unknown Can't remember Medications to take at Discharge Hydrocodone/Acetaminophen [Hydrocodon-Acetaminophen 5-325] 1 ea PO Q6H 12/31/19 Amoxicillin/Potassium Clav [Augmentin 875-125 Tablet] 1 ea PO BID #14 tab 01/02/20 The following prescriptions were given: Amoxicillin/Potassium Clav [Augmentin 875-125 Tablet] 1 ea PO BID #14 tab Transmission Status: Pending to [facility] Primary Care Physician: Hemant Parra MD [Primary Care Provider] - Please follow up with your Primary Care Physician in: 1 Week Test Results: Test results from this visit will be discussed in further detail at your follow- up appointment, if applicable. Please Follow Up With: Juaquin Guerra MD - May see PA When: 10 days Proposed Discharge Date: 01/02/20
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
[2020-01-02 15:08] VITALS: BP 110/56; PULSE 79; RESP 16; TEMP 37.2; O2SAT 95
[2020-01-02 15:23] VITALS: BP 115/44; PULSE 85; RESP 16; TEMP 37.2; O2SAT 97
--- NOTE | 2020-01-02 16:05 | CHAPLAIN ---
Type of Pastoral Visit _x__ Initial Visit ___ Follow-up Visit ___ On-call Visit ___ General Patient Visit ___ Spiritual Assessment ___ Family Conference ___ Bereavement ___ Rapid Response ___ Code Blue ___ Other (describe below) Pastoral Care Referral From _x__ Patient ___ Family ___ Nurse ___ Physician ___ Mule Developer ___ Weather Algorithm Scientist ___ Other (describe below) Sacrament/Intervention _x__ Active listening ___ Anointing ___ Jain ___ Bereavement ___ Communion _x__ Carolyn exploration ___ _x__ Life review _x__ Prayer ___ Reconciliation ___ Sacrament of Sick _x__ Supportive presence ___ Wedding ___ Other (describe below) Pastoral Comments
[2020-01-02 16:23] VITALS: BP 122/40; PULSE 72; RESP 16; TEMP 37.3; O2SAT 98
[2020-01-02 17:23] VITALS: BP 122/70; PULSE 85; RESP 16; TEMP 37.4; O2SAT 97
--- NOTE | 2020-01-05 15:21 | CASEMGMT ---
Case Management DC F/u Call: DC Date: 01/02/2020 DC Diagnosis: 1. Acute on chronic blood loss anemia, secondary to acute on chronic GI bleed as a result of radiation proctitis, underlying iron deficiency anemia 2. Suspected aspiration pneumonia 3. Chronic kidney disease stage III 4. History of cervical and endometrial cancer 5. History of DVT 6. Severe protein calorie malnutrition DC Disposition: Home Lace/Strata: 09/07 Called patient listed cell phone number on demographics, no answer, VM identified correct identity of patient, VM left to primary RNCM contact. SALVADOR Martins
== END 2020-01-02 18:13 | disposition home or self-care (01) | DRG 393 ==
LOC: ED 16:26 → PCU 17:36
PROVIDERS: Anesthesiology; Emergency Medicine; Nurse Practitioner Family; Physician Assistant; Surgery; Admitting Provider Family Medicine; Emergency Provider Emergency Medicine; PCP Family Medicine; Visit Provider Internal Medicine
PROC: 0DJD8ZZ Inspection of Lower Intestinal Tract, Via Natural or Artificial Opening Endoscopic (ICD-10-PCS; CPT 45378; principal; 2020-01-01 11:55)
DX: K62.7 Radiation proctitis (principal); E43 Unspecified severe protein-calorie malnutrition; K57.31 Diverticulosis of large intestine without perforation or abscess with bleeding; J69.0 Pneumonitis due to inhalation of food and vomit; Z68.1 Body mass index [BMI] 19.9 or less, adult; K52.0 Gastroenteritis and colitis due to radiation; D62 Acute posthemorrhagic anemia; D50.9 Iron deficiency anemia, unspecified; N18.3 Chronic kidney disease, stage 3 (moderate); E83.51 Hypocalcemia; E83.42 Hypomagnesemia; K64.9 Unspecified hemorrhoids; Z78.0 Asymptomatic menopausal state; Y84.2 Radiological procedure and radiotherapy as the cause of abnormal reaction of the patient, or of later complication, without mention of misadventure at the time of the procedure; Z85.41 Personal history of malignant neoplasm of cervix uteri; Z85.42 Personal history of malignant neoplasm of other parts of uterus; Z92.3 Personal history of irradiation; Z86.718 Personal history of other venous thrombosis and embolism; Z87.891 Personal history of nicotine dependence
CPT/HCPCS: 36415; 71046; 80048; 81001; 82274; 82728; 83540; 83550; 84484; 85014; 85018; 85025; 85027; 85610; 86850; 86900; 86901; 86920; 86922; 88305; 93005; 97162; 97802; 99284; J7040; P9016; A4216; J2405

== ENCOUNTER → 2020-06-22 11:52 | Outpatient (CLI) | payer MEDICARE, SELFPAY ==
[2019-12-31 18:22] VITALS: BMI 18.6
--- NOTE | 2020-06-22 11:54 | BI_ITS ---
MAMMOGRAPHY - BILATERAL SCREENING 3-D TOMOSYNTHESIS REASON FOR EXAM: Female, 74 years old. Annual screening mammogram. PERTINENT HISTORY: Personal past medical history of cervical cancer in 2016. TECHNIQUE: 2-D mammograms and 3-D Tomosynthesis of the breast (s) were performed. CAD was performed. COMPARISON: 06/20/2019, 07/02/2019 FINDINGS: The breast composition is almost entirely fat. Scattered benign calcifications are seen. No dense spiculated masses or suspicious microcalcifications are identified. No architectural distortion is identified. There is no skin thickening or retraction. There has been no significant change since the prior study. BI/SCREEN MAMM (CAD) W/VERENA BILAT IMPRESSION: No mammographic signs of malignancy. Routine yearly mammograms recommended. ASSESSMENT CATEGORY: BIRADS Category 2: Benign. A letter regarding these results will be sent to the patient by the facility within 30 days. FOLLOW UP RECOMMENDATION: Yearly follow up mammogram recommended. (A) Approximately 10% of breast cancers are not detected by mammography. A normal mammogram should not delay biopsy of a clinically suspicious abnormality. Electronically Signed: Javon Payne MD at 17:35 EDT , Service support ,
== END ==
PROVIDERS: PCP Family Medicine; Referring Provider Nurse Practitioner Family; Visit Provider Nurse Practitioner Family
DX: Z12.31 Encounter for screening mammogram for malignant neoplasm of breast (principal)
CPT/HCPCS: 77063; 77067

== ENCOUNTER → 2021-06-23 13:25 | Outpatient (CLI) | payer MEDICARE, SELFPAY ==
[2019-12-31 18:22] VITALS: BMI 18.6
--- NOTE | 2021-06-23 13:27 | BI_ITS ---
MAMMOGRAPHY - BILATERAL SCREENING REASON FOR EXAM: Female, 75 years old. Routine annual screening examination. PERTINENT HISTORY: Non-contributory. TECHNIQUE: Digital bilateral breast verena (3D mammographic acquisition) in the CC and MLO projections. 2-D mediolateral oblique (MLO) and craniocaudad (CC) views of both breasts were obtained. CAD: Full Field Digital Mammography with Computer Added Detection was performed. COMPARISON: Comparison is made with prior study date 06/22/2020 and 06/20/2019. FINDINGS: Breast Composition: There are scattered areas of fibroglandular density. There are no dominant masses or suspicious calcifications. No other significant abnormalities are identified. There has been no significant change since the prior study. BI/SCRN MAMM (CAD)W/VERENA BILAT IMPRESSION: Stable bilateral screening mammogram. Yearly follow-up mammogram recommended. (A) ASSESSMENT CATEGORY: BIRADS Category 1: Negative. A letter regarding these results will be sent to the patient by the facility within 30 days. Approximately 10% of breast cancers are not detected by mammography. A normal mammogram should not delay biopsy of a clinically suspicious abnormality. [id number] Electronically Signed: Marco Mcgregor MD at 14:00 EDT , Service support ,
== END ==
PROVIDERS: PCP Family Medicine; Referring Provider Family Medicine; Visit Provider Family Medicine
DX: Z12.31 Encounter for screening mammogram for malignant neoplasm of breast (principal)
CPT/HCPCS: 77063; 77067

== ENCOUNTER 2022-03-14 11:45 | Emergency (ER) | payer MEDICARE, SELFPAY ==
[2022-03-14 11:46] VITALS: BP 133/65; PULSE 75; RESP 16; TEMP 36.5; O2SAT 98; BMI 19.8
--- NOTE | 2022-03-14 12:13 | EDS_ITS ---
HPI History of Present Illness Chief Complaint: Back Informant: patient Narrative Narrative: Patient presents with lower back pain. She states when she got up yesterday morning her back was sore. Its worse if she moves and better if she stays still. Twisting bothers at the most. Pain will radiate to the buttock area but no farther. She has no numbness tingling weakness. She has chronic incontinence but no change in this. No change in bowel habits. She has had no fevers chills or recent infections. She has had no recent weight loss. She does have history of cervical cancer but states it was 7 or 8 years ago and treated. She has had no recurrence. Patient was doing some increased work recently. 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 She actually had something bumped into her right knee but that does not really hurt. She did not do any heavy lifting though. She has not had any blood in the urine. No history of kidney stones. Patient states the only medicine she takes is that pain medicine. She cannot recall the name of it. She has allergies to almost all pain medicines. She also cannot take Tylenol. She states that causes bleeding. I did online prescribing report that shows no narcotics. I cannot ascertain what pain medicine she currently takes. She states that she only takes it intermittently for various pains around her body. She has not tried it for this. [facility] Medical History Cervical cancer DVT (deep venous thrombosis) Endometrial cancer Home Medications hydrocodone-acetaminophen 1 ea PO Q6H 12/31/19 [History Last Taken Unknown] amoxicillin-pot clavulanate 1 ea PO BID #14 tab 01/02/20 [Rx Last Taken Unknown] hydrocodone-homatropine 1 tab PO Q8H PRN 3 Days #10 tab 03/14/22 [Rx Last Taken Unknown] Allergy/AdvReac Type Severity Reaction Status Date / Time acetaminophen [From Percocet] Allergy Unknown Verified 03/14/22 11:48 ibuprofen [From Motrin] Allergy Unknown Verified 03/14/22 11:48 omega-3 acid ethyl esters Allergy Unknown Verified 03/14/22 11:48 oxycodone Allergy Unknown Verified 03/14/22 11:48 oxycodone HCl [From Percocet] Allergy Unknown Verified 03/14/22 11:48 Penicillins Allergy Unknown Verified 03/14/22 11:48 Social History Smoking Status: Former smoker ROS ROS ED Constitutional Constitutional ED: Denies chills or fever(s) Eyes Eyes: Denies blurry vision ENT ENT ED: Denies rhinorrhea or sore throat Cardiovascular Cardiovascular: Denies chest pain Respiratory/Chest Respiratory/Chest: Denies dyspnea or sputum Gastrointestinal Gastrointestinal: Denies abdominal pain, constipation, diarrhea, melena, nausea or vomiting Genitourinary Genitourinary ED: Denies dysuria or hematuria Musculoskeletal Musculoskeletal: Reports back pain; Denies neck pain Integumentary Denies rash Neurologic Neurologic: Denies paresthesias or weakness Endocrine Endocrinology: Denies polydipsia or polyuria Hematologic/Lymphatic Hematologic/Lymphatic: Denies easy bleeding or easy bruising Allergic/Immunologic Allergic/Immunologic ED: Denies urticaria EXAM Physical Exam Const Vital Signs: 03/14/22 11:46 Temperature 97.7 F L Temperature Source Temporal Pulse Rate 75 Respiratory Rate 16 Blood Pressure 133/65 H Blood Pressure Mean 87 Pulse Ox 98 Oxygen Delivery Method Room Air Positive well nourished and well developed General Appearance ED: well developed and NAD HEENT Reports moist mucous membranes Eyes General Eye ED: Negative for pale conjunctiva or scleral icterus Neck no JVD Resp normal respiratory effort and clear to auscultation bilaterally Cardio regular rate and regular rhythm GI normal to inspection, nondistended, normoactive bowel sounds and soft to palpation Back/Spine normal to inspection Back/Spine Narrative: Patient has no central tenderness. She does have some left low paraspinal lumbar tenderness. Also if I have her twist or move she hurts. If she lays still she is not that painful. No buttock tenderness. Extremity normal to inspection Extremity Narrative: No peripheral edema tenderness or asymmetry. General Extremety ED: Negative for edema or tenderness General Extremity: Negative for edema Neuro oriented x3 Neuro Narrative: Distal incision and and strength is normal. It is hard to get the patient to fully relax to do reflexes but there is no asymmetry. Sensorium / Orientation: alert Psych mental status grossly normal Skin no rashes or lesions noted MDM MDM MDM Narrative Medical decision making narrative: X-ray shows what appears to be chronic deformities. 1 of these is at L4 which is near the area of her pain even though her pain is more paraspinal. It is certainly possible that she does have a acute compression fracture component. She is thin, low body fat, light-colored eyes and complexion and certainly has osteopenia. Patient states that she can take hydrocodone as long as it does not have that aspirin or Tylenol mixed in. I will write for this. I did do an online prescribing report that shows no narcotics. Radiography Diagnostic Testing: Clinical Impression(s) from Imaging Studies Lumbar Spine X-Ray 03/14/22 12:22 IMPRESSION: 1. Degenerative changes of the spine, as detailed above. 2. Chronic compression deformities of T11-L1 and L4. Electronically Signed: Jung Osorio MD at 12:42 EDT , Discharge Plan Triage Chief Complaint: Back ED Provider: Silver Bernal Dx/Rx/DC Orders Clinical Impression: Back pain, Compression fracture Instructions: Fx Back, ED Back Pain (Acute or Chronic) Prescriptions: New hydrocodone-homatropine 5-1.5 mg tablet 1 tab PO Q8H PRN (Reason: pain) 3 Days Qty: 10 RF: 0 No Action hydrocodone-acetaminophen 1 EACH tablet 1 ea PO Q6H RF: 0 amoxicillin-pot clavulanate 1 EACH tablet 1 ea PO BID Qty: 14 RF: 0 Primary Care Provider: Hemant Parra Referrals: Hemant Parra MD [Primary Care Provider] - 3-5 Days Disposition Disposition: Home, Self Care
--- NOTE | 2022-03-14 12:22 | RAD_ITS ---
STUDY: X-RAY - LUMBAR SPINE REASON FOR EXAM: Female, 76 years old. PAIN, NKI TECHNIQUE: 2 view(s) of the lumbar spine were obtained. COMPARISON: None FINDINGS: Normal lumbar lordosis. There is no substantial scoliosis. There is a normal alignment of the vertebrae. Diffuse demineralization of the bony structures. Mild wedging and loss of height of the L4 vertebral body either due to demineralization or a chronic compression deformity. Chronic compression deformities of T11-L1 noted with mild less than 50% loss of height. No visualized acute fracture. Mild multilevel disc space narrowing and endplate spurring. The soft tissue structures are unremarkable. RAD/Lumbar Spine 2 or 3 Views IMPRESSION: 1. Degenerative changes of the spine, as detailed above. 2. Chronic compression deformities of T11-L1 and L4. Electronically Signed: Jung Osorio MD at 12:42 EDT ,
== END 2022-03-14 13:21 | disposition home or self-care (01) ==
PROVIDERS: Emergency Provider Emergency Medicine; PCP Family Medicine; Visit Provider Emergency Medicine
DX: M48.56XA Collapsed vertebra, not elsewhere classified, lumbar region, initial encounter for fracture (principal); M85.80 Other specified disorders of bone density and structure, unspecified site; Z87.891 Personal history of nicotine dependence
CPT/HCPCS: 72100; 99282

== ENCOUNTER → 2022-07-13 | Outpatient (CLI) | payer MEDICARE, SELFPAY ==
--- NOTE | 2022-07-13 14:40 | BI_ITS ---
MAMMOGRAPHY - BILATERAL SCREENING REASON FOR EXAM: Female, 77 years old. Routine annual screening examination. PERTINENT HISTORY: Non-contributory. TECHNIQUE: Digital bilateral breast verena (3D mammographic acquisition) in the CC and MLO projections. 2-D mediolateral oblique (MLO) and craniocaudad (CC) views of both breasts were obtained. CAD: Full Field Digital Mammography with Computer Added Detection was performed. COMPARISON: Comparison is made with prior examination dated 06/23/2021 and 06/22/2020. FINDINGS: Breast Composition: There are scattered areas of fibroglandular density. There are no dominant masses or suspicious calcifications. No other significant abnormalities are identified. There has been no significant change since the prior study. BI/SCRN MAMM (CAD)W/VERENA BILAT IMPRESSION: Stable bilateral screening mammogram. Yearly follow-up mammogram recommended. (A) ASSESSMENT CATEGORY: BIRADS Category 1: Negative. A letter regarding these results will be sent to the patient by the facility within 30 days. Approximately 10% of breast cancers are not detected by mammography. A normal mammogram should not delay biopsy of a clinically suspicious abnormality. [id number] Electronically Signed: Marco Mcgregor MD at 15:17 EDT ,
== END | disposition home or self-care (01) ==
LOC: OPBI 14:37
PROVIDERS: PCP Family Medicine; Visit Provider Nurse Practitioner Family
DX: Z12.31 Encounter for screening mammogram for malignant neoplasm of breast (principal)
CPT/HCPCS: 77063; 77067

== ENCOUNTER 2022-08-31 12:16 | Emergency (ER) | payer MEDICARE, SELFPAY ==
[2022-08-31 12:17] VITALS: BP 154/130; PULSE 53; RESP 18; TEMP 35.7; O2SAT 98; BMI 21.9
--- NOTE | 2022-08-31 12:57 | EX.ED.DYSGE1 ---
HPI History of Present Illness Chief Complaint: Fall Informant: patient Narrative Narrative: 77-year-old female states that today she was at [employer] when she sustained a fall. She is not exactly sure what made her fall but thinks that she leaned too far out of a chair and fell onto her left side. She states that she did not lose consciousness or have any head injuries. She notes pain left shoulder down to her left fingers but states most of the pain is in the forearm. She denies any leg symptoms and has been able to ambulate. She has not taken any pain medication stating that Tylenol makes her bleed. [facility] Medical History Cervical cancer DVT (deep venous thrombosis) Endometrial cancer Home Medications hydrocodone-acetaminophen 5-325mg 5mg-325mg 1 ea PO Q6H pain 12/31/19 [History Last Taken Unknown] amoxicillin 875 mg-potassium clavulanate 125 mg tablet 1 ea PO BID #14 tabs 01/02/20 [Rx Last Taken Unknown] hydrocodone-homatropine 5 mg-1.5 mg tablet 1 tab PO Q8H PRN pain 3 days #10 tabs 03/14/22 [Rx Last Taken Unknown] hydrocodone-acetaminophen 5-325mg 5mg-325mg 1 tab PO Q6H PRN PRN Pain 3 days #12 TABLETS 08/31/22 [Rx Last Taken Unknown] Allergy/AdvReac Type Severity Reaction Status Date / Time acetaminophen [From Percocet] Allergy Unknown Verified 08/31/22 12:23 ibuprofen [From Motrin] Allergy Unknown Verified 08/31/22 12:23 omega-3 acid ethyl esters Allergy Unknown Verified 08/31/22 12:23 oxycodone Allergy Unknown Verified 08/31/22 12:23 oxycodone HCl [From Percocet] Allergy Unknown Verified 08/31/22 12:23 Penicillins Allergy Unknown Verified 08/31/22 12:23 Social History (Updated 08/31/22 @ 12:[address] Vega Redman DO) Smoking Status: Former smoker substance use type: does not use ROS ROS ED Constitutional Constitutional ED: Denies chills or weight loss Eyes Eyes: Denies change in vision or diplopia ENT ENT ED: Denies ear pain, rhinorrhea or sore throat Cardiovascular Cardiovascular: Denies chest pain, orthopnea, palpitations or racing heartbeat Respiratory/Chest Respiratory/Chest: Denies cough, dyspnea or orthopnea Gastrointestinal Gastrointestinal: Denies abdominal pain, diarrhea, nausea or vomiting Genitourinary Genitourinary ED: Denies dysuria, hematuria or urinary frequency Musculoskeletal Musculoskeletal: Reports other Details: See history of present illness ; Denies arthralgias, back pain, myalgias or neck pain Integumentary Denies abscess or rash Neurologic Neurologic: Denies headache(s) or weakness Psychiatric Psychiatric: Denies anxiety, depression, suicidal ideation or suicidal thoughts Endocrine Endocrinology: Denies polydipsia, polyphagia or polyuria Allergic/Immunologic Allergic/Immunologic ED: Denies mouth swelling, tongue swelling or urticaria EXAM Physical Exam Const Vital Signs: 08/31/22 12:17 08/31/22 12:29 Temperature 96.3 F L Temperature Source Temporal Pulse Rate 53 L Respiratory Rate 18 Respiratory Effort Normal Blood Pressure 154/130 H Blood Pressure Mean 138 Pulse Ox 98 Oxygen Delivery Method Room Air Positive well nourished and well developed General Appearance ED: well developed HEENT Reports normocephalic, head/scalp atraumatic and moist mucous membranes Eyes PERRL and EOMs intact bilaterally Neck no lymphadenopathy, supple and no JVD Resp normal respiratory effort and clear to auscultation bilaterally Cardio regular rate, regular rhythm and no murmurs GI normal to inspection, nondistended, normoactive bowel sounds and non-tender Palpation: soft Back/Spine no CVA tenderness and normal ROM Extremity normal to inspection Extremity Narrative: I do not appreciate any obvious dislocations or deformities. There is no significant swelling or ecchymosis noted. She has tenderness throughout the length of the left arm and into the hand. She is able to have full range of motion although it is painful for her. General Extremety ED: Negative for edema General Extremity: Negative for edema Neuro oriented x3 and CN's II-XII intact bilaterally Sensorium / Orientation: alert Motor Exam: strength 5/5 throughout Psych mental status grossly normal Mood & Affect: Negative for depressed or tearful Skin no rashes or lesions noted and no wounds MDM MDM MDM Narrative Medical decision making narrative: Tears of the humerus and forearm were negative. Hand x-ray shows a questionable avulsion fracture of the [place]. She is bruised swollen and tender in this area. Going to recommend that she use a Velcro wrist splint and have her follow-up with orthopedics. I will write for some pain medication and she has tolerated [place] in the past. Radiography Diagnostic Testing: Clinical Impression(s) from Imaging Studies Forearm X-Ray 08/31/22 13:10 IMPRESSION: Normal x-ray examination of the radius and ulna. Electronically Signed: Marco Mcgregor MD at 13:25 EDT , Hand X-Ray 08/31/22 13:10 IMPRESSION: Degenerative joint disease of the hand, as described above. Questionable avulsion fracture of the triquetrum. Clinical correlation is recommended. Electronically Signed: Marco Mcgregor MD at 13:27 EDT , Humerus X-Ray 08/31/22 13:10 IMPRESSION: Normal x-ray examination of the humerus. Electronically Signed: Marco Mcgregor MD at 13:27 EDT , Discharge Plan Triage Chief Complaint: Fall ED Provider: Vega Redman Dx/Rx/DC Orders Clinical Impression: Fall, Contusion of left shoulder, Chip fracture of triquetral bone of left wrist Instructions: ED Fracture, Wrist, General Prescriptions: New hydrocodone-acetaminophen [hydrocodone-acetaminophen] 5-325 mg tablet 1 tab PO Q6H PRN PRN (Reason: Pain) 3 Days Qty: 12 0RF No Action hydrocodone-acetaminophen 1 EACH tablet 1 ea PO Q6H amoxicillin-pot clavulanate 1 EACH tablet 1 ea PO BID Qty: 14 0RF hydrocodone-homatropine 5-1.5 mg tablet 1 tab PO Q8H PRN (Reason: pain) 3 Days Qty: 10 0RF Primary Care Provider: Hemant Parra Referrals: Hemant Parra MD [Primary Care Provider] - Terry Srivastava MD [Med Staff - Active Staff] - 1-2 Weeks Disposition Disposition: Home, Self Care
--- NOTE | 2022-08-31 13:10 | RAD_ITS ---
STUDY: X-RAY - LEFT RADIUS AND ULNA REASON FOR EXAM: Female, 77 years old. Pain following a fall. TECHNIQUE: 2 view(s) of the forearm. COMPARISON: None. FINDINGS: There is no demonstrated soft tissue swelling. Normal visualized radius. Normal visualized ulna. RAD/Forearm 2 Views IMPRESSION: Normal x-ray examination of the radius and ulna. Electronically Signed: Marco Mcgregor MD at 13:25 EDT ,
--- NOTE | 2022-08-31 13:10 | RAD_ITS ---
STUDY: X-RAY - LEFT HAND REASON FOR EXAM: Female, 77 years old. Pain following a fall. TECHNIQUE: 3 view(s) of the hand. COMPARISON: None. FINDINGS: Normal radiocarpal articulation. Normal distal radioulnar joint. Questionable avulsion fracture of the triquetrum. Clinical correlation is recommended. Normal carpal articulations Normal carpometacarpal articulation of the thumb. Normal second through fifth carpometacarpal joints. Normal metacarpi. Normal metacarpophalangeal joint of the thumb. Normal interphalangeal joint of the thumb. Normal proximal and distal phalanges of the thumb. Normal metacarpophalangeal joints of the second through fifth fingers. There is diffuse articular joint space narrowing of the proximal and distal interphalangeal joints of the second through fifth fingers, but without erosive changes or periarticular soft tissue swelling. Normal phalanges of the second through fifth fingers. The soft tissue structures are unremarkable. RAD/Hand Min 3 Views IMPRESSION: Degenerative joint disease of the hand, as described above. Questionable avulsion fracture of the triquetrum. Clinical correlation is recommended. Electronically Signed: Marco Mcgregor MD at 13:27 EDT ,
--- NOTE | 2022-08-31 13:10 | RAD_ITS ---
STUDY: X-RAY - LEFT HUMERUS REASON FOR EXAM: Female, 77 years old. Pain following a fall. TECHNIQUE: 2 view(s) of the humerus. COMPARISON: None. FINDINGS: Normal visualized humerus. There is no demonstrated fracture or osseous destructive process. There is no demonstrated soft tissue abnormality. RAD/Humerus min 2 Views IMPRESSION: Normal x-ray examination of the humerus. Electronically Signed: Marco Mcgregor MD at 13:27 EDT ,
== END 2022-08-31 14:00 | disposition home or self-care (01) ==
PROVIDERS: Emergency Provider Emergency Medicine; PCP Family Medicine; Visit Provider Emergency Medicine
DX: S62.112A Displaced fracture of triquetrum [cuneiform] bone, left wrist, initial encounter for closed fracture (principal); S40.012A Contusion of left shoulder, initial encounter; W07.XXXA Fall from chair, initial encounter; Y92.22 Religious institution as the place of occurrence of the external cause; Z87.891 Personal history of nicotine dependence
CPT/HCPCS: 73060; 73090; 73130; 99283

== ENCOUNTER 2022-12-29 12:18 | Emergency (ER) | payer MEDICARE, SELFPAY ==
[2022-12-29 12:19] VITALS: BP 136/56; PULSE 82; RESP 18; TEMP 35.6; O2SAT 96; BMI 22.0
--- NOTE | 2022-12-29 12:38 | EKG12_ITS ---
Test Reason : FATIGUE Blood Pressure : / mmHG Vent. Rate : 072 BPM Atrial Rate : 072 BPM P-R Int : 142 ms QRS Dur : 080 ms QT Int : 394 ms P-R-T Axes : 070 046 045 degrees QTc Int : 431 ms Normal sinus rhythm Normal ECG Confirmed by FAUSTO BERKOWITZ, LANCE ([id number]), communications editor ERASTO RICH ([id number]) on 01/02/2023 8:53:10 AM Referred By: Confirmed By:LANCE LAMBERT MD
[2022-12-29 13:12] LABS: Absolute Lymphocyte Count 0.57 X10^3/uL (0.83-4.51); Absolute Neutrophil Count 6.6 X10^3/uL (2.0-7.7); Basophil# 0.04 X10^3/uL; Basophil% 0.5 % (0-1); Hematocrit 37.3 % (37-47); Hemoglobin 11.4 g/dL (12.0-15.0); Lymphocyte # 0.57 X10^3/ul (0.83-4.51); Lymphocyte % 6.8 % (19-41); Mean Corp Hgb Conc 30.6 g/dL (32-36); Mean Corpuscular Hgb 27.1 pg (27.0-32.0); Mean Corpuscular Volume 88.6 fL (81-99); Mean Platelet Vol. 10.8 fl (6.2-12.0); Monocyte# 1.07 X10^3/uL; Monocyte% 12.8 % (0-10); NRBC Flagged by Analyzer 0 % (0-5); Neutrophil # 6.62 X10^3/uL (2.7-7.7); Neutrophil % 79.5 % (47-70); POSITIVE DIFFERENTIAL YES; Platelet Count 238 K/mm3 (150-450); RBC Distribution Width SD 48.7 fl (35.1-43.9); Red Blood Count 4.21 M/mm3 (4.2-5.4); White Blood Count 8.3 K/mm3 (4.4-11.0)
[2022-12-29 13:18] LABS: Differential Indicated SCAN CRITERIA MET
[2022-12-29 13:23] LABS: Prothrombin Time (Protime)PT. 13.1 SECONDS (11.7-14.9)
[2022-12-29 13:24] LABS: Partial Thromboplast Time 26.8 Seconds (24.1-36.2)
[2022-12-29 13:31] LABS: Bacteria 0 SEEN /hpf (None Seen); Mucous, Urine 0 SEEN /hpf (<or=2+); Red Blood Cells-Urine 0 SEEN /hpf (0-5); Squamous Epithelial Cells - UA 0 SEEN /hpf (5-10); White Blood Cells 0 SEEN /hpf (0-5)
[2022-12-29 13:32] LABS: ALB/GLOB Ratio 0.8 RATIO (0.9-2.4); AST(SGOT) 22 U/L (15-37); Alanine Aminotransfer ALT/SGPT 19 U/L (13-56); Alkaline Phosphatase 57 U/L (45-117); Anion Gap 7 (5-15); BUN 19 mg/dL (7-18); BUN/Creat Ratio 20.7 RATIO (10-20); Calcium,Total 8.9 mg/dL (8.5-10.1); Chloride 103 mmol/L (98-107); Creatinine, Serum 0.92 mg/dL (0.55-1.02); EST Glomerular Filtration Rate 63 mL/min (>60); Est Glom Filt Rate - Afr Amer 77 mL/min (>60); Estimated Creatinine Clearance 41.14 ml/min; Globulin 3.6 g/dL (2.2-4.2); Glucose 101 mg/dL (74-106); Potassium 4.4 mmol/L (3.5-5.1); Protein, Total 6.6 g/dL (6.4-8.2); Sodium Level 139 mmol/L (136-145)
[2022-12-29 13:36] LABS: Color, Urine Yellow (Yellow); Glucose, Dipstick Normal (Normal); Ketone-Dipstick 5 mg/dl (Negative); Leukocyte Esterase-Dipstick 25 /ul (Negative); Nitrite-Dipstick Negative (Negative); Occult Blood-Urine 10 /ul (Negative); Protein-Dipstick 15 mg/dl (Negative); Urine Bilirubin Dipstick Negative (Negative); Urine Clarity Clear (Clear); Urine Urobilinogen Normal (Normal)
--- NOTE | 2022-12-29 14:05 | EX.ED.DYSGE1 ---
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 Patient states she continues to have intermittent bright red blood per rectum but is vague about the details. She states she is currently not having bleeding. She mentions that she has to digitally disimpact her self chronically. She has previously seen Dr. Guerra and states he messed things up. She does not give further details on this. 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 She does not take any blood thinners. She denies any chest pain or shortness of breath. She denies any cough but does have an intermittent cough on my exam. Denies any swelling of her legs. PFSH PFS Medical History Cervical cancer DVT (deep venous thrombosis) Endometrial cancer Home Medications alendronate 70 mg tablet 70 mg PO QWEEK 12/29/22 [History Last Taken Unknown] gabapentin 100 mg capsule 100 mg PO TID PRN Pain 12/29/22 [History Last Taken Unknown] Allergy/AdvReac Type Severity Reaction Status Date / Time acetaminophen [From Percocet] Allergy Unknown Verified 08/31/22 12:23 ibuprofen [From Motrin] Allergy Unknown Verified 08/31/22 12:23 omega-3 acid ethyl esters Allergy Unknown Verified 08/31/22 12:23 oxycodone Allergy Unknown Verified 08/31/22 12:23 oxycodone HCl [From Percocet] Allergy Unknown Verified 08/31/22 12:23 Penicillins Allergy Unknown Verified 08/31/22 12:23 Social History Smoking Status: Former smoker substance use type: does not use ROS ROS ED Constitutional Constitutional ED: Denies chills or fever(s) Cardiovascular Cardiovascular: Denies chest pain Respiratory/Chest Respiratory/Chest: Denies dyspnea or dyspnea on exertion Gastrointestinal Gastrointestinal: Reports constipation and other Details: Blood in stool ; Denies abdominal pain Genitourinary Genitourinary ED: Denies dysuria Musculoskeletal Musculoskeletal: Denies arthralgias or myalgias Integumentary Denies rash Neurologic Neurologic: Reports weakness; Denies headache(s) Psychiatric Psychiatric: Denies anxiety Hematologic/Lymphatic Hematologic/Lymphatic: Denies easy bleeding or easy bruising EXAM Physical Exam Const Vital Signs: 12/29/22 12:19 12/29/22 13:05 12/29/22 14:30 Temperature 96.1 F L Temperature Source Temporal Pulse Rate 82 Respiratory Rate 18 Respiratory Effort Normal Non-Labored Respiratory Pattern Normal Blood Pressure 136/56 H 140/61 H Blood Pressure Mean 82 83 Pulse Ox 96 98 Oxygen Delivery Method Room Air Positive well nourished and well developed Constitutional Narrative: Thin appearing General Appearance ED: well developed and NAD; Negative for pallor HEENT Reports moist mucous membranes Eyes PERRL and EOMs intact bilaterally General Eye ED: Negative for pale conjunctiva Neck supple and no JVD Chest Wall inspection of chest normal and palpation of chest normal Resp normal respiratory effort Cardio regular rate and regular rhythm Cardio Narrative: Holosystolic murmur present GI normal to inspection, nondistended, normoactive bowel sounds and non-tender GI Narrative: Brown stool on exam, guaiac positive. No obvious hemorrhoids on exam. Back/Spine no CVA tenderness Neuro oriented x3 Neuro Narrative: No focal deficits appreciated Sensorium / Orientation: alert Motor Exam: general weakness Skin no rashes or lesions noted General Skin Exam: Negative for jaundice or pallor MDM MDM MDM Narrative Medical decision making narrative: Patient is a for generalized weakness. Seem to be brought on by trying to walk to [employer]ianist events because her friend could not pick her up. She is an ongoing history of GI bleeding and she is a poor historian. Patient has an improved hemoglobin compared to when she was admitted for microcytic anemia secondary to GI bleed. Patient's prior discharge summary and surgical consult independently reviewed by myself. She had a colonoscopy by Dr. Guerra which should vices with radiation proctitis and is recommend that she do hydrocortisone suppositories. Recommended trying to avoid future colonoscopies. Patient was treated with blood transfusion and ultimately discharged home. Patient BUN/creatinine around her baseline. She has brown stool on exam but is guaiac positive. No significant electrolyte abnormalities. Chest x-ray does not show any acute process which is independently interpreted by myself as well as radiology. Urinalysis is consistent with some mild ketonuria but otherwise largely normal not consistent with infection. Her BNP is slightly elevated than it was a couple years ago at 143 however patient does not appear grossly fluid overloaded. I do not she requires diuresis at this time. She does have a systolic heart murmur however there is documentation of her heart murmur going back at least to 2019. I do not think this is acute and the cause of her weakness today. Patient will be ambulated for pulse ox in the ER. At this time the exact cause of her generalized weakness is not clear however she does not require an emergent transfusion. Given this history of radiation proctitis she will be given referral to GI. Patient is ambulated in the ER. She is orthostatics. Orthostatics are normal. She is asymptomatic and her O2 sat does drop to 90% but no further. Patient does not recall the last time she had an echocardiogram but thinks she did have one recently through [facility] in [place]. Patient is counseled to follow-up with her primary care doctor. She counseled to discuss if she needs a repeat echocardiogram as she does have systolic murmur and this vague weakness. Patient verbalized agreement understand with this plan. Lab Data Attestation: I reviewed the patient's lab results. Labs: Laboratory Results - last 24 hr 12/29/22 12/29/22 12/29/22 12:50 12:50 12:50 WBC 8.3 RBC 4.21 Hgb 11.4 L Hct 37.3 MCV 88.6 MCH 27.1 MCHC 30.6 L RDW Std Deviation 48.7 H RDW Coeff of Jeannie 15.0 H Plt Count 238 MPV 10.8 Immature Gran % (Auto) 0.400 Neut % (Auto) 79.5 H Lymph % (Auto) 6.8 L Weber % (Auto) 12.8 H Eos % (Auto) 0.0 Baso % (Auto) 0.5 Absolute Neuts (auto) 6.6 Absolute Lymphs (auto) 0.57 L Nucleated RBC % 0 PT 13.1 INR 1.0 APTT 26.8 Sodium 139 Potassium 4.4 Chloride 103 Carbon Dioxide 29.0 Anion Gap 7 BUN 19 H Creatinine 0.92 Estim Creat Clear Calc 41.14 Est GFR (MDRD) Af Amer 77 Est GFR (MDRD) Non-Af 63 BUN/Creatinine Ratio 20.7 H Glucose 101 Calcium 8.9 Total Bilirubin 0.60 AST 22 ALT 19 Alkaline Phosphatase 57 B-Natriuretic Peptide Total Protein 6.6 Albumin 3.0 L Globulin 3.6 Albumin/Globulin Ratio 0.8 L Urine Color Urine Clarity Urine pH Ur Specific [place] Urine Protein Urine Glucose (UA) Urine Ketones Urine Occult Blood Urine Nitrite Urine Bilirubin Urine Urobilinogen Ur Leukocyte Esterase Urine RBC Urine WBC Ur Squamous Epith Cells Urine Bacteria Urine Mucus Blood Type Antibody Screen 12/29/22 12/29/22 12/29/22 12:50 12:50 13:25 WBC RBC Hgb Hct MCV MCH MCHC RDW Std Deviation RDW Coeff of Jeannie Plt Count MPV Immature Gran % (Auto) Neut % (Auto) Lymph % (Auto) Weber % (Auto) Eos % (Auto) Baso % (Auto) Absolute Neuts (auto) Absolute Lymphs (auto) Nucleated RBC % PT INR APTT Sodium Potassium Chloride Carbon Dioxide Anion Gap BUN Creatinine Estim Creat Clear Calc Est GFR (MDRD) Af Amer Est GFR (MDRD) Non-Af BUN/Creatinine Ratio Glucose Calcium Total Bilirubin AST ALT Alkaline Phosphatase B-Natriuretic Peptide 143.5 H Total Protein Albumin Globulin Albumin/Globulin Ratio Urine Color Yellow Urine Clarity Clear Urine pH 6.0 Ur Specific [place] 1.020 Urine Protein 15 H Urine Glucose (UA) Normal Urine Ketones 5 H Urine Occult Blood 10 H Urine Nitrite Negative Urine Bilirubin Negative Urine Urobilinogen Normal Ur Leukocyte Esterase 25 H Urine RBC 0 SEEN Urine WBC 0 SEEN Ur Squamous Epith Cells 0 SEEN Urine Bacteria 0 SEEN Urine Mucus 0 SEEN Blood Type O POSITIVE Antibody Screen NEGATIVE Radiography Chest X-Ray - ED: 2 View, Read by ED Physician, Read by Radiologist and No Acute Disease Diagnostic Testing: Clinical Impression(s) from Imaging Studies Chest X-Ray 12/29/22 14:15 IMPRESSION: No acute abnormality is seen. Electronically Signed: Marco Mcgregor MD at 14:36 EST , Rhythm Strip Rhythm Strip: Sinus Rhythm Rate: 72 Ectopy: None EKG Initial EKG: Attestation: I personally reviewed and interpreted this EKG as follows: Interpretation: Sinus Rhythm Comments: Normal sinus rhythm at a rate of 72 bpm Normal axis Normal intervals Normal ST segments Discharge Plan Triage Chief Complaint: Fatigue ED Provider: Darya Ibarra Dx/Rx/DC Orders Clinical Impression: GI bleed, Weakness generalized, Radiation proctitis Prescriptions: No Action alendronate 70 mg tablet 70 mg PO QWEEK Label Comments: Take 1 tablet by mouth one time a week. Take with a full glass of water, on an empty stomach; do NOT lie down for 30minutes. gabapentin 100 mg capsule 100 mg PO TID PRN (Reason: Pain) Label Comments: Take 1 capsule by mouth three times daily as needed (For pain) FOR 30 DAYS Primary Care Provider: Hemant Parra Referrals: Hemant Parra MD [Primary Care Provider] - Enoch Ortiz DO [Med Staff - Active Staff] - As soon as possible Activity Restrictions/Additional Instructions: The exact cause of your weakness is not clear. You do not have an acute anemia requiring emergent blood transfusion. You do have what is called radiation proctitis where there is chronic changes to the rectum that predisposes to bleeding. I have given you referral to her GI doctor, Dr. Ortiz. If you have worsening or progression of your symptoms please return to the emergency room. Please also follow-up with your primary care doctor and discuss further cardiac evaluation for your weakness as well as when your most recent echocardiogram was. Disposition Disposition: Home, Self Care
--- NOTE | 2022-12-29 14:15 | RAD_ITS ---
STUDY: X-RAY CHEST REASON FOR EXAM: Female, 77 years old. Cough and weakness. TECHNIQUE: PA and lateral views of the chest. COMPARISON: Comparison is made with prior examination dated 12/25/2019. FINDINGS: Hyperinflation. Scattered calcified granulomas. There is no demonstrated pleural abnormality. Normal size heart. Normal mediastinum and glenn. Normal visualized pulmonary arteries. There is atherosclerotic calcification of the aortic arch with tortuosity. There are diffuse degenerative changes of the visualized thoracic spine. Minimal dextroscoliosis. Increased kyphosis. Normal visualized ribs, clavicles, and shoulders. There is no demonstrated abnormality of the visualized soft tissue structures of the upper abdomen. RAD/Chest PA and Lateral IMPRESSION: No acute abnormality is seen. Electronically Signed: Marco Mcgregor MD at 14:36 EST ,
[2022-12-29 14:27] LABS: BNP,B-Type NATRIURETIC PEPTIDE 143.5 pg/mL (0-100)
[2022-12-29 14:30] VITALS: BP 140/61; O2SAT 98
[2022-12-29 15:12] VITALS: O2SAT 95
[2022-12-29 15:57] VITALS: BP 124/73; PULSE 70; RESP 16; O2SAT 98
== END 2022-12-29 15:57 | disposition home or self-care (01) ==
PROVIDERS: Emergency Provider Emergency Medicine; PCP Family Medicine; Visit Provider Emergency Medicine
DX: K92.2 Gastrointestinal hemorrhage, unspecified (principal); N18.30 Chronic kidney disease, stage 3 unspecified; Z87.891 Personal history of nicotine dependence; K62.7 Radiation proctitis
CPT/HCPCS: 71046; 80053; 81001; 82274; 83880; 85025; 85610; 85730; 86850; 86900; 86901; 93005; 99283; A4216

== ENCOUNTER 2022-12-30 10:37 | Emergency (ER) | payer MEDICARE, SELFPAY ==
[2022-12-30 10:38] VITALS: BP 116/88; PULSE 65; RESP 13; TEMP 35.4; O2SAT 96; BMI 19.1
[2022-12-30 10:42] VITALS: BP 116/88; PULSE 65; PULSE 66; RESP 17; RESP 20; TEMP 35.4; O2SAT 95
--- NOTE | 2022-12-30 11:06 | EX.ED.DYSGE1 ---
HPI History of Present Illness Chief Complaint: Fatigue Narrative Narrative: 77-year-old female past medical history of anemia, radiation proctitis, previous GI bleed, was seen in the emergency department yesterday for generalized weakness, presents again with generalized weakness and near syncope. She presents via EMS because she was walking to the [place], and felt lightheaded and thought she was going to pass out. She denies any chest pain or shortness of breath. She states that yesterday the lady told me that I needed to stay hydrated. She is not diabetic. She did state that she ate breakfast this morning. [facility] Medical History Cervical cancer DVT (deep venous thrombosis) Endometrial cancer Home Medications alendronate 70 mg tablet 70 mg PO QWEEK 12/29/22 [History Last Taken Unknown] gabapentin 100 mg capsule 100 mg PO TID PRN Pain 12/29/22 [History Last Taken Unknown] Allergy/AdvReac Type Severity Reaction Status Date / Time acetaminophen [From Percocet] Allergy Unknown Verified 12/30/22 10:44 ibuprofen [From Motrin] Allergy Unknown Verified 12/30/22 10:44 omega-3 acid ethyl esters Allergy Unknown Verified 12/30/22 10:44 oxycodone Allergy Unknown Verified 12/30/22 10:44 oxycodone HCl [From Percocet] Allergy Unknown Verified 12/30/22 10:44 Penicillins Allergy Unknown Verified 12/30/22 10:44 Social History Smoking Status: Former smoker substance use type: does not use ROS ROS ED ROS Narrative Constitutional: No fever, no chills. Generalized weakness. Near syncope. HEENT: No sore throat. No neck pain. No loss of vision. No rhinorrhea. Cardiovascular: No chest pain. No palpitations. No pedal edema. Respiratory: No cough, no shortness of breath. Abdominal: No abdominal pain. No nausea. No vomiting. Genitourinary: No dysuria. No hematuria. Musculoskeletal: No myalgias. No arthralgias. Neurologic: No headaches. No dizziness. No lightheadedness. Skin: No rash. No change in color. Psychiatric: No depression. No anxiety. EXAM Physical Exam Narrative Exam Narrative: Afebrile. Vital signs noted. HEENT: Normocephalic. Atraumatic. PERRL, EOMI. Neck soft and supple. No point tenderness or step off. Cardiovascular: Regular rate and rhythm. No murmurs, rubs, or gallops appreciated. Respiratory: No tachypnea. Lungs clear to auscultation bilaterally. Gastrointestinal: Abdomen soft, nontender, with normoactive bowel sounds. No rebound or guarding. Neurological: Awake. Alert. Nonfocal, nonlateralizing. Skin: No rash. Normal color. No pallor. Musculoskeletal: No pedal edema. Full range of motion extremities. Const Vital Signs: 12/30/22 10:38 12/30/22 10:42 12/30/22 10:42 Temperature 95.8 F L 95.8 F L Temperature Source Temporal Temporal Pulse Rate 65 66 65 Pulse Rate [Lying] Pulse Rate [Sitting (for 1 minute prior to obtaining)] Pulse Rate [Standing (for 1 minute prior to obtaining)] Respiratory Rate 13 17 20 H Respiratory Effort Respiratory Pattern Blood Pressure 116/88 H 116/88 H 116/88 H Blood Pressure [Lying] Blood Pressure [Sitting (for 1 minute prior to obtaining)] Blood Pressure [Standing (for 1 minute prior to obtaining)] Blood Pressure Mean 97 97 97 Blood Pressure Mean [Lying] Blood Pressure Mean [Sitting (for 1 minute prior to obtaining)] Blood Pressure Mean [Standing (for 1 minute prior to obtaining)] Pulse Ox 96 95 95 Oxygen Delivery Method Room Air Room Air Room Air 12/30/22 10:44 12/30/22 11:31 12/30/22 13:04 Temperature Temperature Source Pulse Rate 66 Pulse Rate [Lying] 62 Pulse Rate [Sitting (for 1 minute prior to obtaining)] 68 Pulse Rate [Standing (for 1 minute prior to obtaining)] 69 Respiratory Rate 16 Respiratory Effort Normal Non-Labored Respiratory Pattern Normal Blood Pressure 141/53 H Blood Pressure [Lying] 110/92 H Blood Pressure [Sitting (for 1 minute prior to obtaining)] 122/40 H Blood Pressure [Standing (for 1 minute prior to obtaining)] 122/65 H Blood Pressure Mean 82 Blood Pressure Mean [Lying] 98 Blood Pressure Mean [Sitting (for 1 minute prior to obtaining)] 67 Blood Pressure Mean [Standing (for 1 minute prior to obtaining)] 84 Pulse Ox 98 Oxygen Delivery Method Room Air 12/30/22 13:36 12/30/22 13:41 Temperature Temperature Source Pulse Rate 69 68 Pulse Rate [Lying] Pulse Rate [Sitting (for 1 minute prior to obtaining)] Pulse Rate [Standing (for 1 minute prior to obtaining)] Respiratory Rate 22 H 16 Respiratory Effort Respiratory Pattern Blood Pressure 133/49 H 133/49 H Blood Pressure [Lying] Blood Pressure [Sitting (for 1 minute prior to obtaining)] Blood Pressure [Standing (for 1 minute prior to obtaining)] Blood Pressure Mean Blood Pressure Mean [Lying] Blood Pressure Mean [Sitting (for 1 minute prior to obtaining)] Blood Pressure Mean [Standing (for 1 minute prior to obtaining)] Pulse Ox 99 98 Oxygen Delivery Method MDM MDM MDM Narrative Medical decision making narrative: I reviewed the patient's record from yesterday. She had a comprehensive work-up including CBC and BMP, along with UA. I will repeat her CBC and BMP just to make sure that there are no acute changes. She will be bolused IV fluids and orthostatics obtained. I do not feel that repeat UA is indicated. I do not feel that any imaging is indicated either. I reviewed her laboratory work, her orthostatics are negative. CBC shows normal white count of 7.7, hemoglobin 12.3 and normal, platelet count normal at 253. Sodium slightly low at 135, but she was bolused IV fluids. Her BUN and creatinine show a BUN of 21 with a creatinine of 0.99. Glucose appropriately elevated at 123 with a normal anion gap of 5. At this point in time, I am unsure as to the cause of her near syncope and generalized weakness, but the same instructions that she was given yesterday have been reiterated. I feel that she can be discharged safely home with follow-up. I did offer the patient observation and fpc placement for her generalized weakness, but she declined. Return instructions to the emergency department were reviewed. Disposition is discharged home in stable condition. Lab Data Attestation: I reviewed the patient's lab results. Labs: Laboratory Results - last 24 hr 12/30/22 12/30/22 10:50 10:50 WBC 7.7 RBC 4.57 Hgb 12.3 Hct 40.3 MCV 88.2 MCH 26.9 L MCHC 30.5 L RDW Std Deviation 48.1 H RDW Coeff of Jeannie 14.9 H Plt Count 253 MPV 11.0 Immature Gran % (Auto) 0.400 Neut % (Auto) 76.9 H Lymph % (Auto) 11.9 L Day % (Auto) 10.2 H Eos % (Auto) 0.1 Baso % (Auto) 0.5 Absolute Neuts (auto) 5.9 Absolute Lymphs (auto) 0.91 Nucleated RBC % 0 Sodium 135 L Potassium 3.9 Chloride 101 Carbon Dioxide 29.0 Anion Gap 5 BUN 21 H Creatinine 0.99 Estim Creat Clear Calc 39.84 Est GFR (MDRD) Af Amer 70 Est GFR (MDRD) Non-Af 58 L BUN/Creatinine Ratio 21.2 H Glucose 123 H Calcium 8.6 Discharge Plan Triage Chief Complaint: Fatigue ED Provider: Anthony Urbano Dx/Rx/DC Orders Clinical Impression: Generalized weakness, Near syncope Instructions: ED Near-Fainting, Uncertain Cause, ED Weakness (Uncertain Cause) Prescriptions: No Action alendronate 70 mg tablet 70 mg PO QWEEK Label Comments: Take 1 tablet by mouth one time a week. Take with a full glass of water, on an empty stomach; do NOT lie down for 30minutes. gabapentin 100 mg capsule 100 mg PO TID PRN (Reason: Pain) Label Comments: Take 1 capsule by mouth three times daily as needed (For pain) FOR 30 DAYS Primary Care Provider: Hemant Parra Referrals: Hemant Parra MD [Primary Care Provider] - As soon as possible Disposition Disposition: Home, Self Care Discharge Date/Time: 12/30/22 13:53
[2022-12-30 11:31] VITALS: BP 110/92; BP 122/40; BP 122/65; PULSE 62; PULSE 68; PULSE 69
[2022-12-30 11:35] LABS: Absolute Lymphocyte Count 0.91 X10^3/uL (0.83-4.51); Absolute Neutrophil Count 5.9 X10^3/uL (2.0-7.7); Basophil# 0.04 X10^3/uL; Basophil% 0.5 % (0-1); Eosinophil# 0.01 X10^3/uL; Eosinophils% 0.1 % (0-5); Hematocrit 40.3 % (37-47); Hemoglobin 12.3 g/dL (12.0-15.0); Lymphocyte # 0.91 X10^3/ul (0.83-4.51); Lymphocyte % 11.9 % (19-41); Mean Corp Hgb Conc 30.5 g/dL (32-36); Mean Corpuscular Hgb 26.9 pg (27.0-32.0); Mean Corpuscular Volume 88.2 fL (81-99); Monocyte# 0.78 X10^3/uL; Monocyte% 10.2 % (0-10); NRBC Flagged by Analyzer 0 % (0-5); Neutrophil % 76.9 % (47-70); Platelet Count 253 K/mm3 (150-450); RBC Distribution Width CV 14.9 % (11.6-14.6); RBC Distribution Width SD 48.1 fl (35.1-43.9); Red Blood Count 4.57 M/mm3 (4.2-5.4); White Blood Count 7.7 K/mm3 (4.4-11.0)
[2022-12-30 11:45] LABS: Anion Gap 5 (5-15); BUN 21 mg/dL (7-18); BUN/Creat Ratio 21.2 RATIO (10-20); Calcium,Total 8.6 mg/dL (8.5-10.1); Chloride 101 mmol/L (98-107); Creatinine, Serum 0.99 mg/dL (0.55-1.02); EST Glomerular Filtration Rate 58 mL/min (>60); Est Glom Filt Rate - Afr Amer 70 mL/min (>60); Estimated Creatinine Clearance 39.84 ml/min; Glucose 123 mg/dL (74-106); Potassium 3.9 mmol/L (3.5-5.1); Sodium Level 135 mmol/L (136-145)
--- NOTE | 2022-12-30 11:46 | ED.RN ---
UPON FIRST ASSESSMENT, PT STATES SHE HAD BLOOD IN STOOL. ADULT BRIEF CHANGED BY THIS RN. PT INCONTINENT OF STOOL. STOOL BROWN AND SOFT, NO BLOOD PRESENT PER THIS RN. ADULT BRIEF CHANGED, PT CLEANED UP WITH BATH WIPES.
[2022-12-30] MEDS: 0.9% Normal Saline 1,000 ML 999 ML IV (12:15)
[2022-12-30 13:04] VITALS: BP 141/53; PULSE 66; RESP 16; O2SAT 98
[2022-12-30 13:36] VITALS: BP 133/49; PULSE 69; RESP 22; O2SAT 99
[2022-12-30 13:41] VITALS: BP 133/49; PULSE 68; RESP 16; O2SAT 98
== END 2022-12-30 13:53 | disposition home or self-care (01) ==
LOC: ED 11:53
PROVIDERS: Emergency Provider Emergency Medicine; PCP Family Medicine; Visit Provider Emergency Medicine
DX: R55 Syncope and collapse (principal); R53.1 Weakness; Z87.891 Personal history of nicotine dependence
CPT/HCPCS: 80048; 85025; 96360; 99285; J7030; A4216

== ENCOUNTER 2023-01-09 07:16 | Observation (INO) | payer MEDICARE, SELFPAY ==
[2023-01-09 07:17] VITALS: BP 146/63; PULSE 79; RESP 14; TEMP 36.4; O2SAT 98; BMI 20.5
--- NOTE | 2023-01-09 07:38 | ED.VIS.GI ---
HPI HPI - GI History of Present Illness Chief Complaint: Diarrhea Informant: patient Nausea/Vomiting/Emesis GI Symptom: Negative for Nausea or Vomiting Onset: Yesterday (just over 12 hrs ago) Diarrhea/Melena/Hematochezia GI Symptom: Positive for Diarrhea and Hematochezia; Negative for Melena Narrative Narrative: Patient states she started having bloody diarrhea yesterday. She is a very poor informant, but from what I can gather she has had stool and blood both. She denies any known fevers or chills, she was having some rumbling but no abdominal pains, nausea, or vomiting. She states she is not on a blood thinner, her EMR supports that although she had a history of a DVT in the past. I asked her if she had a history of colon cancer, she indicates that not that she knows of but she had cervical/endometrial cancer, and the EMR states she has a history of radiation proctitis as well as a history of GI bleed in the past. Patient denies travel out of the area recently. She denies anything obvious that she has ingested that could have caused food poisoning. She denies any new water sources recently. She denies taking any antibiotics recently or having a history of C. difficile colitis. [facility] Medical History Cervical cancer DVT (deep venous thrombosis) Endometrial cancer Home Medications alendronate 70 mg tablet 70 mg PO JEFFREY OSTEOPEROSIS 12/29/22 [History Last Taken 01/07/23] gabapentin 100 mg capsule 100 mg PO TID PRN Pain 12/29/22 [History Last Taken 01/08/23] food supplemt, lactose-reduced 240 ml PO DAILY SUPPLEMENT 01/09/23 [History Last Taken Unknown] Allergy/AdvReac Type Severity Reaction Status Date / Time acetaminophen [From Percocet] Allergy Unknown Verified 01/09/23 07:18 ibuprofen [From Motrin] Allergy Unknown Verified 01/09/23 07:18 omega-3 acid ethyl esters Allergy Unknown Verified 01/09/23 07:18 oxycodone Allergy Unknown Verified 01/09/23 07:18 oxycodone HCl [From Percocet] Allergy Unknown Verified 01/09/23 07:18 Penicillins Allergy Unknown Verified 01/09/23 07:18 Social History Smoking Status: Former smoker substance use type: does not use ROS ROS ED Constitutional Constitutional ED: Denies chills or fever(s) Eyes Eyes: Denies change in vision or diplopia ENT ENT ED: Denies rhinorrhea or sore throat Cardiovascular Cardiovascular: Denies chest pain or palpitations Respiratory/Chest Respiratory/Chest: Denies cough or dyspnea Gastrointestinal Gastrointestinal: Reports diarrhea and hematochezia; Denies abdominal pain, melena, nausea or vomiting Genitourinary Genitourinary ED: Denies dysuria or hematuria Musculoskeletal Musculoskeletal: Denies back pain or neck pain Integumentary Denies abscess or rash Neurologic Neurologic: Denies headache(s), paresthesias or weakness Psychiatric Psychiatric: Denies anxiety or suicidal thoughts EXAM Physical Exam Const Vital Signs: 01/09/23 07:17 01/09/23 12:00 Temperature 97.5 F L Temperature Source Temporal Pulse Rate 79 66 Respiratory Rate 14 20 H Blood Pressure 146/63 H 142/61 H Blood Pressure Mean 90 88 Pulse Ox 98 Oxygen Delivery Method Room Air Positive well nourished and well developed General Appearance ED: well developed and NAD HEENT Reports moist mucous membranes normocephalic and atraumatic Eyes PERRL and EOMs intact bilaterally Neck full ROM and supple Resp normal respiratory effort and clear to auscultation bilaterally Cardio regular rate, regular rhythm and peripheral pulses 2+ throughout Rate: Negative for tachycardic Heart Sounds: murmur systolic III/ crescendo-decrescendo GI non-tender and non-distended Auscultation: normoactive bowel sounds Palpation: soft Back/Spine no CVA tenderness General Back: other FROM Extremity normal to inspection General Extremety ED: Negative for edema, pulses abnormal or tenderness General Extremity: Negative for edema or pulses abnormal Neuro oriented x3, CN's II-XII intact bilaterally and no sensory deficits noted Sensorium / Orientation: awake and alert Motor Exam: strength 5/5 throughout Skin no rashes or lesions noted and no wounds MDM MDM MDM Narrative Medical decision making narrative: After initial exam I went back to do a rectal exam with nursing benefits consultant and by that time the patient had a significant amount of diarrhea in her diaper, it is all nonbloody. She does not have any rectal/perianal tenderness. My concern is that she is having profuse diarrhea with blood in it that may be due to an invasive infection. She does not have a significant leukocytosis. Given the appearance of the stool I did send for Hemoccult, which ended up being positive. She does also have a positive fecal white blood cell smear, consistent with the possibility of an invasive infection but not necessarily specific for it. She states even after IV fluids she is feeling very weak and the concerned that she will fall at home she lives alone. I think admitting her to observation for further treatment evaluation is reasonable. I am sending an enteric bacterial panel which is pending. She has no risks for ova/parasites. C. difficile is negative. Lab Data Attestation: I reviewed the patient's lab results. Labs: Laboratory Results - last 24 hr 01/09/23 01/09/23 07:48 07:48 WBC 6.8 RBC 4.63 Hgb 12.6 Hct 40.9 MCV 88.3 MCH 27.2 MCHC 30.8 L RDW Std Deviation 48.8 H RDW Coeff of Jeannie 14.9 H Plt Count 289 MPV 10.2 Immature Gran % (Auto) 0.400 Neut % (Auto) 79.0 H Lymph % (Auto) 7.5 [place] % (Auto) 12.3 H Eos % (Auto) 0.4 Baso % (Auto) 0.4 Absolute Neuts (auto) 5.4 Absolute Lymphs (auto) 0.51 L Nucleated RBC % 0 Differential Comment SCANNED Sodium 140 Potassium 4.3 Chloride 106 Carbon Dioxide 29.0 Anion Gap 5 BUN 21 H Creatinine 0.90 Estim Creat Clear Calc 45.70 Est GFR (MDRD) Af Amer 79 Est GFR (MDRD) Non-Af 65 BUN/Creatinine Ratio 23.5 H Glucose 101 Calcium 8.6 Total Bilirubin 0.60 AST 20 ALT 21 Alkaline Phosphatase 58 Total Protein 6.7 Albumin 3.1 L Globulin 3.6 Albumin/Globulin Ratio 0.9 Management Discussion w/another healthcare provider: Hospitalist Discharge Plan Dx/Rx/DC Orders Clinical Impression: Acute diarrhea, Dehydration, mild, Bloody diarrhea Disposition Disposition: [facility]
[2023-01-09 08:01] LABS: Absolute Lymphocyte Count 0.51 X10^3/uL (0.83-4.51); Absolute Neutrophil Count 5.4 X10^3/uL (2.0-7.7); Basophil# 0.03 X10^3/uL; Basophil% 0.4 % (0-1); Eosinophil# 0.03 X10^3/uL; Eosinophils% 0.4 % (0-5); Hematocrit 40.9 % (37-47); Hemoglobin 12.6 g/dL (12.0-15.0); Lymphocyte # 0.51 X10^3/ul (0.83-4.51); Lymphocyte % 7.5 % (19-41); Mean Corp Hgb Conc 30.8 g/dL (32-36); Mean Corpuscular Hgb 27.2 pg (27.0-32.0); Mean Corpuscular Volume 88.3 fL (81-99); Mean Platelet Vol. 10.2 fl (6.2-12.0); Monocyte# 0.84 X10^3/uL; Monocyte% 12.3 % (0-10); NRBC Flagged by Analyzer 0 % (0-5); Neutrophil # 5.37 X10^3/uL (2.7-7.7); POSITIVE DIFFERENTIAL YES; Platelet Count 289 K/mm3 (150-450); RBC Distribution Width CV 14.9 % (11.6-14.6); RBC Distribution Width SD 48.8 fl (35.1-43.9); Red Blood Count 4.63 M/mm3 (4.2-5.4); White Blood Count 6.8 K/mm3 (4.4-11.0)
[2023-01-09 08:14] LABS: Differential Indicated SCAN CRITERIA MET
[2023-01-09 08:22] LABS: ALB/GLOB Ratio 0.9 RATIO (0.9-2.4); AST(SGOT) 20 U/L (15-37); Alanine Aminotransfer ALT/SGPT 21 U/L (13-56); Albumin, Serum 3.1 g/dL (3.2-5.0); Alkaline Phosphatase 58 U/L (45-117); Anion Gap 5 (5-15); BUN 21 mg/dL (7-18); BUN/Creat Ratio 23.5 RATIO (10-20); Calcium,Total 8.6 mg/dL (8.5-10.1); Chloride 106 mmol/L (98-107); EST Glomerular Filtration Rate 65 mL/min (>60); Est Glom Filt Rate - Afr Amer 79 mL/min (>60); Globulin 3.6 g/dL (2.2-4.2); Glucose 101 mg/dL (74-106); Potassium 4.3 mmol/L (3.5-5.1); Protein, Total 6.7 g/dL (6.4-8.2); Sodium Level 140 mmol/L (136-145)
[2023-01-09 08:30] LABS: Differential Comment SCANNED
[2023-01-09] MEDS: 0.9% Normal Saline 1,000 ML 200 ML IV ×3 (08:38→19:01)
[2023-01-09 12:00] VITALS: BP 142/61; PULSE 66; RESP 20
--- NOTE | 2023-01-09 12:05 | HP.PCM.HOS_ITS ---
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 She denied any nausea, vomiting or abdominal pain and wasnt on a blood thinner. She does have a history of cervical and endometrial cancer as well as a history of radiation proctitis and Gi bleed in the past. She had no other complaints and denied any weight loss. Review of systems was otherwise negative.She said she had had about 12 episodes of diarrhea overnight,a nd several times this morning also. Vitals in the ED were BP of 146/63, MI of 79, RR of 14 and temp of 97.5F. She was saturating at 98% on room air. CBC showed wbc of 6.8, Hb of 12.6 and platelets of 289. Chemistry was also unremarkable. Diarrhea as seen by the ED doctor was mostly stool with no gross blood seen. Stool for occult blood was positive, but C Diff was negative. Due to concerns about gastroenteritis, a stool panel was sent. Patient was hydrated in the ED< but still said she felt to weak to go home. She is threfore being admitted to be managed for acute gastroenteritis. [facility] Medical History (Updated 01/09/23 @ 14:29 by Tanya Kelley) Cervical cancer DVT (deep venous thrombosis) Endometrial cancer Former smoker Osteoporosis Home Medications alendronate 70 mg tablet 70 mg PO JEFFREY OSTEOPEROSIS 12/29/22 [History Last Taken 01/07/23] gabapentin 100 mg capsule 100 mg PO TID PRN Pain 12/29/22 [History Last Taken 01/08/23] food supplemt, lactose-reduced 240 ml PO DAILY SUPPLEMENT 01/09/23 [History Last Taken Unknown] Allergy/AdvReac Type Severity Reaction Status Date / Time acetaminophen [From Percocet] Allergy Unknown Verified 01/09/23 07:18 ibuprofen [From Motrin] Allergy Unknown Verified 01/09/23 07:18 omega-3 acid ethyl esters Allergy Unknown Verified 01/09/23 07:18 oxycodone Allergy Unknown Verified 01/09/23 07:18 oxycodone HCl [From Percocet] Allergy Unknown Verified 01/09/23 07:18 Penicillins Allergy Unknown Verified 01/09/23 07:18 Social History Smoking Status: Former smoker substance use type: does not use ROS Constitutional Constitutional: Reports fatigue, malaise and weakness; Denies anorexia, chills or fever(s) Eyes Eyes: Denies change in vision ENT HEENT: Denies dysphagia, headache(s) or sore throat Cardiovascular Cardiovascular: Denies chest pain, dyspnea on exertion, edema, lightheadedness, orthopnea, palpitations, paroxysmal nocturnal dyspnea, rapid heart rate or syncope Respiratory/Chest Respiratory/Chest: Denies cough, dyspnea, shortness of breath at rest or shortness of breath with exertion Gastrointestinal Gastrointestinal: Reports diarrhea; Denies abdominal pain, constipation, dyspepsia, hematemesis, hematochezia, nausea or vomiting Genitourinary Genitourinary: Denies burning urination or dysuria Neurologic Neurologic: Denies confusion, dizziness, focal weakness, headache(s), numbness, seizure-like activity or seizures Psychiatric Psychiatric: Denies anxiety or depression Hematologic/Lymphatic Hematologic/Lymphatic: Denies anemia Vital Signs Vital Signs Vital Signs: 01/09/23 07:17 Temperature 97.5 F L Temperature Source Temporal Pulse Rate 79 Respiratory Rate 14 Blood Pressure 146/63 H Blood Pressure Mean 90 Pulse Ox 98 Oxygen Delivery Method Room Air Weight Weight: 120 lb Body Mass Index (BMI) 20.5 Physical Exam Const alert, oriented x3 and no apparent distress General Appearance: cooperative HEENT normocephalic, head/scalp atraumatic and hearing grossly normal bilaterally HEENT Narrative: dry oral mucosa Eyes PERRL, EOMs intact bilaterally and conjunctivae normal Neck no lymphadenopathy, supple and no JVD Cardio regular rate, regular rhythm, S1 normal heart sound, S2 normal heart sound and no murmurs GI normal to inspection, nondistended, normoactive bowel sounds, soft to palpation, non-tender and non-distended Extremity normal to inspection, full ROM and no clubbing, cyanosis or edema Neuro oriented x3, CN's II-XII intact bilaterally, moves all extremities and no focal motor deficits Sensorium / Orientation: awake and alert Motor Exam: strength 5/5 throughout Psych affect normal Results Lab / Micro Data Result Diagrams: 01/09/23 07:48 01/09/23 07:48 Labs: Laboratory Results - last 24 hr 01/09/23 07:48: WBC 6.8, RBC 4.63, Hgb 12.6, Hct 40.9, MCV 88.3, MCH 27.2, MCHC 30.8 L, RDW Std Deviation 48.8 H, RDW Coeff of Jeannie 14.9 H, Plt Count 289, MPV 10.2, Immature Gran % (Auto) 0.400, Neut % (Auto) 79.0 H, Lymph % (Auto) 7.5 L, [place] % (Auto) 12.3 H, Eos % (Auto) 0.4, Baso % (Auto) 0.4, Absolute Neuts (auto) 5.4, Absolute Lymphs (auto) 0.51 L, Nucleated RBC % 0, Differential Comment SCANNED 01/09/23 07:48: Sodium 140, Potassium 4.3, Chloride 106, Carbon Dioxide 29.0, Anion Gap 5, BUN 21 H, Creatinine 0.90, Estim Creat Clear Calc 45.70, Est GFR (MDRD) Af Amer 79, Est GFR (MDRD) Non-Af 65, BUN/Creatinine Ratio 23.5 H, Glucose 101, Calcium 8.6, Total Bilirubin 0.60, AST 20, ALT 21, Alkaline Phosphatase 58, Total Protein 6.7, Albumin 3.1 L, Globulin 3.6, Albumin/Globulin Ratio 0.9 Micro: Microbiology 01/09/23 11:00 Stool Stool Occult Blood (CARISSA) - Final Occult Blood Positive 01/09/23 08:45 Stool Stool Lactoferrin - Final 01/09/23 08:45 Stool C. difficile DNA Amplification - Final Assessment & Plan Assessment/Plan (1) Acute diarrhea: (2) Dehydration, mild: PLAN: Plan #Acute gastroenteritis * patient admitted with a complaint of diarrhea. She said she was having blood per rectum, but it seems it is more of the diarrhea which is so profuse that she is having blood associated with it. * CT was negative. Stool for occult blood was positive. * Stool for enteric pathogen positive for rotavirus which is likely the cause of her diarrhea. * Hydrate gently with IV fluids. Put on clear liquid diet for now. * Give supportive care in light of the rotavirus infection. * #History of cervical cancer with resultant radiation proctitis: Stable #Debility and malnutrition: Patient's BMI is 21.2. She is very frail and emaciated. Nutrition consulted. DVT prophylaxis: SCDs. Code status: full code * Patient counseled extensively about different types of CODE STATUS including full code, DNR CCA and DNR CCA. Patient elects to be full code. Total [id number] time 17 minutes. Charges/Coding Visit Charges Inpatient E&M: 14899 Init Hosp L3
--- NOTE | 2023-01-09 12:26 | NURSING ---
319 OBS KORAM ACUTE DIARRHEA
[2023-01-09 12:29] VITALS: BP 142/61; PULSE 67; RESP 19; TEMP 36.3; O2SAT 98
[2023-01-09 13:31] VITALS: BMI 21.2
[2023-01-09 19:02] VITALS: BP 138/53; PULSE 81; RESP 16; TEMP 38; O2SAT 97
[2023-01-09 22:10] VITALS: BP 118/45; PULSE 72; RESP 18; TEMP 38.1; O2SAT 97
[2023-01-09] MEDS: Menthol/Lanolin/Calamine/Znox 113 GM Tube 1 APPLIC TOPICAL (22:16)
[2023-01-10] MEDS: 0.9% Normal Saline 1,000 ML 200 ML IV ×5 (00:02→21:22)
[2023-01-10 05:27] VITALS: BP 108/50; PULSE 65; RESP 18; TEMP 37.3; O2SAT 97
[2023-01-10 06:30] LABS: Absolute Lymphocyte Count 0.46 X10^3/uL (0.83-4.51); Absolute Neutrophil Count 5.3 X10^3/uL (2.0-7.7); Basophil# 0.01 X10^3/uL; Basophil% 0.2 % (0-1); Eosinophil# 0.01 X10^3/uL; Eosinophils% 0.2 % (0-5); Hematocrit 34.5 % (37-47); Hemoglobin 10.5 g/dL (12.0-15.0); Lymphocyte # 0.46 X10^3/ul (0.83-4.51); Lymphocyte % 7.1 % (19-41); Mean Corp Hgb Conc 30.4 g/dL (32-36); Mean Corpuscular Hgb 27.1 pg (27.0-32.0); Mean Corpuscular Volume 88.9 fL (81-99); Mean Platelet Vol. 10.2 fl (6.2-12.0); Monocyte# 0.64 X10^3/uL; Monocyte% 9.9 % (0-10); NRBC Flagged by Analyzer 0 % (0-5); Neutrophil # 5.31 X10^3/uL (2.7-7.7); Neutrophil % 81.8 % (47-70); POSITIVE DIFFERENTIAL YES; Platelet Count 211 K/mm3 (150-450); RBC Distribution Width SD 49.5 fl (35.1-43.9); Red Blood Count 3.88 M/mm3 (4.2-5.4); White Blood Count 6.5 K/mm3 (4.4-11.0)
[2023-01-10 06:36] LABS: Differential Indicated SCAN CRITERIA MET
[2023-01-10 06:52] LABS: Anisocytosis 1+
[2023-01-10 07:16] LABS: Anion Gap 6 (5-15); BUN 14 mg/dL (7-18); BUN/Creat Ratio 17.7 RATIO (10-20); Calcium,Total 7.2 mg/dL (8.5-10.1); Chloride 114 mmol/L (98-107); Creatinine, Serum 0.79 mg/dL (0.55-1.02); EST Glomerular Filtration Rate 75 mL/min (>60); Est Glom Filt Rate - Afr Amer 91 mL/min (>60); Estimated Creatinine Clearance 34.38 ml/min; Glucose 78 mg/dL (74-106); Potassium 3.5 mmol/L (3.5-5.1); Sodium Level 139 mmol/L (136-145)
[2023-01-10] MEDS: Menthol/Lanolin/Calamine/Znox 113 GM Tube 1 APPLIC TOPICAL ×2 (10:11→21:22)
[2023-01-10 10:16] VITALS: BP 116/49; PULSE 62; RESP 17; TEMP 36.7; O2SAT 98
--- NOTE | 2023-01-10 11:39 | PN_ITS ---
Subjective Subjective Patient seen and examined. She still having diarrhea. She cannot quantify the number of times she is, she states she wears a depends and does have bowel movements. She denies any lightheadedness, dizziness, palpitations, nausea or vomiting. Review of systems otherwise negative. Objective Data Objective Data Vital Signs: Vital Signs Temp Pulse Resp BP Pulse Ox O2 Del Method 98.0 F 62 17 116/49 L 98 Room Air 01/10/23 10:16 01/10/23 10:16 01/10/23 10:16 01/10/23 10:16 01/10/23 10:16 01/10/23 10:20 Oxygen Delivery Method Room Air Weight: 108 lb 7 oz Body Mass Index (BMI) 21.2 Intake & Output: Intake and Output for Last 24 Hours 01/08/23 01/09/23 01/10/23 23:59 23:59 23:59 Intake Total 0 / 2119 3480 / 3480 Balance 2119 / 2119 3480 / 3480 Lab / Micro Data Result Diagrams: 01/10/23 06:00 01/10/23 06:00 Labs: Laboratory Results - last 24 hr 01/10/23 06:00: WBC 6.5, RBC 3.88 L, Hgb 10.5 L, Hct 34.5 L, MCV 88.9, MCH 27.1, MCHC 30.4 L, RDW Std Deviation 49.5 H, RDW Coeff of Jeannie 15.0 H, Plt Count 211, MPV 10.2, Immature Gran % (Auto) 0.800, Neut % (Auto) 81.8 H, Lymph % (Auto) 7.1 L, [place] % (Auto) 9.9, Eos % (Auto) 0.2, Baso % (Auto) 0.2, Absolute Neuts (auto) 5.3, Absolute Lymphs (auto) 0.46 L, Nucleated RBC % 0, Anisocytosis 1+ 01/10/23 06:00: Sodium 139, Potassium 3.5, Chloride 114 H, Carbon Dioxide 19.0 L , Anion Gap 6, BUN 14, Creatinine 0.79, Estim Creat Clear Calc 34.38, Est GFR (MDRD) Af Amer 91, Est GFR (MDRD) Non-Af 75, BUN/Creatinine Ratio 17.7, Glucose 78, Calcium 7.2 L Micro: Microbiology 01/09/23 11:00 Stool Enteric Bacteriology - Final Rotavirus 01/09/23 11:00 Stool Stool Occult Blood (CARISSA) - Final Occult Blood Positive 01/09/23 08:45 Stool Stool Lactoferrin - Final 01/09/23 08:45 Stool C. difficile DNA Amplification - Final Physical Exam Const alert, oriented x3 and no apparent distress General Appearance: cooperative HEENT normocephalic, head/scalp atraumatic and hearing grossly normal bilaterally Eyes PERRL, EOMs intact bilaterally and conjunctivae normal Neck no lymphadenopathy, supple and no JVD Resp normal respiratory effort, normal air movement and clear to auscultation bilaterally Cardio regular rate, regular rhythm, S1 normal heart sound, S2 normal heart sound and no murmurs GI normal to inspection, nondistended, normoactive bowel sounds, soft to palpation, non-tender and non-distended Extremity normal to inspection, full ROM, normal capillary refill and no clubbing, cyanosis or edema Skin General Skin Exam: no breakdown Neuro oriented x3, CN's II-XII intact bilaterally, moves all extremities and no focal motor deficits Sensorium / Orientation: awake and alert Motor Exam: strength 5/5 throughout Psych thought process normal and affect normal Assessment & Plan Assessment/Plan (1) Acute diarrhea: (2) Dehydration, mild: PLAN: Plan #Acute viral gastroenteritis due to rotavirus infection * still having diarrhea. * continue gentle hydration with IVF. * continue clear liquid diet for now. * CT was negative. Stool for occult blood was positive. I think positive stool for occult blood * Stool for enteric pathogen positive for rotavirus which is likely the cause of her diarrhea.. * Give supportive care in light of the rotavirus infection. * #History of cervical cancer with resultant radiation proctitis: Stable #Debility and malnutrition: Patient's BMI is 21.2. She is very frail and emaciated. Nutrition on board. DVT prophylaxis: SCDs. Code status: full code * Charges/Coding Visit Charges Inpatient E&M: 30652 Subs Hosp L2
--- NOTE | 2023-01-10 12:16 | CHAPLAIN ---
Type of Pastoral Visit _x__ Initial Visit ___ Follow-up Visit ___ On-call Visit ___ General Patient Visit ___ Spiritual Assessment ___ Family Conference ___ Bereavement ___ Rapid Response ___ Code Blue ___ Other (describe below) Pastoral Care Referral From _x__ Patient ___ Family ___ Nurse ___ Physician ___ High [employer] Industrial Arts Teacher ___ Manager Intelligence ___ Other (describe below) Sacrament/Intervention _x__ Active listening ___ Anointing ___ Roman Catholic ___ Bereavement ___ Communion ___ Carolyn exploration ___ _x__ Life review _x__ Prayer ___ Reconciliation ___ Sacrament of Sick _x__ Supportive presence ___ Wedding ___ Other (describe below) Pastoral Comments patient has some questions about what she has and is not concern about what treatment she is having; pt advised to ask questions of medical team; 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
--- NOTE | 2023-01-10 12:53 | CASEMGMT ---
JOSE PRINGLE in to discuss BOBBY form with patient. JOSE PRINGLE explained BOBBY form, patient voiced understanding. Pt signed form and filed in chart. Pt provided with a copy of signed BOBBY form. Discussed therapy eval with patient. She denies need for any therapy post discharge, nor any homegoing needs. Patient had no further questions or concerns at this time.
[2023-01-10 16:18] VITALS: BP 146/58; PULSE 57; RESP 16; TEMP 37.4; O2SAT 100
[2023-01-10 22:24] VITALS: BP 142/57; PULSE 56; RESP 16; TEMP 37.1; O2SAT 98
[2023-01-11] MEDS: 0.9% Normal Saline 1,000 ML 200 ML IV ×5 (02:12→22:57)
[2023-01-11 03:23] VITALS: BP 148/55; PULSE 61; RESP 16; TEMP 37.2; O2SAT 96
[2023-01-11] MEDS: Gabapentin 100 MG Capsule PO ×3 (04:43→20:29)
[2023-01-11 06:07] LABS: Absolute Lymphocyte Count 0.63 X10^3/uL (0.83-4.51); Absolute Neutrophil Count 4.4 X10^3/uL (2.0-7.7); Basophil# 0.02 X10^3/uL; Basophil% 0.3 % (0-1); Eosinophil# 0.03 X10^3/uL; Eosinophils% 0.5 % (0-5); Hematocrit 35.3 % (37-47); Hemoglobin 11.1 g/dL (12.0-15.0); Lymphocyte # 0.63 X10^3/ul (0.83-4.51); Mean Corp Hgb Conc 31.4 g/dL (32-36); Mean Corpuscular Hgb 27.1 pg (27.0-32.0); Mean Corpuscular Volume 86.3 fL (81-99); Mean Platelet Vol. 10.1 fl (6.2-12.0); Monocyte# 0.65 X10^3/uL; Monocyte% 11.3 % (0-10); NRBC Flagged by Analyzer 0 % (0-5); Neutrophil # 4.39 X10^3/uL (2.7-7.7); Neutrophil % 76.6 % (47-70); Platelet Count 211 K/mm3 (150-450); RBC Distribution Width CV 14.9 % (11.6-14.6); RBC Distribution Width SD 47.3 fl (35.1-43.9); Red Blood Count 4.09 M/mm3 (4.2-5.4); White Blood Count 5.7 K/mm3 (4.4-11.0)
[2023-01-11 06:42] LABS: Anion Gap 8 (5-15); BUN 9 mg/dL (7-18); BUN/Creat Ratio 12.5 RATIO (10-20); Calcium,Total 7.1 mg/dL (8.5-10.1); Chloride 114 mmol/L (98-107); Creatinine, Serum 0.72 mg/dL (0.55-1.02); EST Glomerular Filtration Rate 83 mL/min (>60); Est Glom Filt Rate - Afr Amer 101 mL/min (>60); Estimated Creatinine Clearance 34.38 ml/min; Glucose 88 mg/dL (74-106); Potassium 3.8 mmol/L (3.5-5.1); Sodium Level 142 mmol/L (136-145)
--- NOTE | 2023-01-11 09:39 | CASEMGMT ---
Social Work SW informed by MD Cain that pt likely needs SNF. Review of therapy notes also indicate pt would benefit from rehabilitation services. SW in to pt room to discuss discharge plan with pt. SW explained that the MD and therapy team feel pt could use rehab to build back strength. Pt did not agree and stated I don't want to go anywhere. I need to get home and attend to some stuff. SW inquired about pt ability to safety return home. Pt feels confident when discharged that strength will return as pt moves around home. SW asked pt if pt was open to HHC services. Pt also denied need for HHC, stated my place is to small for a bunch of people coming in. SW informed pt that a list of HHC or SNF providers could be given to pt for review in case pt changes mind. Pt declined, adamant in returning home with no help. SW encouraged pt to reach out with any needs or further concerns. Pt voiced understanding. Sandra Ruby, WM
[2023-01-11 10:35] VITALS: BP 174/67; PULSE 59; RESP 18; TEMP 36.9; O2SAT 100
[2023-01-11] MEDS: Menthol/Lanolin/Calamine/Znox 113 GM Tube 1 APPLIC TOPICAL ×2 (10:46→20:29)
--- NOTE | 2023-01-11 11:59 | PN_ITS ---
Subjective Subjective Patient seen and examined. She had no complaints today. Her diarrhea was improving. She denied any nausea or vomiting or any other symptoms. Review of systems otherwise negative. Her blood pressure is a bit elevated today in the 170s systolic. She has otherwise remained hemodynamically stable. Objective Data Objective Data Vital Signs: Vital Signs Temp Pulse Resp BP Pulse Ox O2 Del Method 98.5 F 59 L 18 174/67 H 100 Room Air 01/11/23 10:35 01/11/23 10:35 01/11/23 10:35 01/11/23 10:35 01/11/23 10:35 01/11/23 10:35 Oxygen Delivery Method Room Air Weight: 108 lb 7 oz Body Mass Index (BMI) 21.2 Intake & Output: Intake and Output for Last 24 Hours 01/09/23 01/10/23 01/11/23 23:59 23:59 23:59 Intake Total 2119 / 0 6140 / 6140 2123.34 / 2123.34 Output Total 240 / 240 Balance 2119 / 2120 5900 / 5900 2123.34 / 2123.34 Lab / Micro Data Result Diagrams: 01/11/23 05:50 01/11/23 05:50 Labs: Laboratory Results - last 24 hr 01/11/23 05:50: Sodium 142, Potassium 3.8, Chloride 114 H, Carbon Dioxide 20.0 L , Anion Gap 8, BUN 9, Creatinine 0.72, Estim Creat Clear Calc 34.38, Est GFR (MDRD) Af Amer 101, Est GFR (MDRD) Non-Af 83, BUN/Creatinine Ratio 12.5, Glucose 88, Calcium 7.1 L 01/11/23 05:50: WBC 5.7, RBC 4.09 L, Hgb 11.1 L, Hct 35.3 L, MCV 86.3, MCH 27.1, MCHC 31.4 L, RDW Std Deviation 47.3 H, RDW Coeff of Jeannie 14.9 H, Plt Count 211, MPV 10.1, Immature Gran % (Auto) 0.300, Neut % (Auto) 76.6 H, Lymph % (Auto) 11.0 L, [place] % (Auto) 11.3 H, Eos % (Auto) 0.5, Baso % (Auto) 0.3, Absolute Neuts (auto) 4.4, Absolute Lymphs (auto) 0.63 L, Nucleated RBC % 0 Micro: Microbiology 01/09/23 11:00 Stool Enteric Bacteriology - Final Rotavirus 01/09/23 11:00 Stool Stool Occult Blood (CARISSA) - Final Occult Blood Positive 01/09/23 08:45 Stool Stool Lactoferrin - Final 01/09/23 08:45 Stool C. difficile DNA Amplification - Final Physical Exam Const alert, oriented x3 and no apparent distress Constitutional Narrative: frail General Appearance: cooperative HEENT normocephalic, head/scalp atraumatic and hearing grossly normal bilaterally Eyes PERRL, EOMs intact bilaterally and conjunctivae normal Neck no lymphadenopathy, supple and no JVD Resp normal respiratory effort, normal air movement and clear to auscultation bilaterally Cardio regular rate, regular rhythm, S1 normal heart sound, S2 normal heart sound and no murmurs GI normal to inspection, nondistended, normoactive bowel sounds, soft to palpation, non-tender and non-distended Extremity normal to inspection, full ROM, normal capillary refill and no clubbing, cyanosis or edema Skin General Skin Exam: no breakdown Neuro oriented x3, CN's II-XII intact bilaterally, moves all extremities and no focal motor deficits Sensorium / Orientation: awake and alert Motor Exam: strength 5/5 throughout Psych thought process normal and affect normal Assessment & Plan Assessment/Plan (1) Acute diarrhea: (2) Dehydration, mild: PLAN: Plan #Acute viral gastroenteritis due to rotavirus infection * diarrhea is improving * advance to full liquid and dc IVF if she tolerates the full liquid diet. * CT was negative. Stool for occult blood was positive. * Stool for enteric pathogen positive for rotavirus which is likely the cause of her diarrhea.. * Give supportive care in light of the rotavirus infection. * #History of cervical cancer with resultant radiation proctitis: Stable #Debility and severe protein calorie malnutrition: Patient's BMI is 21.2. She is very frail and emaciated. Nutrition on board. #Elevated blood pressure: * Blood pressure in the 170s systolic. Does not have a known diagnosis of hypertension. * IV hydralazine as needed. Consider starting oral BP meds if blood pressure remains markedly elevated. * DVT prophylaxis: SCDs. Code status: full code * Disposition: Patient refuses placement and insisted on going home at discharge. For likely discharge about the next 24 to 48 hours. Charges/Coding Visit Charges Inpatient E&M: 96696 Subs Hosp L2
[2023-01-11 12:34] VITALS: BP 165/65; PULSE 60; RESP 16; TEMP 36.9; O2SAT 99
[2023-01-11 12:50] VITALS: BP 165/65; PULSE 60
[2023-01-11] MEDS: hydrALAZINE 20 MG/ML Vial 10 MG IV (12:50)
[2023-01-11 15:20] VITALS: BP 152/59; PULSE 98; RESP 18; TEMP 36.9; O2SAT 98
[2023-01-11 20:28] VITALS: BP 145/61; PULSE 66; RESP 18; TEMP 37.9; O2SAT 100
[2023-01-12 02:43] VITALS: BP 132/49; PULSE 67; RESP 18; TEMP 37.7; O2SAT 97
[2023-01-12] MEDS: 0.9% Normal Saline 1,000 ML 200 ML IV ×2 (03:59→08:40)
[2023-01-12 06:19] LABS: Absolute Lymphocyte Count 0.72 X10^3/uL (0.83-4.51); Absolute Neutrophil Count 6.6 X10^3/uL (2.0-7.7); Basophil# 0.03 X10^3/uL; Basophil% 0.4 % (0-1); Eosinophil# 0.04 X10^3/uL; Eosinophils% 0.5 % (0-5); Hematocrit 35.2 % (37-47); Hemoglobin 11.2 g/dL (12.0-15.0); Lymphocyte # 0.72 X10^3/ul (0.83-4.51); Lymphocyte % 8.9 % (19-41); Mean Corp Hgb Conc 31.8 g/dL (32-36); Mean Corpuscular Hgb 26.7 pg (27.0-32.0); Mean Platelet Vol. 10.2 fl (6.2-12.0); Monocyte# 0.67 X10^3/uL; Monocyte% 8.3 % (0-10); NRBC Flagged by Analyzer 0 % (0-5); Neutrophil # 6.61 X10^3/uL (2.7-7.7); Neutrophil % 81.5 % (47-70); Platelet Count 227 K/mm3 (150-450); RBC Distribution Width CV 14.9 % (11.6-14.6); RBC Distribution Width SD 45.6 fl (35.1-43.9); Red Blood Count 4.19 M/mm3 (4.2-5.4); White Blood Count 8.1 K/mm3 (4.4-11.0)
[2023-01-12 06:56] LABS: Anion Gap 8 (5-15); BUN 5 mg/dL (7-18); BUN/Creat Ratio 7.7 RATIO (10-20); Calcium,Total 7.6 mg/dL (8.5-10.1); Chloride 111 mmol/L (98-107); Creatinine, Serum 0.65 mg/dL (0.55-1.02); EST Glomerular Filtration Rate 94 mL/min (>60); Est Glom Filt Rate - Afr Amer 114 mL/min (>60); Estimated Creatinine Clearance 34.38 ml/min; Glucose 99 mg/dL (74-106); Potassium 3.1 mmol/L (3.5-5.1); Sodium Level 141 mmol/L (136-145)
[2023-01-12] MEDS: Potassium Chloride Oral Tablet 20 MEQ 40 MEQ PO (08:40)
[2023-01-12] MEDS: Menthol/Lanolin/Calamine/Znox 113 GM Tube 1 APPLIC TOPICAL ×2 (08:41→21:02)
[2023-01-12 08:46] VITALS: BP 156/50; PULSE 63; RESP 18; TEMP 37; O2SAT 97
[2023-01-12 12:30] LABS: Bacteria 0 SEEN /hpf (None Seen); Mucous, Urine 0 SEEN /hpf (<or=2+); Red Blood Cells-Urine 0 SEEN /hpf (0-5)
[2023-01-12 12:41] LABS: Color, Urine Straw (Yellow); Glucose, Dipstick Normal (Normal); Ketone-Dipstick Negative (Negative); Leukocyte Esterase-Dipstick 25 /ul (Negative); Nitrite-Dipstick Negative (Negative); Occult Blood-Urine Negative /ul (Negative); Protein-Dipstick Negative (Negative); Urine Bilirubin Dipstick Negative (Negative); Urine Clarity Clear (Clear); Urine Urobilinogen Normal (Normal)
[2023-01-12 12:50] LABS: Squamous Epithelial Cells - UA 0-5 SEEN /hpf (5-10); White Blood Cells 0-5 SEEN /hpf (0-5)
--- NOTE | 2023-01-12 14:39 | PN_ITS ---
Subjective Subjective Patient seen and examined. She feels like her diarrhea has improved. She is still on clear liquid diet. She denies any fever, chills, chest pain, palpitations, dizziness, nausea, vomiting or any other symptoms. REview of systems is otherwise negative. She has remained hemodynamically stable. Objective Data Objective Data Vital Signs: Vital Signs Temp Pulse Resp BP Pulse Ox O2 Del Method 98.6 F 63 18 156/50 H 97 Room Air 01/12/23 08:46 01/12/23 08:46 01/12/23 08:46 01/12/23 08:46 01/12/23 08:46 01/12/23 08:47 Oxygen Delivery Method Room Air Weight: 108 lb 7 oz Body Mass Index (BMI) 21.2 Intake & Output: Intake and Output for Last 24 Hours 01/10/23 01/11/23 01/12/23 23:59 23:59 23:59 Intake Total 6140 / 6140 6123.34 / 6123.34 2436.67 / 2436.67 Output Total 240 / 240 Balance 5900 / 5900 6123.34 / 6123.34 2436.67 / 2436.67 Lab / Micro Data Result Diagrams: 01/12/23 06:05 01/12/23 06:05 Labs: Laboratory Results - last 24 hr 01/11/23 11:55: Urine Color Straw, Urine Clarity Clear, Urine pH 7.0, Ur Specif ic [place] 1.010, Urine Protein Negative, Urine Glucose (UA) Normal, Urine Ketones Negative, Urine Occult Blood Negative, Urine Nitrite Negative, Urine Bilirubin Negative, Urine Urobilinogen Normal, Ur Leukocyte Esterase 25 H, Urine RBC 0 SEEN, Urine WBC 0-5 SEEN, Ur Squamous Epith Cells 0-5 SEEN, Urine Bacteria 0 SEEN, Urine Mucus 0 SEEN 01/12/23 06:05: Sodium 141, Potassium 3.1 L, Chloride 111 H, Carbon Dioxide 22.0, Anion Gap 8, BUN 5 L, Creatinine 0.65, Estim Creat Clear Calc 34.38, Est GFR (MDRD) Af Amer 114, Est GFR (MDRD) Non-Af 94, BUN/Creatinine Ratio 7.7 L, Glucose 99, Calcium 7.6 L 01/12/23 06:05: WBC 8.1, RBC 4.19 L, Hgb 11.2 L, Hct 35.2 L, MCV 84.0, MCH 26.7 L, MCHC 31.8 L, RDW Std Deviation 45.6 H, RDW Coeff of Jeannie 14.9 H, Plt Count 227, MPV 10.2, Immature Gran % (Auto) 0.400, Neut % (Auto) 81.5 H, Lymph % (Auto) 8.9 L, [place] % (Auto) 8.3, Eos % (Auto) 0.5, Baso % (Auto) 0.4, Absolute Neuts (auto) 6.6, Absolute Lymphs (auto) 0.72 L, Nucleated RBC % 0 Micro: Microbiology 01/09/23 11:00 Stool Enteric Bacteriology - Final Rotavirus 01/09/23 11:00 Stool Stool Occult Blood (CARISSA) - Final Occult Blood Positive 01/09/23 08:45 Stool Stool Lactoferrin - Final 01/09/23 08:45 Stool C. difficile DNA Amplification - Final Physical Exam Const alert, oriented x3 and no apparent distress Constitutional Narrative: frail General Appearance: cooperative HEENT normocephalic, head/scalp atraumatic and hearing grossly normal bilaterally Eyes PERRL, EOMs intact bilaterally and conjunctivae normal Neck no lymphadenopathy, supple and no JVD Resp normal respiratory effort, normal air movement and clear to auscultation bilaterally Cardio regular rate, regular rhythm, S1 normal heart sound, S2 normal heart sound and no murmurs GI normal to inspection, nondistended, normoactive bowel sounds, soft to palpation, non-tender and non-distended Extremity normal to inspection, full ROM, normal capillary refill and no clubbing, cyanosis or edema Skin General Skin Exam: no breakdown Neuro oriented x3, CN's II-XII intact bilaterally, moves all extremities and no focal motor deficits Sensorium / Orientation: awake and alert Motor Exam: strength 5/5 throughout Psych thought process normal and affect normal Assessment & Plan Assessment/Plan (1) Acute diarrhea: (2) Dehydration, mild: PLAN: Plan #Acute viral gastroenteritis due to rotavirus infection * diarrhea has essentially resolved. * advance to full liquid diet, then cardiac diet as tolerated. * CT was negative. Stool for occult blood was positive. * Stool for enteric pathogen positive for rotavirus which is likely the cause of her diarrhea.. * Give supportive care in light of the rotavirus infection. * #History of cervical cancer with resultant radiation proctitis: Stable #Debility and severe protein calorie malnutrition: Patient's BMI is 21.2. She is very frail and emaciated. Nutrition on board. #Hypertension * will start on PO amlodipine 5mg daily * IV hydralazine as needed. * DVT prophylaxis: SCDs. Code status: full code * Disposition: Patient refuses placement and insisted on going home at discharge. For likely discharge about the next 24 to 48 hours. Charges/Coding Visit Charges Inpatient E&M: 96717 Subs Hosp L2
[2023-01-12] MEDS: amLODIPine 5 MG Tablet PO (15:28)
[2023-01-12 15:31] VITALS: BP 167/60; PULSE 74; RESP 18; TEMP 36.8; O2SAT 97
[2023-01-12 17:00] VITALS: BP 147/65; PULSE 72; RESP 18; TEMP 36.8; O2SAT 98
[2023-01-12 21:01] VITALS: BP 146/66; PULSE 64; RESP 16; TEMP 37.6; O2SAT 95
[2023-01-12] MEDS: Gabapentin 100 MG Capsule PO (21:02)
[2023-01-13 03:34] VITALS: BP 141/63; PULSE 67; RESP 16; TEMP 37.5; O2SAT 93
[2023-01-13 07:32] LABS: Absolute Lymphocyte Count 0.84 X10^3/uL (0.83-4.51); Absolute Neutrophil Count 4.6 X10^3/uL (2.0-7.7); Basophil# 0.02 X10^3/uL; Basophil% 0.3 % (0-1); Eosinophil# 0.07 X10^3/uL; Eosinophils% 1.1 % (0-5); Hematocrit 36.6 % (37-47); Hemoglobin 11.4 g/dL (12.0-15.0); Lymphocyte # 0.84 X10^3/ul (0.83-4.51); Lymphocyte % 13.7 % (19-41); Mean Corp Hgb Conc 31.1 g/dL (32-36); Mean Corpuscular Hgb 26.8 pg (27.0-32.0); Mean Corpuscular Volume 86.1 fL (81-99); Mean Platelet Vol. 11.1 fl (6.2-12.0); Monocyte# 0.54 X10^3/uL; Monocyte% 8.8 % (0-10); NRBC Flagged by Analyzer 0 % (0-5); Neutrophil # 4.64 X10^3/uL (2.7-7.7); Neutrophil % 75.8 % (47-70); Platelet Count 252 K/mm3 (150-450); RBC Distribution Width CV 14.9 % (11.6-14.6); RBC Distribution Width SD 47.1 fl (35.1-43.9); Red Blood Count 4.25 M/mm3 (4.2-5.4); White Blood Count 6.1 K/mm3 (4.4-11.0)
[2023-01-13 07:54] LABS: Anion Gap 7 (5-15); BUN 6 mg/dL (7-18); BUN/Creat Ratio 9.9 RATIO (10-20); Calcium,Total 7.9 mg/dL (8.5-10.1); Chloride 109 mmol/L (98-107); EST Glomerular Filtration Rate 102 mL/min (>60); Est Glom Filt Rate - Afr Amer 124 mL/min (>60); Estimated Creatinine Clearance 34.38 ml/min; Glucose 93 mg/dL (74-106); Potassium 4.1 mmol/L (3.5-5.1); Sodium Level 141 mmol/L (136-145)
[2023-01-13] MEDS: amLODIPine 5 MG Tablet PO (08:25)
[2023-01-13] MEDS: Menthol/Lanolin/Calamine/Znox 113 GM Tube 1 APPLIC TOPICAL (08:26)
[2023-01-13 08:58] VITALS: BP 153/71; PULSE 63; RESP 18; TEMP 36.6; O2SAT 100
--- NOTE | 2023-01-13 10:13 | DCINST_ITS ---
Discharge Instructions Diet Discharge Diet: Low fat / Low cholesterol Activity Discharge Activity: Return to Normal Activity Weight Bearing Status: Weight bearing as tolerated Dressing / Incision Call your doctor if you observe: Fever of 101 or Higher, Shortness of breath, Dizziness, Swelling in the ankles, Chest pain and Increased palpitations (irregular heartbeat) Follow Up Care Test Results: Test results from this visit will be discussed in further detail at your follow- up appointment, if applicable. Discharge Plan Admission Admit Date/Time: 01/09/23 12:12 Primary Reason for Your Visit: viral gastroenteritis Attending Provider: Marta Cain Primary Care Provider: Hemant Parra Instructions Patient Instructions: ED Gastroenteritis Ch Discharge Orders/Prescriptions Prescriptions: New amlodipine 5 mg Tablet 5 mg PO DAILY Qty: 30 2RF Continued alendronate 70 mg tablet 70 mg PO JEFFREY gabapentin 100 mg capsule 100 mg PO TID PRN (Reason: Pain) food supplemt, lactose-reduced Liquid 240 ml PO DAILY Referrals / Follow Up: Hemant Parra MD [Primary Care Provider] - Within 2 Weeks Disposition Disposition (needs filled in before D/C Order can be placed): Home, Self Care
--- NOTE | 2023-01-13 10:13 | DS.PCM_ITS ---
Providers Date of Admission: 01/09/23 Date of Discharge: 01/13/23 Primary Care Physician: Dr. Hemant Parra MD Reason For Visit: ACUTE GASTROENTERITIS Diagnosis Discharge Diagnosis (1) Acute diarrhea: Status: Acute Code(s): R19.7 - Diarrhea, unspecified (2) Dehydration, mild: Status: Acute Code(s): E86.0 - Dehydration Plan #Acute viral gastroenteritis due to rotavirus infection * diarrhea has essentially resolved. * advance to full liquid diet, then cardiac diet as tolerated. * CT was negative. Stool for occult blood was positive. * Stool for enteric pathogen positive for rotavirus which is likely the cause of her diarrhea.. * Give supportive care in light of the rotavirus infection. * #History of cervical cancer with resultant radiation proctitis: Stable #Debility and severe protein calorie malnutrition: Patient's BMI is 21.2. She is very frail and emaciated. Nutrition on board. #Hypertension * will start on PO amlodipine 5mg daily * IV hydralazine as needed. * DVT prophylaxis: SCDs. Code status: full code * Disposition: Patient refuses placement and insisted on going home at discharge. For likely discharge about the next 24 to 48 hours. Medications at Discharge Home Medications alendronate 70 mg tablet 70 mg PO JEFFREY OSTEOPEROSIS 12/29/22 gabapentin 100 mg capsule 100 mg PO TID PRN Pain 12/29/22 food supplemt, lactose-reduced 240 ml PO DAILY SUPPLEMENT 01/09/23 amlodipine 5 mg tablet 5 mg PO DAILY #30 tabs 01/13/23 Hospital Course Operations None Procedures None Summary of Care Provided Minutes Spent on Discharge: 45 Hospital Course: NASEEM GARDNER, is a 77 F with a PMH as outlined who presents via the ED on 01/09/2023 with a complaitn of bloody diarrhea. She denied any nausea, vomiting or abdominal pain and wasnt on a blood thinner. She does have a history of cervical and endometrial cancer as well as a history of radiation proctitis and Gi bleed in the past. She had no other complaints and denied any weight loss. Review of systems was otherwise negative.She said she had had about 12 episodes of diarrhea overnight,a nd several times this morning also. Vitals in the ED were BP of 146/63, IN of 79, RR of 14 and temp of 97.5F. She was saturating at 98% on room air.? CBC showed wbc of 6.8, Hb of 12.6 and platelets of 289. Chemistry was also unremarkable. Diarrhea as seen by the ED doctor was mostly stool with no gross blood seen. Stool for occult blood was positive, but C Diff was negative. Due to concerns about gastroenteritis, a stool panel was sent. Patient was hydrated in the ED< but still said she felt to weak to go home. She was admitted to be managed for acute gastroenteritis. Diarrhea gradually improved. She was also hydrated with IV fluids. She was started on oral diet which she tolerated. Due to concern about malnutrition, nutrition was also consulted. Shawn was recommended to go to a SNF, but refused and insisted on going home. Diarrhea resolved and she was able to tolerate a diet. She was discharged home on 01/13/2023, and is to follow up with her PCP within 1-2 weeks. Patient seen and examined prior to discharge. She had no active complaints and felt well. REview of systems was otherwise negative. Labs and vitals reviewed. Home meds reviewed and reconciled. Physical Exam Const alert, oriented x3 and no apparent distress Constitutional Narrative: frail General Appearance: cooperative and comfortable Orientation / Consciousness: awake Exam Limitations: no limitations HEENT normocephalic, head/scalp atraumatic, hearing grossly normal bilaterally and moist oral mucous membranes Mouth: oral and palatal mucosa normal Eyes PERRL, EOMs intact bilaterally and conjunctivae normal Neck no lymphadenopathy, supple and no JVD Resp normal respiratory effort, normal air movement and clear to auscultation bi laterally Cardio regular rate, regular rhythm, S1 normal heart sound, S2 normal heart sound and no murmurs GI normal to inspection, nondistended, normoactive bowel sounds, soft to palpation, non-tender and non-distended Extremity normal to inspection, full ROM, normal capillary refill and no clubbing, cyanosis or edema Skin no rashes or lesions noted General Skin Exam: no breakdown Neuro oriented x3, CN's II-XII intact bilaterally, moves all extremities and no focal motor deficits Sensorium / Orientation: awake and alert Motor Exam: strength 5/5 throughout Psych thought process normal and affect normal Weight / BMI Weight Weight: 108 lb 7 oz Body Mass Index (BMI) 21.2 ABG / Lab / Microbiology Data Result Diagrams: 01/13/23 05:30 01/13/23 05:30 Laboratory: Laboratory Results - last 24 hr 01/11/23 11:55: Urine Color Straw, Urine Clarity Clear, Urine pH 7.0, Ur Specific [place] 1.010, Urine Protein Negative, Urine Glucose (UA) Normal, Urine Ketones Negative, Urine Occult Blood Negative, Urine Nitrite Negative, Urine Bilirubin Negative, Urine Urobilinogen Normal, Ur Leukocyte Esterase 25 H, Urine RBC 0 SEEN, Urine WBC 0-5 SEEN, Ur Squamous Epith Cells 0-5 SEEN, Urine Bacteria 0 SEEN, Urine Mucus 0 SEEN 01/13/23 05:30: Sodium 141, Potassium 4.1, Chloride 109 H, Carbon Dioxide 25.0, Anion Gap 7, BUN 6 L, Creatinine 0.60, Estim Creat Clear Calc 34.38, Est GFR (MDRD) Af Amer 124, Est GFR (MDRD) Non-Af 102, BUN/Creatinine Ratio 9.9 L, Glucose 93, Calcium 7.9 L 01/13/23 05:30: WBC 6.1, RBC 4.25, Hgb 11.4 L, Hct 36.6 L, MCV 86.1, MCH 26.8 L, MCHC 31.1 L, RDW Std Deviation 47.1 H, RDW Coeff of Jeannie 14.9 H, Plt Count 252, MPV 11.1, Immature Gran % (Auto) 0.300, Neut % (Auto) 75.8 H, Lymph % (Auto) 13.7 L, [place] % (Auto) 8.8, Eos % (Auto) 1.1, Baso % (Auto) 0.3, Absolute Neuts (auto) 4.6, Absolute Lymphs (auto) 0.84, Nucleated RBC % 0 Microbiology: Microbiology 01/09/23 11:00 Stool Enteric Bacteriology - Final Rotavirus 01/09/23 11:00 Stool Stool Occult Blood (CARISSA) - Final Occult Blood Positive 01/09/23 08:45 Stool Stool Lactoferrin - Final 01/09/23 08:45 Stool C. difficile DNA Amplification - Final D/C Instructions Discharge Diet: Low fat / Low cholesterol Discharge Activity: Return to Normal Activity Weight Bearing Status: Weight bearing as tolerated Call your doctor if you observe: Fever of 101 or Higher, Shortness of breath, Dizziness, Swelling in the ankles, Chest pain and Increased palpitations (irregular heartbeat) Meaningful Use Info Meaningful Use Diagnoses (Choose all that apply): None applicable Discharge Plan Admission Admit Date/Time: 01/09/23 12:12 Primary Reason for Your Visit: viral gastroenteritis Attending Provider: Marta Cain Primary Care Provider: Hemant Parra Instructions Patient Instructions: ED Gastroenteritis Ch Discharge Orders/Prescriptions Prescriptions: New amlodipine 5 mg Tablet 5 mg PO DAILY Qty: 30 2RF Continued alendronate 70 mg tablet 70 mg PO JEFFREY gabapentin 100 mg capsule 100 mg PO TID PRN (Reason: Pain) food supplemt, lactose-reduced Liquid 240 ml PO DAILY Referrals / Follow Up: Hemant Parra MD [Primary Care Provider] - Within 2 Weeks Disposition Disposition (needs filled in before D/C Order can be placed): Home, Self Care Charges/Coding Visit Charges Inpatient E&M: 54382 Disch Hosp >30min
[2023-01-13 10:56] VITALS: BP 153/71; PULSE 63; RESP 18; TEMP 36.6; O2SAT 100
== END 2023-01-13 12:13 | disposition home or self-care (01) ==
LOC: ED 11:02 → MS3 12:28
PROVIDERS: Admitting Provider Student in an Organized Health Care Education/Training Program; Emergency Provider Emergency Medicine; PCP Family Medicine; Visit Provider Student in an Organized Health Care Education/Training Program
DX: A08.0 Rotaviral enteritis (principal); E43 Unspecified severe protein-calorie malnutrition; E86.0 Dehydration; Z79.83 Long term (current) use of bisphosphonates; Z87.891 Personal history of nicotine dependence; I10 Essential (primary) hypertension; Z86.718 Personal history of other venous thrombosis and embolism; Z68.21 Body mass index [BMI] 21.0-21.9, adult; Z85.41 Personal history of malignant neoplasm of cervix uteri
CPT/HCPCS: 36415; 80048; 80053; 81001; 82274; 83630; 85025; 87493; 87506; 96361; 96374; 97110; 97162; 97166; 97530; 97535; 99221; 99284; J7030; A4216; G0378

== ENCOUNTER 2023-04-15 22:48 | Emergency (ER) | payer MEDICARE, SELFPAY ==
[2023-04-15 22:52] VITALS: BP 158/118; PULSE 82; RESP 17; TEMP 36.5; O2SAT 99; BMI 22.8
[2023-04-15 23:47] LABS: Absolute Lymphocyte Count 0.21 X10^3/uL (0.83-4.51); Absolute Neutrophil Count 10.9 X10^3/uL (2.0-7.7); Basophil# 0.04 X10^3/uL; Basophil% 0.3 % (0-1); Eosinophil# 0.13 X10^3/uL; Hemoglobin 11.5 g/dL (12.0-15.0); Lymphocyte # 0.21 X10^3/ul (0.83-4.51); Lymphocyte % 1.7 % (19-41); Mean Corp Hgb Conc 30.3 g/dL (32-36); Mean Corpuscular Hgb 27.2 pg (27.0-32.0); Mean Corpuscular Volume 89.8 fL (81-99); Mean Platelet Vol. 10.6 fl (6.2-12.0); Monocyte# 1.04 X10^3/uL; Monocyte% 8.4 % (0-10); NRBC Flagged by Analyzer 0 % (0-5); Neutrophil # 10.93 X10^3/uL (2.7-7.7); Neutrophil % 88.2 % (47-70); POSITIVE DIFFERENTIAL YES; Platelet Count 263 K/mm3 (150-450); RBC Distribution Width CV 15.1 % (11.6-14.6); RBC Distribution Width SD 49.3 fl (35.1-43.9); Red Blood Count 4.23 M/mm3 (4.2-5.4); White Blood Count 12.4 K/mm3 (4.4-11.0)
[2023-04-15 23:55] LABS: Differential Indicated SCAN CRITERIA MET
[2023-04-16] LABS: Anion Gap 4 (5-15); BUN 27 mg/dL (7-18); BUN/Creat Ratio 29.2 RATIO (10-20); Calcium,Total 8.5 mg/dL (8.5-10.1); Chloride 108 mmol/L (98-107); Creatinine, Serum 0.92 mg/dL (0.55-1.02); EST Glomerular Filtration Rate 63 mL/min (>60); Est Glom Filt Rate - Afr Amer 76 mL/min (>60); Estimated Creatinine Clearance 37.37 ml/min; Glucose 140 mg/dL (74-106); Potassium 4.2 mmol/L (3.5-5.1); Sodium Level 142 mmol/L (136-145)
[2023-04-16 00:06] LABS: Prothrombin Time (Protime)PT. 12.8 SECONDS (11.7-14.9)
[2023-04-16 00:07] LABS: Partial Thromboplast Time 24.2 Seconds (24.1-36.2)
[2023-04-16 00:21] LABS: Anisocytosis 1+
--- NOTE | 2023-04-16 00:22 | CT_ITS ---
INDICATION: gi bleed EXAMINATION: CTA abdomen and pelvis - TECHNIQUE: Routine abdominal CT angiogram protocol was performed with IV contrast. MIP images provided. A radiation dose optimization technique was used for this scan. IV Contrast dosage and agent: 75 mL [id number]-370 RADIATION DOSAGE (If Supplied By Facility): CTDIvol = ( 21.42 ) mGy, DLP = ( 343.79 ) mGycm COMPARISON: March 27, 2018 FINDINGS: Lung bases: Aortic valvular calcifications. Coronary calcifications. Mild dependent atelectasis.. Liver: Mild hepatomegaly. Homogeneous parenchyma.. No bile ductal dilatation. Gallbladder: Gallbladder well filled without surrounding inflammation. 7 mm common duct is within normal limits for age.. Spleen: Normal. Adrenal gland: Normal. Kidneys/bladder: Bilateral external pelvis. Normal cortical appearance. No visible stones. Unremarkable ureters. No perinephric inflammation. Bladder well filled without surrounding inflammatory stranding, axial image 127. Pancreas:Normal. Bowel gas pattern: No acute gastric finding. No small bowel distention. There is mild wall thickening along the distal small bowel wall mesenteric stranding. Appendix is not seen. No acute colonic finding. Few distal colonic diverticuli present without evidence of diverticulitis. No extraluminal active contrast extravasation to suggest active bleeding. Pelvis: Unremarkable uterus and adnexa. Free fluid: Trace dependent free fluid within the pelvis. Free air: No free air. Bone survey: Subacute to chronic L4 compression deformity with sclerosis. Minimal retropulsion of the superior endplate with mild spinal canal narrowing. Other chronic mild anterior height loss and lower thoracic spine.. Adenopathy: No significant pathologic adenopathy detected. Vascular: Aortic atherosclerosis without ectasia or dissection. Aortic branch vessels are patent. CT/CTA Abd/Pelvis W/WO Contrast IMPRESSION: Mild bladder wall thickening and adjacent stranding which can be seen with cystitis. Correlate with urine. Nonspecific diffuse distal small bowel wall thickening and small bowel mesenteric stranding without evidence of obstruction, suggestive of mild infectious enteritis. Electronically Signed: Deon Velazquez MD at 1:52 EDT ,
[2023-04-16 00:30] VITALS: BP 169/98; PULSE 77; RESP 16; O2SAT 97
[2023-04-16 03:19] VITALS: BP 150/87; PULSE 78; RESP 16; O2SAT 97
--- NOTE | 2023-04-16 03:19 | ED.VIS.FEGU ---
HPI HPI - Female History of Present Illness Chief Complaint: Vag Bleeding Informant: patient and EMS Narrative Narrative: Patient is a 77-year-old female from home who states that today with using the bathroom she has noticed there is been areas of maroonish blood. She states she is unsure if this is coming from her vagina or rectum. She denies any history of bleeding disorder or blood thinner use. She states she went through 4 pads today and this concerned her and therefore she called EMS and was brought in for evaluation. [facility] Medical History (Updated 04/16/23 @ 03:[address] Louis Wells DO) Cervical cancer DVT (deep venous thrombosis) Endometrial cancer Former smoker Osteoporosis Home Medications alendronate 70 mg tablet 70 mg PO JEFFREY OSTEOPEROSIS 12/29/22 [History Last Taken 01/07/23] gabapentin 100 mg capsule 100 mg PO TID PRN Pain 12/29/22 [History Last Taken 01/08/23] food supplemt, lactose-reduced 240 ml PO DAILY SUPPLEMENT 01/09/23 [History Last Taken Unknown] amlodipine 5 mg tablet 5 mg PO DAILY #30 tabs 01/13/23 [Rx Last Taken Unknown] doxycycline hyclate 100 mg capsule 100 mg PO BID 7 days #14 caps 04/16/23 [Rx Last Taken Unknown] Allergy/AdvReac Type Severity Reaction Status Date / Time acetaminophen [From Percocet] Allergy Unknown Verified 04/15/23 22:52 ibuprofen [From Motrin] Allergy Unknown Verified 04/15/23 22:52 omega-3 acid ethyl esters Allergy Unknown Verified 04/15/23 22:52 oxycodone Allergy Unknown Verified 04/15/23 22:52 oxycodone HCl [From Percocet] Allergy Unknown Verified 04/15/23 22:52 Penicillins Allergy Unknown Verified 04/15/23 22:52 Social History Smoking Status: Former smoker substance use type: does not use ROS ROS ED Constitutional Constitutional ED: Denies chills or fever(s) Eyes Eyes: Denies change in vision ENT ENT ED: Denies sore throat Cardiovascular Cardiovascular: Denies chest pain Respiratory/Chest Respiratory/Chest: Denies cough or dyspnea Gastrointestinal Gastrointestinal: Denies abdominal pain, diarrhea, nausea or vomiting Genitourinary Genitourinary ED: Denies dysuria Musculoskeletal Musculoskeletal: Denies myalgias Integumentary Denies rash Neurologic Neurologic: Denies headache(s) Hematologic/Lymphatic Hematologic/Lymphatic: Denies easy bleeding or easy bruising EXAM Physical Exam Const Vital Signs: 04/15/23 22:52 04/16/23 00:30 Temperature 97.7 F L Temperature Source Temporal Pulse Rate 82 77 Respiratory Rate 17 16 Blood Pressure 158/118 H 169/98 H Blood Pressure Mean 131 121 Pulse Ox 99 97 Oxygen Delivery Method Room Air Room Air Positive well nourished and well developed General Appearance ED: well developed HEENT Reports dry mucous membranes Mouth ED: Yes dry mucous membranes Mouth: dry mucous membranes Eyes PERRL and EOMs intact bilaterally General Eye ED: Negative for pale conjunctiva or scleral icterus Neck supple Resp normal respiratory effort and clear to auscultation bilaterally Cardio regular rate and regular rhythm Rate: other Other Details: Radial pulses are plus 2 out of 4 bilaterally are equal and symmetric GI normal to inspection, nondistended, normoactive bowel sounds, soft to palpation, non-tender, non-distended and no masses GI Narrative: No voluntary guarding or rigidity no pulsatile mass Auscultation: normoactive bowel sounds Palpation: soft Narrative: External genitalia appears normal without dried blood or active bleeding present. Speculum exam does not show any active bleeding or dried blood within the vaginal vault Rectal exam displays normal tone without obvious hemorrhoids or fissure present. Stool is brown in color but Hemoccult positive Extremity normal to inspection Neuro oriented x3 and CN's II-XII intact bilaterally Sensorium / Orientation: alert Psych mental status grossly normal Skin no rashes or lesions noted MDM MDM MDM Narrative Medical decision making narrative: Patient presented to the ER mildly hypertensive otherwise with stable vitals. She was unsure if she was having vaginal or rectal bleeding. On exam she does not have dried blood or active bleeding from the vaginal vault and the rectal exam is positive for blood indicating this is the most likely source. With report of initial vaginal bleeding upon arrival there is concern she has uterine cancer and therefore elected to perform basic labs and a CT scan of the abdomen and pelvis. With reported bleeding there is also concern for acute blood loss anemia or thrombocytopenia. Basic labs were obtained which showed mild leukocytosis but otherwise stable H&H and bleeding times and platelet count. CT scan revealed no intestinal/pelvic mass but did show changes concerning for enteritis. This would correlate with the mildly elevated white count as well as bouts of potential blood with the bowel movements. She had no active bleeding while in the ER and as her work-up is otherwise negative I do not feel there is need for an emergent admission for EGD or a colonoscopy. Therefore patient can be discharged and can follow-up on an outpatient basis History & Record Review Discussion w/independent historian: EMS personnel and Patient Lab Data Attestation: I reviewed the patient's lab results. Labs: Laboratory Results - last 24 hr 04/15/23 04/15/23 04/15/23 23:39 23:39 23:39 WBC 12.4 H RBC 4.23 Hgb 11.5 L Hct 38.0 MCV 89.8 MCH 27.2 MCHC 30.3 L RDW Std Deviation 49.3 H RDW Coeff of Jeannie 15.1 H Plt Count 263 MPV 10.6 Immature Gran % (Auto) 0.400 Neut % (Auto) 88.2 H Lymph % (Auto) 1.7 L [place] % (Auto) 8.4 Eos % (Auto) 1.0 Baso % (Auto) 0.3 Absolute Neuts (auto) 10.9 H Absolute Lymphs (auto) 0.21 L Nucleated RBC % 0 Anisocytosis 1+ PT 12.8 INR 1.0 APTT 24.2 Sodium 142 Potassium 4.2 Chloride 108 H Carbon Dioxide 30.0 Anion Gap 4 L BUN 27 H Creatinine 0.92 Estim Creat Clear Calc 37.37 Est GFR (MDRD) Af Amer 76 Est GFR (MDRD) Non-Af 63 BUN/Creatinine Ratio 29.2 H Glucose 140 H Calcium 8.5 Blood Type Antibody Screen 04/15/23 23:39 WBC RBC Hgb Hct MCV MCH MCHC RDW Std Deviation RDW Coeff of Jeannie Plt Count MPV Immature Gran % (Auto) Neut % (Auto) Lymph % (Auto) [place] % (Auto) Eos % (Auto) Baso % (Auto) Absolute Neuts (auto) Absolute Lymphs (auto) Nucleated RBC % Anisocytosis PT INR APTT Sodium Potassium Chloride Carbon Dioxide Anion Gap BUN Creatinine Estim Creat Clear Calc Est GFR (MDRD) Af Amer Est GFR (MDRD) Non-Af BUN/Creatinine Ratio Glucose Calcium Blood Type O POSITIVE Antibody Screen NEGATIVE Radiography Diagnostic Testing: Clinical Impression(s) from Imaging Studies Abdomen/Pelvis CTA 04/16/23 00:22 IMPRESSION: Mild bladder wall thickening and adjacent stranding which can be seen with cystitis. Correlate with urine. Nonspecific diffuse distal small bowel wall thickening and small bowel mesenteric stranding without evidence of obstruction, suggestive of mild infectious enteritis. Electronically Signed: Deon Velazquez MD at 1:52 EDT Reading Location ID and State: [facility] / [place] Tel , Service support , Discharge Plan Triage Chief Complaint: Vag Bleeding ED Provider: Louis Wells Dx/Rx/DC Orders Clinical Impression: Enteritis, GI bleed Instructions: GI Bleeding Causes and Tests, ED Understanding Colitis Prescriptions: New doxycycline hyclate 100 mg capsule 100 mg PO BID 7 Days Qty: 14 0RF No Action alendronate 70 mg tablet 70 mg PO JEFFREY gabapentin 100 mg capsule 100 mg PO TID PRN (Reason: Pain) food supplemt, lactose-reduced Liquid 240 ml PO DAILY amlodipine 5 mg Tablet 5 mg PO DAILY Qty: 30 2RF Primary Care Provider: Hemant Parra Referrals: Hemant Parra MD [Primary Care Provider] - Activity Restrictions/Additional Instructions: Your exam today displayed bleeding from the rectum not the vagina and CAT scan shows that you have inflammation of your intestines which is most likely the cause of this. Therefore take your antibiotic as directed to help resolve this and return to the ER should you have any further concerns Disposition Disposition: Home, Self Care Discharge Date/Time: 04/16/23 06:34
== END 2023-04-16 06:34 | disposition home or self-care (01) ==
PROVIDERS: Emergency Provider Emergency Medicine; PCP Family Medicine; Visit Provider Emergency Medicine
DX: K52.9 Noninfective gastroenteritis and colitis, unspecified (principal); K92.2 Gastrointestinal hemorrhage, unspecified; Z79.899 Other long term (current) drug therapy; Z87.891 Personal history of nicotine dependence
CPT/HCPCS: 74174; 80048; 82274; 85025; 85610; 85730; 86850; 86900; 86901; 99284; Q9967

== ENCOUNTER 2023-06-29 15:45 | Emergency (ER) | payer MEDICARE, SELFPAY ==
[2023-06-29 15:47] VITALS: BP 116/82; PULSE 71; RESP 16; TEMP 36.1; O2SAT 100; BMI 22.8
--- NOTE | 2023-06-29 17:47 | CT_ITS ---
STUDY: CT BRAIN WITHOUT CONTRAST REASON FOR EXAM: Female, 78 years old. altered mental status RADIATION DOSAGE (If Supplied By Facility): CTDIvol = ( 44.99 ) mGy, DLP = ( 897.35 ) mGycm TECHNIQUE: Transaxial CT imaging of the brain was performed without administration of intravenous contrast material. Individualized dose optimization techniques were used for this CT. COMPARISON: No relevant priors. FINDINGS: Normal soft tissue structures. Normal calvarium. There is mild cerebral atrophy with widening of the extra-axial spaces and ventricular dilatation. There are areas of decreased attenuation within the white matter tracts of the supratentorial brain, consistent with microvascular disease changes. Normal basal ganglia and thalami. Normal brainstem. There is mild cerebellar atrophy. There is no intracranial hemorrhage. There are no findings of an acute ischemic infarction. Normal visualized paranasal sinuses. CT/Brain/Head without Contrast IMPRESSION: Chronic involutional changes of the brain. No acute abnormality seen. Electronically Signed: Francisco Li MD at 18:47 EDT ,
--- NOTE | 2023-06-29 17:50 | EDS_ITS ---
HPI <BIGG White - Last Filed: 06/29/23 20:14> History of Present Illness Chief Complaint: Weakness Narrative Narrative: Patient is a 78-year-old female with history of cervical cancer, chronic pain who presents to the emergency department for 3 weeks of intermittent dizziness, feeling of weakness. Patient does live by herself, patient states she used to live with a friend however he 1 month ago. Patient states that she took the bus here today because she has been feeling weak and would like to be evaluated. She denies any cough, fever chills, denies any abdominal pain. She denies any blood in her vomit or stool. PFS <BIGG White - Last Filed: 06/29/23 20:14> [facility] Medical History (Updated 06/29/23 @ 20:13 by BIGG White) Cervical cancer DVT (deep venous thrombosis) Endometrial cancer Former smoker Osteoporosis Home Medications alendronate 70 mg tablet 70 mg PO JEFFREY OSTEOPEROSIS 12/29/22 [History Last Taken 01/07/23] gabapentin 100 mg capsule 100 mg PO TID PRN Pain 12/29/22 [History Last Taken 01/08/23] food supplemt, lactose-reduced 240 ml PO DAILY SUPPLEMENT 01/09/23 [History Last Taken Unknown] amlodipine 5 mg tablet 5 mg PO DAILY #30 tabs 01/13/23 [Rx Last Taken Unknown] doxycycline hyclate 100 mg capsule 100 mg PO BID 7 days #14 caps 04/16/23 [Rx Last Taken Unknown] Allergy/AdvReac Type Severity Reaction Status Date / Time acetaminophen [From Percocet] Allergy Unknown Verified 06/29/23 17:48 ibuprofen [From Motrin] Allergy Unknown Verified 06/29/23 17:48 omega-3 acid ethyl esters Allergy Unknown Verified 06/29/23 17:48 oxycodone Allergy Unknown Verified 06/29/23 17:48 oxycodone HCl [From Percocet] Allergy Unknown Verified 06/29/23 17:48 Penicillins Allergy Unknown Verified 06/29/23 17:48 Social History Smoking Status: Former smoker substance use type: does not use ROS <BIGG White - Last Filed: 06/29/23 20:14> ROS ED ROS Narrative Constitutional: Negative for fever, chills, weight loss. Positive for feeling weakness Eyes: Negative for vision loss, vision change, double vision ENT: Negative for any sore throat, ear pain, congestion Cardiovascular: Negative for any chest pain, tightness, palpitations Respiratory: Negative for any cough, sputum production, hemoptysis, dyspnea, dyspnea on exertion, orthopnea Gastrointestinal: Negative for any abdominal pain, nausea, vomiting, diarrhea, constipation, blood in stool, blood in vomit : Negative for any urinary frequency, dysuria, retention, blood in urine Muscle skeletal: Negative for any muscle joint pain, stiffness, myalgias, arth ralgias, neck pain, back pain Neurological: Negative for any headache, syncope, numbness or tingling. Positive for dizziness Skin: Negative for any rashes, lumps, itching, abrasions, lacerations Psychiatric: Negative for any depression, anxiety, stress, suicidal ideation, homicidal ideation Hematologic: Negative for any easy bruising, excessive bruising, easy bleeding Allergies: Negative for any eczema, hives, rash EXAM <BIGG Whiet - Last Filed: 06/29/23 20:14> Physical Exam Narrative Exam Narrative: Vital signs reviewed. Patient appears unkempt, patient appears cachectic. Patient does live by herself, she is alert and orient x4. Patient is difficult to obtain history from. She is a poor informant. HEET: Head normocephalic atraumatic, TMs clear bilaterally. Posterior pharynx is clear, dry mucous membranes. Nares clear bilaterally. Neck: Supple with no lymphadenopathy or tenderness. No signs of meningismus, negative jolt sign. Cardiac: Regular rate and rhythm systolic murmur, no or rubs, equal peripheral pulses bilaterally. Respiratory: Lungs clear to auscultation bilaterally. No chest tenderness. Abdomen: Soft, nontender, nondistended. No abdominal bruit or pulsatile masses. No hepatosplenomegaly Extremities: No peripheral edema, no signs of gross trauma or deformity. Active full range of motion of all extremities. Neuro: Cranial nerves II through XII intact, no focal neurological deficits. Skin: Clean dry and intact with no rash, purpura, petechiae, vesicles or pustules. Backs/flank: No CVA tenderness, no midline spinal tenderness, no deformity. Psych: Normal mood and affect. No SI, HI or acute psychosis. Const Vital Signs: 06/29/23 15:47 06/29/23 17:47 Temperature 97.0 F L Temperature Source Temporal Pulse Rate 71 Respiratory Rate 16 Respiratory Effort Normal Non-Labored Respiratory Pattern Normal Blood Pressure 116/82 H Blood Pressure Mean 93 Pulse Ox 100 Oxygen Delivery Method Room Air Positive cachectic and unkempt General Appearance ED: unkempt and cachectic Nutritional Appearance: cachectic Psych Appearance: unkempt <Dr. Silver Bernal MD - Last Filed: 06/29/23 20:32> Physical Exam Const Vital Signs: 06/29/23 15:47 06/29/23 17:47 Temperature 97.0 F L Temperature Source Temporal Pulse Rate 71 Respiratory Rate 16 Respiratory Effort Normal Non-Labored Respiratory Pattern Normal Blood Pressure 116/82 H Blood Pressure Mean 93 Pulse Ox 100 Oxygen Delivery Method Room Air MDM <BIGG White - Last Filed: 06/29/23 20:14> MDM Lab Data Labs: Laboratory Results - last 24 hr 06/29/23 18:09 WBC 5.6 RBC 4.24 Hgb 12.0 Hct 37.9 MCV 89.4 MCH 28.3 MCHC 31.7 L RDW Std Deviation 54.6 H RDW Coeff of Jeannie 16.7 H Plt Count 268 MPV 10.5 Immature Gran % (Auto) 0.500 Neut % (Auto) 66.8 Lymph % (Auto) 17.0 L [place] % (Auto) 13.8 H Eos % (Auto) 1.4 Baso % (Auto) 0.5 Absolute Neuts (auto) 3.7 Absolute Lymphs (auto) 0.95 Nucleated RBC % 0 Sodium 138 Potassium 4.1 Chloride 104 Carbon Dioxide 30.0 Anion Gap 4 L BUN 26 H Creatinine 0.97 Estim Creat Clear Calc 34.89 Est GFR (MDRD) Af Amer 72 Est GFR (MDRD) Non-Af 59 L BUN/Creatinine Ratio 26.8 H Glucose 95 Calcium 8.9 Urine Color Yellow Urine Clarity Clear Urine pH 6.0 Ur Specific [place] 1.015 Urine Protein Negative Urine Glucose (UA) Normal Urine Ketones Negative Urine Occult Blood Negative Urine Nitrite Negative Urine Bilirubin Negative Urine Urobilinogen Normal Ur Leukocyte Esterase 25 H Urine RBC 0 SEEN Urine WBC 0-5 SEEN Ur Squamous Epith Cells 0 SEEN Urine Bacteria 0 SEEN Urine Mucus 0 SEEN Radiography Diagnostic Testing: Clinical Impression(s) from Imaging Studies Brain CT 06/29/23 17:47 IMPRESSION: Chronic involutional changes of the brain. No acute abnormality seen. Electronically Signed: Francisco Li MD at 18:47 EDT , Chest X-Ray 06/29/23 19:00 IMPRESSION: No definite acute or significant abnormality seen. Electronically Signed: Francisco Li MD at 19:37 EDT , EKG Normal sinus rhythm: Attestation: I personally reviewed and interpreted this EKG as follows: Comments: Normal sinus rhythm, rate 62 bpm, MD interval 146 ms, QRS duration 92 ms, no acute ST elevation, no acute infarct noted. Treatment and Re-Evaluation :: Patient appears generally well, patient appears nontoxic, vital signs are stable. Patient is difficult to have a conversation with as well as to stay on track however she is alert and oriented. Present to the ER for ongoing weakness and intermittent dizziness. Patient will receive basic laboratory values as well as a chest x-ray and CT scan of the brain to rule out any intracranial pathology, but pneumonia. Patient received urinalysis concerning for infection. Basic laboratory values. Patient's CBC was unremarkable, patient's chemistries were unremarkable. No evidence of any electrolyte imbalance. Patient's urinalysis was negative for any infection. Patient's COVID-19, influenza was negative. Patient's chest x- ray showed no definite acute or significant abnormality seen. Patient did receive a CT scan of the brain that showed no acute process, chronic evolutionary changes of the brain. At this time, is no evidence of any pneumonia, urinary tract infection, stroke, patient does look generally well. At this time, patient be diagnosed with weakness unknown cause. She likely could be suffering from another virus. She will need to continue to maintain h ealthy diet. She is instructed to return for any worsening symptoms. All questions answered, patient stable for discharge. <Dr. Silver Bernal MD - Last Filed: 06/29/23 20:32> [facility] Lab Data Labs: Laboratory Results - last 24 hr 06/29/23 18:09 WBC 5.6 RBC 4.24 Hgb 12.0 Hct 37.9 MCV 89.4 MCH 28.3 MCHC 31.7 L RDW Std Deviation 54.6 H RDW Coeff of Jeannie 16.7 H Plt Count 268 MPV 10.5 Immature Gran % (Auto) 0.500 Neut % (Auto) 66.8 Lymph % (Auto) 17.0 L [place] % (Auto) 13.8 H Eos % (Auto) 1.4 Baso % (Auto) 0.5 Absolute Neuts (auto) 3.7 Absolute Lymphs (auto) 0.95 Nucleated RBC % 0 Sodium 138 Potassium 4.1 Chloride 104 Carbon Dioxide 30.0 Anion Gap 4 L BUN 26 H Creatinine 0.97 Estim Creat Clear Calc 34.89 Est GFR (MDRD) Af Amer 72 Est GFR (MDRD) Non-Af 59 L BUN/Creatinine Ratio 26.8 H Glucose 95 Calcium 8.9 Urine Color Yellow Urine Clarity Clear Urine pH 6.0 Ur Specific [place] 1.015 Urine Protein Negative Urine Glucose (UA) Normal Urine Ketones Negative Urine Occult Blood Negative Urine Nitrite Negative Urine Bilirubin Negative Urine Urobilinogen Normal Ur Leukocyte Esterase 25 H Urine RBC 0 SEEN Urine WBC 0-5 SEEN Ur Squamous Epith Cells 0 SEEN Urine Bacteria 0 SEEN Urine Mucus 0 SEEN Radiography Diagnostic Testing: Clinical Impression(s) from Imaging Studies Brain CT 06/29/23 17:47 IMPRESSION: Chronic involutional changes of the brain. No acute abnormality seen. Electronically Signed: Francisco Li MD at 18:47 EDT , Chest X-Ray 06/29/23 19:00 IMPRESSION: No definite acute or significant abnormality seen. Electronically Signed: Francisco Li MD at 19:37 EDT , Treatment and Re-Evaluation Comments:: I have personally performed a face to face assessment of the patient and have reviewed the JONATHAN Note. I performed a substantive portion of the visit including all aspects of the following. My lou findings include: History: Patient states she just been feeling weak and a little worn out for a few weeks. She is still eating and drinking. She wants that she was dizzy but then cannot define that. She states she has had no trouble walking. No weakness. No chest pain trouble breathing. No urinary symptoms. I cannot get any focal complaint. It sounds like her roommate her long-term friend did pass away several weeks ago. And she just has not been feeling as well since. Not suicidal. No known history of depression. She states friends have been coming over and getting her food and things to drink and she is able to eat and drink. Exam: Patient is awake alert nontoxic. Takes a bit of time to get a story from her. But I am not finding any focal findings on exam. Mucous membranes are minimally dry. Lungs are clear. Heart is regular. Abdomen is thin and benign. No peripheral edema. She is awake and alert. I have seen her walk to the bathroom without any difficulties. Medical Decision Making: Patient will have blood work urine and CT x-ray done. These are not showing any marked abnormalities. I think it is appropriate that we get her home. She should call her primary physician on Sunday for follow-up. She has an appointment with August but I think being seen sooner would be best. Discharge Plan Triage Chief Complaint: Weakness ED Midlevel Provider: Memo Levy ED Provider: Silver Bernal Dx/Rx/DC Orders Clinical Impression: Dizziness, Viral syndrome, Weakness Instructions: ED Dizziness, Uncertain Cause, ED Viral Syndrome (Adult) Prescriptions: No Action alendronate 70 mg tablet 70 mg PO JEFFREY gabapentin 100 mg capsule 100 mg PO TID PRN (Reason: Pain) food supplemt, lactose-reduced Liquid 240 ml PO DAILY amlodipine 5 mg Tablet 5 mg PO DAILY Qty: 30 2RF doxycycline hyclate 100 mg capsule 100 mg PO BID 7 Days Qty: 14 0RF Primary Care Provider: Hemant Parra Referrals: Hemant Parra MD [Primary Care Provider] - Activity Restrictions/Additional Instructions: Please follow-up with your PCP. Your negative work-up today. Disposition Disposition: Home, Self Care
[2023-06-29 18:18] LABS: Bacteria 0 SEEN /hpf (None Seen); Mucous, Urine 0 SEEN /hpf (<or=2+); Red Blood Cells-Urine 0 SEEN /hpf (0-5); Squamous Epithelial Cells - UA 0 SEEN /hpf (5-10)
[2023-06-29 18:25] LABS: Color, Urine Yellow (Yellow); Glucose, Dipstick Normal (Normal); Ketone-Dipstick Negative (Negative); Leukocyte Esterase-Dipstick 25 /ul (Negative); Nitrite-Dipstick Negative (Negative); Occult Blood-Urine Negative /ul (Negative); Protein-Dipstick Negative (Negative); Specific Gravity, Urine 1.015 (1.002-1.030); Urine Bilirubin Dipstick Negative (Negative); Urine Clarity Clear (Clear); Urine Urobilinogen Normal (Normal)
[2023-06-29 18:26] LABS: Absolute Lymphocyte Count 0.95 X10^3/uL (0.83-4.51); Absolute Neutrophil Count 3.7 X10^3/uL (2.0-7.7); Basophil# 0.03 X10^3/uL; Basophil% 0.5 % (0-1); Eosinophil# 0.08 X10^3/uL; Eosinophils% 1.4 % (0-5); Hematocrit 37.9 % (37-47); Lymphocyte # 0.95 X10^3/ul (0.83-4.51); Mean Corp Hgb Conc 31.7 g/dL (32-36); Mean Corpuscular Hgb 28.3 pg (27.0-32.0); Mean Corpuscular Volume 89.4 fL (81-99); Mean Platelet Vol. 10.5 fl (6.2-12.0); Monocyte# 0.77 X10^3/uL; Monocyte% 13.8 % (0-10); NRBC Flagged by Analyzer 0 % (0-5); Neutrophil # 3.73 X10^3/uL (2.7-7.7); Neutrophil % 66.8 % (47-70); Platelet Count 268 K/mm3 (150-450); RBC Distribution Width CV 16.7 % (11.6-14.6); RBC Distribution Width SD 54.6 fl (35.1-43.9); Red Blood Count 4.24 M/mm3 (4.2-5.4); White Blood Count 5.6 K/mm3 (4.4-11.0)
[2023-06-29] MEDS: 0.9% Normal Saline 1,000 ML 1000 ML IV (18:27)
[2023-06-29 18:32] LABS: White Blood Cells 0-5 SEEN /hpf (0-5)
[2023-06-29 18:36] LABS: Anion Gap 4 (5-15); BUN 26 mg/dL (7-18); BUN/Creat Ratio 26.8 RATIO (10-20); Calcium,Total 8.9 mg/dL (8.5-10.1); Chloride 104 mmol/L (98-107); Creatinine, Serum 0.97 mg/dL (0.55-1.02); EST Glomerular Filtration Rate 59 mL/min (>60); Est Glom Filt Rate - Afr Amer 72 mL/min (>60); Estimated Creatinine Clearance 34.89 ml/min; Glucose 95 mg/dL (74-106); Potassium 4.1 mmol/L (3.5-5.1); Sodium Level 138 mmol/L (136-145)
[2023-06-29 19:00] VITALS: RESP 18
--- NOTE | 2023-06-29 19:00 | RAD_ITS ---
STUDY: X-RAY CHEST REASON FOR EXAM: Female, 78 years old. cough TECHNIQUE: Single AP portable view of the chest. COMPARISON: 12/29/2022. FINDINGS: The lungs are clear and expanded. There is no demonstrated pleural abnormality. Normal size heart. Normal mediastinum and glenn. Normal visualized pulmonary arteries. Normal visualized aortic arch and descending thoracic aorta. There are diffuse degenerative changes of the visualized thoracic spine. Normal visualized ribs, clavicles, and shoulders. There is no demonstrated abnormality of the visualized soft tissue structures of the upper abdomen. RAD/Chest 1 View (Portable) IMPRESSION: No definite acute or significant abnormality seen. Electronically Signed: Francisco Li MD at 19:37 EDT ,
[2023-06-29 21:15] VITALS: PULSE 70; RESP 18; O2SAT 98
== END 2023-06-29 21:24 | disposition home or self-care (01) ==
PROVIDERS: Nurse Practitioner; Emergency Provider Emergency Medicine; PCP Family Medicine; Visit Provider Emergency Medicine
DX: R42 Dizziness and giddiness (principal); R53.1 Weakness; B34.9 Viral infection, unspecified; Z79.899 Other long term (current) drug therapy; Z87.891 Personal history of nicotine dependence
CPT/HCPCS: 70450; 71045; 80048; 81001; 85025; 87428; 93005; 96360; 99282; J7030; A4216

== ENCOUNTER → 2023-07-16 | Outpatient (CLI) | payer MEDICARE, SELFPAY ==
--- NOTE | 2023-07-16 11:42 | BI_ITS ---
MAMMOGRAPHY - BILATERAL SCREENING REASON FOR EXAM: Female, 78 years old. Routine annual screening examination. PERTINENT HISTORY: Non-contributory. TECHNIQUE: Digital bilateral breast verena (3D mammographic acquisition) in the CC and MLO projections. 2-D mediolateral oblique (MLO) and craniocaudad (CC) views of both breasts were obtained. CAD: Full Field Digital Mammography with Computer Added Detection was performed. COMPARISON: Comparison is made with prior study dated July 13, 2022 and June 23, 2021. FINDINGS: Breast Composition: There are scattered areas of fibroglandular density. There are no dominant masses or suspicious calcifications. Stable bilateral secretory/vascular calcification. No other significant abnormalities are identified. There has been no significant change since the prior study. BI/SCRN MAMM (CAD)W/VERENA BILAT IMPRESSION: Stable bilateral screening mammogram. Yearly follow-up mammogram recommended. (A) ASSESSMENT CATEGORY: BIRADS Category 2: Benign. A letter regarding these results will be sent to the patient by the facility within 30 days. Approximately 10% of breast cancers are not detected by mammography. A normal mammogram should not delay biopsy of a clinically suspicious abnormality. [id number] Electronically Signed: Marco Mcgregor MD at 12:48 EDT ,
== END | disposition home or self-care (01) ==
LOC: OPBI 11:39
PROVIDERS: PCP Family Medicine; Referring Provider Nurse Practitioner Family; Visit Provider Nurse Practitioner Family
DX: Z12.31 Encounter for screening mammogram for malignant neoplasm of breast (principal)
CPT/HCPCS: 77063; 77067

== ENCOUNTER 2023-08-22 15:18 | Emergency (ER) | payer MEDICARE, SELFPAY ==
[2023-08-22 15:19] VITALS: BP 142/59; PULSE 89; RESP 14; TEMP 36.2; O2SAT 100; BMI 20.6
--- NOTE | 2023-08-22 16:06 | EKG12_ITS ---
Test Reason : Blood Pressure : / mmHG Vent. Rate : 072 BPM Atrial Rate : 072 BPM P-R Int : 146 ms QRS Dur : 094 ms QT Int : 402 ms P-R-T Axes : 071 051 -01 degrees QTc Int : 440 ms Normal sinus rhythm Normal ECG Confirmed by KIKE BERKOWITZ, DHIRAJ ([id number]), manager editorial BARB MONTES ([id number]) on 08/24/2023 7:13:39 AM Referred By: JN Confirmed By:NUBIA STOKES MD
--- NOTE | 2023-08-22 16:07 | EX.ED.DYSGE1 ---
HPI History of Present Illness Chief Complaint: Syncope Detail of Chief Complaint: Near syncope with chest pain Informant: patient Onset/Context/Timing Onset: Today and Hours Context: Sudden Onset Timing: Intermittent Current Severity: Mild Maximum Severity: Mild Narrative Narrative: 78-year-old female history of aortic stenosis. Reportedly an echocardiogram done June at the [facility] a month or so ago. Today she [place] she had some chest discomfort with radiation to her throat. And fell as she might pass out. Said she did not have to lower herself to the ground and eventually got better. She had a prior episode like this before. She states she did not pass out. She denies recent illness. Prior similar symptoms: Yes Recent Illness/Hospitalization: No PFSH PFSH Medical History Cervical cancer DVT (deep venous thrombosis) Endometrial cancer Former smoker Osteoporosis Home Medications alendronate 70 mg tablet 70 mg PO JEFFREY OSTEOPEROSIS 12/29/22 [History Last Taken 01/07/23] gabapentin 100 mg capsule 100 mg PO TID PRN Pain 12/29/22 [History Last Taken 01/08/23] food supplemt, lactose-reduced 240 ml PO DAILY SUPPLEMENT 01/09/23 [History Last Taken Unknown] amlodipine 5 mg tablet 5 mg PO DAILY #30 tabs 01/13/23 [Rx Last Taken Unknown] doxycycline hyclate 100 mg capsule 100 mg PO BID 7 days #14 caps 04/16/23 [Rx Last Taken Unknown] Allergy/AdvReac Type Severity Reaction Status Date / Time acetaminophen [From Percocet] Allergy Unknown Verified 08/22/23 15:22 ibuprofen [From Motrin] Allergy Unknown Verified 08/22/23 15:22 omega-3 acid ethyl esters Allergy Unknown Verified 08/22/23 15:22 oxycodone Allergy Unknown Verified 08/22/23 15:22 oxycodone HCl [From Percocet] Allergy Unknown Verified 08/22/23 15:22 Penicillins Allergy Unknown Verified 08/22/23 15:22 Social History Smoking Status: Former smoker substance use type: does not use ROS ROS ED ROS Narrative Denies recent illness. Review of Systems ROS Unobtainable: Denies due to encephalopathy Constitutional Constitutional ED: Denies chills or fever(s) Eyes Eyes: Denies blurry vision ENT ENT ED: Denies ear pain Cardiovascular Cardiovascular: Reports chest pain; Denies palpitations or racing heartbeat Respiratory/Chest Respiratory/Chest: Denies cough or dyspnea Gastrointestinal Gastrointestinal: Denies abdominal pain Genitourinary Genitourinary ED: Denies dysuria or hematuria Musculoskeletal Musculoskeletal: Denies arthralgias, back pain or myalgias Integumentary Denies abscess, Abrasions or rash Neurologic Neurologic: Denies headache(s) or paresthesias Psychiatric Psychiatric: Denies anxiety or depression Endocrine Endocrinology: Denies cold intolerance Hematologic/Lymphatic Hematologic/Lymphatic: Reports none Allergic/Immunologic Allergic/Immunologic ED: Denies mouth swelling, tongue swelling or urticaria EXAM Physical Exam Narrative Exam Narrative: 78-year-old female no acute distress. Sitting in a room chair and then transferred into the bed. Vital signs are stable afebrile. Pulse ox 100% on room air no signs hypoxia. H EENT exam unremarkable. Moist mucous membranes. Posterior pharynx unremarkable. Neck nontender no JVD no lymphadenopathy. Lungs clear to auscultation bilaterally. Heart regular rhythm rate about 90 she is a 5/6 systolic ejection murmur consistent with aortic stenosis. Chest wall nontender. Abdomen soft nontender. Moving all 4 extremities. Nontender no edema. Neurologically she is awake and alert. Answering questions following commands. Normal motor strength. Const Vital Signs: 08/22/23 15:19 08/22/23 16:31 08/22/23 17:36 Temperature 97.2 F L Temperature Source Temporal Pulse Rate 89 Pulse Rate [Lying] 72 Pulse Rate [Sitting (for 1 minute prior to obtaining)] 73 Pulse Rate [Standing (for 1 minute prior to obtaining)] 69 Respiratory Rate 14 Blood Pressure 142/59 H Blood Pressure [Lying] 144/51 H Blood Pressure [Sitting (for 1 minute prior to obtaining)] 155/59 H Blood Pressure [Standing (for 1 minute prior to obtaining)] 150/69 H Blood Pressure Mean 86 Blood Pressure Mean [Lying] 82 Blood Pressure Mean [Sitting (for 1 minute prior to obtaining)] 91 Blood Pressure Mean [Standing (for 1 minute prior to obtaining)] 96 Pulse Ox 100 Oxygen Delivery Method Room Air Room Air Positive well nourished and well developed; Negative for obese, cachectic, contractures or unkempt General Appearance ED: well developed and NAD; Negative for unkempt, cachectic, contractures, cyanotic, diaphoretic or pallor Nutritional Appearance: Negative for cachectic or obese HEENT Reports moist mucous membranes Negative for trauma or tenderness Eyes PERRL and EOMs intact bilaterally General Eye ED: Negative for pale conjunctiva or scleral icterus Neck no lymphadenopathy, supple and no JVD General: Negative for tenderness Lymph Lymphatic: Negative for other Chest Wall inspection of chest normal and palpation of chest normal Chest: Negative for other Resp normal respiratory effort and clear to auscultation bilaterally Effort and Inspection: Negative for retractions or pain with movement Auscultation: Negative for rales, rhonchi or wheezes Cardio regular rate, regular rhythm, S1 normal heart sound and S2 normal heart sound; Negative for no murmurs Rate: other Other Details: 5/6 systolic ejection murmur consistent with . GI normal to inspection, nondistended, normoactive bowel sounds, non-tender, non-distended and no masses; Negative for hepatosplenomegaly Inspection: Negative for abdominal distention Auscultation: normoactive bowel sounds Palpation: soft; Negative for tender or guarding Back/Spine no CVA tenderness General Back: Negative for CVA tenderness Cervical Spine: Negative for cervical spine tenderness Thoracic Spine / Upper Back: Negative for thoracic spinal tenderness Lumbar Spine / Lower Back: Negative for lumbar spinal tenderness Extremity normal to inspection General Extremety ED: Negative for edema or tenderness General Extremity: Negative for edema Neuro oriented x3 and CN's II-XII intact bilaterally Sensorium / Orientation: alert; Negative for orientation impaired, lethargic or stuporous Motor Exam: strength 5/5 throughout; Negative for general weakness or strength abnormal Psych mental status grossly normal Appearance: Negative for unkempt Attitude: No agitated Mood & Affect: Negative for depressed, anxious or tearful Skin no rashes or lesions noted, no wounds and skin turgor normal General Skin Exam: elasticity normal; Negative for jaundice or pallor Lesions: No lesion noted Rashes: No rashes noted Trauma: Negative for abrasion Wounds: Negative for wounds noted MDM MDM MDM Narrative Medical decision making narrative: 78-year-old history of aortic stenosis with near syncope and chest pain today. Exam benign except for the AAS murmur. She undergo cardiac work-up. Trying to obtain her most recent echocardiogram from the [facility]. Repeat exam at 6:19 PM patient doing well. Resting comfortably in bed. Vital signs are stable. Orthostatic vital signs are unremarkable. Patient is without symptoms. She is comfortable being discharged home. She understands she needs a follow-up with the [facility] about her aortic stenosis. History & Record Review Discussion w/independent historian: Patient Additional record(s) reviewed:: Prior inpatient record, Prior outpatient record, Prior ED visit and Prior labs Lab Data Attestation: I reviewed the patient's lab results. Lab results narrative: CBC unremarkable white count of 6. H&H 12.5 and 40. Platelets 279. EKG is in normal sinus rhythm rate of 72 no acute signs of FL or ischemia. Inverted T waves in lead III Chemistries gap of 5. BUN and creatinine of 20 and 1. Glucose 98. Troponin 9. Labs: Laboratory Results - last 24 hr 08/22/23 16:26 WBC 6.4 RBC 4.34 Hgb 12.5 Hct 40.4 MCV 93.1 MCH 28.8 MCHC 30.9 L RDW Std Deviation 49.7 H RDW Coeff of Jeannie 14.6 Plt Count 279 MPV 10.6 Immature Gran % (Auto) 0.200 Neut % (Auto) 74.6 H Lymph % (Auto) 11.4 L [place] % (Auto) 12.0 H Eos % (Auto) 1.2 Baso % (Auto) 0.6 Absolute Neuts (auto) 4.8 Absolute Lymphs (auto) 0.73 L Nucleated RBC % 0 Sodium 137 Potassium 4.1 Chloride 103 Carbon Dioxide 29.0 Anion Gap 5 BUN 20 H Creatinine 1.06 H Estim Creat Clear Calc 35.15 Est GFR (MDRD) Af Amer 65 Est GFR (MDRD) Non-Af 53 L BUN/Creatinine Ratio 18.9 Glucose 98 Calcium 9.0 Troponin I High Sens 9 Radiography Chest X-Ray - ED: 1 View, Read by ED Physician, Normal, Heart, Lungs, Mediastinum, Bony Structures, No Acute Disease and Chronic Changes Diagnostic Testing: Clinical Impression(s) from Imaging Studies Chest X-Ray 08/22/23 16:34 IMPRESSION: No acute pulmonary process Electronically Signed: Pavel Shultz MD at 16:53 EDT , Chest x-ray, portable, single view, interpreted by myself shows no acute abnormality. Normal cardiac silhouette. Normal mediastinum. Chronic changes in the lung chavarria. No CHF nor pleural effusions. No infiltrate. Rhythm Strip Rhythm Strip: Sinus Rhythm Rate: 72 Ectopy: None EKG Initial EKG: Attestation: I personally reviewed and interpreted this EKG as follows: Interpretation: Sinus Rhythm and No Acute Injury Pattern Comments: Normal sinus rhythm. Rate of 72. No acute signs of FL or ischemia. Discharge Plan Triage Chief Complaint: Syncope ED Provider: Balwinder Ybarra Dx/Rx/DC Orders Clinical Impression: History of aortic stenosis, Near syncope Instructions: ED Near-Fainting, Uncertain Cause Prescriptions: No Action alendronate 70 mg tablet 70 mg PO JEFFREY gabapentin 100 mg capsule 100 mg PO TID PRN (Reason: Pain) food supplemt, lactose-reduced Liquid 240 ml PO DAILY amlodipine 5 mg Tablet 5 mg PO DAILY Qty: 30 2RF doxycycline hyclate 100 mg capsule 100 mg PO BID 7 Days Qty: 14 0RF Primary Care Provider: Hemant Parra Referrals: Hemant Parra MD [Primary Care Provider] - As soon as possible Activity Restrictions/Additional Instructions: Your labs, chest x-ray and EKG today were unremarkable. You feel lightheaded like you might pass out may very well be associated with your aortic stenosis. You need to follow-up with the [facility] as soon as possible to discuss with them if they need to do surgery or if they can just keep watching this and doing follow-up. Disposition Disposition: Home, Self Care
--- NOTE | 2023-08-22 16:34 | RAD_ITS ---
STUDY: X-RAY CHEST REASON FOR EXAM: Female, 78 years old. Substernal chest pain TECHNIQUE: Single AP portable view of the chest. COMPARISON: 06/29/2023 FINDINGS: The lungs are clear and expanded. There is no demonstrated pleural abnormality. Normal size heart. Normal mediastinum and glenn. Normal visualized pulmonary arteries. Normal visualized aortic arch and descending thoracic aorta. There are diffuse degenerative changes of the visualized thoracic spine. Normal visualized ribs, clavicles, and shoulders. There is no demonstrated abnormality of the visualized soft tissue structures of the upper abdomen. RAD/Chest 1 View (Portable) IMPRESSION: No acute pulmonary process Electronically Signed: Pavel Shultz MD at 16:53 EDT ,
[2023-08-22 16:46] LABS: Absolute Lymphocyte Count 0.73 X10^3/uL (0.83-4.51); Absolute Neutrophil Count 4.8 X10^3/uL (2.0-7.7); Basophil# 0.04 X10^3/uL; Basophil% 0.6 % (0-1); Eosinophil# 0.08 X10^3/uL; Eosinophils% 1.2 % (0-5); Hematocrit 40.4 % (37-47); Hemoglobin 12.5 g/dL (12.0-15.0); Lymphocyte # 0.73 X10^3/ul (0.83-4.51); Lymphocyte % 11.4 % (19-41); Mean Corp Hgb Conc 30.9 g/dL (32-36); Mean Corpuscular Hgb 28.8 pg (27.0-32.0); Mean Corpuscular Volume 93.1 fL (81-99); Mean Platelet Vol. 10.6 fl (6.2-12.0); Monocyte# 0.77 X10^3/uL; NRBC Flagged by Analyzer 0 % (0-5); Neutrophil # 4.78 X10^3/uL (2.7-7.7); Neutrophil % 74.6 % (47-70); Platelet Count 279 K/mm3 (150-450); RBC Distribution Width CV 14.6 % (11.6-14.6); RBC Distribution Width SD 49.7 fl (35.1-43.9); Red Blood Count 4.34 M/mm3 (4.2-5.4); White Blood Count 6.4 K/mm3 (4.4-11.0)
[2023-08-22 17:05] LABS: Anion Gap 5 (5-15); BUN 20 mg/dL (7-18); BUN/Creat Ratio 18.9 RATIO (10-20); Chloride 103 mmol/L (98-107); Creatinine, Serum 1.06 mg/dL (0.55-1.02); EST Glomerular Filtration Rate 53 mL/min (>60); Est Glom Filt Rate - Afr Amer 65 mL/min (>60); Estimated Creatinine Clearance 35.15 ml/min; Glucose 98 mg/dL (74-106); Potassium 4.1 mmol/L (3.5-5.1); Sodium Level 137 mmol/L (136-145); Troponin-I HS (w/2H Reflex) 9 pg/mL (3.0-54.0)
[2023-08-22 17:36] VITALS: BP 144/51; BP 150/69; BP 155/59; PULSE 69; PULSE 72; PULSE 73
[2023-08-22 18:38] LABS: Reflex Troponin-HS? (from REC) Y
[2023-08-22 18:40] VITALS: PULSE 78; RESP 16; O2SAT 98
== END 2023-08-22 18:42 | disposition home or self-care (01) ==
PROVIDERS: Emergency Provider Emergency Medicine; PCP Family Medicine; Visit Provider Emergency Medicine
DX: R55 Syncope and collapse (principal); R07.9 Chest pain, unspecified; I35.0 Nonrheumatic aortic (valve) stenosis; Z87.891 Personal history of nicotine dependence; Z79.899 Other long term (current) drug therapy
CPT/HCPCS: 71045; 80048; 84484; 85025; 93005; 99283

== ENCOUNTER 2023-12-18 16:18 | Emergency (ER) | payer MEDICARE, MEDICAID, SELFPAY ==
[2023-12-18 16:19] VITALS: BP 159/67; PULSE 87; RESP 14; TEMP 36.2; O2SAT 97; BMI 22.3
--- NOTE | 2023-12-18 16:53 | EKG12_ITS ---
Test Reason : CP Blood Pressure : / mmHG Vent. Rate : 068 BPM Atrial Rate : 068 BPM P-R Int : 132 ms QRS Dur : 088 ms QT Int : 408 ms P-R-T Axes : 072 050 045 degrees QTc Int : 433 ms Normal sinus rhythm Minimal voltage criteria for LVH, may be normal variant ( Sokolow-Solorzano ) Borderline ECG Confirmed by Jaziel Pena ([id number]), newspaper copy editor ERASTO RICH ([id number]) on 12/19/2023 10:57:09 AM Referred By: MAGDA/IKE Confirmed By:Jaziel Pena
[2023-12-18] MEDS: 0.9% Normal Saline (1000mL) 1,000 ML 1000 ML IV (19:01)
--- NOTE | 2023-12-18 19:03 | RAD_ITS ---
STUDY: X-RAY CHEST REASON FOR EXAM: Female, 78 years old. weakness TECHNIQUE: AP portable COMPARISON: August 22, 2023 FINDINGS: The lungs are clear and expanded. There is no demonstrated pleural abnormality. Normal size heart. Normal mediastinum and glenn. Normal visualized pulmonary arteries. Normal visualized aortic arch and descending thoracic aorta. Dorsal spine demonstrates mild scoliosis and degenerative change Normal visualized ribs, clavicles, and shoulders. There is no demonstrated abnormality of the visualized soft tissue structures of the upper abdomen. RAD/Chest 1 View (Portable) IMPRESSION: No acute cardiopulmonary pathology. Electronically Signed: Mahendra Weinberg MD at 19:24 EST ,
[2023-12-18 19:06] LABS: Absolute Lymphocyte Count 0.88 X10^3/uL (0.83-4.51); Absolute Neutrophil Count 3.8 X10^3/uL (2.0-7.7); Basophil# 0.03 X10^3/uL; Basophil% 0.5 % (0-1); Eosinophil# 0.07 X10^3/uL; Eosinophils% 1.3 % (0-5); Hemoglobin 11.7 g/dL (12.0-15.0); Lymphocyte # 0.88 X10^3/ul (0.83-4.51); Lymphocyte % 16.1 % (19-41); Mean Corp Hgb Conc 31.6 g/dL (32-36); Mean Corpuscular Hgb 28.7 pg (27.0-32.0); Mean Corpuscular Volume 90.9 fL (81-99); Mean Platelet Vol. 10.6 fl (6.2-12.0); Monocyte# 0.67 X10^3/uL; Monocyte% 12.2 % (0-10); NRBC Flagged by Analyzer 0 % (0-5); Neutrophil % 69.5 % (47-70); Platelet Count 214 K/mm3 (150-450); RBC Distribution Width CV 15.1 % (11.6-14.6); RBC Distribution Width SD 50.1 fl (35.1-43.9); Red Blood Count 4.07 M/mm3 (4.2-5.4); White Blood Count 5.5 K/mm3 (4.4-11.0)
[2023-12-18 19:28] LABS: AST(SGOT) 26 U/L (15-37); Alanine Aminotransfer ALT/SGPT 17 U/L (13-56); Albumin, Serum 2.9 g/dL (3.2-5.0); Alkaline Phosphatase 51 U/L (45-117); Anion Gap 5 (5-15); BUN 19 mg/dL (7-18); Calcium,Total 8.5 mg/dL (8.5-10.1); Chloride 110 mmol/L (98-107); Creatinine, Serum 0.86 mg/dL (0.55-1.02); EST Glomerular Filtration Rate 68 mL/min (>60); Est Glom Filt Rate - Afr Amer 82 mL/min (>60); Estimated Creatinine Clearance 43.33 ml/min; Globulin 2.9 g/dL (2.2-4.2); Glucose 97 mg/dL (74-106); Lipase 63 U/L (13-75); Potassium 4.1 mmol/L (3.5-5.1); Protein, Total 5.8 g/dL (6.4-8.2); Sodium Level 142 mmol/L (136-145); Troponin-I HS 10 pg/mL (3.0-54.0)
[2023-12-18 19:29] LABS: Bacteria 0 SEEN /hpf (None Seen); Mucous, Urine 0 SEEN /hpf (<or=2+); Red Blood Cells-Urine 0 SEEN /hpf (0-5); Squamous Epithelial Cells - UA 0 SEEN /hpf (5-10); White Blood Cells 0 SEEN /hpf (0-5)
[2023-12-18 19:44] LABS: Color, Urine Yellow (Yellow); Glucose, Dipstick Normal (Normal); Ketone-Dipstick Negative (Negative); Leukocyte Esterase-Dipstick Negative /ul (Negative); Nitrite-Dipstick Negative (Negative); Occult Blood-Urine Negative /ul (Negative); Protein-Dipstick Negative (Negative); Urine Bilirubin Dipstick Negative (Negative); Urine Clarity Clear (Clear); Urine Urobilinogen Normal (Normal); Urine pH 6.5 (5.0 - 8.0)
--- NOTE | 2023-12-18 19:54 | RAD_ITS ---
STUDY: X-RAY - LEFT FOOT CLINICAL: Female, 78 years old. pain TECHNIQUE: 3 view(s) of the foot. COMPARISON: None. FINDINGS: Normal talus, calcaneus, and tarsal bones. Normal visualized subtalar, talonavicular, calcaneocuboid, tarsal and tarsometatarsal articulations. Normal metatarsi. Normal metatarsophalangeal joint of the great toe. Normal tibial and fibular sesamoid bones. Mild arthritic changes of the interphalangeal joint of the great toe. Normal phalanges of the great toe. Normal second through fifth metatarsophalangeal joints. There is apparent subluxation of the PIP joint of the second toe without definitive evidence for associated fracture The soft tissue structures are unremarkable. RAD/Foot min 3 Views IMPRESSION: Apparent subluxation of the PIP joint of the second toe without associated fracture.. Clinical correlation recommended. Electronically Signed: Mahendra Weinberg MD at 20:35 EST ,
--- NOTE | 2023-12-18 19:55 | ED.VIS.LOWEX ---
HPI History of Present Illness Chief Complaint: Weakness Narrative Narrative: 78-year-old female presenting for evaluation with multiple complaints. She states she has had leg pain for about [address] Pitt who she states does not treat her pain. She states she only trims her nails. She also sees her primary care physician who states she is addicted to opiates and does not want her treated with this. She states he has been switching her to gabapentin to help with the pain. Patient denies any new trauma. She states she got up and went to do breakfast discharge today. She was helping to serve. Patient had no falls or injury. Patient now stating that the pain radiates up to her leg and into her stomach. She denies nausea vomiting, diarrhea, constipation. No fevers or chills. She is ambulatory. Patient denies urinary or vaginal complaints. [facility] Medical History Cervical cancer DVT (deep venous thrombosis) Endometrial cancer Former smoker Osteoporosis Home Medications alendronate 70 mg tablet 70 mg PO JEFFREY OSTEOPEROSIS 12/29/22 [History Last Taken 01/07/23] gabapentin 100 mg capsule 100 mg PO TID PRN Pain 12/29/22 [History Last Taken 01/08/23] food supplemt, lactose-reduced 240 ml PO DAILY SUPPLEMENT 01/09/23 [History Last Taken Unknown] amlodipine 5 mg tablet 5 mg PO DAILY #30 tabs 01/13/23 [Rx Last Taken Unknown] doxycycline hyclate 100 mg capsule 100 mg PO BID 7 days #14 caps 04/16/23 [Rx Last Taken Unknown] Allergy/AdvReac Type Severity Reaction Status Date / Time acetaminophen [From Percocet] Allergy Unknown Verified 08/22/23 15:22 ibuprofen [From Motrin] Allergy Unknown Verified 08/22/23 15:22 omega-3 acid ethyl esters Allergy Unknown Verified 08/22/23 15:22 oxycodone Allergy Unknown Verified 08/22/23 15:22 oxycodone HCl [From Percocet] Allergy Unknown Verified 08/22/23 15:22 Penicillins Allergy Unknown Verified 08/22/23 15:22 Social History Smoking Status: Former smoker substance use type: does not use ROS ROS ED Constitutional Constitutional ED: Denies chills, fever(s) or sweats Eyes Eyes: Denies blurry vision or change in vision ENT ENT ED: Denies ear pain or sore throat Cardiovascular Cardiovascular: Denies chest pain, palpitations or racing heartbeat Respiratory/Chest Respiratory/Chest: Denies cough, dyspnea or sputum Gastrointestinal Gastrointestinal: Denies abdominal pain, constipation, diarrhea, nausea or vomiting Genitourinary Genitourinary ED: Denies dysuria, hematuria or urinary frequency Musculoskeletal Musculoskeletal: Reports other Details: Left leg, ankle pain ; Denies arthralgias, myalgias or neck pain Integumentary Denies abscess, Abrasions or rash Neurologic Neurologic: Denies headache(s), paresthesias or weakness Psychiatric Psychiatric: Denies anxiety, depression, suicidal ideation or suicidal thoughts Endocrine Endocrinology: Denies polydipsia or polyuria EXAM Physical Exam Const Vital Signs: 12/18/23 16:19 12/18/23 21:23 Temperature 97.2 F L Temperature Source Temporal Pulse Rate 87 78 Respiratory Rate 14 16 Blood Pressure 159/67 H 159/89 H Blood Pressure Mean 97 112 Pulse Ox 97 97 Oxygen Delivery Method Room Air General Appearance ED: NAD HEENT Reports moist mucous membranes normocephalic and atraumatic Resp normal respiratory effort and no retractions Auscultation: Negative for rales, rhonchi or wheezes Cardio regular rate and regular rhythm GI non-tender and non-distended Extremity normal to inspection Neuro oriented x3 and CN's II-XII intact bilaterally Sensorium / Orientation: alert Motor Exam: strength 5/5 throughout and general weakness Psych mental status grossly normal Skin no wounds MDM MDM MDM Narrative Medical decision making narrative: Patient presenting with multiple complaints. These are long-term problems. She states her primary care does not give her pain medicine because he thinks she is addicted to opiates. She states podiatry does not treat her pain either. On examination she has some pain she states in her left ankle and foot although she is not tender to palpation. There are some slight edema. Neurovascularlu intact. No infectious lesions. CBC shows normal white blood cell count of 5.5. Hemoglobin 11.7. Platelets are normal at 214. Renal function and electrolytes within normal limits. LFTs are normal. Lipase 63. Urinalysis negative for infection. X-rays of the chest on my interpretation shows no acute process. X-ray of the left ankle on my interpretation is no acute fracture or subluxation. Radiologist services and agrees. Radiologist interprets today left foot as subluxation of the PIP joint on the left foot. I do not believe this is acute. Given patient's workup is ultimately normal I recommended that she follow-up with her PCP for pain control and her elderly caregiver for further footcare. It is unclear the source of her pain at this point but her blood work looks to be normal as well. She discharged home in stable condition. Impression: 1. Chronic foot and ankle pain 2. Abdominal pain 3. Weakness Lab Data Attestation: I reviewed the patient's lab results. Labs: Laboratory Results - last 24 hr 12/18/23 12/18/23 19:00 19:20 WBC 5.5 RBC 4.07 L Hgb 11.7 L Hct 37.0 MCV 90.9 MCH 28.7 MCHC 31.6 L RDW Std Deviation 50.1 H RDW Coeff of Jeannie 15.1 H Plt Count 214 MPV 10.6 Immature Gran % (Auto) 0.400 Neut % (Auto) 69.5 Lymph % (Auto) 16.1 L [place] % (Auto) 12.2 H Eos % (Auto) 1.3 Baso % (Auto) 0.5 Absolute Neuts (auto) 3.8 Absolute Lymphs (auto) 0.88 Nucleated RBC % 0 Sodium 142 Potassium 4.1 Chloride 110 H Carbon Dioxide 27.0 Anion Gap 5 BUN 19 H Creatinine 0.86 Estim Creat Clear Calc 43.33 Est GFR (MDRD) Af Amer 82 Est GFR (MDRD) Non-Af 68 BUN/Creatinine Ratio 22.0 H Glucose 97 Calcium 8.5 Total Bilirubin 0.30 AST 26 ALT 17 Alkaline Phosphatase 51 Troponin I High Sens 10 Total Protein 5.8 L Albumin 2.9 L Globulin 2.9 Albumin/Globulin Ratio 1.0 Lipase 63 Urine Color Yellow Urine Clarity Clear Urine pH 6.5 Ur Specific [place] 1.010 Urine Protein Negative Urine Glucose (UA) Normal Urine Ketones Negative Urine Occult Blood Negative Urine Nitrite Negative Urine Bilirubin Negative Urine Urobilinogen Normal Ur Leukocyte Esterase Negative Urine RBC 0 SEEN Urine WBC 0 SEEN Ur Squamous Epith Cells 0 SEEN Urine Bacteria 0 SEEN Urine Mucus 0 SEEN Radiography Diagnostic Testing: Clinical Impression(s) from Imaging Studies Chest X-Ray 12/18/23 19:03 IMPRESSION: No acute cardiopulmonary pathology. Electronically Signed: Mahendra Weinberg MD at 19:24 EST , Foot X-Ray 12/18/23 19:54 IMPRESSION: Apparent subluxation of the PIP joint of the second toe without associated fracture.. Clinical correlation recommended. Electronically Signed: Mahendra Weinberg MD at 20:35 EST , Ankle X-Ray 12/18/23 20:00 IMPRESSION: Mild bimalleolar sprain. No acute fracture or dislocation. Electronically Signed: Mahendra Weinberg MD at 20:31 EST , Discharge Plan Triage Chief Complaint: Weakness Other Complaint: Lower Extremity Injury ED Provider: Farhat Nesbitt Dx/Rx/DC Orders Prescriptions: No Action alendronate 70 mg tablet 70 mg PO JEFFREY gabapentin 100 mg capsule 100 mg PO TID PRN (Reason: Pain) food supplemt, lactose-reduced Liquid 240 ml PO DAILY amlodipine 5 mg Tablet 5 mg PO DAILY Qty: 30 2RF doxycycline hyclate 100 mg capsule 100 mg PO BID 7 Days Qty: 14 0RF Primary Care Provider: Hemant Parra Referrals: Hemant Parra MD [Primary Care Provider] -
--- NOTE | 2023-12-18 20:00 | RAD_ITS ---
STUDY: X-RAY - LEFT ANKLE REASON FOR EXAM: Female, 78 years old. pain TECHNIQUE: 3 view(s) of the ankle. COMPARISON: None. FINDINGS: Normal visualized distal tibia and fibula. Normal medial and lateral malleoli. Normal tibiotalar articulation and ankle mortise. Normal visualized talus and calcaneus. The visualized subtalar, talonavicular, calcaneocuboid and tarsal articulations are normal. Mild bimalleolar soft tissue swelling. RAD/Ankle min 3 Views IMPRESSION: Mild bimalleolar sprain. No acute fracture or dislocation. Electronically Signed: Mahendra Weinberg MD at 20:31 EST ,
[2023-12-18 21:23] VITALS: BP 159/89; PULSE 78; RESP 16; O2SAT 97
[2023-12-18 22:40] VITALS: BP 157/60; PULSE 69; RESP 18; TEMP 36.1; O2SAT 97
== END 2023-12-18 22:55 | disposition home or self-care (01) ==
PROVIDERS: Emergency Provider Student in an Organized Health Care Education/Training Program; PCP Family Medicine; Visit Provider Student in an Organized Health Care Education/Training Program
DX: M79.672 Pain in left foot (principal); M25.572 Pain in left ankle and joints of left foot; M79.605 Pain in left leg; G89.29 Other chronic pain; Z11.52 Encounter for screening for COVID-19; R53.1 Weakness; R10.9 Unspecified abdominal pain; R60.9 Edema, unspecified; Z79.899 Other long term (current) drug therapy; Z87.891 Personal history of nicotine dependence
CPT/HCPCS: 71045; 73610; 73630; 80053; 81001; 83690; 84484; 85025; 87631; 93005; 96360; 96361; 99285; J7030; A4216

== ENCOUNTER 2024-01-13 18:49 | Emergency (ER) | payer MEDICARE, MEDICAID, SELFPAY ==
[2024-01-13 18:50] VITALS: BP 124/80; PULSE 93; RESP 18; TEMP 36.4; O2SAT 100; BMI 21.5
--- NOTE | 2024-01-13 19:18 | EX.ED.DYSGE1 ---
HPI History of Present Illness Chief Complaint: Nausea/Vomiting/Diarrhea Informant: patient Narrative Narrative: 78-year-old female presenting to the emergency room with nausea vomiting diarrhea. Patient states symptoms began this afternoon after returning home from [place]. She states that she has had several episodes of vomiting and diarrhea. No fevers. She states she developed some rhinorrhea while vomiting. She has many theories as to why this may has occurred including the couple that has not been to [place] for a few weeks getting too close to her, somebody put something in her food, a bad Dinesh blas cheeseburger that she ate, and possibly the 70 mg pill that she took today. No reported fevers. No significant abdominal pain. No cramping. [facility] Medical History Cervical cancer DVT (deep venous thrombosis) Endometrial cancer Former smoker Osteoporosis Home Medications alendronate 70 mg tablet 70 mg PO JEFFREY OSTEOPEROSIS 12/29/22 [History Last Taken 01/07/23] gabapentin 100 mg capsule 100 mg PO TID PRN Pain 12/29/22 [History Last Taken 01/08/23] food supplemt, lactose-reduced 240 ml PO DAILY SUPPLEMENT 01/09/23 [History Last Taken Unknown] amlodipine 5 mg tablet 5 mg PO DAILY #30 tabs 01/13/23 [Rx Last Taken Unknown] ondansetron 4 mg disintegrating tablet 4 mg PO Q6H PRN PRN Nausea #15 tabs 01/13/24 [Rx Last Taken Unknown] Allergy/AdvReac Type Severity Reaction Status Date / Time acetaminophen [From Percocet] Allergy Unknown Verified 01/13/24 18:50 ibuprofen [From Motrin] Allergy Unknown Verified 01/13/24 18:50 omega-3 acid ethyl esters Allergy Unknown Verified 01/13/24 18:50 oxycodone Allergy Unknown Verified 01/13/24 18:50 oxycodone HCl [From Percocet] Allergy Unknown Verified 01/13/24 18:50 Penicillins Allergy Unknown Verified 01/13/24 18:50 Social History Smoking Status: Former smoker substance use type: does not use ROS ROS ED Constitutional Constitutional ED: Denies chills, fever(s) or weight loss Eyes Eyes: Denies change in vision or diplopia ENT ENT ED: Reports rhinorrhea; Denies ear pain or sore throat Cardiovascular Cardiovascular: Denies chest pain, orthopnea, palpitations or racing heartbeat Respiratory/Chest Respiratory/Chest: Denies cough, dyspnea or orthopnea Gastrointestinal Gastrointestinal: Reports diarrhea, nausea and vomiting; Denies abdominal pain Genitourinary Genitourinary ED: Denies dysuria, hematuria or urinary frequency Musculoskeletal Musculoskeletal: Denies arthralgias or myalgias Integumentary Denies abscess or rash Neurologic Neurologic: Denies headache(s) or weakness Psychiatric Psychiatric: Denies anxiety, depression, suicidal ideation or suicidal thoughts Endocrine Endocrinology: Denies polydipsia, polyphagia or polyuria Allergic/Immunologic Allergic/Immunologic ED: Denies mouth swelling, tongue swelling or urticaria EXAM Physical Exam Const Vital Signs: 01/13/24 18:50 Temperature 97.5 F L Temperature Source Temporal Pulse Rate 93 Respiratory Rate 18 Blood Pressure 124/80 H Blood Pressure Mean 94 Pulse Ox 100 Oxygen Delivery Method Room Air Positive well nourished and well developed General Appearance ED: well developed HEENT Reports normocephalic, head/scalp atraumatic and moist mucous membranes Eyes PERRL and EOMs intact bilaterally Neck no lymphadenopathy, supple and no JVD Resp normal respiratory effort and clear to auscultation bilaterally Cardio regular rate, regular rhythm and no murmurs GI normal to inspection, nondistended, normoactive bowel sounds and non-tender Palpation: soft Back/Spine no CVA tenderness and normal ROM Extremity normal to inspection General Extremety ED: Negative for edema General Extremity: Negative for edema Neuro oriented x3 and CN's II-XII intact bilaterally Sensorium / Orientation: alert Motor Exam: strength 5/5 throughout Psych mental status grossly normal Mood & Affect: Negative for depressed or tearful Skin no rashes or lesions noted and no wounds MDM MDM MDM Narrative Medical decision making narrative: Differential includes but not limited to a viral gastroenteritis colitis GI bleeding electrolyte abnormality hepatitis. Dehydration patient received IV fluids and Zofran. White count 8.2 with a hemoglobin of 13.3 and platelet count of 289. Sodium potassium within normal limits anion gap 7 BUN of 18 creatinine 0.87 and a serum CO2 of 27. Glucose 164. Normal liver panel. Clinically the patient's abdomen is benign. She is presenting with less than 12 hours of vomiting and diarrhea. I believe she most likely has a viral illness. I would recommend follow-up as needed. I can write for some Zofran for nausea/vomiting. Imodium as needed. History & Record Review Discussion w/independent historian: Patient Additional record(s) reviewed:: Prior labs Lab Data Attestation: I reviewed the patient's lab results. Labs: Laboratory Results - last 24 hr 01/13/24 19:38 WBC 8.2 RBC 4.67 Hgb 13.3 Hct 42.5 MCV 91.0 MCH 28.5 MCHC 31.3 L RDW Std Deviation 48.5 H RDW Coeff of Jeannie 14.5 Plt Count 289 MPV 10.5 Immature Gran % (Auto) 0.400 Neut % (Auto) 90.7 H Lymph % (Auto) 2.3 L [place] % (Auto) 5.8 Eos % (Auto) 0.4 Baso % (Auto) 0.4 Absolute Neuts (auto) 7.5 Absolute Lymphs (auto) 0.19 L Nucleated RBC % 0 Sodium 141 Potassium 3.9 Chloride 107 Carbon Dioxide 27.0 Anion Gap 7 BUN 18 Creatinine 0.87 Estim Creat Clear Calc 42.83 Est GFR (MDRD) Af Amer 81 Est GFR (MDRD) Non-Af 67 BUN/Creatinine Ratio 20.7 H Glucose 164 H Calcium 8.5 Total Bilirubin 0.50 AST 21 ALT 19 Alkaline Phosphatase 61 Total Protein 6.6 Albumin 3.1 L Globulin 3.5 Albumin/Globulin Ratio 0.9 Discharge Plan Triage Chief Complaint: Nausea/Vomiting/Diarrhea ED Provider: Vega Redman Dx/Rx/DC Orders Clinical Impression: Gastroenteritis Instructions: ED Gastroenteritis, Viral (Adult) Prescriptions: New ondansetron [ondansetron] 4 mg tablet,disintegrating 4 mg PO Q6H PRN PRN (Reason: Nausea) Qty: 15 0RF No Action alendronate 70 mg tablet 70 mg PO JEFFREY gabapentin 100 mg capsule 100 mg PO TID PRN (Reason: Pain) food supplemt, lactose-reduced Liquid 240 ml PO DAILY amlodipine 5 mg Tablet 5 mg PO DAILY Qty: 30 2RF Primary Care Provider: Hemant Parra Referrals: Hemant Parra MD [Primary Care Provider] - 3-5 Days if not improving Disposition Disposition: Home, Self Care
[2024-01-13] MEDS: Ondansetron 4 MG/2 ML Vial IV (19:36)
[2024-01-13] MEDS: 0.9% Normal Saline (1000mL) 1,000 ML 1000 ML IV (19:36)
[2024-01-13 19:55] LABS: Absolute Lymphocyte Count 0.19 X10^3/uL (0.83-4.51); Absolute Neutrophil Count 7.5 X10^3/uL (2.0-7.7); Basophil# 0.03 X10^3/uL; Basophil% 0.4 % (0-1); Eosinophil# 0.03 X10^3/uL; Eosinophils% 0.4 % (0-5); Hematocrit 42.5 % (37-47); Hemoglobin 13.3 g/dL (12.0-15.0); Lymphocyte # 0.19 X10^3/ul (0.83-4.51); Lymphocyte % 2.3 % (19-41); Mean Corp Hgb Conc 31.3 g/dL (32-36); Mean Corpuscular Hgb 28.5 pg (27.0-32.0); Mean Platelet Vol. 10.5 fl (6.2-12.0); Monocyte# 0.48 X10^3/uL; Monocyte% 5.8 % (0-10); NRBC Flagged by Analyzer 0 % (0-5); Neutrophil # 7.46 X10^3/uL (2.7-7.7); Neutrophil % 90.7 % (47-70); POSITIVE DIFFERENTIAL YES; Platelet Count 289 K/mm3 (150-450); RBC Distribution Width CV 14.5 % (11.6-14.6); RBC Distribution Width SD 48.5 fl (35.1-43.9); Red Blood Count 4.67 M/mm3 (4.2-5.4); White Blood Count 8.2 K/mm3 (4.4-11.0)
[2024-01-13 20:09] LABS: ALB/GLOB Ratio 0.9 RATIO (0.9-2.4); AST(SGOT) 21 U/L (15-37); Alanine Aminotransfer ALT/SGPT 19 U/L (13-56); Albumin, Serum 3.1 g/dL (3.2-5.0); Alkaline Phosphatase 61 U/L (45-117); Anion Gap 7 (5-15); BUN 18 mg/dL (7-18); BUN/Creat Ratio 20.7 RATIO (10-20); Calcium,Total 8.5 mg/dL (8.5-10.1); Chloride 107 mmol/L (98-107); Creatinine, Serum 0.87 mg/dL (0.55-1.02); EST Glomerular Filtration Rate 67 mL/min (>60); Est Glom Filt Rate - Afr Amer 81 mL/min (>60); Estimated Creatinine Clearance 42.83 ml/min; Globulin 3.5 g/dL (2.2-4.2); Glucose 164 mg/dL (74-106); Potassium 3.9 mmol/L (3.5-5.1); Protein, Total 6.6 g/dL (6.4-8.2); Sodium Level 141 mmol/L (136-145)
[2024-01-13 21:04] VITALS: BP 116/80; PULSE 86; RESP 15; TEMP 36.5; O2SAT 98
== END 2024-01-13 21:05 | disposition home or self-care (01) ==
PROVIDERS: Emergency Provider Emergency Medicine; PCP Family Medicine; Visit Provider Emergency Medicine
DX: K52.9 Noninfective gastroenteritis and colitis, unspecified (principal); M81.0 Age-related osteoporosis without current pathological fracture; Z79.83 Long term (current) use of bisphosphonates; Z79.899 Other long term (current) drug therapy; Z87.891 Personal history of nicotine dependence
CPT/HCPCS: 80053; 85025; 96374; 99282; J7030; A4216; J2405

== ENCOUNTER 2024-01-14 06:38 | Observation (INO) | payer MEDICARE, MEDICAID, SELFPAY ==
[2024-01-14] VITALS (10 sets, daily range): BP systolic 114–134; BP diastolic 45–78; PULSE 64–95; RESP 14–18; TEMP 36.3–37.5; O2SAT 93–98; BMI 21.7; BMI 20.8
--- NOTE | 2024-01-14 07:16 | CT_ITS ---
STUDY: CT ABDOMEN AND PELVIS WITH CONTRAST REASON FOR EXAM: Female, 78 years old. Diarrhea, abdominal pain RADIATION DOSAGE (If Supplied By Facility): CTDIvol = ( 7.87 ) mGy, DLP = ( 285.57 ) mGycm TECHNIQUE: Transaxial images were obtained from the dome of the diaphragm to the symphysis pubis without oral contrast. IV 75mL Isovue-300 was administered. Sagittal and coronal images were reconstructed. Individualized dose optimization techniques were used for this CT. COMPARISON: Comparison is made with prior study dated March 27, 2018. FINDINGS: Stable minimal linear scarring at the lung bases. Coronary artery calcification. There is calcification of the mitral valve annulus. Normal liver. Once again, the gallbladder is seen along the anterior aspect of the liver. Minimal central intrahepatic bony ductal dilatation. Normal spleen. Normal pancreas. Normal bilateral adrenal glands. Normal right kidney. Normal left kidney. Normal visualized stomach. Mild degree of mural thickening of the distal ileum with increased markings in the surrounding peritoneal fat suggestive of enteritis. Normal colon. There is non-visualization of the appendix. There is scattered atherosclerotic calcification of the abdominal aorta, without a demonstrated aneurysm. Normal inferior vena cava. Normal retroperitoneum. Mild degree of diffuse bilateral wall thickening. Normal abdominal wall. There is almost complete collapse of the L4 vertebrae with sclerosis. CT/Abdomen/Pelvis W IV Cont ONLY IMPRESSION: Findings suggestive of enteritis of the distal ileum. Status post cholecystectomy. Electronically Signed: Marco Mcgregor MD at 10:06 EDT ,
--- NOTE | 2024-01-14 07:30 | ED.VIS.GI ---
HPI HPI - GI History of Present Illness Chief Complaint: Diarrhea Informant: patient Narrative Narrative: Patient 78-year-old female returning to the emergency room with recurrent diarrhea. Patient was seen and evaluated last night and discharged before midnight. She states that she started having diarrhea 1 to 2 days ago. She states that since being home she has had 20-25 episodes of diarrhea. She denies any blood in her stool. She notes that a couple days ago that she did see blood on her pad and is not sure where the blood was coming from. She denies any other bleeding. She is not on any blood thinners. Denies any history of C. difficile or recent antibiotics. Currently denies any nausea or vomiting. Notes she feels lightheaded. Denies any chest pain difficulty breathing. Denies any fevers. Lives home alone. Denies any change progression of symptoms since her ER evaluation less than 12 hours ago. 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 She has had prior admission for diarrhea. Chart review shows that about a year ago she was admitted for gastroenteritis which is due to rotavirus infection and treated symptomatically. She also has a history of GI bleeding. Patient had colonoscopy on 01/01/[address] Land secondary to GI bleeding. She is found to have hemorrhoids, diverticulosis of the sigmoid colon and descending colon, increased mucosal vascular pattern of the sigmoid colon which was treated with argon beam coagulation and diffuse moderate inflammation from the rectum secondary to proctitis. [facility] Medical History Cervical cancer DVT (deep venous thrombosis) Endometrial cancer Former smoker Osteoporosis Home Medications alendronate 70 mg tablet 70 mg PO JEFFREY OSTEOPEROSIS 12/29/22 [History Last Taken 01/13/24] food supplemt, lactose-reduced 240 ml PO DAILY SUPPLEMENT 01/09/23 [History Last Taken Unknown] amlodipine 5 mg tablet 5 mg PO DAILY #30 tabs 01/13/23 [Rx Last Taken 01/13/24] gabapentin 300 mg capsule 300 mg PO DAILY 01/14/24 [History Last Taken Unknown] Allergy/AdvReac Type Severity Reaction Status Date / Time acetaminophen [From Percocet] Allergy Unknown Verified 01/14/24 06:39 ibuprofen [From Motrin] Allergy Unknown Verified 01/14/24 06:39 omega-3 acid ethyl esters Allergy Unknown Verified 01/14/24 06:39 oxycodone Allergy Unknown Verified 01/14/24 06:39 oxycodone HCl [From Percocet] Allergy Unknown Verified 01/14/24 06:39 Penicillins Allergy Unknown Verified 01/14/24 06:39 Social History Smoking Status: Former smoker substance use type: does not use ROS ROS ED Constitutional Constitutional ED: Denies chills or fever(s) Cardiovascular Cardiovascular: Denies chest pain Respiratory/Chest Respiratory/Chest: Denies cough Gastrointestinal Gastrointestinal: Reports diarrhea; Denies abdominal pain, nausea or vomiting Genitourinary Genitourinary ED: Reports other Details: Vaginal bleeding a couple days ago?since resolved ; Denies dysuria Musculoskeletal Musculoskeletal: Reports arthralgias and other Details: Chronic neck and left wrist pain Integumentary Denies rash Neurologic Neurologic: Denies headache(s), paresthesias or weakness Psychiatric Psychiatric: Reports anxiety Hematologic/Lymphatic Hematologic/Lymphatic: Denies easy bleeding or easy bruising EXAM Physical Exam Const Vital Signs: 01/14/24 06:39 01/14/24 06:42 01/14/24 08:38 Temperature 97.3 F L 97.3 F L Temperature Source Temporal Temporal Pulse Rate 89 89 64 Pulse Rate [Lying] Pulse Rate [Sitting (for 1 minute prior to obtaining)] Pulse Rate [Standing (for 1 minute prior to obtaining)] Respiratory Rate 18 16 16 Blood Pressure 129/54 H 129/54 H 127/78 H Blood Pressure [Lying] Blood Pressure [Sitting (for 1 minute prior to obtaining)] Blood Pressure [Standing (for 1 minute prior to obtaining)] Blood Pressure Mean 79 79 94 Blood Pressure Mean [Lying] Blood Pressure Mean [Sitting (for 1 minute prior to obtaining)] Blood Pressure Mean [Standing (for 1 minute prior to obtaining)] Pulse Ox 97 97 98 Oxygen Delivery Method Room Air 01/14/24 10:20 01/14/24 10:00 Temperature Temperature Source Pulse Rate 80 Pulse Rate [Lying] 95 Pulse Rate [Sitting (for 1 minute prior to obtaining)] 80 Pulse Rate [Standing (for 1 minute prior to obtaining)] 91 Respiratory Rate 16 Blood Pressure 128/76 H Blood Pressure [Lying] 124/57 H Blood Pressure [Sitting (for 1 minute prior to obtaining)] 125/59 H Blood Pressure [Standing (for 1 minute prior to obtaining)] 123/63 H Blood Pressure Mean 93 Blood Pressure Mean [Lying] 79 Blood Pressure Mean [Sitting (for 1 minute prior to obtaining)] 81 Blood Pressure Mean [Standing (for 1 minute prior to obtaining)] 83 Pulse Ox 98 Oxygen Delivery Method Room Air Positive well nourished and well developed General Appearance ED: well developed and NAD; Negative for pallor HEENT HEENT Narrative: Mildly dry mucosal membranes normocephalic and atraumatic Eyes PERRL and EOMs intact bilaterally General Eye ED: Negative for scleral icterus Neck supple Resp normal respiratory effort and clear to auscultation bilaterally Cardio regular rate and regular rhythm GI non-tender and non-distended GI Narrative: Brown mucus-like stool on rectal exam. Auscultation: normoactive bowel sounds Palpation: soft; Negative for tender or guarding Extremity full ROM Extremity Narrative: Left wrist in a brace General Extremety ED: Negative for edema General Extremity: Negative for edema Neuro moves all extremities and no sensory deficits noted Sensorium / Orientation: alert Psych mental status grossly normal Psych Narrative: Anxious, perseverates and has a hard time directly answering questions Skin no wounds General Skin Exam: Negative for jaundice or pallor MDM MDM MDM Narrative Medical decision making narrative: Patient evaluated for continued diarrhea. She is seen her ER yesterday for the same complaint. Has had 20-25 episodes of diarrhea since being discharged and feels weak. Vital signs are normal in the emergency room. She is afebrile. She is not reporting blood in her stool but she is occult positive. She does have a history of radiation proctitis so it is hard to tell if the blood is associated with her diarrhea or chronic for her. Her hemoglobin is mildly low at 11.7 which is down from which was yesterday however she is received IV fluid and x-ray appears to be at her baseline right now. She does not have any findings of active or brisk bleeding in the ER. She does continue to have multiple episodes of diarrhea in the emergency room. Workup is largely normal with no significant laboratory abnormalities. Urinalysis is not consistent with infection. CT of the abdomen and pelvis is consistent with enteritis. Stool studies are pending however she does have elevated stool lactoferrin but negative C. difficile. Patient counseled that she does not meet admission criteria however she states she feels too weak to go home. Would like to stay in the hospital. Will be kept under observation continue IV fluids given her profuse diarrhea. Case is discussed with admitting physician, Dr. Cain. Lab Data Attestation: I reviewed the patient's lab results. Labs: Laboratory Results - last 24 hr 01/14/24 01/14/24 07:29 08:15 WBC 7.2 RBC 4.06 L Hgb 11.7 L Hct 37.3 MCV 91.9 MCH 28.8 MCHC 31.4 L RDW Std Deviation 49.3 H RDW Coeff of Jeannie 14.6 Plt Count 250 MPV 10.4 Immature Gran % (Auto) 0.600 Neut % (Auto) 86.5 H Lymph % (Auto) 2.9 L [place] % (Auto) 9.6 Eos % (Auto) 0.1 Baso % (Auto) 0.3 Absolute Neuts (auto) 6.2 Absolute Lymphs (auto) 0.21 L Nucleated RBC % 0 Sodium 140 Potassium 4.3 Chloride 108 H Carbon Dioxide 29.0 Anion Gap 3 L BUN 16 Creatinine 0.80 Estim Creat Clear Calc 46.58 Est GFR (MDRD) Af Amer 90 Est GFR (MDRD) Non-Af 74 BUN/Creatinine Ratio 20.1 H Glucose 110 H Calcium 7.7 L Magnesium 1.7 Total Bilirubin 0.70 AST 18 ALT 17 Alkaline Phosphatase 56 Total Protein 6.0 L Albumin 2.8 L Globulin 3.2 Albumin/Globulin Ratio 0.9 Lipase 36 Urine Color Yellow Urine Clarity Clear Urine pH 6.5 Ur Specific [place] 1.010 Urine Protein 15 H Urine Glucose (UA) Normal Urine Ketones Negative Urine Occult Blood 10 H Urine Nitrite Negative Urine Bilirubin Negative Urine Urobilinogen Normal Ur Leukocyte Esterase 25 H Urine RBC 0-5 SEEN Urine WBC 0-5 SEEN Ur Squamous Epith Cells 0-5 SEEN Urine Bacteria 0 SEEN Urine Mucus 0 SEEN Radiography Diagnostic Testing: Clinical Impression(s) from Imaging Studies Abdomen/Pelvis CT 01/14/24 07:16 IMPRESSION: Findings suggestive of enteritis of the distal ileum. Status post cholecystectomy. Electronically Signed: Marco Mcgregor MD at 10:06 EDT , Discharge Plan Dx/Rx/DC Orders Clinical Impression: Intractable diarrhea, Gastroenteritis, Fecal occult blood test positive, Acute gastroenteropathy due to Norovirus Disposition Disposition: Acute Care Hospital [facility] Discharge Date/Time: 01/14/24 15:21
[2024-01-14 07:39] LABS: Absolute Lymphocyte Count 0.21 X10^3/uL (0.83-4.51); Absolute Neutrophil Count 6.2 X10^3/uL (2.0-7.7); Basophil# 0.02 X10^3/uL; Basophil% 0.3 % (0-1); Eosinophil# 0.01 X10^3/uL; Eosinophils% 0.1 % (0-5); Hematocrit 37.3 % (37-47); Hemoglobin 11.7 g/dL (12.0-15.0); Lymphocyte # 0.21 X10^3/ul (0.83-4.51); Lymphocyte % 2.9 % (19-41); Mean Corp Hgb Conc 31.4 g/dL (32-36); Mean Corpuscular Hgb 28.8 pg (27.0-32.0); Mean Corpuscular Volume 91.9 fL (81-99); Mean Platelet Vol. 10.4 fl (6.2-12.0); Monocyte# 0.69 X10^3/uL; Monocyte% 9.6 % (0-10); NRBC Flagged by Analyzer 0 % (0-5); Neutrophil # 6.23 X10^3/uL (2.7-7.7); Neutrophil % 86.5 % (47-70); POSITIVE DIFFERENTIAL YES; Platelet Count 250 K/mm3 (150-450); RBC Distribution Width CV 14.6 % (11.6-14.6); RBC Distribution Width SD 49.3 fl (35.1-43.9); Red Blood Count 4.06 M/mm3 (4.2-5.4); White Blood Count 7.2 K/mm3 (4.4-11.0)
[2024-01-14] MEDS: 0.9% Normal Saline (1000mL) 1,000 ML 125 ML IV ×3 (07:41→23:37)
[2024-01-14 08:00] LABS: ALB/GLOB Ratio 0.9 RATIO (0.9-2.4); AST(SGOT) 18 U/L (15-37); Alanine Aminotransfer ALT/SGPT 17 U/L (13-56); Albumin, Serum 2.8 g/dL (3.2-5.0); Alkaline Phosphatase 56 U/L (45-117); Anion Gap 3 (5-15); BUN 16 mg/dL (7-18); BUN/Creat Ratio 20.1 RATIO (10-20); Calcium,Total 7.7 mg/dL (8.5-10.1); Chloride 108 mmol/L (98-107); EST Glomerular Filtration Rate 74 mL/min (>60); Est Glom Filt Rate - Afr Amer 90 mL/min (>60); Estimated Creatinine Clearance 46.58 ml/min; Globulin 3.2 g/dL (2.2-4.2); Glucose 110 mg/dL (74-106); Lipase 36 U/L (13-75); Magnesium 1.7 mg/dL (1.6-2.6); Potassium 4.3 mmol/L (3.5-5.1); Sodium Level 140 mmol/L (136-145)
[2024-01-14 08:27] LABS: Bacteria 0 SEEN /hpf (None Seen); Mucous, Urine 0 SEEN /hpf (<or=2+)
[2024-01-14 08:43] LABS: Color, Urine Yellow (Yellow); Glucose, Dipstick Normal (Normal); Ketone-Dipstick Negative (Negative); Leukocyte Esterase-Dipstick 25 /ul (Negative); Nitrite-Dipstick Negative (Negative); Occult Blood-Urine 10 /ul (Negative); Protein-Dipstick 15 mg/dl (Negative); Urine Bilirubin Dipstick Negative (Negative); Urine Clarity Clear (Clear); Urine Urobilinogen Normal (Normal); Urine pH 6.5 (5.0 - 8.0)
[2024-01-14 08:53] LABS: Red Blood Cells-Urine 0-5 SEEN /hpf (0-5); Squamous Epithelial Cells - UA 0-5 SEEN /hpf (5-10); White Blood Cells 0-5 SEEN /hpf (0-5)
--- NOTE | 2024-01-14 11:05 | PCM.HP.STD ---
HPI - General General Date of Admission: 01/14/24 Date of Service: 01/14/24 Chief Complaint: diarrhea HPI Narrative NASEEM GARDNER, is a 78 F with a PMH as outlined who presents via the ED on 01/14/2024 with a complaint of diarrhea. She has been having diarrhea for several days and was seen the day before admission with the same complaint. She was discharged home then and came back today due to persistent diarrhea. She denied any fever, chills, cough, chest pain, nausea or vomiting or any other symptoms. Review of systems is otherwise negative. Vitals in the ED were temp of 97.3 with ID of 95, BP of 124/57 ad RR of 16. She was saturating at 98% on room air. CBC was unremarkable. Chemistry was also unremarkable. Urinalysis showed no evidence of UTI. CT abdomen and pelvis showed findings suggestive of enteritis in the distal ileum. 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 She has had a similar history of such recurrent diarrhea. She has been admitted to be managed for gastroenteritis likely due to radiation enteritis. [facility] Medical History Cervical cancer DVT (deep venous thrombosis) Endometrial cancer Former smoker Osteoporosis Home Medications alendronate 70 mg tablet 70 mg PO JEFFREY OSTEOPEROSIS 12/29/22 [History Last Taken 01/13/24] food supplemt, lactose-reduced 240 ml PO DAILY SUPPLEMENT 01/09/23 [History Last Taken Unknown] amlodipine 5 mg tablet 5 mg PO DAILY #30 tabs 01/13/23 [Rx Last Taken 01/13/24] gabapentin 300 mg capsule 300 mg PO DAILY 01/14/24 [History Last Taken Unknown] Allergy/AdvReac Type Severity Reaction Status Date / Time acetaminophen [From Percocet] Allergy Unknown Verified 01/14/24 06:39 ibuprofen [From Motrin] Allergy Unknown Verified 01/14/24 06:39 omega-3 acid ethyl esters Allergy Unknown Verified 01/14/24 06:39 oxycodone Allergy Unknown Verified 01/14/24 06:39 oxycodone HCl [From Percocet] Allergy Unknown Verified 01/14/24 06:39 Penicillins Allergy Unknown Verified 01/14/24 06:39 Social History (Reviewed 01/14/24 @ 07:[address] YANELIS Hale Smoking Status: Former smoker substance use type: does not use ROS Constitutional Constitutional: Reports fatigue, malaise and weakness; Denies anorexia, change in weight, chills or fever(s) Eyes Eyes: Denies change in vision ENT HEENT: Denies dysphagia, headache(s) or sore throat Cardiovascular Cardiovascular: Denies chest pain, edema, orthopnea or palpitations Gastrointestinal Gastrointestinal: Reports diarrhea and nausea; Denies abdominal pain, constipation, dyspepsia, hematemesis, hematochezia, melena or vomiting Genitourinary Genitourinary: Denies dysuria, nocturia, urinary frequency or urinary incontinence Musculoskeletal Musculoskeletal: Denies back pain Vital Signs Vital Signs Vital Signs: 01/14/24 06:39 01/14/24 06:42 01/14/24 08:38 Temperature 97.3 F L 97.3 F L Temperature Source Temporal Temporal Pulse Rate 89 89 64 Pulse Rate [Lying] Pulse Rate [Sitting (for 1 minute prior to obtaining)] Pulse Rate [Standing (for 1 minute prior to obtaining)] Respiratory Rate 18 16 16 Blood Pressure 129/54 H 129/54 H 127/78 H Blood Pressure [Lying] Blood Pressure [Sitting (for 1 minute prior to obtaining)] Blood Pressure [Standing (for 1 minute prior to obtaining)] Blood Pressure Mean 79 79 94 Blood Pressure Mean [Lying] Blood Pressure Mean [Sitting (for 1 minute prior to obtaining)] Blood Pressure Mean [Standing (for 1 minute prior to obtaining)] Pulse Ox 97 97 98 Oxygen Delivery Method Room Air 01/14/24 10:20 01/14/24 10:00 Temperature Temperature Source Pulse Rate 80 Pulse Rate [Lying] 95 Pulse Rate [Sitting (for 1 minute prior to obtaining)] 80 Pulse Rate [Standing (for 1 minute prior to obtaining)] 91 Respiratory Rate 16 Blood Pressure 128/76 H Blood Pressure [Lying] 124/57 H Blood Pressure [Sitting (for 1 minute prior to obtaining)] 125/59 H Blood Pressure [Standing (for 1 minute prior to obtaining)] 123/63 H Blood Pressure Mean 93 Blood Pressure Mean [Lying] 79 Blood Pressure Mean [Sitting (for 1 minute prior to obtaining)] 81 Blood Pressure Mean [Standing (for 1 minute prior to obtaining)] 83 Pulse Ox 98 Oxygen Delivery Method Room Air Weight Weight: 118 lb 9.739 oz Body Mass Index (BMI) 21.7 Physical Exam Const alert and oriented x3 Constitutional Narrative: very frail and weak General Appearance: cooperative HEENT normocephalic and head/scalp atraumatic Mouth: dry mucous membranes Eyes PERRL and EOMs intact bilaterally Neck no lymphadenopathy, supple and no JVD Lymph Lymphatic: no lymphadenopathy noted and no lymphedema noted Resp Resp Narrative: diminished breath sounds bibasally, no wheezes or crackles. On room air. Cardio regular rate, regular rhythm, S1 normal heart sound, S2 normal heart sound and no murmurs GI normal to inspection, nondistended, normoactive bowel sounds, soft to palpation, non-tender and non-distended Extremity normal capillary refill, no clubbing, cyanosis or edema and no calf tenderness General Extremity: no tenderness to palpation of joints or extremities Skin Skin Narrative: has superficial ulcerations on her scalp. Neuro no focal motor deficits, no sensory deficits noted and deep tendon reflexes 2+ bilaterally Motor Exam: strength 5/5 throughout and general weakness Psych thought process normal, cooperative and affect normal Mood & Affect: flat affect Results Lab / Micro Data 01/14/24 07:29 01/14/24 07:29 Labs: Laboratory Results - last 24 hr 01/14/24 07:29: WBC 7.2, RBC 4.06 L, Hgb 11.7 L, Hct 37.3, MCV 91.9, MCH 28.8, MCHC 31.4 L, RDW Std Deviation 49.3 H, RDW Coeff of Jeannie 14.6, Plt Count 250, MPV 10.4, Immature Gran % (Auto) 0.600, Neut % (Auto) 86.5 H, Lymph % (Auto) 2.9 L, [place] % (Auto) 9.6, Eos % (Auto) 0.1, Baso % (Auto) 0.3, Absolute Neuts (auto) 6.2, Absolute Lymphs (auto) 0.21 L, Nucleated RBC % 0, Sodium 140, Potassium 4.3, Chloride 108 H, Carbon Dioxide 29.0, Anion Gap 3 L, BUN 16, Creatinine 0.80, Estim Creat Clear Calc 46.58, Est GFR (MDRD) Af Amer 90, Est GFR (MDRD) Non-Af 74, BUN/Creatinine Ratio 20.1 H, Glucose 110 H, Calcium 7.7 L, Magnesium 1.7, Total Bilirubin 0.70, AST 18, ALT 17, Alkaline Phosphatase 56, Total Protein 6.0 L, Albumin 2.8 L, Globulin 3.2, Albumin/Globulin Ratio 0.9, Lipase 36 01/14/24 08:15: Urine Color Yellow, Urine Clarity Clear, Urine pH 6.5, Ur Specific [place] 1.010, Urine Protein 15 H, Urine Glucose (UA) Normal, Urine Ketones Negative, Urine Occult Blood 10 H, Urine Nitrite Negative, Urine Bilirubin Negative, Urine Urobilinogen Normal, Ur Leukocyte Esterase 25 H, Urine RBC 0-5 SEEN, Urine WBC 0-5 SEEN, Ur Squamous Epith Cells 0-5 SEEN, Urine Bacteria 0 SEEN, Urine Mucus 0 SEEN Micro: Microbiology 01/14/24 08:50 Stool Stool Lactoferrin - Final 01/14/24 08:50 Stool Clostridioides difficile (PCR) - Final 01/14/24 08:45 Stool Stool Occult Blood (CARISSA) - Final Occult Blood Positive Imaging Radiology Impression Abdomen/Pelvis CT 01/14/24 07:16 IMPRESSION: Findings suggestive of enteritis of the distal ileum. Status post cholecystectomy. Electronically Signed: Marco Mcgregor MD at 10:06 EDT , Assessment & Plan Assessment/Plan (1) Intractable diarrhea: (2) Acute gastroenteropathy due to Norovirus: PLAN: Plan #Intractable diarrhea due to norovirus infection Admitted with a complaint of intractable diarrhea which was not improving. Was admitted last year for rotavirus. She tested positive for norovirus this time. Admit to [facility]. Placed under enteric pathogen precautions. Hydrate with IV fluids normal saline at 100 cc ID IV Zofran as needed CT of the abdomen and pelvis showed no acute pathology. #History of cervical cancer with resultant radiation proctitis: Stable. #Debility and severe protein calorie malnutrition: BMI is 20.9. Consult nutrition. #Hypertension: On amlodipine 5 mg daily. IV hydralazine as needed. DVT prophylaxis: SCDs. CODE STATUS: Full code Patient counseled extensively about different types of CODE STATUS including full code, DNR CCA and DNR CCA. Patient elects to be full code. Total [id number] time 16 minutes. Charges/Coding Visit Charges Inpatient E&M: 63564 Init Hosp L2 Procedures Hospitalists Procedures: 37725 Advncd Care Plan 30 Min
[2024-01-15 03:22] VITALS: BP 146/50; PULSE 70; RESP 16; TEMP 36.6; O2SAT 96
[2024-01-15 06:39] LABS: Absolute Lymphocyte Count 0.89 X10^3/uL (0.83-4.51); Absolute Neutrophil Count 4.9 X10^3/uL (2.0-7.7); Basophil# 0.03 X10^3/uL; Basophil% 0.5 % (0-1); Eosinophil# 0.05 X10^3/uL; Eosinophils% 0.8 % (0-5); Hematocrit 36.9 % (37-47); Hemoglobin 11.6 g/dL (12.0-15.0); Lymphocyte # 0.89 X10^3/ul (0.83-4.51); Lymphocyte % 13.6 % (19-41); Mean Corp Hgb Conc 31.4 g/dL (32-36); Mean Corpuscular Hgb 29.1 pg (27.0-32.0); Mean Corpuscular Volume 92.5 fL (81-99); Mean Platelet Vol. 11.9 fl (6.2-12.0); Monocyte# 0.65 X10^3/uL; NRBC Flagged by Analyzer 0 % (0-5); Neutrophil # 4.88 X10^3/uL (2.7-7.7); Neutrophil % 74.6 % (47-70); POSITIVE COUNT YES; RBC Distribution Width CV 14.6 % (11.6-14.6); RBC Distribution Width SD 49.6 fl (35.1-43.9); Red Blood Count 3.99 M/mm3 (4.2-5.4); White Blood Count 6.5 K/mm3 (4.4-11.0)
[2024-01-15 06:44] LABS: Differential Indicated SCAN CRITERIA MET
[2024-01-15 06:53] VITALS: O2SAT 95
[2024-01-15 07:38] LABS: Anion Gap 4 (5-15); BUN 11 mg/dL (7-18); BUN/Creat Ratio 15.7 RATIO (10-20); Calcium,Total 7.7 mg/dL (8.5-10.1); Chloride 113 mmol/L (98-107); EST Glomerular Filtration Rate 86 mL/min (>60); Est Glom Filt Rate - Afr Amer 104 mL/min (>60); Estimated Creatinine Clearance 46.58 ml/min; Glucose 81 mg/dL (74-106); Sodium Level 142 mmol/L (136-145)
[2024-01-15] MEDS: 0.9% Normal Saline (1000mL) 1,000 ML 125 ML IV ×3 (08:00→23:41)
[2024-01-15 08:23] LABS: Platelet Estimate ADEQUATE (ADEQ)
[2024-01-15] MEDS: amLODIPine 5 MG Tablet PO (09:56)
[2024-01-15] MEDS: Gabapentin 300 MG Capsule PO (09:56)
[2024-01-15] MEDS: Ensure Clear 120 ML Liquid 240 ML PO (09:56)
[2024-01-15 09:59] VITALS: BP 139/48; PULSE 68; RESP 16; TEMP 36.6; O2SAT 96
--- NOTE | 2024-01-15 10:40 | PN_ITS ---
Subjective Subjective Patient seen and examined. She had no complaints. She still felt weak though her diarrhea to improve. She says the diarrhea is resolving. She has remained hemodynamically stable. Review of systems is otherwise negative. Objective Data Objective Data Vital Signs: Vital Signs Temp Pulse Resp BP Pulse Ox O2 Del Method 97.8 F 68 16 139/48 H 96 Room Air 01/15/24 09:59 01/15/24 09:59 01/15/24 09:59 01/15/24 09:59 01/15/24 09:59 01/15/24 09:59 Oxygen Delivery Method Room Air Weight: 114 lb 2 oz Body Mass Index (BMI) 20.8 Intake & Output: Intake and Output for Last 24 Hours 01/13/24 01/14/24 01/15/24 23:59 23:59 23:59 Intake Total 1929.17 / 2229.17 1600 / 1600 Balance 1929.17 / 2229.17 1600 / 1600 Lab / Micro Data 01/15/24 05:52 01/15/24 05:52 Labs: Laboratory Results - last 24 hr 01/15/24 05:52: WBC 6.5, RBC 3.99 L, Hgb 11.6 L, Hct 36.9 L, MCV 92.5, MCH 29.1, MCHC 31.4 L, RDW Std Deviation 49.6 H, RDW Coeff of Jeannie 14.6, Plt Count TNP, MPV 11.9, Immature Gran % (Auto) 0.500, Neut % (Auto) 74.6 H, Lymph % (Auto) 13.6 L, [place] % (Auto) 10.0, Eos % (Auto) 0.8, Baso % (Auto) 0.5, Absolute Neuts (auto) 4.9, Absolute Lymphs (auto) 0.89, Nucleated RBC % 0, Platelet Estimate ADEQUATE, Sodium 142, Potassium 4.0, Chloride 113 H, Carbon Dioxide 25.0, Anion Gap 4 L, BUN 11, Creatinine 0.70, Estim Creat Clear Calc 46.58, Est GFR (MDRD) Af Amer 104, Est GFR (MDRD) Non-Af 86, BUN/Creatinine Ratio 15.7, Glucose 81, Calcium 7.7 L Micro: Microbiology 01/14/24 08:50 Stool Stool Lactoferrin - Final 01/14/24 08:50 Stool Enteric Bacteriology - Final Norovirus 01/14/24 08:50 Stool Clostridioides difficile (PCR) - Final 01/14/24 08:45 Stool Stool Occult Blood (CARISSA) - Final Occult Blood Positive Physical Exam Const alert and oriented x3 Constitutional Narrative: very frail and weak General Appearance: cooperative HEENT normocephalic and head/scalp atraumatic Mouth: dry mucous membranes Eyes PERRL and EOMs intact bilaterally Neck no lymphadenopathy, supple and no JVD Lymph Lymphatic: no lymphadenopathy noted and no lymphedema noted Resp Resp Narrative: diminished breath sounds bibasally, no wheezes or crackles. On room air. Cardio regular rate, regular rhythm, S1 normal heart sound, S2 normal heart sound and no murmurs GI normal to inspection, nondistended, normoactive bowel sounds, soft to palpation, non-tender and non-distended Extremity normal capillary refill, no clubbing, cyanosis or edema and no calf tenderness General Extremity: no tenderness to palpation of joints or extremities Skin Skin Narrative: has superficial ulcerations on her scalp. Neuro CN's II-XII intact bilaterally, no focal motor deficits, no sensory deficits noted and deep tendon reflexes 2+ bilaterally Motor Exam: strength 5/5 throughout and general weakness Psych thought process normal, cooperative and affect normal Mood & Affect: flat affect Assessment & Plan Assessment/Plan (1) Intractable diarrhea: (2) Acute gastroenteropathy due to Norovirus: PLAN: Plan #Intractable diarrhea due to norovirus infection * feels better. Diarrhea is improving * enteric pathogen otherwise negative * being hydrated with IVF NS. * IV Zofran as needed * CT of the abdomen and pelvis showed no acute pathology. * #History of cervical cancer with resultant radiation proctitis: Stable. #Debility and severe protein calorie malnutrition: BMI is 20.9. Consult nutrition. #Hypertension: On amlodipine 5 mg daily. IV hydralazine as needed. DVT prophylaxis: SCDs. CODE STATUS: Full code * Charges/Coding Visit Charges Inpatient E&M: 18185 Subs Hosp L2
--- NOTE | 2024-01-15 11:37 | CASEMGMT ---
Spoke with patient to complete BOBBY form. BOBBY form explained to patient who voiced understanding and signed form. Original form placed in pt?s chart and copy provided to?patient. Niurka Gates, Discharge Planning Asst
--- NOTE | 2024-01-15 15:45 | CHAPLAIN ---
Type of Pastoral Visit _x__ Initial Visit ___ Follow-up Visit ___ On-call Visit ___ General Patient Visit ___ Spiritual Assessment ___ Family Conference ___ Bereavement ___ Rapid Response ___ Code Blue ___ Other (describe below) Pastoral Care Referral From _x__ Patient ___ Family ___ Nurse ___ Physician ___ Electronic Integrated Systems Mechanic ___ Grid Inspector ___ Other (describe below) Sacrament/Intervention _x__ Active listening ___ Anointing ___ Druze ___ Bereavement ___ Communion ___ Carolyn exploration ___ ___ Life review _x__ Prayer ___ Reconciliation ___ Sacrament of Sick _x__ Supportive presence ___ Wedding ___ Other (describe below) Pastoral Comments patient has been seen before in previous admissions; pt talks slowly and randomly about herself and her health, family, or current thoughts; pt is not in distress but admits to not knowing what her situation is or what the plan is for her treatments; mostly casual conversation and then a prayer is welcomed
[2024-01-15 20:04] VITALS: BP 154/51; PULSE 60; RESP 16; TEMP 37.3; O2SAT 97
[2024-01-15] MEDS: HYDROcodone Bitartrate/Apap 5/325 Tablet PO (21:04)
[2024-01-16 02:59] VITALS: BP 151/50; PULSE 57; RESP 16; TEMP 36.6; O2SAT 96
[2024-01-16 07:10] LABS: Absolute Lymphocyte Count 0.87 X10^3/uL (0.83-4.51); Absolute Neutrophil Count 3.9 X10^3/uL (2.0-7.7); Basophil# 0.02 X10^3/uL; Basophil% 0.4 % (0-1); Eosinophil# 0.08 X10^3/uL; Eosinophils% 1.4 % (0-5); Hematocrit 40.4 % (37-47); Hemoglobin 12.7 g/dL (12.0-15.0); Lymphocyte # 0.87 X10^3/ul (0.83-4.51); Lymphocyte % 15.3 % (19-41); Mean Corp Hgb Conc 31.4 g/dL (32-36); Mean Corpuscular Volume 92.2 fL (81-99); Mean Platelet Vol. 10.8 fl (6.2-12.0); Monocyte# 0.75 X10^3/uL; Monocyte% 13.2 % (0-10); NRBC Flagged by Analyzer 0 % (0-5); Neutrophil # 3.92 X10^3/uL (2.7-7.7); Neutrophil % 69.2 % (47-70); Platelet Count 216 K/mm3 (150-450); RBC Distribution Width CV 14.4 % (11.6-14.6); RBC Distribution Width SD 48.6 fl (35.1-43.9); Red Blood Count 4.38 M/mm3 (4.2-5.4); White Blood Count 5.7 K/mm3 (4.4-11.0)
[2024-01-16 07:26] LABS: Anion Gap 6 (5-15); BUN 6 mg/dL (7-18); BUN/Creat Ratio 8.6 RATIO (10-20); Calcium,Total 7.6 mg/dL (8.5-10.1); Chloride 111 mmol/L (98-107); EST Glomerular Filtration Rate 87 mL/min (>60); Est Glom Filt Rate - Afr Amer 105 mL/min (>60); Estimated Creatinine Clearance 46.58 ml/min; Glucose 88 mg/dL (74-106); Potassium 3.5 mmol/L (3.5-5.1); Sodium Level 143 mmol/L (136-145)
[2024-01-16] MEDS: Ensure Clear 120 ML Liquid 240 ML PO (08:32)
[2024-01-16] MEDS: Gabapentin 300 MG Capsule PO (08:32)
[2024-01-16] MEDS: amLODIPine 5 MG Tablet PO (08:32)
[2024-01-16] MEDS: 0.9% Normal Saline (1000mL) 1,000 ML 125 ML IV ×3 (08:32→21:54)
[2024-01-16 08:34] VITALS: BP 145/45; PULSE 61; RESP 18; TEMP 36.7; O2SAT 97
[2024-01-16 08:46] VITALS: O2SAT 93
--- NOTE | 2024-01-16 10:49 | PN_ITS ---
Subjective Subjective Patient seen and examined. She had no active complaints. She said her diarrhea was improving. Review of systems is otherwise negative. She has remained hemodynamically stable. Objective Data Objective Data Vital Signs: Vital Signs Temp Pulse Resp BP Pulse Ox O2 Del Method 98.1 F 61 18 145/45 H 93 Room Air 01/16/24 08:34 01/16/24 08:34 01/16/24 08:34 01/16/24 08:34 01/16/24 08:46 01/16/24 08:46 Oxygen Delivery Method Room Air Weight: 114 lb 2 oz Body Mass Index (BMI) 20.8 Intake & Output: Intake and Output for Last 24 Hours 01/14/24 01/15/24 01/16/24 23:59 23:59 23:59 Intake Total 1929.17 / 2229.17 3556.25 / 3556.25 1600 / 1600 Balance 1929.17 / 2229.17 3556.25 / 3556.25 1600 / 1600 Lab / Micro Data 01/16/24 05:00 01/16/24 05:00 Labs: Laboratory Results - last 24 hr 01/16/24 05:00: WBC 5.7, RBC 4.38, Hgb 12.7, Hct 40.4, MCV 92.2, MCH 29.0, MCHC 31.4 L, RDW Std Deviation 48.6 H, RDW Coeff of Jeannie 14.4, Plt Count 216, MPV 10.8, Immature Gran % (Auto) 0.500, Neut % (Auto) 69.2, Lymph % (Auto) 15.3 L, [place] % (Auto) 13.2 H, Eos % (Auto) 1.4, Baso % (Auto) 0.4, Absolute Neuts (auto) 3.9, Absolute Lymphs (auto) 0.87, Nucleated RBC % 0, Sodium 143, Potassium 3.5, Chloride 111 H, Carbon Dioxide 26.0, Anion Gap 6, BUN 6 L, Creatinine 0.70, Estim Creat Clear Calc 46.58, Est GFR (MDRD) Af Amer 105, Est GFR (MDRD) Non-Af 87, BUN/Creatinine Ratio 8.6 L, Glucose 88, Calcium 7.6 L Micro: Microbiology 01/14/24 08:50 Stool Stool Lactoferrin - Final 01/14/24 08:50 Stool Enteric Bacteriology - Final Norovirus 01/14/24 08:50 Stool Clostridioides difficile (PCR) - Final 01/14/24 08:45 Stool Stool Occult Blood (CARISSA) - Final Occult Blood Positive Physical Exam Const alert and oriented x3 Constitutional Narrative: very frail and weak General Appearance: cooperative HEENT normocephalic and head/scalp atraumatic Eyes PERRL and EOMs intact bilaterally Neck no lymphadenopathy, supple and no JVD Lymph Lymphatic: no lymphadenopathy noted and no lymphedema noted Resp Resp Narrative: diminished breath sounds bibasally, no wheezes or crackles. On room air. Cardio regular rate, regular rhythm, S1 normal heart sound, S2 normal heart sound and no murmurs GI normal to inspection, nondistended, normoactive bowel sounds, soft to palpation, non-tender and non-distended Extremity normal capillary refill, no clubbing, cyanosis or edema and no calf tenderness General Extremity: no tenderness to palpation of joints or extremities Skin Skin Narrative: has chronic, superficial ulcerations on her scalp. Neuro CN's II-XII intact bilaterally, no focal motor deficits, no sensory deficits n oted and deep tendon reflexes 2+ bilaterally Motor Exam: strength 5/5 throughout and general weakness Psych thought process normal, cooperative and affect normal Mood & Affect: flat affect Assessment & Plan Assessment/Plan (1) Intractable diarrhea: (2) Acute gastroenteropathy due to Norovirus: PLAN: Plan #Intractable diarrhea due to norovirus infection * feels better. Diarrhea continues to improve * enteric pathogen otherwise negative * being hydrated with IVF NS. * IV Zofran as needed * CT of the abdomen and pelvis showed no acute pathology. * #History of cervical cancer with resultant radiation proctitis: Stable. #Debility and severe protein calorie malnutrition: BMI is 20.9. Consult nutrition. #Hypertension: On amlodipine 5 mg daily. IV hydralazine as needed. DVT prophylaxis: SCDs. CODE STATUS: Full code * Charges/Coding Visit Charges Inpatient E&M: 69495 Subs Hosp L2
[2024-01-16 14:00] VITALS: BP 154/48; PULSE 60; RESP 18; TEMP 36.1; O2SAT 98
[2024-01-16] MEDS: HYDROcodone Bitartrate/Apap 5/325 Tablet PO (18:13)
[2024-01-16 21:45] VITALS: BP 128/54; PULSE 67; RESP 16; TEMP 36.7; O2SAT 97
[2024-01-17] MEDS: 0.9% Normal Saline (1000mL) 1,000 ML 125 ML IV (05:51)
[2024-01-17 06:20] VITALS: BP 143/55; PULSE 65; RESP 16; TEMP 36.6; O2SAT 96
[2024-01-17 08:17] LABS: Absolute Lymphocyte Count 0.79 X10^3/uL (0.83-4.51); Basophil# 0.03 X10^3/uL; Basophil% 0.5 % (0-1); Eosinophil# 0.05 X10^3/uL; Eosinophils% 0.9 % (0-5); Hematocrit 37.3 % (37-47); Lymphocyte # 0.79 X10^3/ul (0.83-4.51); Lymphocyte % 14.4 % (19-41); Mean Corp Hgb Conc 32.2 g/dL (32-36); Mean Corpuscular Hgb 28.6 pg (27.0-32.0); Monocyte# 0.61 X10^3/uL; Monocyte% 11.1 % (0-10); NRBC Flagged by Analyzer 0 % (0-5); Neutrophil # 3.99 X10^3/uL (2.7-7.7); Neutrophil % 72.6 % (47-70); Platelet Count 244 K/mm3 (150-450); RBC Distribution Width CV 14.1 % (11.6-14.6); Red Blood Count 4.19 M/mm3 (4.2-5.4); White Blood Count 5.5 K/mm3 (4.4-11.0)
[2024-01-17 09:09] VITALS: O2SAT 96
[2024-01-17 09:10] LABS: Anion Gap 6 (5-15); BUN 5 mg/dL (7-18); BUN/Creat Ratio 9.5 RATIO (10-20); Calcium,Total 7.7 mg/dL (8.5-10.1); Chloride 110 mmol/L (98-107); Creatinine, Serum 0.53 mg/dL (0.55-1.02); EST Glomerular Filtration Rate 119 mL/min (>60); Est Glom Filt Rate - Afr Amer 144 mL/min (>60); Estimated Creatinine Clearance 46.58 ml/min; Glucose 90 mg/dL (74-106); Potassium 3.3 mmol/L (3.5-5.1); Sodium Level 143 mmol/L (136-145)
[2024-01-17 10:13] VITALS: BP 146/50; PULSE 65; RESP 16; TEMP 37.1; O2SAT 96
[2024-01-17] MEDS: amLODIPine 5 MG Tablet PO (10:15)
[2024-01-17] MEDS: Ensure Clear 120 ML Liquid 240 ML PO (10:15)
[2024-01-17] MEDS: Gabapentin 300 MG Capsule PO (10:15)
--- NOTE | 2024-01-17 10:40 | PN_ITS ---
Subjective Subjective Patient seen and examined. She is feeling much better. She says her diarrhea has improved and she has not had any overnight. Review of systems otherwise negative. She has remained hemodynamically stable. Objective Data Objective Data Vital Signs: Vital Signs Temp Pulse Resp BP Pulse Ox O2 Del Method 98.7 F 65 16 146/50 H 96 Room Air 01/17/24 10:13 01/17/24 10:13 01/17/24 10:13 01/17/24 10:13 01/17/24 10:13 01/17/24 10:13 Oxygen Delivery Method Room Air Weight: 114 lb 2 oz Body Mass Index (BMI) 20.8 Intake & Output: Intake and Output for Last 24 Hours 01/15/24 01/16/24 01/17/24 23:59 23:59 23:59 Intake Total 3556.25 / 3556.25 3270.84 / 3270.84 1593.75 / 1593.75 Balance 3556.25 / 3556.25 3270.84 / 3270.84 1593.75 / 1593.75 Lab / Micro Data 01/17/24 07:15 01/17/24 07:15 Labs: Laboratory Results - last 24 hr 01/17/24 07:15: WBC 5.5, RBC 4.19 L, Hgb 12.0, Hct 37.3, MCV 89.0, MCH 28.6, MCHC 32.2, RDW Std Deviation 46.0 H, RDW Coeff of Jeannie 14.1, Plt Count 244, MPV 11.0, Immature Gran % (Auto) 0.500, Neut % (Auto) 72.6 H, Lymph % (Auto) 14.4 L, [place] % (Auto) 11.1 H, Eos % (Auto) 0.9, Baso % (Auto) 0.5, Absolute Neuts (auto) 4.0, Absolute Lymphs (auto) 0.79 L, Nucleated RBC % 0, Sodium 143, Potassium 3.3 L, Chloride 110 H, Carbon Dioxide 27.0, Anion Gap 6, BUN 5 L, Creatinine 0.53 L, Estim Creat Clear Calc 46.58, Est GFR (MDRD) Af Amer 144, Est GFR (MDRD) Non-Af 119, BUN/Creatinine Ratio 9.5 L, Glucose 90, Calcium 7.7 L Micro: Microbiology 01/14/24 08:50 Stool Stool Lactoferrin - Final 01/14/24 08:50 Stool Enteric Bacteriology - Final Norovirus 01/14/24 08:50 Stool Clostridioides difficile (PCR) - Final 01/14/24 08:45 Stool Stool Occult Blood (CARISSA) - Final Occult Blood Positive Physical Exam Const alert and oriented x3 Constitutional Narrative: very frail and weak General Appearance: cooperative HEENT normocephalic and head/scalp atraumatic Eyes PERRL and EOMs intact bilaterally Neck no lymphadenopathy, supple and no JVD Lymph Lymphatic: no lymphadenopathy noted and no lymphedema noted Resp Resp Narrative: diminished breath sounds bibasally, no wheezes or crackles. On room air. Cardio regular rate, regular rhythm, S1 normal heart sound, S2 normal heart sound and no murmurs GI normal to inspection, nondistended, normoactive bowel sounds, soft to palpation, non-tender and non-distended Extremity normal capillary refill, no clubbing, cyanosis or edema and no calf tenderness General Extremity: no tenderness to palpation of joints or extremities Skin Skin Narrative: has chronic, superficial ulcerations on her scalp. Neuro CN's II-XII intact bilaterally, no focal motor deficits, no sensory deficits noted and deep tendon reflexes 2+ bilaterally Motor Exam: strength 5/5 throughout and general weakness Psych thought process normal, cooperative and affect normal Mood & Affect: flat affect Assessment & Plan Assessment/Plan (1) Intractable diarrhea: (2) Acute gastroenteropathy due to Norovirus: PLAN: Plan #Intractable diarrhea due to norovirus infection * feels better. Diarrhea continues to improve * enteric pathogen otherwise negative * being hydrated with IVF NS. * IV Zofran as needed * CT of the abdomen and pelvis showed no acute pathology. * Hypokalemia: Potassium is 3.3. Replace and trend. #History of cervical cancer with resultant radiation proctitis: Stable. #Debility and severe protein calorie malnutrition: BMI is 20.9. Consult nutrition. #Hypertension: On amlodipine 5 mg daily. IV hydralazine as needed. DVT prophylaxis: SCDs. CODE STATUS: Full code * Charges/Coding Visit Charges Inpatient E&M: 36934 Subs Hosp L2
--- NOTE | 2024-01-17 12:24 | PHA.DC.MR.R ---
[facility] has performed discharge medication reconciliation for this patient. No new medications at time of discharge review. Medications reviewed are from previously reported home medications. The patient's discharge medication list was reviewed for discrepancies and discrepancies were resolved. Medications at Discharge Home Medications alendronate 70 mg tablet 70 mg PO JEFFREY OSTEOPEROSIS 12/29/22 food supplemt, lactose-reduced 240 ml PO DAILY SUPPLEMENT 01/09/23 amlodipine 5 mg tablet 5 mg PO DAILY #30 tabs 01/13/23 gabapentin 300 mg capsule 300 mg PO DAILY 01/14/24
--- NOTE | 2024-01-17 12:36 | CASEMGMT ---
JOSE CM into pt room, pt sitting up in chair in no distress. Pt states she is I at home. She does not typically use an AD but has a walker available. Pt lives in a two story home but mostly is on the main level. Pt denies need for any therapy in the home or outpt. Pt states once she eats she feel she will gain her normal strength back. Pt is awaiting a grilled cheese sandwich for lunch. Pt has friends who can assist her if needed that she does breakfast club with. Pt denies any homegoing needs.
[2024-01-17] MEDS: Potassium Chloride Oral Tablet 20 MEQ 40 MEQ PO (14:02)
[2024-01-17 16:44] VITALS: BP 160/54; PULSE 60; RESP 18; TEMP 36.7; O2SAT 96
[2024-01-17 20:35] VITALS: BP 128/49; PULSE 64; RESP 15; TEMP 37.2; O2SAT 95
[2024-01-17 22:00] VITALS: RESP 15
[2024-01-18 02:06] VITALS: BP 133/47; PULSE 66; RESP 15; TEMP 37.3; O2SAT 93
[2024-01-18] MEDS: HYDROcodone Bitartrate/Apap 5/325 Tablet PO ×2 (02:15→20:18)
--- NOTE | 2024-01-18 02:26 | NURSING ---
PT C/O CHEST & BACK PAIN. RT CALLED TO DO AN EKG AT THIS TIME.
[2024-01-18 04:00] VITALS: RESP 15
[2024-01-18 06:03] LABS: Absolute Lymphocyte Count 0.98 X10^3/uL (0.83-4.51); Absolute Neutrophil Count 3.7 X10^3/uL (2.0-7.7); Basophil# 0.02 X10^3/uL; Basophil% 0.4 % (0-1); Eosinophil# 0.04 X10^3/uL; Eosinophils% 0.8 % (0-5); Hematocrit 35.4 % (37-47); Hemoglobin 11.3 g/dL (12.0-15.0); Lymphocyte # 0.98 X10^3/ul (0.83-4.51); Lymphocyte % 18.5 % (19-41); Mean Corp Hgb Conc 31.9 g/dL (32-36); Mean Corpuscular Hgb 28.2 pg (27.0-32.0); Mean Corpuscular Volume 88.3 fL (81-99); Mean Platelet Vol. 10.5 fl (6.2-12.0); Monocyte# 0.55 X10^3/uL; Monocyte% 10.4 % (0-10); NRBC Flagged by Analyzer 0 % (0-5); Neutrophil # 3.69 X10^3/uL (2.7-7.7); Neutrophil % 69.5 % (47-70); Platelet Count 250 K/mm3 (150-450); RBC Distribution Width CV 14.1 % (11.6-14.6); RBC Distribution Width SD 45.3 fl (35.1-43.9); Red Blood Count 4.01 M/mm3 (4.2-5.4); White Blood Count 5.3 K/mm3 (4.4-11.0)
[2024-01-18 06:33] LABS: Anion Gap 4 (5-15); BUN 9 mg/dL (7-18); BUN/Creat Ratio 12.9 RATIO (10-20); Calcium,Total 7.9 mg/dL (8.5-10.1); Chloride 109 mmol/L (98-107); EST Glomerular Filtration Rate 87 mL/min (>60); Est Glom Filt Rate - Afr Amer 105 mL/min (>60); Estimated Creatinine Clearance 46.58 ml/min; Glucose 94 mg/dL (74-106); Potassium 3.8 mmol/L (3.5-5.1); Sodium Level 140 mmol/L (136-145)
[2024-01-18 09:36] VITALS: BP 131/54; PULSE 67; RESP 18; TEMP 36.8; O2SAT 96
[2024-01-18] MEDS: amLODIPine 5 MG Tablet PO (09:37)
[2024-01-18] MEDS: Gabapentin 300 MG Capsule PO (09:37)
[2024-01-18] MEDS: Ensure Clear 120 ML Liquid 240 ML PO (09:37)
--- NOTE | 2024-01-18 10:46 | PN_ITS ---
Subjective Subjective Patient seen and examined. She said she notices a blood clot after she had a bowel movement yesterday. Her diarrhea has resolved and her stools are getting more formed. She is worried that had cervical cancer may be coming back because of the blood clots that she says she noticed that she had a bowel movement. Review of systems otherwise negative. Objective Data Objective Data Vital Signs: Vital Signs Temp Pulse Resp BP Pulse Ox O2 Del Method 98.3 F 67 18 131/54 H 96 Room Air 01/18/24 09:36 01/18/24 09:36 01/18/24 09:36 01/18/24 09:36 01/18/24 09:36 01/18/24 09:36 Oxygen Delivery Method Room Air Weight: 114 lb 2 oz Body Mass Index (BMI) 20.8 Intake & Output: Intake and Output for Last 24 Hours 01/16/24 01/17/24 01/18/24 23:59 23:59 23:59 Intake Total 3270.84 / 3270.84 3793.75 / 3793.75 Balance 3270.84 / 3270.84 3793.75 / 3793.75 Lab / Micro Data 01/18/24 05:35 01/18/24 05:35 Labs: Laboratory Results - last 24 hr 01/18/24 05:35: WBC 5.3, RBC 4.01 L, Hgb 11.3 L, Hct 35.4 L, MCV 88.3, MCH 28.2, MCHC 31.9 L, RDW Std Deviation 45.3 H, RDW Coeff of Jeannie 14.1, Plt Count 250, MPV 10.5, Immature Gran % (Auto) 0.400, Neut % (Auto) 69.5, Lymph % (Auto) 18.5 L, [place] % (Auto) 10.4 H, Eos % (Auto) 0.8, Baso % (Auto) 0.4, Absolute Neuts (auto) 3.7, Absolute Lymphs (auto) 0.98, Nucleated RBC % 0, Sodium 140, Potassium 3.8, Chloride 109 H, Carbon Dioxide 27.0, Anion Gap 4 L, BUN 9, Creatinine 0.70, Estim Creat Clear Calc 46.58, Est GFR (MDRD) Af Amer 105, Est GFR (MDRD) Non-Af 87, BUN/Creatinine Ratio 12.9, Glucose 94, Calcium 7.9 L Micro: Microbiology 01/14/24 08:50 Stool Stool Lactoferrin - Final 01/14/24 08:50 Stool Enteric Bacteriology - Final Norovirus 01/14/24 08:50 Stool Clostridioides difficile (PCR) - Final 01/14/24 08:45 Stool Stool Occult Blood (CARISSA) - Final Occult Blood Positive Physical Exam Const alert and oriented x3 Constitutional Narrative: very frail and weak General Appearance: cooperative HEENT normocephalic and head/scalp atraumatic Eyes PERRL and EOMs intact bilaterally Neck no lymphadenopathy, supple and no JVD Lymph Lymphatic: no lymphadenopathy noted and no lymphedema noted Resp Resp Narrative: diminished breath sounds bibasally, no wheezes or crackles. On room air. Cardio regular rate, regular rhythm, S1 normal heart sound, S2 normal heart sound and no murmurs GI normal to inspection, nondistended, normoactive bowel sounds, soft to palpation, non-tender and non-distended Extremity normal capillary refill, no clubbing, cyanosis or edema and no calf tenderness General Extremity: no tenderness to palpation of joints or extremities Skin Skin Narrative: has chronic, superficial ulcerations on her scalp. Neuro CN's II-XII intact bilaterally, no focal motor deficits, no sensory deficits noted and deep tendon reflexes 2+ bilaterally Motor Exam: strength 5/5 throughout and general weakness Psych thought process normal, cooperative and affect normal Mood & Affect: flat affect Assessment & Plan Assessment/Plan (1) Intractable diarrhea: (2) Acute gastroenteropathy due to Norovirus: PLAN: Plan #Intractable diarrhea due to norovirus infection * feels better. Diarrhea has largely resolved. * enteric pathogen otherwise negative * being hydrated with IVF NS. * IV Zofran as needed * CT of the abdomen and pelvis showed no acute pathology. * patient says she noticed a blood clot after she had a bowel movement. Hb is 11.3. Counseled to monitor and let medical team know if it recurs. * Hypokalemia: Potassium is 3.3. Replace and trend. #History of cervical cancer with resultant radiation proctitis: Stable. #Debility and severe protein calorie malnutrition: BMI is 20.9. Consult nutrition. #Hypertension: On amlodipine 5 mg daily. IV hydralazine as needed. DVT prophylaxis: SCDs. CODE STATUS: Full code * Disposition: for likely DC tomorrow. Charges/Coding Visit Charges Inpatient E&M: 32307 Subs Hosp L2
[2024-01-18 16:04] VITALS: BP 125/53; PULSE 61; RESP 18; TEMP 36.6; O2SAT 98
[2024-01-18 20:04] VITALS: BP 115/47; PULSE 66; RESP 16; TEMP 36.6; O2SAT 97
[2024-01-19 03:08] VITALS: BP 131/48; PULSE 65; RESP 16; TEMP 36.6; O2SAT 95
[2024-01-19 07:49] LABS: Absolute Lymphocyte Count 0.81 X10^3/uL (0.83-4.51); Absolute Neutrophil Count 2.3 X10^3/uL (2.0-7.7); Basophil# 0.04 X10^3/uL; Basophil% 1.1 % (0-1); Eosinophil# 0.06 X10^3/uL; Eosinophils% 1.6 % (0-5); Hematocrit 37.5 % (37-47); Hemoglobin 11.8 g/dL (12.0-15.0); Lymphocyte # 0.81 X10^3/ul (0.83-4.51); Mean Corp Hgb Conc 31.5 g/dL (32-36); Mean Corpuscular Volume 89.1 fL (81-99); Mean Platelet Vol. 11.1 fl (6.2-12.0); Monocyte# 0.41 X10^3/uL; Monocyte% 11.1 % (0-10); NRBC Flagged by Analyzer 0 % (0-5); Neutrophil # 2.33 X10^3/uL (2.7-7.7); Neutrophil % 63.4 % (47-70); Platelet Count 263 K/mm3 (150-450); RBC Distribution Width CV 14.4 % (11.6-14.6); RBC Distribution Width SD 46.5 fl (35.1-43.9); Red Blood Count 4.21 M/mm3 (4.2-5.4); White Blood Count 3.7 K/mm3 (4.4-11.0)
[2024-01-19 08:23] LABS: Anion Gap 4 (5-15); BUN 15 mg/dL (7-18); BUN/Creat Ratio 18.8 RATIO (10-20); Calcium,Total 8.3 mg/dL (8.5-10.1); Chloride 110 mmol/L (98-107); EST Glomerular Filtration Rate 74 mL/min (>60); Est Glom Filt Rate - Afr Amer 89 mL/min (>60); Estimated Creatinine Clearance 46.58 ml/min; Glucose 93 mg/dL (74-106); Potassium 3.6 mmol/L (3.5-5.1); Sodium Level 143 mmol/L (136-145)
[2024-01-19 08:58] VITALS: BP 131/41; PULSE 58; RESP 18; TEMP 36.3; O2SAT 97
[2024-01-19] MEDS: amLODIPine 5 MG Tablet PO (09:05)
[2024-01-19] MEDS: Gabapentin 300 MG Capsule PO (09:05)
--- NOTE | 2024-01-19 11:19 | DCINST_ITS ---
Discharge Instructions Diet Discharge Diet: Low fat / Low cholesterol Activity Discharge Activity: Return to Normal Activity Weight Bearing Status: Weight bearing as tolerated Dressing / Incision Call your doctor if you observe: Fever of 101 or Higher, Shortness of breath, Dizziness, Swelling in the ankles and Chest pain Follow Up Care Test Results: Test results from this visit will be discussed in further detail at your follow- up appointment, if applicable. Discharge Plan Admission Admit Date/Time: 01/14/24 11:16 Primary Reason for Your Visit: acute gastroenteritis due to Norovirus infection Attending Provider: Marta Cain Primary Care Provider: Hemant Parra Instructions Patient Instructions: Understanding Norovirus Discharge Orders/Prescriptions Prescriptions: Continued alendronate 70 mg tablet 70 mg PO JEFFREY food supplemt, lactose-reduced Liquid 240 ml PO DAILY amlodipine 5 mg Tablet 5 mg PO DAILY Qty: 30 2RF gabapentin 300 mg capsule 300 mg PO DAILY Referrals / Follow Up: Hemant Parra MD [Primary Care Provider] - 01/28/24 2:00 pm Disposition Disposition (needs filled in before D/C Order can be placed): Home, Self Care
--- NOTE | 2024-01-19 11:20 | DS.PCM_ITS ---
Providers Date of Admission: 01/14/24 Date of Discharge: 01/19/24 Primary Care Physician: Dr. Hemant Parra MD Reason For Visit: GASTROENTERITIS Diagnosis Discharge Diagnosis (1) Intractable diarrhea: Status: Acute Code(s): R19.7 - Diarrhea, unspecified (2) Acute gastroenteropathy due to Norovirus: Status: Acute Code(s): A08.11 - Acute gastroenteropathy due to [place]on agent Plan #Intractable diarrhea due to norovirus infection * feels better. Diarrhea has largely resolved. * enteric pathogen otherwise negative * being hydrated with IVF NS. * IV Zofran as needed * CT of the abdomen and pelvis showed no acute pathology. * patient says she noticed a blood clot after she had a bowel movement. Hb is 11.3. Counseled to monitor and let medical team know if it recurs. * Hypokalemia: Potassium is 3.3. Replace and trend. #History of cervical cancer with resultant radiation proctitis: Stable. #Debility and severe protein calorie malnutrition: BMI is 20.9. Consult nutrition. #Hypertension: On amlodipine 5 mg daily. IV hydralazine as needed. DVT prophylaxis: SCDs. CODE STATUS: Full code * Disposition: for likely DC tomorrow. Medications at Discharge Home Medications alendronate 70 mg tablet 70 mg PO JEFFREY OSTEOPEROSIS 12/29/22 food supplemt, lactose-reduced 240 ml PO DAILY SUPPLEMENT 01/09/23 amlodipine 5 mg tablet 5 mg PO DAILY #30 tabs 01/13/23 gabapentin 300 mg capsule 300 mg PO DAILY 01/14/24 Hospital Course Operations None Procedures None Summary of Care Provided Minutes Spent on Discharge: 45 Hospital Course: NASEEM GARDNER, is a 78 F with a PMH as outlined who presents via the ED on 01/14/2024 with a complaint of diarrhea. She has been having diarrhea for several days and was seen the day before admission with the same complaint. She was discharged home then and came back today due to persistent diarrhea. She denied any fever, chills, cough, chest pain, nausea or vomiting or any other symptoms. Review of systems is otherwise negative. Vitals in the ED were temp of 97.3 with ID of 95, BP of 124/57 ad RR of 16. She was saturating at 98% on room air. CBC was unremarkable. Chemistry was also unremarkable. Urinalysis showed no evidence of UTI. CT abdomen and pelvis showed findings suggestive of enteritis in the distal ileum. 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 She has had a similar history of such recurrent diarrhea. She was admitted to be managed for gastroenteritis likely due to radiation enteritis. SHe did test positive for norovirus. She was therefore managed for acute gastroenteritis due to norovirus infection. She was hydrated with IVF. Her diarrhea subsequently resolved and she felt much better. She was able to tolerate a diet. She was discharged home on 01/19/2024. She is to follow up with her PCP within 1-2 weeks. Patient seen and examined prior to discharge. She had no active complaints. Review of systems was otherwise negative. Labs and vitals reviewed. Home meds reviewed and reconciled. Physical Exam Const alert, oriented x3 and no apparent distress Constitutional Narrative: frail and weak General Appearance: cooperative HEENT normocephalic, head/scalp atraumatic and hearing grossly normal bilaterally Mouth: oral and palatal mucosa normal Eyes PERRL, EOMs intact bilaterally and conjunctivae normal Neck no lymphadenopathy, supple and no JVD Lymph Lymphatic: no lymphadenopathy noted and no lymphedema noted Resp Resp Narrative: diminished breath sounds bibasally, no wheezes or crackles. On room air. Cardio regular rate, regular rhythm, S1 normal heart sound, S2 normal heart sound and no murmurs GI normal to inspection, nondistended, normoactive bowel sounds, soft to palpation, non-tender and non-distended Extremity normal to inspection, full ROM, normal capillary refill, no clubbing, cyanosis or edema and no calf tenderness General Extremity: no tenderness to palpation of joints or extremities Skin Skin Narrative: has chronic, superficial ulcerations on her scalp. Neuro oriented x3, CN's II-XII intact bilaterally, moves all extremities, no focal motor deficits, no sensory deficits noted and deep tendon reflexes 2+ bilaterally Motor Exam: strength 5/5 throughout and general weakness Psych thought process normal, cooperative and affect normal Weight / BMI Weight Weight: 114 lb 2 oz Body Mass Index (BMI) 20.8 ABG / Lab / Microbiology Data 01/19/24 07:00 01/19/24 07:00 Laboratory: Laboratory Results - last 24 hr 01/19/24 07:00: WBC 3.7 L, RBC 4.21, Hgb 11.8 L, Hct 37.5, MCV 89.1, MCH 28.0, MCHC 31.5 L, RDW Std Deviation 46.5 H, RDW Coeff of Jeannie 14.4, Plt Count 263, MPV 11.1, Immature Gran % (Auto) 0.800, Neut % (Auto) 63.4, Lymph % (Auto) 22.0, [place] % (Auto) 11.1 H, Eos % (Auto) 1.6, Baso % (Auto) 1.1 H, Absolute Neuts (auto) 2.3, Absolute Lymphs (auto) 0.81 L, Nucleated RBC % 0, Sodium 143, Potassium 3.6, Chloride 110 H, Carbon Dioxide 29.0, Anion Gap 4 L, BUN 15, Creatinine 0.80, Estim Creat Clear Calc 46.58, Est GFR (MDRD) Af Amer 89, Est GFR (MDRD) Non-Af 74, BUN/Creatinine Ratio 18.8, Glucose 93, Calcium 8.3 L Microbiology: Microbiology 01/14/24 08:50 Stool Stool Lactoferrin - Final 01/14/24 08:50 Stool Enteric Bacteriology - Final Norovirus 01/14/24 08:50 Stool Clostridioides difficile (PCR) - Final 01/14/24 08:45 Stool Stool Occult Blood (CARISSA) - Final Occult Blood Positive D/C Instructions Discharge Diet: Low fat / Low cholesterol Discharge Activity: Return to Normal Activity Weight Bearing Status: Weight bearing as tolerated Call your doctor if you observe: Fever of 101 or Higher, Shortness of breath, Dizziness, Swelling in the ankles and Chest pain Meaningful Use Info Meaningful Use Diagnoses (Choose all that apply): None applicable Discharge Plan Admission Admit Date/Time: 01/14/24 11:16 Primary Reason for Your Visit: acute gastroenteritis due to Norovirus infection Attending Provider: Marta Cain Primary Care Provider: Hemant Parra Instructions Patient Instructions: Understanding Norovirus Discharge Orders/Prescriptions Prescriptions: Continued alendronate 70 mg tablet 70 mg PO JEFFREY food supplemt, lactose-reduced Liquid 240 ml PO DAILY amlodipine 5 mg Tablet 5 mg PO DAILY Qty: 30 2RF gabapentin 300 mg capsule 300 mg PO DAILY Referrals / Follow Up: Hemant Parra MD [Primary Care Provider] - 01/28/24 2:00 pm Disposition Disposition (needs filled in before D/C Order can be placed): Home, Self Care Charges/Coding Visit Charges Inpatient E&M: 42534 Disch Hosp >30min
== END 2024-01-19 12:04 | disposition home or self-care (01) ==
LOC: ED 11:15 → MS3 13:51
PROVIDERS: Admitting Provider Student in an Organized Health Care Education/Training Program; Emergency Provider Emergency Medicine; PCP Family Medicine; Visit Provider Student in an Organized Health Care Education/Training Program
DX: A08.11 Acute gastroenteropathy due to Norwalk agent (principal); Z87.891 Personal history of nicotine dependence; Z79.83 Long term (current) use of bisphosphonates; R53.81 Other malaise; E87.6 Hypokalemia; R19.5 Other fecal abnormalities; Z79.899 Other long term (current) drug therapy; Z86.718 Personal history of other venous thrombosis and embolism
CPT/HCPCS: 36415; 74177; 80048; 80053; 81001; 82274; 83630; 83690; 83735; 85025; 87493; 87506; 93005; 96360; 96361; 97110; 97116; 97162; 97166; 97530; 97535; 99221; 99285; J7030; J7040; Q9967; A4216; G0378

== ENCOUNTER 2024-01-25 15:13 | Emergency (ER) | payer MEDICARE, MEDICAID, SELFPAY ==
[2024-01-25 15:15] VITALS: BP 134/61; PULSE 81; RESP 22; TEMP 36.6; O2SAT 100; BMI 21.9
--- NOTE | 2024-01-25 15:56 | ED.VIS.GI ---
HPI <GIOVANI Ng - Last Filed: 01/25/24 17:32> HPI - GI History of Present Illness Chief Complaint: GI Bleed Narrative Narrative: Patient presenting today due to concerns for bleeding from, somewhere. She does not sure if it is from her rectum or vagina. Shorts that she was using the bathroom and was having a bowel movement when she noticed a small amount of bright red blood in the toilet with residual blood on her pad. She reports that she was recently admitted due to norovirus on 01/14/2024. She reports that her diarrhea has significantly improved. She denies any fevers, chills, abdominal pain, nausea, and vomiting. She denies any history of GI bleeding however, when reviewing previous notes she does have a history of GI bleeding. PFSH <GIOVANI Ng - Last Filed: 01/25/24 17:32> [facility] Medical History Cervical cancer DVT (deep venous thrombosis) Endometrial cancer Former smoker Osteoporosis Home Medications alendronate 70 mg tablet 70 mg PO JEFFREY OSTEOPEROSIS 12/29/22 [History Last Taken 01/20/24] food supplemt, lactose-reduced 240 ml PO DAILY SUPPLEMENT 01/09/23 [History Last Taken 01/25/24] amlodipine 5 mg tablet 5 mg PO DAILY #30 tabs 01/13/23 [Rx Last Taken 01/25/24] gabapentin 300 mg capsule 300 mg PO DAILY 01/14/24 [History Last Taken 01/25/24] Allergy/AdvReac Type Severity Reaction Status Date / Time acetaminophen [From Percocet] Allergy Unknown Verified 01/25/24 15:14 ibuprofen [From Motrin] Allergy Unknown Verified 01/25/24 15:14 omega-3 acid ethyl esters Allergy Unknown Verified 01/25/24 15:14 oxycodone Allergy Unknown Verified 01/25/24 15:14 oxycodone HCl [From Percocet] Allergy Unknown Verified 01/25/24 15:14 Penicillins Allergy Unknown Verified 01/25/24 15:14 Social History Smoking Status: Former smoker substance use type: does not use ROS <GIOVANI Ng - Last Filed: 01/25/24 17:32> ROS ED Constitutional Constitutional ED: Denies chills or fever(s) Cardiovascular Cardiovascular: Denies chest pain or palpitations Respiratory/Chest Respiratory/Chest: Denies cough or dyspnea Gastrointestinal Gastrointestinal: Reports hematochezia; Denies abdominal pain, nausea or vomiting Genitourinary Genitourinary ED: Denies dysuria, hematuria or urinary urgency Musculoskeletal Musculoskeletal: Denies arthralgias or myalgias Integumentary Denies rash Neurologic Neurologic: Denies weakness EXAM <GIOVANI Ng - Last Filed: 01/25/24 17:32> Physical Exam Const Vital Signs: 01/25/24 15:15 01/25/24 17:07 Temperature 98 F 98.1 F Temperature Source Temporal Pulse Rate 81 74 Respiratory Rate 22 H 16 Blood Pressure 134/61 H 128/72 H Blood Pressure Mean 85 90 Pulse Ox 100 98 Oxygen Delivery Method Room Air Positive well nourished, well developed and no apparent distress General Appearance ED: well developed HEENT Reports normocephalic and head/scalp atraumatic Mouth ED: Yes moist mucous membranes normal Eyes PERRL and EOMs intact bilaterally Neck full ROM and supple Chest Wall inspection of chest normal Resp normal respiratory effort and clear to auscultation bilaterally Cardio regular rate and regular rhythm GI soft to palpation, non-tender, non-distended and no masses GI Narrative: Rectal examination performed with nurse present. Residual bright red blood around the anus, no external hemorrhoids, no abnormality on ERNA. Normal sphincter tone. Back/Spine normal ROM and normal to inspection Extremity normal to inspection and full ROM Neuro oriented x3, CN's II-XII intact bilaterally, moves all extremities, no focal motor deficits and no sensory deficits noted Sensorium / Orientation: awake and alert Psych mental status grossly normal and thought process normal Skin no rashes or lesions noted and no wounds <Dr. Shree Muniz MD - Last Filed: 01/26/24 01:32> Physical Exam Const Vital Signs: 01/25/24 15:15 01/25/24 17:07 Temperature 98 F 98.1 F Temperature Source Temporal Pulse Rate 81 74 Respiratory Rate 22 H 16 Blood Pressure 134/61 H 128/72 H Blood Pressure Mean 85 90 Pulse Ox 100 98 Oxygen Delivery Method Room Air MDM <GIOVANI Ng - Last Filed: 01/25/24 17:32> [facility] Narrative Medical decision making narrative: Patient presenting today due to possible amount of blood she noticed in her stool today. She does not think she has any history of GI bleed. However, on chart review she does have a history of GI bleeding and had a colonoscopy in December [address] Land secondary to GI bleeding and had hemorrhoids, diverticulosis of the sigmoid colon and descending colon, increased mucosal vascular pattern of the sigmoid colon, and diffuse inflammation from the rectum secondary to proctitis. When she was admitted to the hospital recently the hospitalist note did report that patient noticed a blood clot in her stool and she was to notify the staff if it were to happen again, her H&H remained stable at that time. Labs will be obtained here. H&H is 11.3 and 36.2. Creatinine 1.04 and BUN 19, consistent with previous labs. Do feel that it is reasonable for her to follow-up for this as an outpatient. She does have a follow-up appointment with her PCP on Sunday, return instructions given and she will be discharged home in stable condition. She is comfortable with plan. Lab Data Attestation: I reviewed the patient's lab results. Labs: Laboratory Results - last 24 hr 01/25/24 16:00 WBC 6.3 RBC 3.99 L Hgb 11.3 L Hct 36.2 L MCV 90.7 MCH 28.3 MCHC 31.2 L RDW Std Deviation 47.7 H RDW Coeff of Jeannie 14.4 Plt Count 265 MPV 11.0 Immature Gran % (Auto) 0.800 Neut % (Auto) 69.3 Lymph % (Auto) 14.6 L [place] % (Auto) 14.0 H Eos % (Auto) 0.5 Baso % (Auto) 0.8 Absolute Neuts (auto) 4.4 Absolute Lymphs (auto) 0.92 Nucleated RBC % 0 Sodium 140 Potassium 4.2 Chloride 105 Carbon Dioxide 31.0 Anion Gap 4 L BUN 19 H Creatinine 1.04 H Estim Creat Clear Calc 35.83 Est GFR (MDRD) Af Amer 66 Est GFR (MDRD) Non-Af 55 L BUN/Creatinine Ratio 18.3 Glucose 99 Calcium 8.9 <Dr. Shree Muniz MD - Last Filed: 01/26/24 01:32> [facility] Lab Data Labs: Laboratory Results - last 24 hr 01/25/24 16:00 WBC 6.3 RBC 3.99 L Hgb 11.3 L Hct 36.2 L MCV 90.7 MCH 28.3 MCHC 31.2 L RDW Std Deviation 47.7 H RDW Coeff of Jeannie 14.4 Plt Count 265 MPV 11.0 Immature Gran % (Auto) 0.800 Neut % (Auto) 69.3 Lymph % (Auto) 14.6 L [place] % (Auto) 14.0 H Eos % (Auto) 0.5 Baso % (Auto) 0.8 Absolute Neuts (auto) 4.4 Absolute Lymphs (auto) 0.92 Nucleated RBC % 0 Sodium 140 Potassium 4.2 Chloride 105 Carbon Dioxide 31.0 Anion Gap 4 L BUN 19 H Creatinine 1.04 H Estim Creat Clear Calc 35.83 Est GFR (MDRD) Af Amer 66 Est GFR (MDRD) Non-Af 55 L BUN/Creatinine Ratio 18.3 Glucose 99 Calcium 8.9 Treatment and Re-Evaluation Comments:: I have personally performed a face to face assessment of the patient and have reviewed the JONATHAN Note. I performed a substantive portion of the visit including all aspects of the following. My lou findings include: History is patient with an episode of rectal bleeding today. She denies any rectal pain, abdominal pain, lightheadedness, syncope, fevers or chills. Recently admitted to the hospital for rotavirus gastroenteritis, where she was having some bleeding as well. She states her diarrhea is resolved. Exam is well-appearing, abdomen soft nontender nondistended. Rectal per PA, scant blood, no active bleeding or pooling no tenderness. Medical Decison Making Labs reviewed and unremarkable, vital signs normal and stable no active bleeding not anticoagulated and no antiplatelets. Stable for discharge home and close outpatient follow-up we discussed reasons to return and she is comfortable with that plan. Patient also has a history of radiation proctitis which may or may not be related to this. Other additions or changes: [None] Discharge Plan Triage Chief Complaint: GI Bleed ED Midlevel Provider: Mimi Rivera ED Provider: Shree Muniz Dx/Rx/DC Orders Clinical Impression: Lower GI bleed Instructions: ED Lower GI Bleeding (Stable) Prescriptions: No Action alendronate 70 mg tablet 70 mg PO JEFFREY food supplemt, lactose-reduced Liquid 240 ml PO DAILY amlodipine 5 mg Tablet 5 mg PO DAILY Qty: 30 2RF gabapentin 300 mg capsule 300 mg PO DAILY Primary Care Provider: Hemant Parra Referrals: Hemant Parra MD [Primary Care Provider] - 3-5 Days Activity Restrictions/Additional Instructions: Please follow-up with your PCP and return for any worsening of your symptoms. Disposition Disposition: Home, Self Care Discharge Date/Time: 01/25/24 17:08
[2024-01-25 16:08] LABS: Absolute Lymphocyte Count 0.92 X10^3/uL (0.83-4.51); Absolute Neutrophil Count 4.4 X10^3/uL (2.0-7.7); Basophil# 0.05 X10^3/uL; Basophil% 0.8 % (0-1); Eosinophil# 0.03 X10^3/uL; Eosinophils% 0.5 % (0-5); Hematocrit 36.2 % (37-47); Hemoglobin 11.3 g/dL (12.0-15.0); Lymphocyte # 0.92 X10^3/ul (0.83-4.51); Lymphocyte % 14.6 % (19-41); Mean Corp Hgb Conc 31.2 g/dL (32-36); Mean Corpuscular Hgb 28.3 pg (27.0-32.0); Mean Corpuscular Volume 90.7 fL (81-99); Monocyte# 0.88 X10^3/uL; NRBC Flagged by Analyzer 0 % (0-5); Neutrophil # 4.37 X10^3/uL (2.7-7.7); Neutrophil % 69.3 % (47-70); Platelet Count 265 K/mm3 (150-450); RBC Distribution Width CV 14.4 % (11.6-14.6); RBC Distribution Width SD 47.7 fl (35.1-43.9); Red Blood Count 3.99 M/mm3 (4.2-5.4); White Blood Count 6.3 K/mm3 (4.4-11.0)
[2024-01-25 16:23] LABS: Anion Gap 4 (5-15); BUN 19 mg/dL (7-18); BUN/Creat Ratio 18.3 RATIO (10-20); Calcium,Total 8.9 mg/dL (8.5-10.1); Chloride 105 mmol/L (98-107); Creatinine, Serum 1.04 mg/dL (0.55-1.02); EST Glomerular Filtration Rate 55 mL/min (>60); Est Glom Filt Rate - Afr Amer 66 mL/min (>60); Estimated Creatinine Clearance 35.83 ml/min; Glucose 99 mg/dL (74-106); Potassium 4.2 mmol/L (3.5-5.1); Sodium Level 140 mmol/L (136-145)
[2024-01-25 17:07] VITALS: BP 128/72; PULSE 74; RESP 16; TEMP 36.7; O2SAT 98
== END 2024-01-25 17:08 | disposition home or self-care (01) ==
PROVIDERS: Physician Assistant; Emergency Provider Emergency Medicine; PCP Family Medicine; Visit Provider Emergency Medicine
DX: K92.2 Gastrointestinal hemorrhage, unspecified (principal); Z79.899 Other long term (current) drug therapy; Z87.891 Personal history of nicotine dependence
CPT/HCPCS: 80048; 85025; 99282

== ENCOUNTER 2024-01-26 15:25 | Emergency (ER) | payer MEDICARE, MEDICAID, SELFPAY ==
[2024-01-26 15:26] VITALS: BP 124/48; PULSE 78; RESP 16; TEMP 36; O2SAT 100; BMI 22.0
[2024-01-26 19:00] VITALS: BP 156/106; PULSE 70; RESP 16; TEMP 37.1; O2SAT 98
[2024-01-26 20:00] VITALS: BP 129/119; PULSE 72; RESP 16; TEMP 37.1; O2SAT 98
[2024-01-26 20:23] LABS: Mucous, Urine 0 SEEN /hpf (<or=2+); Red Blood Cells-Urine 0 SEEN /hpf (0-5); Squamous Epithelial Cells - UA 0 SEEN /hpf (5-10)
[2024-01-26 20:24] LABS: Absolute Lymphocyte Count 1.18 X10^3/uL (0.83-4.51); Absolute Neutrophil Count 4.5 X10^3/uL (2.0-7.7); Basophil# 0.04 X10^3/uL; Basophil% 0.6 % (0-1); Eosinophil# 0.12 X10^3/uL; Eosinophils% 1.8 % (0-5); Hematocrit 34.2 % (37-47); Hemoglobin 10.6 g/dL (12.0-15.0); Lymphocyte # 1.18 X10^3/ul (0.83-4.51); Lymphocyte % 17.4 % (19-41); Mean Corpuscular Hgb 28.2 pg (27.0-32.0); Monocyte# 0.97 X10^3/uL; Monocyte% 14.3 % (0-10); NRBC Flagged by Analyzer 0 % (0-5); Neutrophil # 4.45 X10^3/uL (2.7-7.7); Neutrophil % 65.3 % (47-70); Platelet Count 234 K/mm3 (150-450); RBC Distribution Width CV 14.5 % (11.6-14.6); RBC Distribution Width SD 47.9 fl (35.1-43.9); Red Blood Count 3.76 M/mm3 (4.2-5.4); White Blood Count 6.8 K/mm3 (4.4-11.0)
[2024-01-26 20:26] LABS: Color, Urine Yellow (Yellow); Glucose, Dipstick Normal (Normal); Ketone-Dipstick Negative (Negative); Leukocyte Esterase-Dipstick 500 /ul (Negative); Nitrite-Dipstick Negative (Negative); Occult Blood-Urine 10 /ul (Negative); Protein-Dipstick Negative (Negative); Urine Bilirubin Dipstick Negative (Negative); Urine Clarity Clear (Clear); Urine Urobilinogen Normal (Normal)
[2024-01-26 20:35] LABS: Bacteria RARE /hpf (None Seen); White Blood Cells 0-5 SEEN /hpf (0-5)
[2024-01-26 20:41] LABS: ALB/GLOB Ratio 1.1 RATIO (0.9-2.4); AST(SGOT) 25 U/L (15-37); Alanine Aminotransfer ALT/SGPT 21 U/L (13-56); Alkaline Phosphatase 49 U/L (45-117); Anion Gap 5 (5-15); BUN 15 mg/dL (7-18); BUN/Creat Ratio 18.2 RATIO (10-20); Calcium,Total 8.7 mg/dL (8.5-10.1); Chloride 106 mmol/L (98-107); Creatinine, Serum 0.82 mg/dL (0.55-1.02); EST Glomerular Filtration Rate 71 mL/min (>60); Est Glom Filt Rate - Afr Amer 86 mL/min (>60); Estimated Creatinine Clearance 45.44 ml/min; Globulin 2.7 g/dL (2.2-4.2); Glucose 92 mg/dL (74-106); Potassium 4.1 mmol/L (3.5-5.1); Protein, Total 5.7 g/dL (6.4-8.2); Sodium Level 141 mmol/L (136-145)
[2024-01-26 21:00] VITALS: BP 160/111; PULSE 71; RESP 16; TEMP 37.1; O2SAT 98
--- NOTE | 2024-01-26 21:49 | NURSING ---
PO challenge started. Pt refused sprite. Given water.
[2024-01-26 21:53] VITALS: BP 190/131; PULSE 73; RESP 16; TEMP 37.1; O2SAT 98
--- NOTE | 2024-01-26 22:41 | EX.ED.DYSGE1 ---
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 She also notes that she had an episode of blood in her stool while in the waiting room. Patient states that she had been doing good since discharge from the hospital on 01/18. She states that she ate a breakfast in which this morning and then after taoism went to [employer] for lunch. This was at 12:30 PM. She ate a cheeseburger without a bun, mac & cheese and lemonade. After that she started having diarrhea. She denies any nausea vomiting. Denies associated abdominal pain but states her stomach feels swollen. She did take an Imodium. She denies any dizziness. Is not on any blood thinners. Of note patient was seen in our emergency room yesterday evening for concerns of bleeding either from her rectum or vagina. At that time she had reported that her diarrhea had improved. Her hemoglobin was 11.3 yesterday which is her baseline and she ultimately was discharged home. [facility] Medical History Cervical cancer DVT (deep venous thrombosis) Endometrial cancer Former smoker Osteoporosis Home Medications food supplemt, lactose-reduced 240 ml PO DAILY SUPPLEMENT 01/09/23 [History Last Taken 01/25/24] amlodipine 5 mg tablet 5 mg PO DAILY #30 tabs 01/13/23 [Rx Last Taken 01/25/24] gabapentin 300 mg capsule 300 mg PO DAILY 01/14/24 [History Last Taken 01/25/24] fluticasone propionate 50 mcg/actuation nasal spray,suspension 2 spray intranasal DAILY 01/26/24 [History Last Taken Unknown] Allergy/AdvReac Type Severity Reaction Status Date / Time acetaminophen [From Percocet] Allergy Unknown Verified 01/26/24 15:29 ibuprofen [From Motrin] Allergy Unknown Verified 01/26/24 15:29 omega-3 acid ethyl esters Allergy Unknown Verified 01/26/24 15:29 oxycodone Allergy Unknown Verified 01/26/24 15:29 oxycodone HCl [From Percocet] Allergy Unknown Verified 01/26/24 15:29 Penicillins Allergy Unknown Verified 01/26/24 15:29 Social History Smoking Status: Former smoker substance use type: does not use ROS ROS ED Constitutional Constitutional ED: Denies chills or fever(s) Respiratory/Chest Respiratory/Chest: Denies cough Gastrointestinal Gastrointestinal: Reports abdominal pain, diarrhea and other Details: Bright red blood per rectum, history of GI bleeding ; Denies nausea or vomiting Genitourinary Genitourinary ED: Denies dysuria or hematuria Musculoskeletal Musculoskeletal: Reports arthralgias and other Details: Chronic Integumentary Denies rash Neurologic Neurologic: Denies paresthesias or weakness Hematologic/Lymphatic Hematologic/Lymphatic: Denies easy bleeding or easy bruising EXAM Physical Exam Const Vital Signs: 01/26/24 15:26 01/26/24 19:00 01/26/24 20:00 Temperature 96.8 F L 98.8 F 98.7 F Temperature Source Temporal Temporal Temporal Pulse Rate 78 70 72 Respiratory Rate 16 16 16 Blood Pressure 124/48 H 156/106 H 129/119 H Blood Pressure Mean 73 122 122 Pulse Ox 100 98 98 Oxygen Delivery Method Room Air Room Air Room Air 01/26/24 21:00 01/26/24 21:53 01/26/24 22:57 Temperature 98.7 F 98.7 F 98.1 F Temperature Source Temporal Temporal Pulse Rate 71 73 76 Respiratory Rate 16 16 18 Blood Pressure 160/111 H 190/131 H 150/65 H Blood Pressure Mean 127 150 93 Pulse Ox 98 98 98 Oxygen Delivery Method Room Air Room Air Positive well nourished and well developed General Appearance ED: well developed and NAD HEENT Reports moist mucous membranes Eyes PERRL and EOMs intact bilaterally General Eye ED: Negative for pale conjunctiva Neck supple Chest Wall inspection of chest normal Resp normal respiratory effort and clear to auscultation bilaterally Cardio regular rate and regular rhythm GI normal to inspection, nondistended, normoactive bowel sounds, non-tender and non-distended GI Narrative: No external hemorrhoids appreciated. Brown stool on rectal exam. No bright red blood per rectum appreciated. Palpation: Negative for guarding Extremity normal to inspection Extremity Narrative: Cock up wrist splints?chronic appearing on the left wrist Neuro oriented x3 Sensorium / Orientation: alert Motor Exam: Negative for general weakness Psych mental status grossly normal Skin no rashes or lesions noted and no wounds MDM MDM MDM Narrative Medical decision making narrative: Patient is evaluated for recurrent diarrhea that restarted today as well as episode of bright red blood per rectum. She appears nontoxic in no acute distress. Vital signs are normal. Will recheck labs. Patient clinically does not appear dehydrated. She does not have any further diarrhea while in the emergency room. Differential includes stable lower GI bleed, radiation proctitis, gastroenteritis and colitis. Her CBC shows a normal white blood cell count is lower suspicion for acute infectious etiology. Her hemoglobin is mildly low at 10.6 however she was 11.3 yesterday so she not had a significant drop. Her platelets are normal. CMP is largely normal with normal BUN to creatinine ratio and a normal BUN. Urinalysis shows 500 leukocyte esterase with 0-5 white blood cells but only rare bacteria. She is not complain of urinary symptoms. Do not think this requires treatment or culture. Her specific gravity is normal and she is not having ketones lower suspicion for dehydration. Do not think she requires IV fluids at this time. Her abdomen is soft and nontender. I do not think she requires any imaging. She does not have any signs of ongoing or active bleeding in the ER. Low suspicion for mesenteric ischemia as she not have abdominal discomfort on exam and does not have any pain out of proportion. While in the ER she does start to complain of right arm pain from her IV and right shoulder and neck pain which she states she takes gabapentin for. She is given a dose of her gabapentin in the ER. At this time I do not think she requires admission to the hospital especially since she seems to responded to the Imodium. Will be discharged home. Is given return precautions. Discharged home in stable condition. Lab Data Labs: Laboratory Results - last 24 hr 01/26/24 20:10 WBC 6.8 RBC 3.76 L Hgb 10.6 L Hct 34.2 L MCV 91.0 MCH 28.2 MCHC 31.0 L RDW Std Deviation 47.9 H RDW Coeff of Jeannie 14.5 Plt Count 234 MPV 11.0 Immature Gran % (Auto) 0.600 Neut % (Auto) 65.3 Lymph % (Auto) 17.4 L [place] % (Auto) 14.3 H Eos % (Auto) 1.8 Baso % (Auto) 0.6 Absolute Neuts (auto) 4.5 Absolute Lymphs (auto) 1.18 Nucleated RBC % 0 Sodium 141 Potassium 4.1 Chloride 106 Carbon Dioxide 30.0 Anion Gap 5 BUN 15 Creatinine 0.82 Estim Creat Clear Calc 45.44 Est GFR (MDRD) Af Amer 86 Est GFR (MDRD) Non-Af 71 BUN/Creatinine Ratio 18.2 Glucose 92 Calcium 8.7 Total Bilirubin 0.40 AST 25 ALT 21 Alkaline Phosphatase 49 Total Protein 5.7 L Albumin 3.0 L Globulin 2.7 Albumin/Globulin Ratio 1.1 Urine Color Yellow Urine Clarity Clear Urine pH 7.0 Ur Specific Davy 1.010 Urine Protein Negative Urine Glucose (UA) Normal Urine Ketones Negative Urine Occult Blood 10 H Urine Nitrite Negative Urine Bilirubin Negative Urine Urobilinogen Normal Ur Leukocyte Esterase 500 H Urine RBC 0 SEEN Urine WBC 0-5 SEEN Ur Squamous Epith Cells 0 SEEN Urine Bacteria RARE Urine Mucus 0 SEEN Discharge Plan Triage Chief Complaint: Diarrhea ED Provider: Darya Ibarra Dx/Rx/DC Orders Clinical Impression: Diarrhea, Radiation proctitis, Lower GI bleed Instructions: GI Bleeding Causes and Tests, ED Diet Vomiting Diarrhea Prescriptions: No Action food supplemt, lactose-reduced Liquid 240 ml PO DAILY amlodipine 5 mg Tablet 5 mg PO DAILY Qty: 30 2RF gabapentin 300 mg capsule 300 mg PO DAILY fluticasone propionate 50 mcg/actuation spray,suspension 2 spray INTRANASAL DAILY Primary Care Provider: Hemant Parra Referrals: Hemant Parra MD [Primary Care Provider] - Lara Chu MD [Med Staff - Active Staff] - As soon as possible Activity Restrictions/Additional Instructions: Your labs appear stable. You may continue to take Imodium as instructed. Given these recurrent episodes of blood in her stool I do recommend follow-up with general surgery for consult and discussing a possible colonoscopy. If you start to feel lightheaded or have a progression or worsening symptoms please return to the emergency room. Try to avoid any overly heavy or greasy foods this could exacerbate your bowels. Disposition Disposition: Home, Self Care Discharge Date/Time: 01/26/24 23:25
[2024-01-26] MEDS: Gabapentin 300 MG Capsule PO (22:56)
[2024-01-26 22:57] VITALS: BP 150/65; PULSE 76; RESP 18; TEMP 36.7; O2SAT 98
--- NOTE | 2024-01-26 22:58 | NURSING ---
Blood pressure cuff switched to left arm. 150/65.
== END 2024-01-26 23:25 | disposition home or self-care (01) ==
LOC: ED 18:58
PROVIDERS: Emergency Provider Emergency Medicine; PCP Family Medicine; Visit Provider Emergency Medicine
DX: R19.7 Diarrhea, unspecified (principal); K62.7 Radiation proctitis; K92.1 Melena; M54.2 Cervicalgia; M25.511 Pain in right shoulder; Z87.891 Personal history of nicotine dependence
CPT/HCPCS: 80053; 81001; 85025; 99282; A4216

== ENCOUNTER 2024-03-10 10:14 | Day surgery (SDC) | payer MEDICARE, MEDICAID, SELFPAY ==
[2024-03-10] VITALS (7 sets, daily range): BP systolic 126–161; BP diastolic 47–77; PULSE 65–72; RESP 16; TEMP 36.4–36.9; O2SAT 96–100; BMI 21.7
[2024-03-10] MEDS: Lactated Ringers 1,000 ML 15 ML IV (11:33)
--- NOTE | 2024-03-10 11:59 | PCM.HP.BLA ---
History and Physical Date of Admission: 03/10/24 HISTORY OF PRESENT ILLNESS 78 year old woman presents for evaluation for TBSE. She is concerned about an enlarging mass on the central anterior frontal scalp that has increased over the past several months. It is getting more raised in configuration. It occasionally bleeds. She denies fever. She denies trauma. She denies recent infection. She presents at this time for further evaluation and treatment. PAST MEDICAL HISTORY Cervical cancer DVT (deep venous thrombosis) Endometrial cancer Former smoker Neoplasm of skin of scalp Osteoporosis Squamous cell carcinoma of scalp PAST SURGICAL HISTORY None. ALLERGIES acetaminophen [From Percocet] ibuprofen [From Motrin] omega-3 acid ethyl esters oxycodone HCl [From Percocet] Penicillins MEDICATIONS lactose-reduced SUPPLEMENT amlodipine gabapentin fluticasone propionate actuation nasal spray FAMILY HISTORY Noncontributory SOCIAL HISTORY Smoking Status: Former smoker substance use type: does not use REVIEW OF SYSTEMS General - Denies fever, fatigue, and weight loss. Eyes - Denies cataracts and glaucoma. ENT - Denies nasal congestion and sore throat. Endocrine - Denies excessive thirst and urination. Skin - Has an enlarging lesion central anterior frontal scalp. Musculoskeletal - Denies joint pain, joint stiffness, weakness of muscles and joints, back pain, and arthritis. Neuro - Denies headaches. Cardiovascular - Denies chest pain, fatigue, and shortness of breath with exertion. Psych - Denies anxiety and depression. Respiratory - Denies chronic cough and shortness of breath. Patient is a former smoker. Gastrointestinal - Denies nausea, vomiting, diarrhea, and constipation. Hematologic - Denies abnormal bruising and bleeding. Genitourinary - Denies hematuria and urinary frequency. PHYSICAL EXAMINATION General - Alert and Oriented HEENT - PERRL. EOMI. Throat is clear. On the central anterior frontal scalp is a 2.2 lesion that is ulcerated. It is raised in configuration with a cutaneous horn component. There are irregular borders. The lesion is nontender except when bumped. No other suspicious lesions noted. Neck - Supple and nontender. No cervical adenopathy. No suspicious lesions noted. Lungs - Clear to auscultation. Heart - Regular rate and rhythm. Abdomen - Soft and nondistended. Extremities - FROM. No axillary adenopathy. Radial pulses are palpable. No suspicious lesions noted. Neuro - CN II-XII grossly intact. Psych - Normal mood and affect. ASSESSMENT 1. 2.2 cm ulcerated lesion central anterior frontal scalp. 2. Squamous cell carcinoma. 3. Former smoker. PLAN Patient presents with a growing cutaneous horn on her central anterior frontal scalp. Clinically looks like a squamous cell carcinoma. Recommend excision of this lesion and send it to Pathology for analysis to rule out carcinoma. Reconstruction will be with skin grafting. Surgery can be done under local anesthesia with IV sedation or general anesthesia on an outpatient basis. After healing of the skin graft, followup every 6 months for TBSE. She states she sees a Food Safety Specialist who will do the TBSE. Patient was informed of the risks and complications of the procedure including alternatives to surgery. These were discussed with the patient personally. Patient voices understanding and wishes to proceed. Some of the risks and complications were included in a form from the [employer] [employer]. Potential risks and complications included but not inclusive of bleeding, infection, seroma, hematoma, bruising, swelling, loss of sensation to skin, partial or complete loss of skin flap and/or skin graft, wound breakdown, need for wound care, poor scarring, poor aesthetic outcome, intra operative cardiac or neurologic events, DVT, PE, and reaction to anesthesia. Assessment & Plan Assessment/Plan (1) Neoplasm of skin of scalp: (2) Squamous cell carcinoma of scalp: (3) Former smoker:
--- NOTE | 2024-03-10 12:30 | LES_PTH ---
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 Dewayne Bah MD : [id number] BED: DIS: 03/10/2024 SPEC #: [id number] RECD: 03/10/24 14:10 STATUS: NIRAJ MARILIN #: [id number] KASI: 03/10/24 12:[address]: Dewayne Bah DEPT: SURGICAL PATHOLOGY RECD BY: Moisés Haines ENTERED: 03/10/24 14:12 SP TYPE: Lesion OTHR DR: Dr. eHmant Parra MD Tissues: A - Skin of scalp, NOS B - Skin of scalp, NOS Procedures: Frozen Section (charge) Surgery Specimen Level IV HEADER OPERATION: Excision cutaneous horn lesion central frontal scalp PRE-OP DIAGNOSIS: 2.2 cm ulcerated lesion central anterior frontal scalp, squamous cell carcinoma, former smoker TISSUE SUBMITTED: A- 2.2cm ulcerated lesion central anterior frontal scalp, cutaneous horn, B- Additional 2.2cm ulcerated lesion central anterior frontal scalp FROZEN SECTION DIAGNOSIS A. Anterior frontal scalp lesion, biopsy: Negative for carcinoma. MICROSCOPIC DIAGNOSIS A. Ulcerated lesion central anterior scalp, biopsy: Focal superficial ulceration, hyperkeratosis, parakeratosis. Solar elastosis. Negative for malignancy. B. Additional ulcerated lesion central anterior scalp, excisional biopsy: Focal mild actinic keratosis with verrucous features, hyperkeratosis and parakeratosis. Solar elastosis. Negative for malignancy. SJ/mr 03/12/24 MICROSCOPIC DESCRIPTION Slides are reviewed. GROSS DESCRIPTION A. Received fresh for frozen section consultation/diagnosis labeled with the patient's name is a specimen designated Ulcerated lesion frontal scalp. The specimen consists of a piece of cortez-white skin measuring 1.5 x 0.2 x 0.3cm. The entire specimen is submitted for frozen section diagnosis. B. Received in fixative is one container labeled with the patient's name and designated 2.2cm ulcerated lesion central anterior scalp. The specimen consists of an oval to round piece of cortez-white skin measuring 3.6 x 3.2cm and up to 0.4cm in thickness. The suture is present presumed to be in 12 o'clock position. A focal area of defect is noted measuring 1.5 x 0.5cm, consistent with site of specimen A. The specimen is inked as follows: 12-3-black, 3-6- blue, 6-9- green, 9-12- yellow. This specimen is serially sectioned and submitted entirely in four cassettes. Vanessa 03/11/24 TC:5 CPT: 14456b8,30139
[2024-03-10] MEDS: Clindamycin 900 MG/50 ML BAG 75 MG IV (13:02)
[2024-03-10] MEDS: Lidocaine 1% /Epi 1:100 (50ml) 50 ML VIAL (13:24)
[2024-03-10] MEDS: Mupirocin Ointment 22gm Tube 1 APPLIC (15:06)
--- NOTE | 2024-03-10 15:10 | PCM.OPRPT ---
Problems Associated Problem List Diagnoses (1) Neoplasm of skin of scalp: (2) Cutaneous horn: (3) Squamous cell carcinoma of scalp: (4) Former smoker: Report of Operation Date of Procedure: 03/10/24 Pre-Operative Diagnosis: 1. 2.2 cm ulcerated cutaneous horn lesion central aspect anterior frontal scalp. 2. Squamous cell carcinoma. 3. Former smoker. Post-Operative Diagnosis: Same. Surgery/Procedure Performed:: Excision 2.2 cm ulcerated cutaneous horn lesion central aspect anterior frontal scalp with FTSG reconstruction from the left flank (17.64 cm2). Description of Surgical Findings:: 78 year old woman presents for evaluation for TBSE. She is concerned about an enlarging mass on the central anterior frontal scalp that has increased over the past several months. It is getting more raised in configuration. It occasionally bleeds. She denies fever. She denies trauma. She denies recent infection. She presents at this time for further evaluation and treatment. Frozen section - central aspect anterior frontal scalp - no carcinoma seen. Size of skin graft - 4.2 x 4.2 cm or 17.64 cn2. Surgeon: Dewayne Bah MD fixer supervisor: Josefina Patioñ RNFA Type of Anesthesia: General Anesthesiologist: Panda Shay MD and Mae Rubalcava CRNA and Marj Ortega CRNA Specimen's removed: 1. Ulcerated cutaneous horn lesion central aspect frontal scalp to Pathology as an incisional biopsy frozen section. 2. Ulcerated cutaneous horn lesion central aspect frontal scalp to Pathology. Drains: None. Estimated Blood Loss (mL): 20. Description of Procedure: Patient was taken to OR in supine position and was placed under general anesthesia. The anterior frontal scalp and neck and left flank areas were prepped and draped in the usual fashion. SCD's were placed for DVT prophylaxis. Perioperative antibiotics were given intravenously. Using xylocaine with epinephrine, the ulcerated cutaneous horn lesion central aspect anterior frontal scalp was infiltrated. After waiting 5 minutes for the anesthetic to take effect, I proceeded with an incisional biopsy at the left edge of the ulceration and was sent to Pathology for analysis as a frozen section to rule out carcinoma. Frozen section showed no carcinoma seen. Being a large cutaneous horn lesion and being ulcerated, this lesion will not heal. If I stopped the procedure at this point, carcinoma has a high risk of developing at the base of this ulcerated cutaneous horn lesion. The lesion is 2.2 cm and lesions this large require a 1 cm margin in all directions with skin graft reconstruction. If I don't use a margin of 1 cm in all directions since the frozen section showed no carcinoma, then I am concerned that the permanent pathology may show a focus of carcinoma elsewhere in this ulcerated lesion. Therefore a margin less than 1 cm would not be adequate and further surgery would be necessary. By proceeding with a 1 cm margin in all directions and permanent pathology showed a focus of carcinoma, then no further surgery would be necessary. By proceeding with a 1 cm margin in all directions and permanent pathology showed no focus of carcinoma, then no further surgery would be necessary. Only difference would be a skin graft that is larger than necessary, but I would have prevented another surgery. I marked out 1 cm margin in all directions. Incision was made into the subcutaneous tissue. I elevated the specimen at the level of the galea. A suture was marked at 12 oclock position for pathology orientation. The lesion was sent to Pathology for analysis to rule out carcinoma. The dimensions of the wound after excision, was 4.2 x 4.2 cm or 17.64 cm2. I felt that a skin graft from the neck would not be large enough. So I went to the left flank to obtain my skin graft. I marked out an oblique ellipse and incision was made into the subcutaneous tissue. I then elevated the skin at the level of the subcutaneous tissue. The subcutaneous tissue was removed from the undersurface of the dermis thus fashioning a full thickness skin graft. The skin graft was placed in saline. I excised a little bit of subcutaneous tissue to aid in wound closure. I elevated the skin flaps at the level of Coleen's fascia. Hemostasis was obtained with electrocautery. Saline irrigation was then performed. The Coleen's fascial layer was approximated with 3-0 Vicryl simple running suture. The deep dermis and subcutaneous tissue was approximated with 3-0 Monocryl interrupted sutures. The skin was approximated with 4-0 V lock unidirectional barbed running subcuticular suture. This was followed with Histoacryl skin tissue adhesive. 4x4 gauze was applied. The full thickness skin graft was applied to the scalp wound and secured to the skin edges with 5-0 Chromic simple interrupted sutures. 5-0 Chromic sutures were also used for central quilting stabilization. Antibiotic ointment was applied to the skin graft followed by Xeroform gauze and cotton balls soaked in saline and secured to the skin edges with 4-0 Nylon tie over stent suture dressing. Patient tolerated the procedure well and was sent to PACU in satisfactory condition. Patient will be sent home on antibiotics and pain medication. She will keep her head elevated during the initial posoperative period. Patient will followup later in the week for takedown of the skin graft dressing and for a wound check and for discussion of the pathology report. Grafts/Implants Used: None. Procedure Start Time: 13:24 Procedure Stop Time: 15:04 Complications None. Admit VTE Documentation VTE Present on Admission: No VTE Mechan Device Prophylaxis: SCD's VTE Pharm Prophylaxis ordered?: No Addendum Addendum: Surgery Charges CPT - 12711 ICD-10 - D49.2, L85.8, C44.42, Z87.891 81375 D49.2, L85.8, C44.42, Z87.891 Visit Charges Inpatient E&M: 50951 Disch Hosp >30min
--- NOTE | 2024-03-10 15:33 | DCINST_ITS ---
Discharge Instructions Diet Discharge Diet: No restrictions Activity Discharge Activity: May Not Drive, May Shower (in two days from the neck down. Keep scalp dressing dry. will remove scalp dressing in the office.) and - (keep head elevated. no heavy lifting.) May shower in (days): 2 (from the neck down. keep scalp dressing dry. after a shower, place dry gauze dressing on incision left flank.) May resume sexual activity in: 10-14 days Weight Bearing Status: Weight bearing as tolerated Lifting Restrictions: 20 lbs. Keep extremity elevated above heart level: - (elevate head.) Dressing / Incision Call your doctor if your incision/area has: Continuous Slow Oozing, Sudden Increased Bleeding, Increased Pain/ Swelling, Increased Redness, Foul Smelling Discharge and Swelling at the incision site Call your doctor if you observe: Fever of 101 or Higher, Coldness, Increased Pain, Shortness of breath, Chest pain, Calf discomfort and Uncontrolled pain Change Dressing in: 2 days (left flank dressing only.) Remove Dressing in: leave in place till F/U (scalp dressing will be removed in the office.) Cleanse incision/area with: Soap & Water (may get left flank incision wet in the shower in two days.) and Keep Dressing Clean & Dry (keep scalp dressing dry. will remove the scalp operative dressing in the office.) Follow Up Care Please Follow Up With: Dewayne Bah MD When: sunday03/14/24. please call [phone] for appt. Test Results: Test results from this visit will be discussed in further detail at your follow- up appointment, if applicable. Discharge Plan Admission Primary Reason for Your Visit: ulcerated cutaneous horn lesion central aspect anterior frontal scalp Attending Provider: Dewayne Bah Primary Care Provider: Hemant Parra Discharge Orders/Prescriptions Prescriptions: New clindamycin HCl [Cleocin HCl] 300 mg capsule 300 mg PO TID Qty: 21 0RF L.acidoph,saliva-B.bif-S.therm [Acidophilus Probiotic Blend] 175 mg capsule 1 cap PO DAILY Qty: 20 0RF oxycodone-acetaminophen [Percocet] 5-325 mg tablet 1 tab PO Q6H PRN (Reason: pain (scale score 7-10)) 5 Days Qty: 20 0RF Rx Instructions: 20 tabs (twenty) Continued amlodipine 5 mg Tablet 5 mg PO DAILY Qty: 30 2RF gabapentin 300 mg capsule 300 mg PO DAILY PRN alendronate 70 mg tablet 70 mg PO JEFFREY Referrals / Follow Up: Hemant Parra MD [Primary Care Provider] - Dewayne Bah MD [Med Staff - Active Staff] - Within 1 Week Disposition Disposition (needs filled in before D/C Order can be placed): Home, Self Care
== END 2024-03-10 17:01 | disposition home or self-care (01) ==
LOC: SDC 10:14 → AC 10:46
PROVIDERS: PCP Family Medicine; Referring Provider Surgery; Visit Provider Surgery
PROC: (CPT 11426; principal; 2024-03-10 12:15)
DX: L57.0 Actinic keratosis (principal); L57.8 Other skin changes due to chronic exposure to nonionizing radiation; L85.8 Other specified epidermal thickening; I10 Essential (primary) hypertension; M81.0 Age-related osteoporosis without current pathological fracture; Z87.891 Personal history of nicotine dependence
CPT/HCPCS: 11426; 15220; 88305; 88331; J7120; J2405

== ENCOUNTER 2024-10-08 12:41 | Emergency (ER) | payer MEDICARE, MEDICAID, SELFPAY ==
[2024-10-08 12:42] VITALS: BP 155/89; PULSE 74; RESP 16; TEMP 36.7; O2SAT 100
--- NOTE | 2024-10-08 12:50 | EKG12_ITS ---
Test Reason : CP Blood Pressure : */* mmHG Vent. Rate : 70 BPM Atrial Rate : 70 BPM P-R Int : 142 ms QRS Dur : 78 ms QT Int : 386 ms P-R-T Axes : 75 53 64 degrees QTcB Int : 416 ms Normal sinus rhythm Cannot rule out Septal infarct , age undetermined Abnormal ECG Confirmed by Jaziel Pena ([id number]), content editor BARB MONTES ([id number]) on 10/09/2024 1:08:13 PM Referred By: Jamal Delgado Confirmed By: Jaziel Pena
[2024-10-08 13:11] LABS: Absolute Lymphocyte Count 0.49 X10^3/uL (0.83-4.51); Absolute Neutrophil Count 6.1 X10^3/uL (2.0-7.7); Basophil# 0.03 X10^3/uL; Basophil% 0.4 % (0-1); Eosinophil# 0.01 X10^3/uL; Eosinophils% 0.1 % (0-5); Hematocrit 34.7 % (37-47); Hemoglobin 10.3 g/dL (12.0-15.0); Lymphocyte # 0.49 X10^3/ul (0.83-4.51); Mean Corp Hgb Conc 29.7 g/dL (32-36); Mean Corpuscular Hgb 24.1 pg (27.0-32.0); Mean Corpuscular Volume 81.3 fL (81-99); Mean Platelet Vol. 10.5 fl (6.2-12.0); Monocyte# 0.36 X10^3/uL; Monocyte% 5.2 % (0-10); NRBC Flagged by Analyzer 0 % (0-5); Neutrophil # 6.05 X10^3/uL (2.7-7.7); Neutrophil % 86.9 % (47-70); POSITIVE DIFFERENTIAL YES; Platelet Count 325 K/mm3 (150-450); RBC Distribution Width CV 15.9 % (11.6-14.6); RBC Distribution Width SD 46.5 fl (35.1-43.9); Red Blood Count 4.27 M/mm3 (4.2-5.4)
--- NOTE | 2024-10-08 13:15 | RAD_ITS ---
HISTORY: chest pain. TECHNIQUE: XR Chest 1 View. COMPARISON: 12/18/2023. FINDINGS: CARDIOMEDIASTINAL BORDERS: Cardiac silhouette within normal limits in size. Mediastinal contour also unchanged with calcification of the aortic knob. LUNGS: Radiographically clear. PLEURA: No pleural effusion or pneumothorax seen. OSSEOUS STRUCTURES: Degenerative change. RAD/Chest 1 View (Portable) IMPRESSION: No acute cardiopulmonary process identified. Electronically Signed: Estee Miller MD at 13:41 EST ,
[2024-10-08 13:34] LABS: Anion Gap 3 (5-15); BUN 15 mg/dL (7-18); BUN/Creat Ratio 18.9 RATIO (10-20); Calcium,Total 9.1 mg/dL (8.5-10.1); Chloride 103 mmol/L (98-107); Creatinine, Serum 0.79 mg/dL (0.55-1.02); EST Glomerular Filtration Rate 74 mL/min (>60); Est Glom Filt Rate - Afr Amer 90 mL/min (>60); Glucose 137 mg/dL (74-106); Potassium 4.2 mmol/L (3.5-5.1); Sodium Level 138 mmol/L (136-145); Troponin-I HS (w/2H Reflex) 9 pg/mL (3.0-54.0)
--- NOTE | 2024-10-08 14:02 | EDS_ITS ---
HPI History of Present Illness Chief Complaint: Chest Pain Narrative Narrative: Chief complaint and HPI: Nausea and vomiting. 79-year-old female with history of DVT, GI bleed presents for evaluation of nausea and vomiting. Patient states she woke up this morning with nausea and vomiting. Emesis nonbloody. She states she has some general discomfort in her stomach from the emesis but no true abdominal pain. She endorses body aches and intermittent shortness of breath. Currently not short of breath. Triage note states that the patient has been having chest pain. Patient denies true chest pain and instead states I have pain all over. She denies any fever, URI symptoms, cough, dysuria, diarrhea, constipation. Patient states she had a CT scanning yesterday at [facility]. She does not know what CT scan was performed. She states it was routine follow-up. Patient denies any recent antibiotic use. Review of systems: See HPI Medications: As listed on the chart Allergies: As listed on the chart PFSH: Per chart Vital signs: As listed on the chart. Reviewed. Physical exam: Gen: A&O x3, NAD Head: Normocephalic, atraumatic Eyes: No sclera icterus, conjunctiva clear ENT: Mildly dry mucous membranes Neck: Trachea midline, No JVD CV: RRR, no murmurs, no peripheral edema Resp: Lungs CTA BL, no w/r/c GI: Abd soft, non-distended, non-tender, no r/r/g Musc: Full ROM, no deformity Skin: Warm, dry Neuro: Alert, oriented, grossly intact, sensation intact Psych: Cooperative, appropriate mood and affect [facility] Medical History Actinic keratosis Cutaneous horn Loss of hearing Wears glasses Wears dentures Post-menopausal History of GI bleed History of pain when walking History of edema History of echocardiogram Hypertension Squamous cell carcinoma of scalp Neoplasm of skin of scalp Osteoporosis Former smoker Endometrial cancer Cervical cancer Home Medications ?Medication ?Instructions ?Recorded ?Last Taken ?Type amlodipine 5 mg tablet 5 mg PO DAILY #30 tabs 01/13/23 03/10/24 07:30 Rx gabapentin 300 mg capsule 300 mg PO DAILY PRN 01/14/24 01/25/24 History alendronate 70 mg tablet 70 mg PO JEFFREY 03/06/24 Unknown History ondansetron 4 mg disintegrating 4 mg PO Q8H PRN PRN Nausea #10 tabs 10/08/24 Unknown Rx tablet sulfamethoxazole 800 1 tab PO BID 7 days #14 tabs 10/08/24 Unknown Rx mg-trimethoprim 160 mg tablet (Bactrim DS) Allergy/AdvReac Type Severity Reaction Status Date / Time acetaminophen (From Percocet) Allergy Unknown Verified 10/08/24 12:42 ibuprofen (From Motrin) Allergy Unknown Verified 10/08/24 12:42 omega-3 acid ethyl esters Allergy Unknown Verified 10/08/24 12:42 oxycodone Allergy Unknown Verified 10/08/24 12:42 oxycodone HCl (From Percocet) Allergy Unknown Verified 10/08/24 12:42 Penicillins Allergy Unknown Verified 10/08/24 12:42 Surgical History History of excision of lesion Hx of tonsillectomy Hx of appendectomy Hx of colonoscopy Social History (Updated 10/08/24 @ 14:08 by Shonda Walsh) household members: none Smoking Status: Former smoker substance use type: does not use EXAM Physical Exam Const Vital Signs: 10/08/24 12:42 10/08/24 14:35 10/08/24 14:41 Temperature 98.1 F Temperature Source Oral Pulse Rate 74 71 Respiratory Rate 16 10 L Respiratory Effort Normal Non-Labored Blood Pressure 155/89 H 137/66 H Blood Pressure Mean 111 89 Pulse Ox 100 97 Oxygen Delivery Method Room Air Room Air 10/08/24 14:47 10/08/24 16:59 Temperature 98.5 F Temperature Source Pulse Rate 72 Respiratory Rate 15 Respiratory Effort Blood Pressure 137/69 H Blood Pressure Mean 91 Pulse Ox 97 99 Oxygen Delivery Method Room Air MDM MDM MDM Narrative Medical decision making narrative: 79-year-old female with history of DVT, GI bleed presents for evaluation of nausea and vomiting. Triage note states chest pain although patient denies this and instead endorses diffuse bodyaches. Onset of symptoms this morning. Denies abdominal pain. Differential diagnosis includes but is not limited to viral gastroenteritis, dehydration, MENDOZA, electrolyte abnormality, pneumonia, UTI, suspect less likely ACS. NS bolus, Zofran ordered for symptoms. Laboratory workup ordered including chest x-ray. Patient denies any abdominal pain. Her abdomen is benign on physical exam therefore I do not think any CT abdomen pelvis is needed at this time. Vital stable other than some mild hypertension. EKG and chest x-ray reviewed, see below. CBC without leukocytosis, patient has baseline anemia. CMP without electrolyte abnormality, MENDOZA, transaminitis. Lipase mildly elevated at 83. Not consistent with pancreatitis. Troponin unremarkable and flat x 2. COVID, flu, RSV negative. UA positive for blood, leuk esterase, bacteria. This is consistent with UTI. Urine culture obtained. Patient has allergy to penicillins therefore p.o. Bactrim ordered. On reevaluation, patient's nausea is improved. Patient was p.o. challenged and tolerated it well without nausea and vomiting. Patient is stable to discharge home. Follow-up with PCP. Return precautions explained. Patient written a prescription for Zofran as well as Bactrim x 7 days. Patient confirmed understanding the plan. EKG: Interpreted by me/EM physician: EKG shows normal sinus rhythm with a heart rate of 70. No acute ischemic changes. Diagnostic: Interpreted by me/EM physician: Chest x-ray without pneumonia, effusion, cardiomegaly, pneumothorax Impression: 1. Nausea and vomiting 2. UTI Lab Data Labs: Laboratory Results - last 24 hr 10/08/24 10/08/24 10/08/24 13:00 14:21 15:40 WBC 7.0 RBC 4.27 Hgb 10.3 L Hct 34.7 L MCV 81.3 MCH 24.1 L MCHC 29.7 L RDW Std Deviation 46.5 H RDW Coeff of Jeannie 15.9 H Plt Count 325 MPV 10.5 Immature Gran % (Auto) 0.400 Neut % (Auto) 86.9 H Lymph % (Auto) 7.0 L [place] % (Auto) 5.2 Eos % (Auto) 0.1 Baso % (Auto) 0.4 Absolute Neuts (auto) 6.1 Absolute Lymphs (auto) 0.49 L Nucleated RBC % 0 Sodium 138 Potassium 4.2 Chloride 103 Carbon Dioxide 31.0 Anion Gap 3 L BUN 15 Creatinine 0.79 Est GFR (MDRD) Af Amer 90 Est GFR (MDRD) Non-Af 74 BUN/Creatinine Ratio 18.9 Glucose 137 H Calcium 9.1 Total Bilirubin 0.60 Direct Bilirubin 0.19 AST 27 ALT 24 Alkaline Phosphatase 61 Troponin I High Sens 9 9 Total Protein 6.7 Albumin 3.3 Globulin 3.4 Lipase 83 H Urine Color Yellow Urine Clarity Sl. Cloudy Urine pH 7.0 Ur Specific [place] 1.010 Urine Protein 30 H Urine Glucose (UA) Normal Urine Ketones Negative Urine Occult Blood 250 H Urine Nitrite Negative Urine Bilirubin Negative Urine Urobilinogen Normal Ur Leukocyte Esterase 25 H Urine RBC 0-5 SEEN Urine WBC 0-5 SEEN Ur Squamous Epith Cells 0-5 SEEN Amorphous Sediment 2+ Urine Bacteria 3+ Urine Mucus 1+ Radiography Diagnostic Testing: Clinical Impression(s) from Imaging Studies Chest X-Ray 10/08/24 13:15 IMPRESSION: No acute cardiopulmonary process identified. Electronically Signed: Estee Miller MD at 13:41 EST , Discharge Plan Triage Chief Complaint: Chest Pain Other Complaint: Nausea/Vomiting ED Provider: Jamal Delgado Dx/Rx/DC Orders Clinical Impression: Nausea & vomiting, Acute UTI Instructions: Urinary Tract Infections in Women, UTIs Understanding, ED Diet Vomiting Diarrhea Prescriptions: New sulfamethoxazole-trimethoprim [Bactrim DS] 800-160 mg tablet 1 tab PO BID 7 Days Qty: 14 0RF ondansetron 4 mg tablet,disintegrating 4 mg PO Q8H PRN PRN (Reason: Nausea) Qty: 10 0RF No Action amlodipine 5 mg Tablet 5 mg PO DAILY Qty: 30 2RF gabapentin 300 mg capsule 300 mg PO DAILY PRN alendronate 70 mg tablet 70 mg PO JEFFREY Primary Care Provider: Hemant Parra Referrals: Hemant Parra MD [Primary Care Provider] - 3-5 Days Activity Restrictions/Additional Instructions: Return back to the ED if symptoms change or worsen. Print Language: [place] Disposition Disposition: Home, Self Care Discharge Date/Time: 10/08/24 17:00
[2024-10-08 14:41] VITALS: BP 137/66; PULSE 71; RESP 10; O2SAT 97
[2024-10-08] MEDS: Ondansetron 4 MG/2 ML Vial IV (14:41)
[2024-10-08] MEDS: 0.9% Normal Saline (1000mL) 1,000 ML 1000 ML IV (14:41)
[2024-10-08 14:47] VITALS: O2SAT 97
[2024-10-08 14:49] VITALS: BMI 23.8
[2024-10-08 15:04] LABS: Reflex Troponin-HS? (from REC) Y
[2024-10-08 15:22] LABS: AST(SGOT) 27 U/L (15-37); Alanine Aminotransfer ALT/SGPT 24 U/L (13-56); Albumin, Serum 3.3 g/dL (3.2-5.0); Alkaline Phosphatase 61 U/L (45-117); Bilirubin, Direct 0.19 mg/dL (0.00-0.30); Globulin 3.4 g/dL (2.2-4.2); Lipase 83 U/L (13-75); Protein, Total 6.7 g/dL (6.4-8.2)
[2024-10-08 15:24] LABS: Color, Urine Yellow (Yellow); Glucose, Dipstick Normal (Normal); Ketone-Dipstick Negative (Negative); Leukocyte Esterase-Dipstick 25 /ul (Negative); Nitrite-Dipstick Negative (Negative); Occult Blood-Urine 250 /ul (Negative); Protein-Dipstick 30 mg/dl (Negative); Urine Bilirubin Dipstick Negative (Negative); Urine Clarity Sl. Cloudy (Clear); Urine Urobilinogen Normal (Normal)
[2024-10-08 15:51] LABS: Amorphous Sediment 2+; Bacteria 3+ /hpf (None Seen); Mucous, Urine 1+ /hpf (<or=2+); Red Blood Cells-Urine 0-5 SEEN /hpf (0-5); Squamous Epithelial Cells - UA 0-5 SEEN /hpf (5-10); White Blood Cells 0-5 SEEN /hpf (0-5)
[2024-10-08 16:14] LABS: Troponin-I HS 9 pg/mL (3.0-54.0)
[2024-10-08] MEDS: Smz/Tmp Ds Tablet 1 TABLET PO (16:21)
[2024-10-08 16:59] VITALS: BP 137/69; PULSE 72; RESP 15; TEMP 36.9; O2SAT 99
== END 2024-10-08 17:00 | disposition home or self-care (01) ==
PROVIDERS: Emergency Provider Surgery; PCP Family Medicine; Referring Provider Surgery; Visit Provider Surgery
DX: N39.0 Urinary tract infection, site not specified (principal); R11.2 Nausea with vomiting, unspecified; I10 Essential (primary) hypertension; R06.02 Shortness of breath; Z11.52 Encounter for screening for COVID-19; Z87.891 Personal history of nicotine dependence; Z86.718 Personal history of other venous thrombosis and embolism
CPT/HCPCS: 71045; 80048; 80076; 81001; 83690; 84484; 85025; 87086; 87088; 87631; 93005; 96361; 96374; 99285; J2405

== ENCOUNTER 2024-10-11 14:38 | Emergency (ER) | payer MEDICARE, MEDICAID, SELFPAY ==
[2024-10-11] VITALS (7 sets, daily range): BP systolic 122–202; BP diastolic 52–135; PULSE 69–87; RESP 15–27; TEMP 36.5–36.6; O2SAT 91–100; BMI 21.8
--- NOTE | 2024-10-11 14:53 | CT_ITS ---
STUDY: CT ABDOMEN AND PELVIS WITH CONTRAST REASON FOR EXAM: Female, 79 years old. abdominal pain RADIATION DOSAGE (If Supplied By Facility): CTDIvol = ( 9.97 ) mGy, DLP = ( 330.88 ) mGycm TECHNIQUE: Transaxial images were obtained from the dome of the diaphragm to the symphysis pubis without oral contrast. IV 100mL Isovue-370 was administered. Sagittal and coronal images were reconstructed. Individualized dose optimization techniques were used for this CT. COMPARISON: None. FINDINGS: The visualized lung bases are unremarkable. The visualized portions of the heart are within normal limits. Normal liver. Nonvisualization of the gallbladder. Dilatation of the extrahepatic biliary system. Normal spleen. Ductal dilatation in the pancreas. Normal bilateral adrenal glands. Normal right kidney. Normal left kidney. Distended stomach and duodenum with prominent air fluid levels. Normal small intestine. Normal colon. The appendix is not visualized. Normal abdominal aorta. Mild stenosis of the celiac artery. Normal inferior vena cava. Normal retroperitoneum. Wall thickening of the urinary bladder with pericystic stranding. Normal abdominal wall. Moderate compression of L4. CT/Abdomen/Pelvis W IV Cont ONLY IMPRESSION: Mild biliary and pancreatic ductal dilatation. Distended stomach and duodenum with prominent air fluid levels. Wall thickening of the urinary bladder with pericystic stranding. Electronically Signed: Billy Underwood DO at 18:01 EST Reading Location ID and State: [facility] / [place] Tel [phone], Service support ,
--- NOTE | 2024-10-11 14:57 | EX.ED.DYSGE1 ---
HPI <BIGG White - Last Filed: 10/11/24 20:21> History of Present Illness Chief Complaint: Shortness of Breath Narrative Narrative: Patient is a 79-year-old female with history of GI bleed, history of DVT who was recently seen here 3 days ago. Patient states that she was on the bus today, when she felt short of breath, she was given collapse, she has been taking her Bactrim however not like she supposed to. Patient also states has been having worsening abdominal pain. Patient does seem disheveled, patient is having difficulty staying on track. Per the staff this is baseline for the patient. Patient is alert and orient x 4. Patient denies any specific nausea or vomiting. <Dr. Jamal Delgado DO - Last Filed: 10/12/24 01:37> Narrative Narrative: Patient is a 79-year-old female with history of GI bleed, history of DVT who was recently seen here 3 days ago. Patient states that she was on the bus today, when she felt short of breath, she felt like she was going to collapse, she has been taking her Bactrim however not like she supposed to. Patient also states has been having worsening abdominal pain. Patient does seem disheveled, patient is having difficulty staying on track. Per the staff this is baseline for the patient. Patient is alert and orient x 4. Patient denies any specific nausea or vomiting. PFSH <BIGG White - Last Filed: 10/11/24 20:21> [facility] Medical History Actinic keratosis Cutaneous horn Loss of hearing Wears glasses Wears dentures Post-menopausal History of GI bleed History of pain when walking History of edema History of echocardiogram Hypertension Squamous cell carcinoma of scalp Neoplasm of skin of scalp Osteoporosis Former smoker Endometrial cancer Cervical cancer Home Medications ?Medication ?Instructions ?Recorded ?Last Taken ?Type amlodipine 5 mg tablet 5 mg PO DAILY #30 tabs 01/13/23 03/10/24 07:30 Rx gabapentin 300 mg capsule 300 mg PO DAILY PRN 01/14/24 01/25/24 History alendronate 70 mg tablet 70 mg PO JEFFREY 03/06/24 Unknown History ondansetron 4 mg disintegrating 4 mg PO Q8H PRN PRN Nausea #10 tabs 12/04/24 Unknown Rx tablet sulfamethoxazole 800 1 tab PO BID 7 days #14 tabs 10/08/24 Unknown Rx mg-trimethoprim 160 mg tablet (Bactrim DS) Allergy/AdvReac Type Severity Reaction Status Date / Time acetaminophen (From Percocet) Allergy Unknown Verified 10/11/24 14:41 ibuprofen (From Motrin) Allergy Unknown Verified 10/11/24 14:41 omega-3 acid ethyl esters Allergy Unknown Verified 10/11/24 14:41 oxycodone Allergy Unknown Verified 10/11/24 14:41 oxycodone HCl (From Percocet) Allergy Unknown Verified 10/11/24 14:41 Penicillins Allergy Unknown Verified 10/11/24 14:41 Surgical History History of excision of lesion Hx of tonsillectomy Hx of appendectomy Hx of colonoscopy Social History (Updated 10/08/24 @ 14:08 by Shonda Walsh) household members: none Smoking Status: Former smoker substance use type: does not use ROS <BIGG White - Last Filed: 10/11/24 20:21> ROS ED ROS Narrative Constitutional: Negative for fever, chills, weight loss. Positive for weakness Eyes: Negative for vision loss, vision change, double vision ENT: Negative for any sore throat, ear pain, congestion Cardiovascular: Negative for any chest pain, tightness, palpitations Respiratory: Negative for any cough, sputum production, hemoptysis, dyspnea, dyspnea on exertion, orthopnea Gastrointestinal: Negative for any nausea, vomiting, diarrhea, constipation, blood in stool, blood in vomit. Positive for abdominal pain : Negative for any urinary frequency, dysuria, retention, blood in urine Muscle skeletal: Negative for any neck pain, back pain Neurological: Negative for any headache, syncope, dizziness Skin: Negative for any rashes, itching, abrasions, lacerations Psychiatric: Negative for any depression, anxiety, stress, suicidal ideation, homicidal ideation Hematologic: Negative for any excessive bruising, easy bleeding EXAM <BIGG White - Last Filed: 10/11/24 20:21> Physical Exam Narrative Exam Narrative: Vital signs reviewed. Patient is alert and orient x 4. HEET: Head normocephalic atraumatic, TMs clear bilaterally. Posterior pharynx is clear, dry mucous membranes. Nares clear bilaterally. Neck: Supple with no lymphadenopathy or tenderness. No signs of meningismus. Cardiac: Regular rate and rhythm systolic murmur gallops or rubs, equal peripheral pulses bilaterally. Respiratory: Lungs clear to auscultation bilaterally. No chest tenderness. Abdomen: Soft, nondistended. No abdominal bruit or pulsatile masses. No hepatosplenomegaly. Tenderness to the lower abdomen Extremities: No peripheral edema, no signs of gross trauma or deformity. Active full range of motion of all extremities. Neuro: Cranial nerves II through XII intact, no focal neurological deficits. Skin: Clean dry and intact with no rash, purpura, petechiae, vesicles or pustules. Backs/flank: No CVA tenderness, no midline spinal tenderness, no deformity. Psych: Normal mood and affect. No SI, HI or acute psychosis. Const Vital Signs: 10/11/24 14:41 10/11/24 14:49 10/11/24 16:38 Temperature 97.7 F L Temperature Source Oral Pulse Rate 87 72 Respiratory Rate 15 16 Respiratory Effort Normal Respiratory Depth Normal Respiratory Pattern Normal Blood Pressure 122/102 H 202/135 H Blood Pressure Mean 108 157 Pulse Ox 100 97 Oxygen Delivery Method Room Air Room Air Room Air 10/11/24 17:12 10/11/24 19:00 10/11/24 21:00 Temperature Temperature Source Pulse Rate 78 75 82 Respiratory Rate 16 16 18 Respiratory Effort Respiratory Depth Respiratory Pattern Blood Pressure 143/52 H 148/74 H 142/52 H Blood Pressure Mean 82 98 82 Pulse Ox 98 98 91 Oxygen Delivery Method Room Air Room Air Room Air 10/11/24 21:50 Temperature 98 F Temperature Source Pulse Rate 69 Respiratory Rate 27 H Respiratory Effort Respiratory Depth Respiratory Pattern Blood Pressure 149/66 H Blood Pressure Mean 93 Pulse Ox 97 Oxygen Delivery Method Positive unkempt General Appearance ED: unkempt Psych Appearance: unkempt <Dr. Jamal Delgado, DO - Last Filed: 10/12/24 01:37> Physical Exam Const Vital Signs: 10/11/24 14:41 10/11/24 14:49 10/11/24 16:38 Temperature 97.7 F L Temperature Source Oral Pulse Rate 87 72 Respiratory Rate 15 16 Respiratory Effort Normal Respiratory Depth Normal Respiratory Pattern Normal Blood Pressure 122/102 H 202/135 H Blood Pressure Mean 108 157 Pulse Ox 100 97 Oxygen Delivery Method Room Air Room Air Room Air 10/11/24 17:12 10/11/24 19:00 10/11/24 21:00 Temperature Temperature Source Pulse Rate 78 75 82 Respiratory Rate 16 16 18 Respiratory Effort Respiratory Depth Respiratory Pattern Blood Pressure 143/52 H 148/74 H 142/52 H Blood Pressure Mean 82 98 82 Pulse Ox 98 98 91 Oxygen Delivery Method Room Air Room Air Room Air 10/11/24 21:50 Temperature 98 F Temperature Source Pulse Rate 69 Respiratory Rate 27 H Respiratory Effort Respiratory Depth Respiratory Pattern Blood Pressure 149/66 H Blood Pressure Mean 93 Pulse Ox 97 Oxygen Delivery Method MDM <BIGG White - Last Filed: 10/11/24 20:21> [facility] Lab Data Labs: Laboratory Results - last 24 hr 10/11/24 10/11/24 15:05 15:28 WBC 8.3 RBC 4.56 Hgb 11.1 L Hct 37.0 MCV 81.1 MCH 24.3 L MCHC 30.0 L RDW Std Deviation 44.6 H RDW Coeff of Jeannie 15.3 H Plt Count 312 MPV 10.4 Immature Gran % (Auto) 0.600 Neut % (Auto) 82.9 H Lymph % (Auto) 6.4 L [place] % (Auto) 9.3 Eos % (Auto) 0.4 Baso % (Auto) 0.4 Absolute Neuts (auto) 6.9 Absolute Lymphs (auto) 0.53 L Nucleated RBC % 0 Differential Comment SEE COMMENT Platelet Estimate ADEQUATE RBC Morphology NORM C+C Anisocytosis RARE D-Dimer Quant (PE/DVT) 1.02 H* Sodium 132 L Potassium 3.6 Chloride 99 Carbon Dioxide 25.0 Anion Gap 8 BUN 19 H Creatinine 1.01 Estim Creat Clear Calc 32.97 Est GFR (MDRD) Af Amer 68 Est GFR (MDRD) Non-Af 56 L BUN/Creatinine Ratio 18.8 Glucose 114 H Calcium 8.6 Total Bilirubin 0.70 AST 23 ALT 23 Alkaline Phosphatase 57 Troponin I High Sens 25 Total Protein 7.0 Albumin 3.5 Globulin 3.5 Albumin/Globulin Ratio 1.0 Lipase 214 H Urine Color Yellow Urine Clarity Sl. Cloudy Urine pH 6.0 Ur Specific Brave 1.020 Urine Protein 30 H Urine Glucose (UA) Normal Urine Ketones 50 H Urine Occult Blood 25 H Urine Nitrite Negative Urine Bilirubin Negative Urine Urobilinogen Normal Ur Leukocyte Esterase 500 H Urine RBC 0-5 SEEN Urine WBC 25-50 SEEN Ur Squamous Epith Cells 0 SEEN Urine Bacteria 1+ Urine Mucus 1+ Radiography Diagnostic Testing: Clinical Impression(s) from Imaging Studies Abdomen/Pelvis CT 10/11/24 14:53 IMPRESSION: Mild biliary and pancreatic ductal dilatation. Distended stomach and duodenum with prominent air fluid levels. Wall thickening of the urinary bladder with pericystic stranding. Electronically Signed: Billy Underwood DO at 18:01 EST , Chest CTA 10/11/24 15:34 IMPRESSION: No demonstrated pulmonary embolism or arterial dissection. Electronically Signed: Billy Underwood DO at 17:19 EST , Treatment and Re-Evaluation :: Differential diagnosis includes however is not limited to: Worsening UTI, pyelonephritis, obstructing uropathy, bowel obstruction, DVT ACS, NM, community-acquired pneumonia, viral like symptoms. Patient appears generally well, vital signs are stable, patient is nontoxic-appearing. Presenting to the emergency department with complaints of shortness of breath, fatigue, abdominal pain. Patient has shows to be on Bactrim for last 3 days however unsure if she is taking it correctly. Patient will receive a full workup. Patient received a CT scan of the abdomen pelvis, chest x-ray, laboratory values including D-dimer troponin. These will be reviewed and compared to a couple days ago. All radiologic examinations were read, reviewed by the emergency department attending. From these reads, a plan of care will be put in place. Patient reevaluation was resting comfortably. Patient CBC was unremarkable, patient's D-dimer was elevated at 1.02, this will add a patient CTA of the chest, chest x-ray will be canceled. Basic chemistries shows a 132, BUN 19, creatinine is 1.01. Patient's lipase is elevated 214, when the patient was seen here 3 days ago, it was 83 which is slightly elevated. Patient's urinalysis remained infected with 1+ bacteria 25-50 white blood cells, 500 leukocytes. This is secondary to the patient not taking her antibiotics. Patient CTA of the chest was negative for any acute pulmonary embolus, CT scan of the abdomen pelvis did show a mild biliary and pancreatic ductal dilatation. Distended stomach and duodenum with prominent air-fluid levels. Wall thickening of the urinary bladder with pericystic stranding. Cellulitis finding, patient placed on IV Levaquin. Patient will need to be admitted to the hospital. I will reach out to the hospitalist. Hospitalist wanted me to consult surgery. I spoke with Dr. Chu, surgery recommended I transfer for the patient having abdominal pain, nausea and vomiting. I will currently try [facility]. Patient is agreeable. I spoke with transfer center, patient will be go ED to ED so that the surgery can see the patient. Spoke with the patient, she was given IV Zofran. Patient stable for admission. ER physician accepted the patient. <Dr. Jamal Delgado, DO - Last Filed: 10/12/24 01:37> MDM MDM Narrative Medical decision making narrative: Supervisory Physician Note Patient was seen and examined with the Advanced Practice Provider. Nursing notes and vital signs have been reviewed. Pertinent old records have been reviewed. I agree with the essential elements of the JONATHAN's history, physical exam, assessment, and plan. The differential diagnosis and management options were discussed with the JONATHAN. I participated in determining and agree with the management, procedures, final impression and disposition as documented. See changes noted by me. Please see addendum or separate note for any additional details. 79-year-old female with history of DVT, GI bleed presents for evaluation of shortness of breath and abdominal pain. Patient was recently in our emergency department and evaluated by me on 10/08. She complained of nausea, vomiting, body aches, and shortness of breath. She had extensive workup and was positive for UTI. Discharged home on Bactrim. Patient presents today for shortness of breath. Uncertain if taking Bactrim. Endorses worsening abdominal pain. Triage notes states that the patient appears confused however patient is alert and orient x 4. She is at her neurological baseline which is the same at when I saw her on 10/08. She is however a poor historian. Gen: A&O x3, NAD Head: Normocephalic, atraumatic Eyes: No sclera icterus, conjunctiva clear ENT: Mildly dry mucous membranes Neck: Trachea midline, No JVD CV: RRR, no murmurs, no peripheral edema Resp: Lungs CTA BL, no w/r/c GI: Abd soft, non-distended, mildly tender to palpation of the lower abdomen, no r/r/g Musc: Full ROM, no deformity Skin: Warm, dry Neuro: Alert, oriented, grossly intact, sensation intact Psych: Cooperative, appropriate mood and affect NS bolus, Zofran ordered for symptoms. CBC without leukocytosis. Baseline anemia. CMP without MENDOZA but mild hyponatremia. No transaminitis. Lipase elevated at 214. This is increased from 83. Troponin within normal limits. Patient not having chest pain. D-dimer elevated at 1.02. CTA chest ordered to evaluate for PE. CT abdomen pelvis shows mild biliary and pancreatic ductal dilation. Distended stomach and duodenum with prominent air-fluid levels. Wall thickening of the urinary bladder with pericystic stranding. CTA chest negative for PE. Patient's UA is positive for UTI. Unknown if patient has been taking her Bactrim. Allergic to penicillins. IV Levaquin ordered. Patient not having active emesis therefore NG not ordered. Patient will warrant admission and further workup for CT abdomen pelvis findings. Hospitalist recommended surgery consult prior to admission as patient may need transferred. Surgery felt like findings were likely chronic in nature however recommended transfer. Patient accepted at [facility]. Patient was transferred. Impression: 1. Mild biliary and pancreatic duct dilation 2. Distended stomach and duodenum with prominent air-fluid levels 3. Cystitis 4. Shortness of breath Lab Data Labs: Laboratory Results - last 24 hr 10/11/24 10/11/24 15:05 15:28 WBC 8.3 RBC 4.56 Hgb 11.1 L Hct 37.0 MCV 81.1 MCH 24.3 L MCHC 30.0 L RDW Std Deviation 44.6 H RDW Coeff of Jeannie 15.3 H Plt Count 312 MPV 10.4 Immature Gran % (Auto) 0.600 Neut % (Auto) 82.9 H Lymph % (Auto) 6.4 L [place] % (Auto) 9.3 Eos % (Auto) 0.4 Baso % (Auto) 0.4 Absolute Neuts (auto) 6.9 Absolute Lymphs (auto) 0.53 L Nucleated RBC % 0 Differential Comment SEE COMMENT Platelet Estimate ADEQUATE RBC Morphology NORM C+C Anisocytosis RARE D-Dimer Quant (PE/DVT) 1.02 H* Sodium 132 L Potassium 3.6 Chloride 99 Carbon Dioxide 25.0 Anion Gap 8 BUN 19 H Creatinine 1.01 Estim Creat Clear Calc 32.97 Est GFR (MDRD) Af Amer 68 Est GFR (MDRD) Non-Af 56 L BUN/Creatinine Ratio 18.8 Glucose 114 H Calcium 8.6 Total Bilirubin 0.70 AST 23 ALT 23 Alkaline Phosphatase 57 Troponin I High Sens 25 Total Protein 7.0 Albumin 3.5 Globulin 3.5 Albumin/Globulin Ratio 1.0 Lipase 214 H Urine Color Yellow Urine Clarity Sl. Cloudy Urine pH 6.0 Ur Specific Brave 1.020 Urine Protein 30 H Urine Glucose (UA) Normal Urine Ketones 50 H Urine Occult Blood 25 H Urine Nitrite Negative Urine Bilirubin Negative Urine Urobilinogen Normal Ur Leukocyte Esterase 500 H Urine RBC 0-5 SEEN Urine WBC 25-50 SEEN Ur Squamous Epith Cells 0 SEEN Urine Bacteria 1+ Urine Mucus 1+ Radiography Diagnostic Testing: Clinical Impression(s) from Imaging Studies Abdomen/Pelvis CT 10/11/24 14:53 IMPRESSION: Mild biliary and pancreatic ductal dilatation. Distended stomach and duodenum with prominent air fluid levels. Wall thickening of the urinary bladder with pericystic stranding. Electronically Signed: Billy Underwood DO at 18:01 EST Reading Location ID and State: [facility] / [place] Tel [phone], Service support , Chest CTA 10/11/24 15:34 IMPRESSION: No demonstrated pulmonary embolism or arterial dissection. Electronically Signed: Billy Underwood DO at 17:19 EST , Discharge Plan Triage Chief Complaint: Shortness of Breath ED Midlevel Provider: Memo Levy ED Provider: Jamal Delgado Dx/Rx/DC Orders Clinical Impression: Abdominal bloating, Nausea & vomiting, Weakness, Acute UTI Prescriptions: No Action amlodipine 5 mg Tablet 5 mg PO DAILY Qty: 30 2RF gabapentin 300 mg capsule 300 mg PO DAILY PRN alendronate 70 mg tablet 70 mg PO JEFFREY sulfamethoxazole-trimethoprim [Bactrim DS] 800-160 mg tablet 1 tab PO BID 7 Days Qty: 14 0RF ondansetron 4 mg tablet,disintegrating 4 mg PO Q8H PRN PRN (Reason: Nausea) Qty: 10 0RF Primary Care Provider: Hemant Parra Referrals: Hemant Parra MD [Primary Care Provider] - Print Language: Slovenian Disposition Disposition: Acute Care Hospital Discharge Location: [facility] Discharge Date/Time: 10/11/24 22:13
[2024-10-11] MEDS: Ondansetron 4 MG/2 ML Vial IV ×2 (15:16→20:04)
[2024-10-11 15:18] LABS: Absolute Lymphocyte Count 0.53 X10^3/uL (0.83-4.51); Absolute Neutrophil Count 6.9 X10^3/uL (2.0-7.7); Basophil# 0.03 X10^3/uL; Basophil% 0.4 % (0-1); Eosinophil# 0.03 X10^3/uL; Eosinophils% 0.4 % (0-5); Hemoglobin 11.1 g/dL (12.0-15.0); Lymphocyte # 0.53 X10^3/ul (0.83-4.51); Lymphocyte % 6.4 % (19-41); Mean Corpuscular Hgb 24.3 pg (27.0-32.0); Mean Corpuscular Volume 81.1 fL (81-99); Mean Platelet Vol. 10.4 fl (6.2-12.0); Monocyte# 0.77 X10^3/uL; Monocyte% 9.3 % (0-10); NRBC Flagged by Analyzer 0 % (0-5); Neutrophil # 6.88 X10^3/uL (2.7-7.7); Neutrophil % 82.9 % (47-70); POSITIVE DIFFERENTIAL YES; Platelet Count 312 K/mm3 (150-450); RBC Distribution Width CV 15.3 % (11.6-14.6); RBC Distribution Width SD 44.6 fl (35.1-43.9); Red Blood Count 4.56 M/mm3 (4.2-5.4); White Blood Count 8.3 K/mm3 (4.4-11.0)
[2024-10-11 15:34] LABS: D-Dimer Quantitative (DVT/PE) 1.02 FEU/ug/m (0.27-0.49)
--- NOTE | 2024-10-11 15:34 | CT_ITS ---
STUDY: CTA CHEST REASON FOR EXAM: Female, 79 years old. shortness of breath TECHNIQUE: The examination was performed with the intravenous administration of IV 100mL Isovue-370. Post-processing of the angiographic images was performed, with multiplanar reformation and 3D reconstruction. The protocol utilizes one or more of the following dose reduction techniques: automated exposure control, adjustment of mA and/or kV according to patient size,and/or use of iterative reconstruction technique. COMPARISON: FINDINGS: Normal enhancement of the main pulmonary artery and right and left pulmonary arteries. Normal enhancement of the bilateral peripheral pulmonary arteries. There is no demonstrated pulmonary embolism. Normal thoracic aorta and visualized great vessels. There is no demonstrated aortic dissection. Normal heart and pericardium. Normal mediastinum. Normal hilar regions. Normal visualized trachea and bronchi. The lungs are well expanded. Normal pulmonary parenchyma. Normal pleura. Normal chest wall structures. Degenerative changes. Normal visualized upper abdomen. CT/CTA Chest W/WO Contrast IMPRESSION: No demonstrated pulmonary embolism or arterial dissection. Electronically Signed: Billy Underwood DO at 17:19 EST Reading Location ID and State: [facility] / [place] Tel [phone], Service support ,
[2024-10-11 15:35] LABS: Squamous Epithelial Cells - UA 0 SEEN /hpf (5-10)
[2024-10-11 15:41] LABS: Color, Urine Yellow (Yellow); Glucose, Dipstick Normal (Normal); Ketone-Dipstick 50 mg/dl (Negative); Leukocyte Esterase-Dipstick 500 /ul (Negative); Nitrite-Dipstick Negative (Negative); Occult Blood-Urine 25 /ul (Negative); Protein-Dipstick 30 mg/dl (Negative); Urine Bilirubin Dipstick Negative (Negative); Urine Clarity Sl. Cloudy (Clear); Urine Urobilinogen Normal (Normal)
[2024-10-11 15:44] LABS: AST(SGOT) 23 U/L (15-37); Alanine Aminotransfer ALT/SGPT 23 U/L (13-56); Albumin, Serum 3.5 g/dL (3.2-5.0); Alkaline Phosphatase 57 U/L (45-117); Anion Gap 8 (5-15); BUN 19 mg/dL (7-18); BUN/Creat Ratio 18.8 RATIO (10-20); Calcium,Total 8.6 mg/dL (8.5-10.1); Chloride 99 mmol/L (98-107); Creatinine, Serum 1.01 mg/dL (0.55-1.02); Differential Indicated SCAN CRITERIA MET; EST Glomerular Filtration Rate 56 mL/min (>60); Est Glom Filt Rate - Afr Amer 68 mL/min (>60); Estimated Creatinine Clearance 32.97 ml/min; Globulin 3.5 g/dL (2.2-4.2); Glucose 114 mg/dL (74-106); Lipase 214 U/L (13-75); Potassium 3.6 mmol/L (3.5-5.1); Sodium Level 132 mmol/L (136-145); Troponin-I HS 25 pg/mL (3.0-54.0)
[2024-10-11 15:45] LABS: Platelet Estimate ADEQUATE (ADEQ)
[2024-10-11 15:46] LABS: Anisocytosis RARE; Red Cell Morphology NORM C+C NORMAL (NORM C&C)
[2024-10-11 15:56] LABS: Bacteria 1+ /hpf (None Seen); Mucous, Urine 1+ /hpf (<or=2+); Red Blood Cells-Urine 0-5 SEEN /hpf (0-5)
[2024-10-11 15:57] LABS: White Blood Cells 25-50 SEEN /hpf (0-5)
[2024-10-11] MEDS: 0.9% Normal Saline (1000mL) 1,000 ML 999 ML IV (16:03)
[2024-10-11] MEDS: levoFLOXacin IV 750 MG/150 ML BAG 100 MG IV (18:44)
[2024-10-11] MEDS: Dicyclomine 20 MG/2 ML Vial IM (20:41)
[2024-10-11] MEDS: Metoclopramide 10 MG/2 ML Vial 5 MG IV (21:54)
== END 2024-10-11 22:13 | disposition short-term general hospital (02) ==
PROVIDERS: Nurse Practitioner; Emergency Provider Surgery; PCP Family Medicine; Visit Provider Surgery
DX: K86.89 Other specified diseases of pancreas (principal); R11.2 Nausea with vomiting, unspecified; R14.0 Abdominal distension (gaseous); N30.90 Cystitis, unspecified without hematuria; T36.8X6A Underdosing of other systemic antibiotics, initial encounter; Z91.148 Patient's other noncompliance with medication regimen for other reason; R06.02 Shortness of breath; R53.1 Weakness; I10 Essential (primary) hypertension; Z79.899 Other long term (current) drug therapy; Z87.891 Personal history of nicotine dependence; Z86.718 Personal history of other venous thrombosis and embolism
CPT/HCPCS: 71275; 74177; 80053; 81001; 83690; 84484; 85025; 85379; 96361; 96365; 96366; 96372; 96375; 96376; 99285; P9612; Q9967; A4216; J2405

== ENCOUNTER 2024-12-26 14:28 | Emergency (ER) | payer MEDICARE, MEDICAID, SELFPAY ==
[2024-12-26] VITALS (33 sets, daily range): BP systolic 107–161; BP diastolic 45–133; PULSE 61–86; RESP 0–31; TEMP 36.4–36.6; O2SAT 92–98; BMI 21.7
--- NOTE | 2024-12-26 14:49 | CT_ITS ---
EXAM: CT BRAIN WITHOUT CONTRAST CLINICAL HISTORY: PATIENT FELL. HISTORY OF CERVICAL CANCER. COMPARISON: CT brain dated 06/29/2023. TECHNIQUE: Contiguous axial scans of 3.75 mm slice thicknesses with sagittal and coronal reconstruction images. One or more dose reduction techniques were utilized (e.g., automated exposure control, adjustment of mA and/or kv according to patient size, use of iterative reconstruction technique). FINDINGS: Cerebrum: No intraparenchymal hemorrhage. No abnormal areas of encephalomalacia. No mass effect or midline shift. Periventricular, central white matter, and subcortical hypoattenuation. Marked senescent change. Ventricles and cisterns: Appropriate size for patient's age. Extra-axial fluid: Unremarkable. Posterior fossa: Unremarkable cerebellum. No abnormalities involving the brainstem. Mild atrophy. Paranasal sinuses: Normal. Vasculature: Unremarkable. Mastoid air cells: Normal. Calvarium: Unremarkable. Soft tissues unremarkable. CT/Brain/Head without Contrast IMPRESSION: 1. Age-related microvascular ischemic changes. 2. Marked senescent change. 3. No acute intracranial abnormalities. Reading Location: [facility]
--- NOTE | 2024-12-26 14:49 | CT_ITS ---
PROCEDURE: ABDOMEN/PELVIS W IV CONT ONLY REASON FOR EXAM: 79-year-old female, fall with left-sided pain and lumbar pain/tenderness. History of cervical cancer. TECHNIQUE: Abdomen and pelvis CT with intravenous contrast. No oral contrast. IV CONTRAST: Isovue-300 COMPARISON: Same day CT chest, CT abdomen pelvis 10/11/2024. FINDINGS: Liver: Mild hepatomegaly without focal hepatic mass. The major portal veins are patent. No biliary ductal dilation. Gallbladder: Stable punctate cholelithiasis without gallbladder wall thickening or pericholecystic fluid. Spleen: Unremarkable. Pancreas: Stable mild dilation of the pancreatic duct. Adrenals: Stable thickening of the left adrenal gland without focal nodule. Unremarkable right adrenal gland. Kidneys: No hydronephrosis or nephrolithiasis. Bladder: Mildly distended. Reproductive Organs: Stable calcifications within the uterus. Bowel: Moderate distention of the transverse ileum. The bowel loops are nondilated. No ascites or pneumoperitoneum. Prior appendectomy. Lymph nodes: No suspicious lymph node enlargement. Vasculature: Severe calcific plaque throughout the aortoiliac vessels. Bones: Diffuse bone demineralization. Stable, near-complete collapse of the L4 vertebral body. Acute minimally displaced fractures of the bilateral L2 transverse processes. See separately dictated CT chest for discussion of rib fractures. CT/Abdomen/Pelvis W IV Cont ONLY IMPRESSION: 1. Acute, minimally displaced bilateral L2 transverse process fractures. See se parately dictated CT chest for discussion of rib fractures. 2. Stable near-complete collapse of the L4 vertebral body. 3. Mild hepatomegaly. 4. Stable cholelithiasis without evidence of acute cholecystitis. One or more dose reduction techniques were used (e.g., Automated exposure contr ol, adjustment of the mA and/or kV according to patient size, use of iterative reconstruction technique). Reading Location: [id number]
--- NOTE | 2024-12-26 14:49 | CT_ITS ---
PROCEDURE: CT CERVICAL SPINE WITHOUT CONTRAST REASON FOR EXAM: Trauma. Patient fell TECHNIQUE: Contiguous axial scans of 1.25 mm slice thicknesses. Sagittal and coronal reconstruction images were obtained. One or more dose reduction techniques were used (e.g., automated exposure control, adjustment of mA and/or kv according to patient size, use of iterative reconstruction technique). COMPARISON: None. FINDINGS: Alignment: Exaggerated lordosis. C1-C2: No acute fractures. Degenerative arthritic changes. Vertebrae: Loss of height of the C7 vertebra by least 25%. Spondylosis posteriorly at C3-C4. Facets: Multilevel facet arthropathy. Foramina: No foraminal narrowing. Soft Tissues: No large prevertebral hematoma Lung apices: A left apical pneumothorax of at least 15%. CT/Spine Cervical without Contras IMPRESSION: 1. Degenerative spondylosis. 2. Mild loss of height of the C7 vertebra. 3. Left apical PNEUMOTHORAX. Reading Location: [facility]
[2024-12-26] MEDS: Ondansetron 4 MG/2 ML Vial IV (15:06)
[2024-12-26] MEDS: fentaNYL 100 MCG/2 ML Ampul 25 MCG IV ×3 (15:06→18:45)
--- NOTE | 2024-12-26 15:07 | EDS_ITS ---
HPI History of Present Illness Chief Complaint: Fall Informant: patient Narrative Narrative: 79-year-old female had a fall at her home. She states she is not sure what happened or how she fell, thinks she tripped or slipped on a rug after getting into her apartment. She went to the grocery store and got home via taxi, and after she got home with her groceries and fell, she got up and went back outside to get her groceries and brought them in. She states she denies headache but mainly has pain in her left hip and left back. PFSH PFS Medical History Actinic keratosis Cutaneous horn Loss of hearing Wears glasses Wears dentures Post-menopausal History of GI bleed History of pain when walking History of edema History of echocardiogram Hypertension Squamous cell carcinoma of scalp Neoplasm of skin of scalp Osteoporosis Former smoker Endometrial cancer Cervical cancer Home Medications ?Medication ?Instructions ?Recorded ?Last Taken ?Type amlodipine 5 mg tablet 5 mg PO DAILY #30 tabs 01/1303/10/24 07:30 Rx gabapentin 300 mg capsule 300 mg PO DAILY PRN 01/14/24 01/25/24 History alendronate 70 mg tablet 70 mg PO JEFFREY 03/06/24 Unknown History ondansetron 4 mg disintegrating 4 mg PO Q8H PRN PRN Na usea #10 tabs 10/08/24 Unknown Rx tablet sulfamethoxazole 800 1 tab PO BID 7 days #14 tabs 10/08/24 Unknown Rx mg-trimethoprim 160 mg tablet (Bactrim DS) Allergy/AdvReac Type Severity Reaction Status Date / Time acetaminophen (From Percocet) Allergy Unknown Verified 12/26/24 14:30 ibuprofen (From Motrin) Allergy Unknown Verified 12/26/24 14:30 omega-3 acid ethyl esters Allergy Unknown Verified 12/26/24 14:30 oxycodone Allergy Unknown Verified 12/26/24 14:30 oxycodone HCl (From Percocet) Allergy Unknown Verified 12/26/24 14:30 Penicillins Allergy Unknown Verified 12/26/24 14:30 Surgical History History of excision of lesion Hx of tonsillectomy Hx of appendectomy Hx of colonoscopy Social History (Updated 10/08/24 @ 14:08 by Shnoda Walsh) household members: none Smoking Status: Former smoker substance use type: does not use ROS ROS ED Constitutional Constitutional ED: Denies chills or fever(s) Eyes Eyes: Denies change in vision or diplopia ENT ENT ED: Denies ear pain, epistaxis, facial pain or rhinorrhea Cardiovascular Cardiovascular: Denies chest pain or palpitations Respiratory/Chest Respiratory/Chest: Denies cough or dyspnea Gastrointestinal Gastrointestinal: Reports abdominal pain; Denies diarrhea, melena, nausea or vomiting Genitourinary Genitourinary ED: Denies dysuria or hematuria Musculoskeletal Musculoskeletal: Reports back pain and extremity pain; Denies neck pain Integumentary Denies abscess, Abrasions, laceration or rash Neurologic Neurologic: Denies confusion, headache(s), paresthesias or weakness EXAM Physical Exam Const Vital Signs: 12/26/24 14:30 12/26/24 14:34 12/26/24 16:53 Temperature 97.9 F Temperature Source Oral Pulse Rate 82 82 Respiratory Rate 18 25 H Respiratory Effort Normal Non-Labored Respiratory Depth Normal Respiratory Pattern Normal Blood Pressure 110/58 L Blood Pressure Mean 75 Pulse Ox 98 96 Oxygen Delivery Method Room Air EtCo2 (Normal 35-45 , high quality CPR 10-20 & ROSC>/=40mmHg 12/26/24 16:58 12/26/24 17:00 Temperature Temperature Source Pulse Rate 86 Respiratory Rate 20 H Respiratory Effort Respiratory Depth Respiratory Pattern Blood Pressure Blood Pressure Mean Pulse Ox 95 Oxygen Delivery Method EtCo2 (Normal 35-45 , high quality CPR 10-20 & ROSC>/=40mmHg 37 Positive well nourished and well developed General Appearance ED: well developed and NAD HEENT Reports TM's clear and nasal mucous membranes and turbinates normal HEENT Narrative: Scar on left anteroparietal scalp. atraumatic Face and Sinus: Negative for facial tenderness Tympanic Membrane ED: Yes TM's clear Eyes PERRL and EOMs intact bilaterally Visual Acuity: other Other Details: no entrapment or pain with extraocular movements Neck full ROM and supple General: Negative for tenderness Chest Wall inspection of chest normal and palpation of chest normal Chest Narrative: Tender in the left lower rib cage Chest: symmetrical chest wall rise and tenderness; Negative for crepitus Resp normal respiratory effort and clear to auscultation bilaterally Percussion: other equal BS bilat Cardio no murmurs Rate: regular rate Rhythm: regular rhythm GI normal to inspection, nondistended, normoactive bowel sounds and soft to palpation GI Narrative: Tender throughout left abdomen with some voluntary guarding patient, no crepitance in the rib cage Back/Spine Back/Spine Narrative: Limited range of motion due to pain about the low back. Tender left paraspinal, SI joint area, and midline. No step-off or obvious signs of fracture. No signs of trauma. Cervical Spine: Negative for cervical spine tenderness Thoracic Spine / Upper Back: Negative for thoracic spinal tenderness Lumbar Spine / Lower Back: lumbar spinal tenderness Extremity Extremity Narrative: Tender in the left greater trochanter. The ASIS is mildly tender, but the pelvis is stable to AP compression. In comparing the patella of both sides, she appears to have some left lower extremity shortening but is holding in normal position, symmetric. There is pain with any external/internal rotation about the left hip, and she has very limited range of motion. Neurovascular intact distally. Full range of motion of the other 3 extremities. General Extremety ED: Yes tenderness Neuro oriented x3, CN's II-XII intact bilaterally, moves all extremities, no focal motor deficits and no sensory deficits noted [place] Coma Scale: document GCS findings Spontaneous Obeys Commands Oriented 15 Sensorium / Orientation: awake and alert Psych mental status grossly normal and thought process normal Skin no wounds Lesions: no lesions Rashes: no rashes PROC Procedures Other Procedures Procedure(s): Left thoracostomy: After informed consent from the patient, she was prepped and draped in a sterile fashion, pretreated with fentanyl 25 mcg IV, then locally anesthetized at the left midclavicular line second intercostal space with 3 cc of plain 1% lidocaine, and via Seldinger technique, 8 [place] pneumothorax catheter was inserted while aspirating, when air was obtained the pneumothorax catheter was advanced and the needle was removed. I again verified after placing stopcock that I was able to aspirate air, no blood, a Heimlich valve was placed to the stopcock and secured with suturing in place as well as a piece of iodoform Vaseline gauze. Chest x-ray 1 view on my interpretation shows possible improvement, no worsening of the pneumothorax, the catheter appears to be in good position in the apex, it is difficult to evaluate changes in size of the apical pneumothorax since it was so small. She tolerated well with no complications. MDM MDM MDM Narrative Medical decision making narrative: Unclear if patient hit her head or not she has no obvious outward signs of trauma, and her lungs are clear and equal and she is in no respiratory distress or hypoxic. She is not tachycardic and her vital signs are stable. Therefore initially started with CT of the head and cervical spine given her age and amnesia, screening chest x-ray, left hip x-ray in addition to a CT of the abdomen/pelvis which would include the hip and the lumbar spine. My interpretation the chest x-ray appears to show a pneumothorax which was verified on the CT cervical spine. Since she was stable, prior to placing a thoracostomy I sent her for CT of the chest to evaluate for further intrathoracic injury and for more detailed images of her rib cage. With regards to the left hip x-rays, 3 views of my interpretation show no acute fractures. I also do not see any obvious displaced hip or femoral neck fracture on the CT. She appears to have collapsed compression fracture of L4, but upon reviewing images on a prior CT of the abdomen/pelvis in October of last year, this is old and stable. I see no evidence of an intra-abdominal injury. There is a delay on the CT abdomen/pelvis interpretation, and the read is still not back. Prior to performing thoracostomy, I sent her for CT to get a better evaluation of the extent of her thoracic injuries, my interpretation it shows several posterior left-sided lower rib fractures which explains her back pain, and the small pneumothorax which was much smaller than expected, just apical. I reviewed the radiology interpretation which I agree with. Patient has been n.p.o. for approximately 9 hours, so we maintained this gave her some fluids, pain medication prior to procedure for thoracostomy see the procedure note. She did not require procedural sedation just local anesthesia and did well. However, with any movement she is in too much pain in her low back to go home or even get out of bed, despite several doses of fentanyl. I discussed with surgery Dr. Velazco, who states since the patient is in too much pain to go home and has 4 sequential rib fractures, recommends transfer to a trauma center the patient chooses [facility]. Accepted to the ED there by Dr. De La Rosa. Patient is doing well clinically with normal vital signs and she is able to breathe with minimal discomfort. There is some type of problem with regards to the report from radiology on the abdominal/pelvis CT. I spoke with the radiology technicians, they are in the process of trying to get the interpretation, but at this time it is over 4 hours since the images have been obtained and I still do not have an interpretation so I have to go by my own interpretation there. Lab Data Attestation: I reviewed the patient's lab results. Labs: Laboratory Results - last 24 hr 12/26/24 15:00 WBC 15.9 H RBC 3.98 L Hgb 9.3 L Hct 31.2 L MCV 78.4 L MCH 23.4 L MCHC 29.8 L RDW Std Deviation 48.2 H RDW Coeff of Jeannie 17.0 H Plt Count 272 MPV 10.1 Immature Gran % (Auto) 0.800 Neut % (Auto) 88.5 H Lymph % (Auto) 4.0 L [place] % (Auto) 6.3 Eos % (Auto) 0.1 Baso % (Auto) 0.3 Absolute Neuts (auto) 14.1 H Absolute Lymphs (auto) 0.63 L Nucleated RBC % 0 Radiography Diagnostic Testing: Clinical Impression(s) from Imaging Studies Brain CT 12/26/24 14:49 IMPRESSION: 1. Age-related microvascular ischemic changes. 2. Marked senescent change. 3. No acute intracranial abnormalities. Reading Location: [facility] Cervical Spine CT 12/26/24 14:49 IMPRESSION: 1. Degenerative spondylosis. 2. Mild loss of height of the C7 vertebra. 3. Left apical PNEUMOTHORAX. Reading Location: [facility] Chest X-Ray 12/26/24 15:35 IMPRESSION: At least a 10% left lung pneumothorax. Reading Location: [facility] Hip/Pelvis X-Ray 12/26/24 15:35 IMPRESSION: No acute fractures or other osseous abnormalities. Reading Location: [facility] Chest CT 12/26/24 16:57 IMPRESSION: 1. Small left apical pneumothorax, stable since same day chest radiograph. Acute multifocal rib fracture deformities of the left posterior 9th-12th ribs. 2. Scattered bibasilar consolidations with centrilobular nodules and tree-in-bud opacities, most compatible with pneumonitis/aspiration pneumonia. 3. Prior TEVAR of the aortic root with severe coronary artery, thoracic aortic and mitral annular calcifications. One or more dose reduction techniques were used (e.g., Automated exposure control, adjustment of the mA and/or kV according to patient size, use of iterative reconstruction technique). Reading Location: [facility] Management Discussion w/another healthcare provider: [employer] (Surgery) Critical Care Time Critical Care Time: Yes Critical care time (excluding procedures): 30-74 minutes (38 min, not including procedure time), Including time spent:, Discussing w/Patient &/or Family/Humane Agent, Discussing w/Consultants, Arranging Admission or Transfer and Performing Direct Patient Care at Bedside Discharge Plan Triage Chief Complaint: Fall Other Complaint: Abd Pain ED Provider: Shree Muniz Dx/Rx/DC Orders Clinical Impression: Traumatic fracture of ribs of left side with pneumothorax, Injury of hip, left, Fall from slip, trip, or stumble, Intractable back pain Prescriptions: No Action amlodipine 5 mg Tablet 5 mg PO DAILY Qty: 30 2RF gabapentin 300 mg capsule 300 mg PO DAILY PRN alendronate 70 mg tablet 70 mg PO JEFFREY sulfamethoxazole-trimethoprim [Bactrim DS] 800-160 mg tablet 1 tab PO BID 7 Days Qty: 14 0RF ondansetron 4 mg tablet,disintegrating 4 mg PO Q8H PRN PRN (Reason: Nausea) Qty: 10 0RF Primary Care Provider: Hemant Parra Referrals: Hemant Parra MD [Primary Care Provider] - Print Language: Latvian Disposition Disposition: Acute Care Hospital Discharge Location: [facility]
[2024-12-26 15:10] LABS: Absolute Lymphocyte Count 0.63 X10^3/uL (0.83-4.51); Absolute Neutrophil Count 14.1 X10^3/uL (2.0-7.7); Basophil# 0.05 X10^3/uL; Basophil% 0.3 % (0-1); Eosinophil# 0.02 X10^3/uL; Eosinophils% 0.1 % (0-5); Hematocrit 31.2 % (37-47); Hemoglobin 9.3 g/dL (12.0-15.0); Lymphocyte # 0.63 X10^3/ul (0.83-4.51); Mean Corp Hgb Conc 29.8 g/dL (32-36); Mean Corpuscular Hgb 23.4 pg (27.0-32.0); Mean Corpuscular Volume 78.4 fL (81-99); Mean Platelet Vol. 10.1 fl (6.2-12.0); Monocyte% 6.3 % (0-10); NRBC Flagged by Analyzer 0 % (0-5); Neutrophil # 14.06 X10^3/uL (2.7-7.7); Neutrophil % 88.5 % (47-70); Platelet Count 272 K/mm3 (150-450); RBC Distribution Width SD 48.2 fl (35.1-43.9); Red Blood Count 3.98 M/mm3 (4.2-5.4); White Blood Count 15.9 K/mm3 (4.4-11.0)
--- NOTE | 2024-12-26 15:35 | RAD_ITS ---
PROCEDURE: CHEST 1 VIEW (PORTABLE) REASON FOR EXAM: PATIENT FELL. PAIN. TECHNIQUE: Frontal view of the chest. COMPARISON: Chest dated 10/08/2024. FINDINGS: Left lung apical pneumothorax of at least 10%. The heart size is normal. No mediastinal widening. No hilar masses. Aorta is atherosclerotic and tortuous. Stent graft at the aortic root. Cardiac monitoring leads overlie the chest wall. RAD/Chest 1 View (Portable) IMPRESSION: At least a 10% left lung pneumothorax. Reading Location: [facility]
--- NOTE | 2024-12-26 15:35 | RAD_ITS ---
PROCEDURE: AP PELVIS AND LEFT HIP REASON FOR EXAM: PATIENT FELL TODAY. LEFT HIP PAIN. TECHNIQUE: AP pelvis and two views of the left hip. COMPARISON: None. FINDINGS: No fracture. No suspicious bone lesion. Mild spurring of the greater trochanter. Normal alignment. Soft tissues are unremarkable. Phleboliths in the pelvis. Lower lumbar spondylosis. RAD/HIP, UNI W/ Pelvis 2-3 Views IMPRESSION: No acute fractures or other osseous abnormalities. Reading Location: [facility]
--- NOTE | 2024-12-26 16:57 | CT_ITS ---
PROCEDURE: CHEST WITHOUT CONTRAST REASON FOR EXAM: 79-year-old female, trauma/fall, left back pain, pneumothorax. TECHNIQUE: Chest CT without contrast. COMPARISON: Same day chest radiograph, CTA chest 10/11/2024. FINDINGS: Hardware: None. Lymph nodes: Visualization is limited without the use of IV contrast. No mediastinal, hilar or axillary lymphadenopathy. Heart and Vasculature: Normal heart size. No pericardial effusion. Prior TEVAR of the aortic root. Severe coronary artery, thoracic aortic and mitral annular calcifications. Lungs and Airways: Visualization of the lung parenchyma is limited by motion artifact. The central airways are patent. Unchanged small left apical pneumothorax. Scattered consolidation with small centrilobular nodules and tree-in-bud opacities within the bibasilar lungs. Mild thickening of the left lower pleura, likely secondary to acute rib fractures. Bones: Acute multifocal fracture deformities of the left posterior 9th-12th ribs. Thoracolumbar spondylosis with chronic multilevel vertebral body height loss. CT/Chest without Contrast IMPRESSION: 1. Small left apical pneumothorax, stable since same day chest radiograph. Acu te multifocal rib fracture deformities of the left posterior 9th-12th ribs. 2. Scattered bibasilar consolidations with centrilobular nodules and tree-in-bu d opacities, most compatible with pneumonitis/aspiration pneumonia. 3. Prior TEVAR of the aortic root with severe coronary artery, thoracic aortic and mitral annular calcifications. One or more dose reduction techniques were used (e.g., Automated exposure contr ol, adjustment of the mA and/or kV according to patient size, use of iterative reconstruction technique). Reading Location: [id number]
[2024-12-26] MEDS: Lidocaine 1% (20 ml mdv) 20 ML Vial 10 ML INFILT (19:08)
[2024-12-26 19:46] LABS: Anion Gap 4 (5-15); BUN 24 mg/dL (7-18); Calcium,Total 9.1 mg/dL (8.5-10.1); Chloride 103 mmol/L (98-107); Creatinine, Serum 0.92 mg/dL (0.55-1.02); EST Glomerular Filtration Rate 62 mL/min (>60); Est Glom Filt Rate - Afr Amer 76 mL/min (>60); Glucose 109 mg/dL (74-106); Sodium Level 138 mmol/L (136-145)
--- NOTE | 2024-12-26 20:05 | RAD_ITS ---
PROCEDURE: CHEST 1 VIEW (PORTABLE) REASON FOR EXAM: 79-year-old female, status post left thoracostomy tube placement for pneumothorax. TECHNIQUE: Frontal view of the chest. COMPARISON: Same day chest radiograph and CT chest. FINDINGS: Interval left pigtail thoracostomy tube placement within the mid/upper left lung zone. Decreased conspicuity of the left pneumothorax. Aortic root endovascular graft. Contrast opacifies the bilateral renal collecting systems. The heart size is normal. Bibasilar consolidations, better evaluated on same-day CT chest. No pleural effusion. Acute left posterior rib fracture deformities are better evaluated on same-day CT chest. Degenerative changes are identified within the thoracic spine. RAD/Chest 1 View (Portable) IMPRESSION: Interval left pigtail thoracostomy tube as described. Additional findings as d escribed, better evaluated on same-day CT chest. Reading Location: [id number]
[2024-12-26] MEDS: Morphine 4 MG/ML Syringe IV (22:32)
--- NOTE | 2024-12-26 23:51 | ED.RN ---
this RN attempted to call report and was put on hold for 6 min. This RN will try to call again later.
[2024-12-27] VITALS: BP 122/47; PULSE 61; RESP 13; O2SAT 96
[2024-12-27 00:15] VITALS: BP 132/54; PULSE 64; RESP 17; O2SAT 97
[2024-12-27 00:30] VITALS: BP 134/52
[2024-12-27] MEDS: Morphine 4 MG/ML Syringe IV (00:49)
--- NOTE | 2024-12-27 00:58 | ED.RN ---
This RN called report to Noe WARD
== END 2024-12-27 00:58 | disposition short-term general hospital (02) ==
PROVIDERS: Emergency Medicine; Emergency Provider Emergency Medicine; PCP Family Medicine; Visit Provider Emergency Medicine
DX: S22.42XA Multiple fractures of ribs, left side, initial encounter for closed fracture (principal); S32.029A Unspecified fracture of second lumbar vertebra, initial encounter for closed fracture; S27.0XXA Traumatic pneumothorax, initial encounter; M25.552 Pain in left hip; I10 Essential (primary) hypertension; W18.09XA Striking against other object with subsequent fall, initial encounter; Y92.039 Unspecified place in apartment as the place of occurrence of the external cause; Z87.891 Personal history of nicotine dependence
CPT/HCPCS: 32551; 70450; 71045; 71250; 72125; 73502; 74177; 80048; 85025; 96374; 96375; 96376; 99285; Q9967; A4216; J2405